=== PATIENT | male | born 1955 | race African-American/Black ===

== ENCOUNTER 2017-07-24 19:09 | Inpatient (IN) | payer OTHER ==
[~2017-07-24] VITALS: Ht 182.9 cm; Wt 101.6 kg
[2017-07-24 19:37] VITALS: BP 135/76
--- NOTE | 2017-07-24 19:41 | Emergency Room Report ---
History of Present Illness General Chief Complaint: Abnormal Labs Source: Medical Record Present Illness HPI Patient presents from nursing facility with reports of anemia Patient himself is nonverbal Patient does have eyes open however not able to communicate Patient has a tracheostomy vent dependent It was reported to have significantly low hemoglobin Nursing facility reports general malaise no obvious blood in the stool No reports of vomiting patient does have a feeding tube in place History of present illness is significantly limited Allergies: Coded Allergies: No Known Allergies (Unverified , 07/24/17) Patient History Limited by: medical condition Past Medical History: see triage record Pertinent Family History: none Reviewed Nursing Documentation: PMH: Agreed; PSxH: Agreed Nursing Documentation-PMH Past Medical History: No History, Except For Hx Hypertension: Yes Hx Gastrointestinal Problems: Yes - G-tube, Dysphagia, GERD Hx Dialysis: No - [facility] Hx Cerebrovascular Accident: Yes - Intracerebral Hemorrhage, Cerebral edema, Coma Hx Seizures: Yes Review of Systems All Other Systems: limited - Other than the ones mentioned in the history of present illness all others are reviewed however they do stay limited due to the patient's mental status Physical Exam Vital Signs Date Time Temp Pulse Resp B/P (MAP) Pulse Ox O2 Delivery O2 Flow Rate FiO2 07/24/17 19:05 98.5 135 24 173/109 95 Trach Collar 6.0 98.4 Sp02 EP Interpretation: reviewed, normal General Appearance: no apparent distress Head: normocephalic, atraumatic Eyes: bilateral eye PERRL ENT: normal pharynx Neck: other - Tracheostomy in place no obvious crepitus Respiratory: lungs clear, normal breath sounds Cardiovascular #1: regular rate, rhythm, edema - Dependent edema Gastrointestinal: other - Patient's abdomen palpated was somewhat distended, patient did not grimace however the feeding tube is open to gravity to decompress Genitourinary: no CVA tenderness Musculoskeletal: other - Patient does not follow commands contracted in both lower extremities Neurologic: responsive - Responsive has eyes open however nonverbal, does not follow commands Skin: normal color, no rash Lymphatic: no adenopathy Medical Decision Making Diagnostic Impression: Primary Impression: Elevated troponin Additional Impressions: Anemia Leukocytosis ER Course Patient is a fairly complex patient with multiple differential to consideration including but not limited to cardiac cardiopulmonary and vascular emergencies Patient's hemoglobin here is 8.6 Patient not requiring acute emergency transfusion hour troponin and BNP are elevated Patient's white blood cell count is also elevated Patient has concerning findings and requires further inpatient care Labs Test 07/24/17 19:23 07/24/17 21:16 07/24/17 22:12 07/25/17 08:45 Prothrombin Time 11.4 SEC (9.30-11.50) Prothromb Time International Ratio 1.1 (0.9-1.1) Activated Partial Thromboplast Time 21 SEC (23-33) Sodium Level 137 MMOL/L (136-145) 137 MMOL/L (136-145) Potassium Level 3.8 MMOL/L (3.5-5.1) 3.7 MMOL/L (3.5-5.1) Chloride Level 98 MMOL/L (98-107) 98 MMOL/L (98-107) Carbon Dioxide Level 36 MMOL/L (21-32) 32 MMOL/L (21-32) Anion Gap 3 mmol/L (5-15) 7 mmol/L (5-15) Blood Urea Nitrogen 16 mg/dL (7-18) 13 mg/dL (7-18) Creatinine 0.7 MG/DL (0.55-1.30) 0.6 MG/DL (0.55-1.30) Estimat Glomerular Filtration Rate > 60 mL/min (>60) > 60 mL/min (>60) Glucose Level 141 MG/DL (74-106) 101 MG/DL (74-106) Calcium Level 9.0 MG/DL (8.5-10.1) 8.7 MG/DL (8.5-10.1) Total Bilirubin 0.3 MG/DL (0.2-1.0) Aspartate Amino Transf (AST/SGOT) 48 U/L (15-37) Alanine Aminotransferase (ALT/SGPT) 80 U/L (12-78) Alkaline Phosphatase 249 U/L (46-116) Total Creatine Kinase 45 U/L (26-308) Creatine Kinase MB < 0.5 NG/ML (0.0-3.6) Creatine Kinase MB Relative Index 1.1 Troponin I 0.068 ng/mL (0.000-0.056) 0.078 ng/mL (0.000-0.056) Pro-B-Type Natriuretic Peptide 1348 pg/mL (0-125) Total Protein 8.1 G/DL (6.4-8.2) Albumin 2.2 G/DL (3.4-5.0) Globulin 5.9 g/dL Albumin/Globulin Ratio 0.4 (1.0-2.7) White Blood Count 15.2 K/UL (4.8-10.8) 14.0 K/UL (4.8-10.8) Red Blood Count 3.26 M/UL (4.70-6.10) 3.36 M/UL (4.70-6.10) Hemoglobin 8.6 G/DL (14.2-18.0) 9.0 G/DL (14.2-18.0) Hematocrit 25.8 % (42.0-52.0) 26.7 % (42.0-52.0) Mean Corpuscular Volume 79 FL (80-99) 79 FL (80-99) Mean Corpuscular Hemoglobin 26.3 PG (27.0-31.0) 26.7 PG (27.0-31.0) Mean Corpuscular Hemoglobin Concent 33.2 G/DL (32.0-36.0) 33.6 G/DL (32.0-36.0) Red Cell Distribution Width 15.3 % (11.6-14.8) 14.9 % (11.6-14.8) Platelet Count 513 K/UL (150-450) 606 K/UL (150-450) Mean Platelet Volume 7.5 FL (6.5-10.1) 7.7 FL (6.5-10.1) Neutrophils (%) (Auto) 81.8 % (45.0-75.0) 83.5 % (45.0-75.0) Lymphocytes (%) (Auto) 6.3 % (20.0-45.0) 6.7 % (20.0-45.0) Monocytes (%) (Auto) 5.3 % (1.0-10.0) 6.2 % (1.0-10.0) Eosinophils (%) (Auto) 4.4 % (0.0-3.0) 2.8 % (0.0-3.0) Basophils (%) (Auto) 2.2 % (0.0-2.0) 0.8 % (0.0-2.0) Urine Color Yellow Urine Appearance Slightly cloudy Urine pH 7 (4.5-8.0) Urine Specific [place] 1.005 (1.005-1.035) Urine Protein 2+ (NEGATIVE) Urine Glucose (UA) Negative (NEGATIVE) Urine Ketones Negative (NEGATIVE) Urine Occult Blood 1+ (NEGATIVE) Urine Nitrite Negative (NEGATIVE) Urine Bilirubin Negative (NEGATIVE) Urine Urobilinogen 4 MG/DL (0.0-1.0) Urine Leukocyte Esterase 1+ (NEGATIVE) Urine RBC 2-4 /HPF (0 - 0) Urine WBC 0-2 /HPF (0 - 0) Urine Squamous Epithelial Cells None /LPF (NONE/OCC) Urine Bacteria Few /HPF (NONE) EKG Diagnostic Results Rate: normal Rhythm: NSR ST Segments: other - Nonspecific ST and T-wave changes Rhythm Strip Diag. Results EP Interpretation: yes Rate: 88 Rhythm: NSR, no PVC's, no ectopy Chest X-Ray Diagnostic Results Chest X-Ray Diagnostic Results : Chest X-Ray Ordered: Yes # of Views/Limited/Complete: 1 View Indication: Chest Pain EP Interpretation: Yes Interpretation: no pneumothorax, other - Cardiomegaly pulmonary congestion bilateral flaring Impression: Other - CHF Last Vital Signs Date Time Temp Pulse Resp B/P (MAP) Pulse Ox O2 Delivery O2 Flow Rate FiO2 07/24/17 19:05 98.5 135 24 173/109 95 Trach Collar 6.0 98.4 Status: improved Disposition: ADMITTED INPATIENT Condition: Serious Jey Monroy DO Jul 24, 2017 19:41
[2017-07-24 20:20] LABS: ANION GAP 3 mmol/L (5-15); BLOOD UREA NITROGEN 16 mg/dL (7-18); CARBON DIOXIDE 36 MMOL/L (21-32); CHLORIDE 98 MMOL/L (98-107); CREATININE 0.7 MG/DL (0.55-1.30); POTASSIUM 3.8 MMOL/L (3.5-5.1); SODIUM 137 MMOL/L (136-145)
[2017-07-24 20:27] LABS: INR 1.1 (0.9-1.1)
[2017-07-24 20:39] LABS: ALANINE AMINOTRANSFERASE 80 U/L (12-78); ALBUMIN 2.2 G/DL (3.4-5.0); ALBUMIN/GLOBULIN RATIO 0.4 (1.0-2.7); ALKALINE PHOSPHATASE 249 U/L (46-116); ASPARTATE AMINO TRANSFERASE 48 U/L (15-37); BILIRUBIN,TOTAL 0.3 MG/DL (0.2-1.0); CKMB < 0.5 NG/ML (0.0-3.6); CREATINE KINASE 45 U/L (26-308)
[2017-07-24 21:27] VITALS: BP 136/74
[2017-07-24 21:41] LABS: BASOPHILS % (AUTO) 2.2 % (0.0-2.0); EOSINOPHILS % (AUTO) 4.4 % (0.0-3.0); HEMATOCRIT 25.8 % (42.0-52.0); HEMOGLOBIN 8.6 G/DL (14.2-18.0); LYMPHOCYTES % (AUTO) 6.3 % (20.0-45.0); MEAN CORPUSCULAR VOLUME 79 FL (80-99); MONOCYTES % (AUTO) 5.3 % (1.0-10.0); NEUTROPHILS % (AUTO) 81.8 % (45.0-75.0); PLATELET COUNT 513 K/UL (150-450); RED BLOOD COUNT 3.26 M/UL (4.70-6.10); RED CELL DISTRIBUTION WIDTH 15.3 % (11.6-14.8); WHITE BLOOD COUNT 15.2 K/UL (4.8-10.8)
[2017-07-24] MEDS ORDERED: cefTRIAXone 1 GM in NS 55 ML IVPB ONE (22:15)
[2017-07-24 22:42] LABS: APPEARANCE,URINE SLIGHTLY CLOUDY; BILIRUBIN, URINE NEGATIVE (NEGATIVE); GLUCOSE, URINE (UA) NEGATIVE (NEGATIVE); KETONES,URINE NEGATIVE (NEGATIVE); LEUKOCYTE ESTERASE ,URINE 1+ (NEGATIVE); NITRITE,URINE NEGATIVE (NEGATIVE); PH,URINE 7 (4.5-8.0); PROTEIN,URINE 2+ (NEGATIVE); UROBILINOGEN,URINE 4 MG/DL (0.0-1.0)
[2017-07-24 22:44] LABS: COLOR,URINE YELLOW
[2017-07-24 22:49] VITALS: BP 151/72
[2017-07-24] MEDS ORDERED: MINOXIDIL10 MG GT (23:03)
[2017-07-24] MEDS ORDERED: DULCOLAX10 MG RC (23:03)
[2017-07-24] MEDS ORDERED: ZOFRAN4 M3 GT (23:03)
[2017-07-24] MEDS ORDERED: BACLOFEN10 MG GT (23:03)
[2017-07-24] MEDS ORDERED: MULTI-DELYN237 ML GT (23:03)
[2017-07-24] MEDS ORDERED: DULCOLAX STOOL100 M1 PO (23:03)
[2017-07-24] MEDS ORDERED: LEVETIRACE100 MG/1 M GT (23:03)
[2017-07-24] MEDS ORDERED: ZINC SULFATE220 M1 GT (23:03)
[2017-07-24] MEDS ORDERED: AMANTADINE50 MG/5 ML GT (23:03)
[2017-07-24] MEDS ORDERED: COLACE100 MG GT (23:03)
[2017-07-24] MEDS ORDERED: FLEET ENEMA133 ML RECTAL (23:03)
[2017-07-24] MEDS ORDERED: MILK OF MA400 MG/51 GT (23:03)
[2017-07-24] MEDS ORDERED: UTI-STAT L3875 MG/31 GT (23:03)
[2017-07-24] MEDS ORDERED: LEVOTHYROXINE50 MCG GT (23:03)
[2017-07-24] MEDS ORDERED: LOVENOX10 M4 SUBQ (23:03)
[2017-07-24] MEDS ORDERED: VITAMIN C500 MG/11 GT (23:03)
[2017-07-24] MEDS ORDERED: PROPRANOLOL HCL40 MG GT (23:03)
[2017-07-24] MEDS ORDERED: CHLORHEXIDINE473 ML MM (23:03)
[2017-07-24] MEDS ORDERED: FERROUS SU325 MG/5 M GT (23:03)
[2017-07-24] MEDS ORDERED: PROTONIX40 M2 GT (23:03)
[2017-07-24] MEDS ORDERED: ACETAMINOP160 MG/5 M ORAL (23:03)
[2017-07-24] MEDS ORDERED: AMLODIPINE BESY10 MG GT (23:03)
[2017-07-24] MEDS ORDERED: UTI-STAT L3875 MG/31 PO (23:03)
[2017-07-24] MEDS ORDERED: FLUDROCORTISON0.1 MG GT (23:03)
[2017-07-24 23:55] VITALS: BP 146/87
[2017-07-25 04:00] VITALS: BP 135/55
[2017-07-25] MEDS ORDERED: Docusate 100mg cap ORAL PRN (07:00)
[2017-07-25] MEDS ORDERED: Acetaminophen Soln 160mg/5ml ORAL PRN (07:00)
[2017-07-25] MEDS ORDERED: Milk of Magnesia 30ml Ud GT PRN ×2 (07:00→21:00)
[2017-07-25] MEDS ORDERED: Fleet's Enema 133ml RECTAL PRN (07:00)
[2017-07-25 08:00] VITALS: BP 150/79
[2017-07-25] MEDS ORDERED: Vancomycin 1.5 GM/D5W 250ML IVPB ONE (08:00)
--- NOTE | 2017-07-25 08:04 | History & Physical ---
History and Physical History & Physicial Patient presents from nursing facility with significant anemia No reports of vomiting of blood or rectal bleeding; patient does have a feeding tube in place SNF notes reviewed Allergies: No Known Allergies (Unverified , 07/24/17) Past Medical History: GT trach dysphagia, CVA, renal insuff, ICH, coma, seizure , hypertension Pertinent Family History: none Reviewed of systems: unable Physical WDWN NAD clear breath sounds bilaterally without rhonchi or wheeze [id number] without MRG NABS nontender no HSM no CCE trach and gt nonverbal Laboratory Tests Test 07/24/17 19:23 07/24/17 21:16 07/24/17 22:12 Prothrombin Time 11.4 SEC (9.30-11.50) Prothromb Time International Ratio 1.1 (0.9-1.1) Activated Partial Thromboplast Time 21 SEC (23-33) L Sodium Level 137 MMOL/L (136-145) Potassium Level 3.8 MMOL/L (3.5-5.1) Chloride Level 98 MMOL/L (98-107) Carbon Dioxide Level 36 MMOL/L (21-32) H Anion Gap 3 mmol/L (5-15) L Blood Urea Nitrogen 16 mg/dL (7-18) Creatinine 0.7 MG/DL (0.55-1.30) Estimat Glomerular Filtration Rate > 60 mL/min (>60) Glucose Level 141 MG/DL (74-106) H Calcium Level 9.0 MG/DL (8.5-10.1) Total Bilirubin 0.3 MG/DL (0.2-1.0) Aspartate Amino Transf (AST/SGOT) 48 U/L (15-37) H Alanine Aminotransferase (ALT/SGPT) 80 U/L (12-78) H Alkaline Phosphatase 249 U/L (46-116) H Total Creatine Kinase 45 U/L (26-308) Creatine Kinase MB < 0.5 NG/ML (0.0-3.6) Creatine Kinase MB Relative Index 1.1 Troponin I 0.068 ng/mL (0.000-0.056) Pro-B-Type Natriuretic Peptide 1348 pg/mL (0-125) H Total Protein 8.1 G/DL (6.4-8.2) Albumin 2.2 G/DL (3.4-5.0) L Globulin 5.9 g/dL Albumin/Globulin Ratio 0.4 (1.0-2.7) L White Blood Count 15.2 K/UL (4.8-10.8) H Red Blood Count 3.26 M/UL (4.70-6.10) L Hemoglobin 8.6 G/DL (14.2-18.0) L Hematocrit 25.8 % (42.0-52.0) L Mean Corpuscular Volume 79 FL (80-99) L Mean Corpuscular Hemoglobin 26.3 PG (27.0-31.0) L Mean Corpuscular Hemoglobin Concent 33.2 G/DL (32.0-36.0) Red Cell Distribution Width 15.3 % (11.6-14.8) H Platelet Count 513 K/UL (150-450) H Mean Platelet Volume 7.5 FL (6.5-10.1) Neutrophils (%) (Auto) 81.8 % (45.0-75.0) H Lymphocytes (%) (Auto) 6.3 % (20.0-45.0) L Monocytes (%) (Auto) 5.3 % (1.0-10.0) Eosinophils (%) (Auto) 4.4 % (0.0-3.0) H Basophils (%) (Auto) 2.2 % (0.0-2.0) H Urine Color Yellow Urine Appearance Slightly cloudy Urine pH 7 (4.5-8.0) Urine Specific [place] 1.005 (1.005-1.035) Urine Protein 2+ (NEGATIVE) H Urine Glucose (UA) Negative (NEGATIVE) Urine Ketones Negative (NEGATIVE) Urine Occult Blood 1+ (NEGATIVE) H Urine Nitrite Negative (NEGATIVE) Urine Bilirubin Negative (NEGATIVE) Urine Urobilinogen 4 MG/DL (0.0-1.0) H Urine Leukocyte Esterase 1+ (NEGATIVE) H Urine RBC 2-4 /HPF (0 - 0) H Urine WBC 0-2 /HPF (0 - 0) Urine Squamous Epithelial Cells None /LPF (NONE/OCC) Urine Bacteria Few /HPF (NONE) IMPRESSION Leukocytosis anemia possible sepsis possible gib trach gt PLAN monitor HH IV antibiotics resume meds respiratory care feeds dc once stable impression, plan, and exam edited and reviewed in detail care discussed with MARY SCHAFFER Jul 25, 2017 08:04
--- NOTE | 2017-07-25 09:06 | Diagnostic Imaging Report ---
Indication: Chest pain Technique: One view of the chest Comparison: none Findings: The heart is enlarged. There is bilateral interstitial and airspace edema. There is a left-sided pleural effusion. There is a tracheostomy. There is left sided ventriculoperitoneal shunt tubing present Impression: Cardiomegaly. Bilateral interstitial and airspace disease, probably on the basis of pulmonary edema Left pleural effusion
[2017-07-25] MEDS: Docusate 100mg/10ml Liq GT SCH (09:22)
[2017-07-25] MEDS: Zinc Sulfate 220mg cap GT SCH (09:22)
[2017-07-25] MEDS: levETIRAcetam 500mg/5ml Liquid GT SCH ×2 (09:22→21:11)
[2017-07-25] MEDS: Ferrous Sulfate 300 MG/5 ML UDC GT SCH (09:22)
[2017-07-25 09:25] LABS: BASOPHILS % (AUTO) 0.8 % (0.0-2.0); EOSINOPHILS % (AUTO) 2.8 % (0.0-3.0); HEMATOCRIT 26.7 % (42.0-52.0); LYMPHOCYTES % (AUTO) 6.7 % (20.0-45.0); MEAN CORPUSCULAR VOLUME 79 FL (80-99); MONOCYTES % (AUTO) 6.2 % (1.0-10.0); NEUTROPHILS % (AUTO) 83.5 % (45.0-75.0); PLATELET COUNT 606 K/UL (150-450); RED BLOOD COUNT 3.36 M/UL (4.70-6.10); RED CELL DISTRIBUTION WIDTH 14.9 % (11.6-14.8)
[2017-07-25 09:41] LABS: ANION GAP 7 mmol/L (5-15); BLOOD UREA NITROGEN 13 mg/dL (7-18); CALCIUM 8.7 MG/DL (8.5-10.1); CARBON DIOXIDE 32 MMOL/L (21-32); CHLORIDE 98 MMOL/L (98-107); CREATININE 0.6 MG/DL (0.55-1.30); POTASSIUM 3.7 MMOL/L (3.5-5.1); SODIUM 137 MMOL/L (136-145)
[2017-07-25] MEDS: Propranolol 40mg tab GT SCH ×3 (10:21→21:12)
[2017-07-25] MEDS: Minoxidil 10mg tab GT SCH ×2 (10:21→18:47)
[2017-07-25] MEDS: Enoxaparin 40mg Inj SUBQ SCH (10:23)
--- NOTE | 2017-07-25 10:44 | Diagnostic Imaging Report ---
Indication: Dyspnea Technique: One view of the chest Comparison: 07/24/2017 Findings: Bilateral interstitial and airspace opacities appear definitely improved on the right, probably unchanged on the left. Left-sided pleural effusion persists. Tracheostomy, ventriculoperitoneal shunt tubing again demonstrated Impression: Bilateral interstitial and airspace opacities, likely pulmonary edema, improved on the right and stable on the left, over one day Stable left pleural effusion
[2017-07-25 12:00] VITALS: BP 135/82
[2017-07-25] MEDS: Piperacillin/Tazobactam 3.375 GM in D5W 110 ML IVPB SCH ×2 (12:24→21:11)
--- NOTE | 2017-07-25 13:42 | Cardiology Report ---
APPROVED REPORT EKG Measurement Heart [id number] Normal sinus rhythm Possible Left atrial enlargement Left ventricular hypertrophy Abnormal ECG
[2017-07-25 16:00] VITALS: BP 126/65
[2017-07-25] MEDS: Vancomycin 750mg/NS 250ml IVPB SCH (16:07)
[2017-07-25 20:00] VITALS: BP 161/85
[2017-07-25] MEDS ORDERED: Zolpidem 5mg tab GT PRN (21:00)
[2017-07-25] MEDS ORDERED: Tubing IV Secondary IV ONE (22:53)
[2017-07-26] VITALS: BP 150/84
[2017-07-26] MEDS: Vancomycin 750mg/NS 250ml IVPB SCH ×3 (00:52→17:18)
[2017-07-26 04:00] VITALS: BP 156/82
[2017-07-26] MEDS: Propranolol 40mg tab GT SCH ×3 (07:01→22:00)
[2017-07-26] MEDS: Piperacillin/Tazobactam 3.375 GM in D5W 110 ML IVPB SCH ×3 (07:02→22:01)
[2017-07-26 08:00] VITALS: BP 143/84
--- NOTE | 2017-07-26 08:06 | General Progress Note ---
Assessment/Plan Assessment/Plan IMPRESSION Leukocytosis anemia possible sepsis possible gib trach gt PLAN monitor HH IV antibiotics resume meds respiratory care feeds dc fluids conservative management impression, plan, and exam edited and reviewed in detail care discussed with RN Subjective Allergies: Coded Allergies: No Known Allergies (Unverified , 07/24/17) Subjective minimally elevated troponin stable no hemodynamic abnormalities Objective Last 24 Hour Vital Signs Date Time Temp Pulse Resp B/P (MAP) Pulse Ox O2 Delivery O2 Flow Rate FiO2 07/26/17 07:01 114 156/82 07/26/17 04:00 98.6 115 24 156/82 95 Trach Collar 5.0 35 98.6 115 115 07/26/17 04:00 114 07/26/17 04:00 5.0 35 07/26/17 01:17 T-piece 10.0 35 07/26/17 01:17 96 T-piece 10.0 35 07/26/17 00:00 111 07/26/17 00:00 100.4 110 22 150/84 94 Trach Collar 5.0 35 100.4 110 110 07/26/17 00:00 5.0 35 07/25/17 21:29 97 T-piece 10.0 35 07/25/17 21:12 121 161/85 07/25/17 20:00 113 07/25/17 20:00 99.9 121 23 161/85 94 Trach Collar 5.0 35 99.9 121 121 07/25/17 20:00 5.0 35 07/25/17 19:00 97 22 T-piece 10.0 35 07/25/17 19:00 T-piece 10.0 35 07/25/17 18:47 126/65 07/25/17 16:00 5.0 35 07/25/17 16:00 115 07/25/17 16:00 97.2 106 19 126/65 95 Trach Collar 5.0 35 97.2 93 104 07/25/17 14:43 113 135/82 07/25/17 13:10 T-piece 10.0 35 07/25/17 13:09 113 22 T-piece 10.0 35 07/25/17 12:00 5.0 35 07/25/17 12:00 110 07/25/17 12:00 98.4 106 20 135/82 96 Trach Collar 5.0 35 98.4 93 104 07/25/17 10:21 123 150/79 07/25/17 10:21 150/79 07/25/17 09:23 123 150/79 Intake and Output 07/25/17 07/26/17 19:00 07:00 Intake Total 1497.334 ml 909.96 ml Output Total 425 ml 450 ml Balance 1072.334 ml 459.96 ml Intake Free Water 100 ml IV Total 1297.334 ml 449.96 ml Tube Feeding 150 ml 360 ml Other 50 ml Output Urine Total 425 ml 450 ml Laboratory Tests 07/25/17 08:45: White Blood Count 14.0H, Red Blood Count 3.36L, Hemoglobin 9.0L, Hematocrit 26.7L, Mean Corpuscular Volume 79L, Mean Corpuscular Hemoglobin 26.7L, Mean Corpuscular Hemoglobin Concent 33.6, Red Cell Distribution Width 14.9H, Platelet Count 606H, Mean Platelet Volume 7.7, Neutrophils (%) (Auto) 83.5H, Lymphocytes (%) (Auto) 6.7L, Monocytes (%) (Auto) 6.2, Eosinophils (%) (Auto) 2.8, Basophils (%) (Auto) 0.8, Sodium Level 137, Potassium Level 3.7, Chloride Level 98, Carbon Dioxide Level 32, Anion Gap 7, Blood Urea Nitrogen 13, Creatinine 0.6, Estimat Glomerular Filtration Rate > 60, Glucose Level 101, Calcium Level 8.7, Troponin I 0.078H 07/26/17 07:25: Vancomycin Level Trough 14.5H Height (Feet): 5 Height (Inches): 10.00 Weight (Pounds): 193 Objective WDWN trach reduced breath sounds bilaterally without rhonchi or wheeze [id number] without MRG NABS nontender no HSM; GT no CC minimal edema weak MARY WILEY Jul 26, 2017 08:06
[2017-07-26 09:57] LABS: HEMATOCRIT 25.6 % (42.0-52.0); HEMOGLOBIN 8.4 G/DL (14.2-18.0); MEAN CORPUSCULAR VOLUME 79 FL (80-99); PLATELET COUNT 668 K/UL (150-450); RED BLOOD COUNT 3.23 M/UL (4.70-6.10); RED CELL DISTRIBUTION WIDTH 15.2 % (11.6-14.8); WHITE BLOOD COUNT 17.3 K/UL (4.8-10.8)
[2017-07-26] MEDS: Docusate 100mg/10ml Liq GT SCH (09:59)
[2017-07-26] MEDS: levETIRAcetam 500mg/5ml Liquid GT SCH ×2 (09:59→20:33)
[2017-07-26] MEDS: Ferrous Sulfate 300 MG/5 ML UDC GT SCH (09:59)
[2017-07-26] MEDS: Enoxaparin 40mg Inj SUBQ SCH (10:00)
[2017-07-26 10:02] LABS: ANION GAP 8 mmol/L (5-15); BLOOD UREA NITROGEN 14 mg/dL (7-18); CALCIUM 8.6 MG/DL (8.5-10.1); CARBON DIOXIDE 31 MMOL/L (21-32); CHLORIDE 100 MMOL/L (98-107); CREATININE 0.8 MG/DL (0.55-1.30); POTASSIUM 3.5 MMOL/L (3.5-5.1); SODIUM 139 MMOL/L (136-145)
[2017-07-26] MEDS: Zinc Sulfate 220mg cap GT SCH (10:02)
[2017-07-26] MEDS: Minoxidil 10mg tab GT SCH ×2 (10:02→17:20)
[2017-07-26 12:00] VITALS: BP 142/80
[2017-07-26 16:00] VITALS: BP 130/71
[2017-07-26] MEDS ORDERED: NS 275ml ONE (16:32)
[2017-07-26] MEDS: Acetaminophen 650mg/20.3ml GT PRN (17:17)
[2017-07-26 20:00] VITALS: BP 136/75
[2017-07-27] VITALS: BP 140/76
[2017-07-27] MEDS: Vancomycin 750mg/NS 250ml IVPB SCH ×4 (00:04→23:22)
[2017-07-27] MEDS: Albuterol/Ipratropium 3ml neb HHN SCH ×6 (03:19→23:17)
[2017-07-27 04:00] VITALS: BP 132/76
[2017-07-27 04:50] LABS: HEMATOCRIT 23.5 % (42.0-52.0); HEMOGLOBIN 7.8 G/DL (14.2-18.0); MEAN CORPUSCULAR VOLUME 78 FL (80-99); PLATELET COUNT 606 K/UL (150-450); RED BLOOD COUNT 3.01 M/UL (4.70-6.10); RED CELL DISTRIBUTION WIDTH 15.2 % (11.6-14.8); WHITE BLOOD COUNT 17.4 K/UL (4.8-10.8)
[2017-07-27 05:19] LABS: ANION GAP 10 mmol/L (5-15); BLOOD UREA NITROGEN 17 mg/dL (7-18); CALCIUM 8.8 MG/DL (8.5-10.1); CARBON DIOXIDE 28 MMOL/L (21-32); CHLORIDE 101 MMOL/L (98-107); CREATININE 0.9 MG/DL (0.55-1.30); POTASSIUM 3.4 MMOL/L (3.5-5.1); SODIUM 139 MMOL/L (136-145)
[2017-07-27] MEDS: Piperacillin/Tazobactam 3.375 GM in D5W 110 ML IVPB SCH ×4 (05:21→23:22)
[2017-07-27] MEDS: Propranolol 40mg tab GT SCH ×3 (05:22→21:11)
--- NOTE | 2017-07-27 07:11 | General Progress Note ---
Assessment/Plan Assessment/Plan IMPRESSION Leukocytosis anemia possible sepsis possible gib trach gt PLAN transfuse ID evaluation IV antibiotics resume meds respiratory care feeds replace K follow up labs conservative management impression, plan, and exam edited and reviewed in detail care discussed with RN Subjective Allergies: Coded Allergies: No Known Allergies (Unverified , 07/24/17) Subjective labs noted stable no hemodynamic abnormalities Objective Last 24 Hour Vital Signs Date Time Temp Pulse Resp B/P (MAP) Pulse Ox O2 Delivery O2 Flow Rate FiO2 07/27/17 06:49 T-piece 10.0 35 07/27/17 06:49 96 T-piece 10.0 35 07/27/17 06:46 62 24 96 T-piece 10.0 35 07/27/17 05:22 105 136/72 07/27/17 04:00 109 07/27/17 04:00 98.2 110 23 132/76 96 Trach Collar 5.0 35 98.2 07/27/17 04:00 5.0 35 07/27/17 03:30 109 22 97 T-piece 10.0 35 07/27/17 03:18 109 24 95 T-piece 10.0 35 07/27/17 00:01 97 T-piece 10.0 35 07/27/17 00:01 T-piece 10.0 35 07/27/17 00:00 95 07/27/17 00:00 5.0 35 07/27/17 00:00 98.4 98 23 140/76 97 Trach Collar 5.0 35 98.4 07/26/17 22:00 77 119/77 07/26/17 20:00 109 07/26/17 20:00 100.0 107 23 136/75 97 Trach Collar 5.0 35 100.0 07/26/17 20:00 5.0 35 07/26/17 19:06 T-piece 10.0 35 07/26/17 19:05 95 T-piece 10.0 35 07/26/17 17:47 98.2 07/26/17 17:20 130/71 07/26/17 17:17 99.2 07/26/17 16:00 98.7 109 20 130/71 95 Trach Collar 5.0 35 98.7 07/26/17 16:00 109 07/26/17 16:00 5.0 35 07/26/17 13:20 114 142/80 4/25/18 13:07 T-piece 10.0 35 07/26/17 13:06 96 T-piece 10.0 35 07/26/17 12:00 99.3 115 19 142/80 95 Trach Collar 5.0 35 99.3 07/26/17 12:00 5.0 35 07/26/17 12:00 114 07/26/17 10:02 143/84 07/26/17 10:01 107 143/84 07/26/17 09:28 T-piece 10.0 35 07/26/17 09:28 92 T-piece 10.0 35 07/26/17 08:00 98.7 107 19 143/84 99 Trach Collar 5.0 35 98.7 07/26/17 08:00 5.0 35 07/26/17 08:00 109 Intake and Output 07/26/17 07/27/17 19:00 07:00 Intake Total 1550.418 ml 1093.2 ml Output Total 525 ml Balance 1025.418 ml 1093.2 ml Intake Free Water 100 ml 50 ml IV Total 1000.418 ml 443.2 ml Tube Feeding 450 ml 600 ml Output Urine Total 525 ml Laboratory Tests 07/26/17 07:25: White Blood Count 17.3H, Red Blood Count 3.23L, Hemoglobin 8.4L, Hematocrit 25.6L, Mean Corpuscular Volume 79L, Mean Corpuscular Hemoglobin 26.0L, Mean Corpuscular Hemoglobin Concent 32.9, Red Cell Distribution Width 15.2H, Platelet Count 668H, Mean Platelet Volume 6.9, Neutrophils (%) (Auto) , Lymphocytes (%) (Auto) , Monocytes (%) (Auto) , Eosinophils (%) (Auto) , Basophils (%) (Auto) , Differential Total Cells Counted 100, Neutrophils % ( Manual) 84H, Lymphocytes % (Manual) 6L, Monocytes % (Manual) 8, Eosinophils % ( Manual) 2, Basophils % (Manual) 0, Band Neutrophils 0, Platelet Estimate IncreasedH, Platelet Morphology Normal, Hypochromasia 1+, Anisocytosis 1+, Microcytosis 1+, Stomatocytes Occasional, Sodium Level 139, Potassium Level 3.5 , Chloride Level 100, Carbon Dioxide Level 31, Anion Gap 8, Blood Urea Nitrogen 14, Creatinine 0.8, Estimat Glomerular Filtration Rate > 60, Glucose Level 145H , Calcium Level 8.6, Vancomycin Level Trough 14.5H 07/26/17 21:13: Arterial Blood pH 7.480H, Arterial Blood Partial Pressure CO2 43.4, Arterial Blood Partial Pressure O2 75.8, Arterial Blood HCO3 31.8H, Arterial Blood Oxygen Saturation 93.9, Arterial Blood Base Excess 7.6, Aleks Test Positive 07/27/17 04:05: White Blood Count 17.4H, Red Blood Count 3.01L, Hemoglobin 7.8L, Hematocrit 23.5L, Mean Corpuscular Volume 78L, Mean Corpuscular Hemoglobin 25.7L, Mean Corpuscular Hemoglobin Concent 33.0, Red Cell Distribution Width 15.2H, Platelet Count 606H, Mean Platelet Volume 7.1, Neutrophils (%) (Auto) , Lymphocytes (%) (Auto) , Monocytes (%) (Auto) , Eosinophils (%) (Auto) , Basophils (%) (Auto) , Neutrophils % (Manual) [Pending], Lymphocytes % (Manual) [Pending], Platelet Estimate [Pending], Platelet Morphology [Pending], Sodium Level 139, Potassium Level 3.4L, Chloride Level 101, Carbon Dioxide Level 28, Anion Gap 10, Blood Urea Nitrogen 17, Creatinine 0.9, Estimat Glomerular Filtration Rate > 60, Glucose Level 177H, Calcium Level 8.8, Troponin I 0.058H Height (Feet): 5 Height (Inches): 10.00 Weight (Pounds): 218 Objective WDWN trach reduced breath sounds bilaterally without rhonchi or wheeze [id number] without MRG NABS nontender no HSM; GT no CC minimal edema weak MARY WILEY Jul 27, 2017 07:11
[2017-07-27 08:00] VITALS: BP 140/99
[2017-07-27] MEDS: Docusate 100mg/10ml Liq GT SCH (09:20)
[2017-07-27] MEDS: Ferrous Sulfate 300 MG/5 ML UDC GT SCH (09:20)
[2017-07-27] MEDS: Minoxidil 10mg tab GT SCH ×2 (09:20→18:24)
[2017-07-27] MEDS: Enoxaparin 40mg Inj SUBQ SCH (09:21)
[2017-07-27] MEDS: Zinc Sulfate 220mg cap GT SCH (09:22)
[2017-07-27] MEDS: levETIRAcetam 500mg/5ml Liquid GT SCH ×2 (09:22→21:11)
[2017-07-27] MEDS: Acetaminophen 650mg/20.3ml GT PRN (11:41)
[2017-07-27 12:00] VITALS: BP 141/70
--- NOTE | 2017-07-27 14:46 | Diagnostic Imaging Report ---
Indication: Dyspnea Technique: One view of the chest Comparison: 07/25/2017 Findings: There is a tracheostomy. There is left-sided ventriculoperitoneal shunt tubing again demonstrated. Hazy left lung opacity persists, likely secondary to a left-sided pleural effusion, unchanged. Mild interstitial congestive changes persist, stable. The heart remains borderline enlarged. Impression: Unchanged, over one day, findings as above.
[2017-07-27 16:00] VITALS: BP 131/74
--- NOTE | 2017-07-27 17:45 | Consultation ---
DATE OF CONSULTATION: 07/27/2017 INFECTIOUS DISEASES CONSULTATION CONSULTING PHYSICIAN: Maikel Camargo M.D. REFERRING PHYSICIAN: Michael Vernon M.D. REASON FOR CONSULTATION: Leukocytosis. HISTORY OF PRESENTING ILLNESS: This is a 62-year-old gentleman with history of CVA, intracranial hypertension, seizures, and status post tracheostomy, who comes in with anemia. He was found to have a leukocytosis and an Infectious Diseases consultation has been obtained for antibiotics. PAST MEDICAL HISTORY: 1. History of CVA. 2. Intracranial hypertension. 3. Seizures. 4. Hypertension. 5. Renal failure. 6. Respiratory failure, status post tracheostomy, on a T-tube currently. 7. Dysphagia status post G-tube placement. MEDICATIONS: As an inpatient, the patient is on albuterol, Ambien, milk of magnesia, intravenous vancomycin, Zosyn, amlodipine, baclofen, docusate, enoxaparin, ferrous sulfate, fludrocortisone, Keppra, Synthroid, minoxidil, propranolol, zinc sulfate, Tylenol, Dulcolax, Colace, milk of magnesia, and Zofran. ALLERGIES: No known drug allergies. SOCIAL HISTORY: Unknown. FAMILY HISTORY: Unknown. REVIEW OF SYSTEMS: Unable to obtain currently. PHYSICAL EXAMINATION: VITAL SIGNS: Temperature of 99.3, T-max of 100.4, pulse of 103, respiratory rate of 22, blood pressure 140/99, and O2 saturation of 98%. HEENT: Pupils equally reactive to light and accommodation. Mouth appears clean with no thrush. NECK: Supple. No adenopathy. No JVD. Tracheostomy site appears clean. CARDIOVASCULAR: Regular rate and rhythm. No murmurs. LUNGS: Wheezing and crackles noted bilaterally. ABDOMEN: Soft and nontender. No organomegaly. G-tube site appears clean. EXTREMITIES: No cyanosis. No clubbing. Edema noted bilaterally. LABORATORY AND DIAGNOSTIC DATA: White count 17.4, hemoglobin 7.8, hematocrit 23.5, MCV 78, platelet count of 606,000, and neutrophils of 88%. Sodium 139, potassium 3.4, chloride 101, bicarb 28, BUN 17, creatinine 0.9, glucose 177, and calcium 8.8. Troponin 0.058. Total bilirubin 0.3. AST 48, ALT 80, and alkaline phosphatase 249. CK of 45 and CK-MB less than 0.5. Total protein 8.1. Albumin 2.2. UA is showing 0 to 2 white cells. Wound culture from the sacrum is growing gram-negative rods. Nasal swab was negative for MRSA. Chest x-ray is showing bilateral interstitial and airspace opacities, likely pulmonary edema, which is improved and stable left-sided pleural effusion noted. On 07/24/2017, chest x-ray is showing bilateral interstitial and airspace disease probably pulmonary edema and left-sided pleural effusion noted. ASSESSMENT: This is a 62-year-old gentleman with history of cerebrovascular accident and seizures, who comes in with leukocytosis and could possibly, 1. Have an aspiration pneumonia. 2. We would like to rule out gastrointestinal bleeding as a possibility. 3. Anemia. 4. Respiratory failure, status post tracheostomy. Currently, on gastrostomy tube. PLAN: 1. Continue vancomycin and Zosyn for now. 2. We will order urine cultures and sputum cultures. 3. We will follow up cultures and adjust antibiotics accordingly. 4. Continue vancomycin and Zosyn. I would like to thank, Dr. Vernon for this consultation. Maikel Camargo M.D. DR: VIDAL JOB#: [id number] CC: Michael Vernon M.D.; Fax#: [phone]
[2017-07-27 20:00] VITALS: BP 134/75
--- NOTE | 2017-07-27 23:47 | Wound Care Consultation ---
Wound Assessment Wound Assessment : Wound Present on Admission: Yes New Wound: No Status Change of Wound: No Wound Location Body Site Modif: left Wound Location Body Site: sacral Wound Type: pressure ulcer Mel Test: Does not Mel Pressure Ulcer Stage: III Wound Thickness: Full Thickness Wound Length: 2.5 Wound Width: 3.0 Wound Depth: utd Percent of Wound [place]/Red: 20 Percent of Wound Bed Yellow/Wh: 80 Wound Drainage Description: Serosanguineous Wound Drainage Amount: Scant Wound Drainage Odor: None/Absent Tissue Surrounding Wound: Indurated Wound General Appearance: Reddened, Draining Wound Comment #1 Left sacral area stage III pressure ulcer Recommendation -Keep clean and dry -Local wound care per protocol -Low air loss mattress -Optimize nutrition -Assess and f/u accordingly for any changes MARLINE MCINTOSH RN Jul 27, 2017 23:47
[2017-07-28] VITALS: BP 144/84
[2017-07-28 04:00] VITALS: BP 138/82
[2017-07-28] MEDS: Albuterol/Ipratropium 3ml neb HHN SCH ×5 (04:06→20:49)
[2017-07-28] MEDS: Piperacillin/Tazobactam 3.375 GM in D5W 110 ML IVPB SCH ×3 (05:25→22:57)
[2017-07-28] MEDS: Propranolol 40mg tab GT SCH ×3 (05:25→22:57)
[2017-07-28 05:58] LABS: ANION GAP 9 mmol/L (5-15); BLOOD UREA NITROGEN 21 mg/dL (7-18); CALCIUM 8.5 MG/DL (8.5-10.1); CARBON DIOXIDE 28 MMOL/L (21-32); CHLORIDE 102 MMOL/L (98-107); CREATININE 0.9 MG/DL (0.55-1.30); POTASSIUM 3.7 MMOL/L (3.5-5.1); SODIUM 139 MMOL/L (136-145)
[2017-07-28 06:20] LABS: HEMATOCRIT 28.6 % (42.0-52.0); HEMOGLOBIN 9.7 G/DL (14.2-18.0); MEAN CORPUSCULAR VOLUME 80 FL (80-99); PLATELET COUNT 621 K/UL (150-450); RED BLOOD COUNT 3.56 M/UL (4.70-6.10); RED CELL DISTRIBUTION WIDTH 14.7 % (11.6-14.8)
[2017-07-28 08:00] VITALS: BP 134/77
--- NOTE | 2017-07-28 08:04 | General Progress Note ---
Assessment/Plan Assessment/Plan IMPRESSION Leukocytosis anemia possible sepsis possible gib trach gt PLAN transfused ID evaluation noted IV antibiotics resume meds respiratory care feeds dc once wbc trending downward conservative management impression, plan, and exam edited and reviewed in detail care discussed with RN Subjective ROS Limited/Unobtainable: Yes Allergies: Coded Allergies: No Known Allergies (Unverified , 07/24/17) Subjective labs noted still with leukocytosis no hemodynamic abnormalities Objective Last 24 Hour Vital Signs Date Time Temp Pulse Resp B/P (MAP) Pulse Ox O2 Delivery O2 Flow Rate FiO2 07/28/17 07:35 102 22 96 T-piece 10.0 35 07/28/17 07:32 96 T-piece 10.0 35 07/28/17 07:32 T-piece 10.0 35 07/28/17 05:25 108 138/82 07/28/17 04:00 98.8 108 24 138/82 98 Trach Collar 5.0 40 98.8 07/28/17 04:00 112 20 98 T-piece 10.0 35 07/28/17 04:00 5.0 35 07/28/17 04:00 110 20 97 T-piece 10.0 35 07/28/17 03:37 109 07/28/17 01:53 T-piece 10.0 35 07/28/17 01:53 98 T-piece 10.0 35 07/28/17 00:00 98.1 105 24 144/84 93 Trach Collar 5.0 40 98.1 07/27/17 23:36 106 07/27/17 23:18 90 20 96 T-piece 10.0 35 07/27/17 23:18 94 20 98 T-piece 10.0 35 07/27/17 21:11 104 134/75 07/27/17 20:00 5.0 35 07/27/17 20:00 98.4 104 23 134/75 92 Trach Collar 5.0 40 98.4 07/27/17 19:48 T-piece 10.0 35 07/27/17 19:48 99 T-piece 10.0 35 07/27/17 19:47 99 20 99 T-piece 10.0 35 07/27/17 19:46 96 20 98 T-piece 10.0 35 07/27/17 19:15 101 07/27/17 18:24 126/73 07/27/17 16:00 98.4 94 24 131/74 94 Trach Collar 5.0 40 98.4 07/27/17 16:00 5.0 35 07/27/17 16:00 92 07/27/17 15:20 95 28 97 T-piece 10.0 35 07/27/17 15:10 95 28 96 T-piece 10.0 35 07/27/17 13:44 108 141/70 07/27/17 13:29 T-piece 10.0 35 07/27/17 13:29 98 T-piece 10.0 35 07/27/17 12:11 99.6 07/27/17 12:00 99.5 109 24 141/70 96 Trach Collar 5.0 40 99.5 07/27/17 12:00 108 07/27/17 12:00 5.0 35 07/27/17 11:41 100.5 07/27/17 10:46 107 28 98 T-piece 10.0 35 07/27/17 10:35 108 28 94 T-piece 10.0 35 07/27/17 09:22 103 140/99 07/27/17 09:20 140/99 Intake and Output 07/27/17 07/28/17 19:00 07:00 Intake Total 730 ml 1199.900 ml Output Total 400 ml 350 ml Balance 330 ml 849.900 ml Intake Free Water 20 ml 30 ml IV Total 404.900 ml Tube Feeding 660 ml 715 ml Other 50 ml 50 ml Output Urine Total 400 ml 350 ml # Voids 1 Laboratory Tests 07/28/17 04:15: White Blood Count 18.0H, Red Blood Count 3.56L, Hemoglobin 9.7L, Hematocrit 28.6L, Mean Corpuscular Volume 80, Mean Corpuscular Hemoglobin 27.1, Mean Corpuscular Hemoglobin Concent 33.7, Red Cell Distribution Width 14.7, Platelet Count 621H, Mean Platelet Volume 7.1, Neutrophils (%) (Auto) , Lymphocytes (%) ( Auto) , Monocytes (%) (Auto) , Eosinophils (%) (Auto) , Basophils (%) (Auto) , Neutrophils % (Manual) [Pending], Lymphocytes % (Manual) [Pending], Platelet Estimate [Pending], Platelet Morphology [Pending], Sodium Level 139, Potassium Level 3.7, Chloride Level 102, Carbon Dioxide Level 28, Anion Gap 9, Blood Urea Nitrogen 21H, Creatinine 0.9, Estimat Glomerular Filtration Rate > 60, Glucose Level 163H, Calcium Level 8.5 Height (Feet): 5 Height (Inches): 10.00 Weight (Pounds): 219 Objective WDWN trach reduced breath sounds bilaterally without rhonchi or wheeze [id number] without MRG NABS nontender no HSM; GT no CC minimal edema weak MARY WILEY Jul 28, 2017 08:04
[2017-07-28] MEDS: Vancomycin 750mg/NS 250ml IVPB SCH ×2 (08:44→18:20)
[2017-07-28] MEDS: Docusate 100mg/10ml Liq GT SCH (08:49)
[2017-07-28] MEDS: Ferrous Sulfate 300 MG/5 ML UDC GT SCH (08:49)
[2017-07-28] MEDS: Minoxidil 10mg tab GT SCH ×2 (08:50→18:21)
[2017-07-28] MEDS: levETIRAcetam 500mg/5ml Liquid GT SCH ×2 (08:51→20:43)
[2017-07-28] MEDS: Enoxaparin 40mg Inj SUBQ SCH (08:55)
[2017-07-28] MEDS: Zinc Sulfate 220mg cap GT SCH (08:55)
[2017-07-28] MEDS ORDERED: NS 275ml ONE (10:54)
[2017-07-28] MEDS ORDERED: Tubing Blood Filter IV ONE (10:54)
--- NOTE | 2017-07-28 11:56 | Infectious Diseases Prog Note ---
Assessment/Plan Assessment/Plan antibiotics : vancomycin iv, zosyn A 1. pneumonia 2. leucocytosis 3. respiratory failure 4. anemia 5. hypertension 6. seizures P 1. continue vancomycin iv, zosyn 2. sputum culture 3. will follow up cultures Subjective ROS Limited/Unobtainable: Yes Allergies: Coded Allergies: No Known Allergies (Unverified , 07/24/17) Objective Vital Signs Last 24 Hour Vital Signs Date Time Temp Pulse Resp B/P (MAP) Pulse Ox O2 Delivery O2 Flow Rate FiO2 07/28/17 08:50 134/77 07/28/17 08:50 103 134/77 07/28/17 08:00 102 07/28/17 08:00 5.0 35 07/28/17 08:00 97.5 103 16 134/77 100 Trach Collar 5.0 40 97.5 07/28/17 07:45 106 22 98 T-piece 10.0 35 07/28/17 07:35 102 22 96 T-piece 10.0 35 07/28/17 07:32 96 T-piece 10.0 35 07/28/17 07:32 T-piece 10.0 35 07/28/17 05:25 108 138/82 07/28/17 04:00 98.8 108 24 138/82 98 Trach Collar 5.0 40 98.8 07/28/17 04:00 112 20 98 T-piece 10.0 35 07/28/17 04:00 5.0 35 07/28/17 04:00 110 20 97 T-piece 10.0 35 07/28/17 03:37 109 07/28/17 01:53 T-piece 10.0 35 07/28/17 01:53 98 T-piece 10.0 35 07/28/17 00:00 98.1 105 24 144/84 93 Trach Collar 5.0 40 98.1 07/27/17 23:36 106 07/27/17 23:18 90 20 96 T-piece 10.0 35 07/27/17 23:18 94 20 98 T-piece 10.0 35 07/27/17 21:11 104 134/75 07/27/17 20:00 5.0 35 07/27/17 20:00 98.4 104 23 134/75 92 Trach Collar 5.0 40 98.4 07/27/17 19:48 T-piece 10.0 35 07/27/17 19:48 99 T-piece 10.0 35 07/27/17 19:47 99 20 99 T-piece 10.0 35 07/27/17 19:46 96 20 98 T-piece 10.0 35 07/27/17 19:15 101 07/27/17 18:24 126/73 07/27/17 16:00 98.4 94 24 131/74 94 Trach Collar 5.0 40 98.4 07/27/17 16:00 5.0 35 07/27/17 16:00 92 07/27/17 15:20 95 28 97 T-piece 10.0 35 07/27/17 15:10 95 28 96 T-piece 10.0 35 07/27/17 13:44 108 141/70 07/27/17 13:29 T-piece 10.0 35 07/27/17 13:29 98 T-piece 10.0 35 07/27/17 12:11 99.6 07/27/17 12:00 99.5 109 24 141/70 96 Trach Collar 5.0 40 99.5 07/27/17 12:00 108 07/27/17 12:00 5.0 35 Height (Feet): 5 Height (Inches): 10.00 Weight (Pounds): 219 HEENT: status post trach Respiratory/Chest: lungs clear Cardiovascular: normal rate, regular rhythm, no gallop/murmur Abdomen: soft, non tender, other - GT Extremities: other - + edema Microbiology Date/Time Source Procedure Growth Status 07/27/17 17:00 Urine,Clean Catch Urine Culture - Preliminary NO GROWTH Resulted Laboratory Tests Test 07/28/17 04:15 07/28/17 11:20 White Blood Count 18.0 K/UL (4.8-10.8) H Red Blood Count 3.56 M/UL (4.70-6.10) L Hemoglobin 9.7 G/DL (14.2-18.0) L Hematocrit 28.6 % (42.0-52.0) L Mean Corpuscular Volume 80 FL (80-99) Mean Corpuscular Hemoglobin 27.1 PG (27.0-31.0) Mean Corpuscular Hemoglobin Concent 33.7 G/DL (32.0-36.0) Red Cell Distribution Width 14.7 % (11.6-14.8) Platelet Count 621 K/UL (150-450) H Mean Platelet Volume 7.1 FL (6.5-10.1) Neutrophils (%) (Auto) % (45.0-75.0) Lymphocytes (%) (Auto) % (20.0-45.0) Monocytes (%) (Auto) % (1.0-10.0) Eosinophils (%) (Auto) % (0.0-3.0) Basophils (%) (Auto) % (0.0-2.0) Differential Total Cells Counted 100 Neutrophils % (Manual) 83 % (45-75) H Lymphocytes % (Manual) 6 % (20-45) L Monocytes % (Manual) 9 % (1-10) Eosinophils % (Manual) 2 % (0-3) Basophils % (Manual) 0 % (0-2) Band Neutrophils 0 % (0-8) Platelet Estimate Increased H Platelet Morphology Normal Hypochromasia 1+ Anisocytosis 1+ Sodium Level 139 MMOL/L (136-145) Potassium Level 3.7 MMOL/L (3.5-5.1) Chloride Level 102 MMOL/L (98-107) Carbon Dioxide Level 28 MMOL/L (21-32) Anion Gap 9 mmol/L (5-15) Blood Urea Nitrogen 21 mg/dL (7-18) H Creatinine 0.9 MG/DL (0.55-1.30) Estimat Glomerular Filtration Rate > 60 mL/min (>60) Glucose Level 163 MG/DL (74-106) H Calcium Level 8.5 MG/DL (8.5-10.1) Arterial Blood pH 7.510 (7.350-7.450) Arterial Blood Partial Pressure CO2 38.1 mmHg (35.0-45.0) Arterial Blood Partial Pressure O2 68.4 mmHg (75.0-100.0) L Arterial Blood HCO3 29.9 mmol/L (22.0-26.0) H Arterial Blood Oxygen Saturation 93.4 % (92.0-98.0) Arterial Blood Base Excess 6.4 Aleks Test Positive Current Medications Medications (Trade) Dose Ordered Sig/Trina Route PRN Reason Start Time Stop Time Status Last Admin Dose Admin Acetaminophen (Tylenol) 650 mg Q4H PRN GT Mild pain / T > 100.5F 07/25/17 07:00 08/24/17 06:59 07/27/17 11:41 Albuterol/ Ipratropium (Albuterol/ Ipratropium) 3 ml Q4HRT HHN 07/27/17 03:00 08/01/17 02:59 07/28/17 07:35 Amlodipine Besylate (Norvasc) 10 mg DAILY GT 07/25/17 09:00 08/24/17 08:59 07/28/17 08:50 Baclofen (Lioresal) 10 mg THREE TIMES A DAY GT 07/25/17 09:00 08/24/17 08:59 07/28/17 08:51 Bisacodyl (Dulcolax) 10 mg DAILYPRN PRN RECTAL CONSTIPATION 07/25/17 07:00 08/24/17 06:59 Docusate Sodium (Colace) 100 mg DAILY GT 07/25/17 09:00 08/24/17 08:59 07/28/17 08:49 Docusate Sodium (Colace) 100 mg DAILYPRN PRN ORAL Constipation 07/25/17 07:00 08/24/17 06:59 Enoxaparin Sodium (Lovenox) 40 mg DAILY SUBQ 07/25/17 09:00 08/24/17 08:59 07/28/17 08:55 Ferrous Sulfate (Feosol) 300 mg DAILY GT 07/25/17 09:00 08/24/17 08:59 07/28/17 08:49 Fludrocortisone Acetate (Florinef) 0.1 mg Q12HR GT 07/25/17 09:00 08/24/17 08:59 07/28/17 08:50 Levetiracetam (Keppra) 1,000 mg Q12HR GT 07/25/17 09:00 08/24/17 08:59 07/28/17 08:51 Levothyroxine Sodium (Synthroid) 50 mcg DAILY GT 07/25/17 09:00 08/24/17 08:59 07/28/17 08:50 Magnesium Hydroxide (Mom) 30 ml HSPRN PRN GT Constipation 07/25/17 21:00 08/24/17 20:59 Magnesium Hydroxide (Mom) 30 ml QHS PRN GT Constipation 07/25/17 07:00 08/24/17 06:59 Minoxidil (Loniten) 10 mg BID GT 07/25/17 09:00 08/24/17 08:59 07/28/17 08:50 Ondansetron HCl (Zofran) 4 mg Q8H PRN GT Nausea & Vomiting 07/25/17 07:00 08/24/17 06:59 Piperacillin Sod/ Tazobactam Sod 3.375 gm/Dextrose 110 ml @ 27.5 mls/hr Q8HR IVPB 07/25/17 10:00 08/01/17 09:59 07/28/17 05:25 Propranolol HCl (Inderal) 40 mg Q8HR GT 07/25/17 09:00 08/24/17 08:59 07/28/17 05:25 Sodium Phosphate (Fleet's Sodium Phosl Enema) 133 ml Q72H PRN RECTAL Constipation 07/25/17 07:00 08/24/17 06:59 Vancomycin HCl (Vanco rx to dose) 1 ea DAILY PRN MISC RX TO DOSE 07/25/17 08:00 08/24/17 07:59 Vancomycin/Sodium Chloride 250 ml @ 166.667 mls/hr Q8H IVPB 07/25/17 16:00 07/30/17 15:59 07/28/17 08:44 Zinc Sulfate (Zinc Sulfate) 220 mg DAILY GT 07/25/17 09:00 08/24/17 08:59 07/28/17 08:55 Zolpidem Tartrate (Ambien) 5 mg HSPRN PRN GT Insomnia 07/25/17 21:00 08/01/17 20:59 MOISÉS VILLARREAL Jul 28, 2017 11:56
[2017-07-28 12:00] VITALS: BP 125/73
[2017-07-28 16:00] VITALS: BP 140/76
[2017-07-28 20:00] VITALS: BP 140/94
[2017-07-29] VITALS: BP 152/95
[2017-07-29] MEDS: Albuterol/Ipratropium 3ml neb HHN SCH ×7 (01:13→23:02)
[2017-07-29] MEDS: Vancomycin 750mg/NS 250ml IVPB SCH ×2 (02:48→08:12)
[2017-07-29 04:00] VITALS: BP 112/68
[2017-07-29] MEDS: Piperacillin/Tazobactam 3.375 GM in D5W 110 ML IVPB SCH ×3 (06:07→22:59)
[2017-07-29] MEDS: Propranolol 40mg tab GT SCH ×3 (06:17→22:58)
[2017-07-29 08:00] VITALS: BP 112/67
[2017-07-29] MEDS: Minoxidil 10mg tab GT SCH ×2 (09:00→18:00)
[2017-07-29] MEDS: Ferrous Sulfate 300 MG/5 ML UDC GT SCH (09:03)
[2017-07-29] MEDS: levETIRAcetam 500mg/5ml Liquid GT SCH ×2 (09:04→22:58)
[2017-07-29] MEDS: Docusate 100mg/10ml Liq GT SCH (09:04)
[2017-07-29] MEDS: Zinc Sulfate 220mg cap GT SCH (09:04)
[2017-07-29] MEDS: Enoxaparin 40mg Inj SUBQ SCH (09:06)
--- NOTE | 2017-07-29 10:12 | General Progress Note ---
Assessment/Plan Assessment/Plan IMPRESSION Leukocytosis anemia possible sepsis possible gib trach gt PLAN vent support IV antibiotics ID clearance resume meds respiratory care feeds dc once wbc trending downward and more stable conservative management impression, plan, and exam edited and reviewed in detail care discussed with RN Subjective ROS Limited/Unobtainable: Yes Allergies: Coded Allergies: No Known Allergies (Unverified , 07/24/17) Subjective labs noted still with leukocytosis no hemodynamic abnormalities noted to be with sob and placed on vent low oxygen Objective Last 24 Hour Vital Signs Date Time Temp Pulse Resp B/P (MAP) Pulse Ox O2 Delivery O2 Flow Rate FiO2 07/29/17 09:18 101 22 60 07/29/17 09:00 112/67 07/29/17 09:00 101 112/67 07/29/17 08:00 99 07/29/17 08:00 98.3 101 22 112/67 100 Mechanical Ventilator 80 98.3 07/29/17 08:00 80 07/29/17 07:05 99 14 100 Mechanical Ventilator 07/29/17 07:03 99 14 Mechanical Ventilator 07/29/17 07:03 100 Mechanical Ventilator 07/29/17 07:03 Mechanical Ventilator 07/29/17 06:55 100 14 100 Mechanical Ventilator 07/29/17 06:54 102 22 80 07/29/17 06:17 101 112/68 07/29/17 04:52 80 07/29/17 04:49 101 19 80 07/29/17 04:00 98 07/29/17 04:00 98.2 101 18 112/68 100 Mechanical Ventilator 100 98.2 07/29/17 03:30 101 14 100 Mechanical Ventilator 07/29/17 03:18 102 15 100 Mechanical Ventilator 07/29/17 03:16 102 15 100 07/29/17 01:45 115 20 100 07/29/17 01:40 100 07/29/17 01:19 116 22 96 T-piece 12.0 100 07/29/17 01:14 96 T-piece 10.0 50 07/29/17 01:14 T-piece 10.0 50 07/29/17 01:13 114 22 96 T-piece 12.0 100 07/29/17 00:00 98.6 111 24 152/95 95 Mechanical Ventilator 100 98.6 07/29/17 00:00 10.0 50 07/29/17 00:00 112 4/27/18 22:57 115 140/94 07/28/17 20:57 115 22 98 T-piece 10.0 50 07/28/17 20:52 T-piece 10.0 50 07/28/17 20:52 96 T-piece 10.0 50 07/28/17 20:49 116 22 96 T-piece 12.0 50 07/28/17 20:00 10.0 50 07/28/17 20:00 98.2 110 24 140/94 98 Trach Collar 50 98.2 07/28/17 20:00 112 07/28/17 18:21 140/76 07/28/17 16:00 98.0 90 24 140/76 98 Trach Collar 50 98.0 07/28/17 16:00 10.0 50 07/28/17 16:00 101 07/28/17 14:57 102 22 97 T-piece 10.0 50 07/28/17 14:47 109 20 96 T-piece 12.0 50 07/28/17 13:41 109 125/73 07/28/17 12:17 109 22 98 T-piece 10.0 50 07/28/17 12:07 109 20 96 T-piece 10.0 35 07/28/17 12:01 T-piece 10.0 50 07/28/17 12:00 98.1 109 30 125/73 97 Trach Collar 50 98.1 07/28/17 12:00 109 07/28/17 12:00 96 T-piece 10.0 50 07/28/17 12:00 10.0 50 Intake and Output 07/28/17 07/29/17 19:00 07:00 Intake Total 1025 ml 762.500 ml Output Total 600 ml 350 ml Balance 425 ml 412.500 ml Intake Free Water 50 ml IV Total 387.500 ml Tube Feeding 585 ml 325 ml Blood Product 200 ml Other 240 ml Output Urine Total 600 ml 350 ml # Bowel Movements 2 Laboratory Tests 07/28/17 11:20: Arterial Blood pH 7.510H, Arterial Blood Partial Pressure CO2 38.1, Arterial Blood Partial Pressure O2 68.4L, Arterial Blood HCO3 29.9H, Arterial Blood Oxygen Saturation 93.4, Arterial Blood Base Excess 6.4, Aleks Test Positive 07/29/17 01:05: Arterial Blood pH 7.480H, Arterial Blood Partial Pressure CO2 41.8, Arterial Blood Partial Pressure O2 70.7L, Arterial Blood HCO3 30.4H, Arterial Blood Oxygen Saturation 93.3, Arterial Blood Base Excess 6.4, Aleks Test Positive Height (Feet): 5 Height (Inches): 10.00 Weight (Pounds): 220 Objective WDWN trach reduced breath sounds bilaterally without rhonchi or wheeze [id number] without MRG NABS nontender no HSM; GT no CC minimal edema weak MARY WILEY Jul 29, 2017 10:12
--- NOTE | 2017-07-29 10:53 | Infectious Diseases Prog Note ---
Assessment/Plan Assessment/Plan antibiotics : vancomycin iv, zosyn A 1. gram negative pneumonia 2. leucocytosis 3. respiratory failure 4. anemia 5. hypertension 6. seizures P 1. continue zosyn 2. d/c iv vancomycin 3. will follow up cultures Subjective ROS Limited/Unobtainable: Yes Allergies: Coded Allergies: No Known Allergies (Unverified , 07/24/17) Objective Vital Signs Last 24 Hour Vital Signs Date Time Temp Pulse Resp B/P (MAP) Pulse Ox O2 Delivery O2 Flow Rate FiO2 07/29/17 09:18 101 22 60 07/29/17 09:00 112/67 07/29/17 09:00 101 112/67 07/29/17 08:00 99 07/29/17 08:00 98.3 101 22 112/67 100 Mechanical Ventilator 80 98.3 07/29/17 08:00 80 07/29/17 07:05 99 14 100 Mechanical Ventilator 07/29/17 07:03 99 14 Mechanical Ventilator 07/29/17 07:03 100 Mechanical Ventilator 07/29/17 07:03 Mechanical Ventilator 07/29/17 06:55 100 14 100 Mechanical Ventilator 07/29/17 06:54 102 22 80 07/29/17 06:17 101 112/68 07/29/17 04:52 80 07/29/17 04:49 101 19 80 07/29/17 04:00 98 07/29/17 04:00 98.2 101 18 112/68 100 Mechanical Ventilator 100 98.2 07/29/17 03:30 101 14 100 Mechanical Ventilator 07/29/17 03:18 102 15 100 Mechanical Ventilator 07/29/17 03:16 102 15 100 07/29/17 01:45 115 20 100 07/29/17 01:40 100 07/29/17 01:19 116 22 96 T-piece 12.0 100 07/29/17 01:14 96 T-piece 10.0 50 07/29/17 01:14 T-piece 10.0 50 07/29/17 01:13 114 22 96 T-piece 12.0 100 07/29/17 00:00 98.6 111 24 152/95 95 Mechanical Ventilator 100 98.6 07/29/17 00:00 10.0 50 07/29/17 00:00 112 07/28/17 22:57 115 140/94 07/28/17 20:57 115 22 98 T-piece 10.0 50 07/28/17 20:52 T-piece 10.0 50 07/28/17 20:52 96 T-piece 10.0 50 07/28/17 20:49 116 22 96 T-piece 12.0 50 07/28/17 20:00 10.0 50 07/28/17 20:00 98.2 110 24 140/94 98 Trach Collar 50 98.2 07/28/17 20:00 112 07/28/17 18:21 140/76 07/28/17 16:00 98.0 90 24 140/76 98 Trach Collar 50 98.0 07/28/17 16:00 10.0 50 07/28/17 16:00 101 07/28/17 14:57 102 22 97 T-piece 10.0 50 07/28/17 14:47 109 20 96 T-piece 12.0 50 07/28/17 13:41 109 125/73 07/28/17 12:17 109 22 98 T-piece 10.0 50 07/28/17 12:07 109 20 96 T-piece 10.0 35 07/28/17 12:01 T-piece 10.0 50 07/28/17 12:00 98.1 109 30 125/73 97 Trach Collar 50 98.1 07/28/17 12:00 109 07/28/17 12:00 96 T-piece 10.0 50 07/28/17 12:00 10.0 50 Height (Feet): 5 Height (Inches): 10.00 Weight (Pounds): 220 HEENT: status post trach Respiratory/Chest: lungs clear Cardiovascular: normal rate, regular rhythm, no gallop/murmur Abdomen: soft, non tender, other - GT Extremities: other - + edema bilaterally Microbiology Date/Time Source Procedure Growth Status 07/27/17 10:20 Sputum Gram Stain - Final Resulted 07/27/17 10:20 Sputum Culture - Preliminary Gram Negative Maulik Resulted 07/27/17 17:00 Urine,Clean Catch Urine Culture - Final NO GROWTH AFTER 48 HOURS Complete Laboratory Tests Test 07/28/17 11:20 07/29/17 01:05 Arterial Blood pH 7.510 (7.350-7.450) 7.480 (7.350-7.450) Arterial Blood Partial Pressure CO2 38.1 mmHg (35.0-45.0) 41.8 mmHg (35.0-45.0) Arterial Blood Partial Pressure O2 68.4 mmHg (75.0-100.0) L 70.7 mmHg (75.0-100.0) L Arterial Blood HCO3 29.9 mmol/L (22.0-26.0) H 30.4 mmol/L (22.0-26.0) H Arterial Blood Oxygen Saturation 93.4 % (92.0-98.0) 93.3 % (92.0-98.0) Arterial Blood Base Excess 6.4 6.4 Aleks Test Positive Positive Current Medications Medications (Trade) Dose Ordered Sig/Trina Route PRN Reason Start Time Stop Time Status Last Admin Dose Admin Acetaminophen (Tylenol) 650 mg Q4H PRN GT Mild pain / T > 100.5F 07/25/17 07:00 08/24/17 06:59 07/27/17 11:41 Albuterol/ Ipratropium (Albuterol/ Ipratropium) 3 ml Q4HRT HHN 07/27/17 03:00 08/01/17 02:59 07/29/17 06:54 Amlodipine Besylate (Norvasc) 10 mg DAILY GT 07/25/17 09:00 08/24/17 08:59 07/28/17 08:50 Baclofen (Lioresal) 10 mg THREE TIMES A DAY GT 07/25/17 09:00 08/24/17 08:59 07/29/17 09:04 Bisacodyl (Dulcolax) 10 mg DAILYPRN PRN RECTAL CONSTIPATION 07/25/17 07:00 08/24/17 06:59 Docusate Sodium (Colace) 100 mg DAILY GT 07/25/17 09:00 08/24/17 08:59 07/29/17 09:04 Docusate Sodium (Colace) 100 mg DAILYPRN PRN ORAL Constipation 07/25/17 07:00 08/24/17 06:59 Enoxaparin Sodium (Lovenox) 40 mg DAILY SUBQ 07/25/17 09:00 08/24/17 08:59 07/29/17 09:06 Ferrous Sulfate (Feosol) 300 mg DAILY GT 07/25/17 09:00 08/24/17 08:59 07/29/17 09:03 Fludrocortisone Acetate (Florinef) 0.1 mg Q12HR GT 07/25/17 09:00 08/24/17 08:59 07/29/17 09:05 Levetiracetam (Keppra) 1,000 mg Q12HR GT 07/25/17 09:00 08/24/17 08:59 07/29/17 09:04 Levothyroxine Sodium (Synthroid) 50 mcg DAILY GT 07/25/17 09:00 08/24/17 08:59 07/29/17 09:05 Magnesium Hydroxide (Mom) 30 ml HSPRN PRN GT Constipation 07/25/17 21:00 08/24/17 20:59 07/28/17 20:43 Magnesium Hydroxide (Mom) 30 ml QHS PRN GT Constipation 07/25/17 07:00 08/24/17 06:59 Minoxidil (Loniten) 10 mg BID GT 07/25/17 09:00 08/24/17 08:59 07/28/17 18:21 Ondansetron HCl (Zofran) 4 mg Q8H PRN GT Nausea & Vomiting 07/25/17 07:00 08/24/17 06:59 Piperacillin Sod/ Tazobactam Sod 3.375 gm/Dextrose 110 ml @ 27.5 mls/hr Q8HR IVPB 07/25/17 10:00 08/01/17 09:59 07/29/17 06:07 Propranolol HCl (Inderal) 40 mg Q8HR GT 07/25/17 09:00 08/24/17 08:59 07/29/17 06:17 Sodium Phosphate (Fleet's Sodium Phosl Enema) 133 ml Q72H PRN RECTAL Constipation 07/25/17 07:00 08/24/17 06:59 Vancomycin HCl (Vanco rx to dose) 1 ea DAILY PRN MISC RX TO DOSE 07/25/17 08:00 08/24/17 07:59 Vancomycin/Sodium Chloride 250 ml @ 166.667 mls/hr Q8H IVPB 07/25/17 16:00 07/30/17 15:59 07/29/17 08:12 Zinc Sulfate (Zinc Sulfate) 220 mg DAILY GT 4/24/18 09:00 08/24/17 08:59 07/29/17 09:04 Zolpidem Tartrate (Ambien) 5 mg HSPRN PRN GT Insomnia 07/25/17 21:00 08/01/17 20:59 MOISÉS VILLARREAL Jul 29, 2017 10:53
--- NOTE | 2017-07-29 11:08 | Diagnostic Imaging Report ---
Indication: Tachypnea Comparison: 07/27/2017 A single view chest radiograph was obtained. Findings: Pulmonary edema demonstrated with cardiomegaly. There are likely a left pleural effusion present possibly a right. There is a [employer] shunt noted as well as tracheostomy. IMPRESSION: Pulmonary edema.
[2017-07-29 12:00] VITALS: BP 117/66
[2017-07-29 16:00] VITALS: BP 109/66
[2017-07-29] MEDS ORDERED: Tubing IV Secondary IV ONE ×2 (19:50→21:55)
[2017-07-29] MEDS ORDERED: NS 275ml ONE ×2 (19:50→21:55)
[2017-07-29] MEDS ORDERED: NS 500ML ONE (19:50)
[2017-07-29 20:00] VITALS: BP 114/64
[2017-07-30] VITALS: BP 114/67
[2017-07-30] MEDS: Acetaminophen 650mg/20.3ml GT PRN (00:43)
[2017-07-30 04:00] VITALS: BP 132/75
[2017-07-30] MEDS: Albuterol/Ipratropium 3ml neb HHN SCH ×6 (04:39→23:31)
[2017-07-30] MEDS: Propranolol 40mg tab GT SCH ×3 (06:22→21:18)
[2017-07-30] MEDS: Piperacillin/Tazobactam 3.375 GM in D5W 110 ML IVPB SCH (06:22)
[2017-07-30 07:02] LABS: BASOPHILS % (AUTO) 0.9 % (0.0-2.0); EOSINOPHILS % (AUTO) 1.3 % (0.0-3.0); HEMATOCRIT 24.7 % (42.0-52.0); HEMOGLOBIN 8.5 G/DL (14.2-18.0); LYMPHOCYTES % (AUTO) 5.8 % (20.0-45.0); MEAN CORPUSCULAR VOLUME 79 FL (80-99); MONOCYTES % (AUTO) 7.4 % (1.0-10.0); NEUTROPHILS % (AUTO) 84.7 % (45.0-75.0); PLATELET COUNT 578 K/UL (150-450); RED BLOOD COUNT 3.11 M/UL (4.70-6.10); RED CELL DISTRIBUTION WIDTH 15.6 % (11.6-14.8); WHITE BLOOD COUNT 16.4 K/UL (4.8-10.8)
--- NOTE | 2017-07-30 07:23 | General Progress Note ---
Assessment/Plan Assessment/Plan IMPRESSION Leukocytosis anemia possible sepsis possible gib trach gt oliguria pulmonary edema by cxr PLAN vent support for now IV antibiotics per ID ID clearance maintain meds renal evaluation respiratory care feeds dc once wbc trending downward and urine output adequate conservative management impression, plan, and exam edited and reviewed in detail care discussed with RN Subjective ROS Limited/Unobtainable: Yes Allergies: Coded Allergies: No Known Allergies (Unverified , 07/24/17) Subjective labs noted still with leukocytosis now with poor UO Objective Last 24 Hour Vital Signs Date Time Temp Pulse Resp B/P (MAP) Pulse Ox O2 Delivery O2 Flow Rate FiO2 07/30/17 06:22 78 132/75 07/30/17 04:40 78 23 45 07/30/17 04:00 45 07/30/17 04:00 98.3 101 25 132/75 98 Mechanical Ventilator 45 98.3 07/30/17 03:34 101 07/30/17 03:24 101 14 99 Mechanical Ventilator 45 07/30/17 03:21 101 26 45 07/30/17 03:08 45 07/30/17 03:08 101 18 98 Mechanical Ventilator 45 07/30/17 01:23 100 20 45 07/30/17 01:13 98.3 07/30/17 00:43 100.0 07/30/17 00:00 45 07/30/17 00:00 105 07/30/17 00:00 100.0 103 25 114/67 100 Mechanical Ventilator 45 100.0 07/29/17 23:11 105 21 100 Mechanical Ventilator 45 07/29/17 23:01 45 07/29/17 23:01 105 21 100 Mechanical Ventilator 45 07/29/17 23:00 101 20 45 07/29/17 22:58 101 114/64 07/29/17 21:18 101 20 45 07/29/17 20:32 103 20 100 Mechanical Ventilator 45 07/29/17 20:00 45 07/29/17 20:00 103 07/29/17 20:00 98.2 102 21 114/64 100 Mechanical Ventilator 45 98.2 07/29/17 19:57 45 07/29/17 19:57 103 20 45 07/29/17 19:57 103 20 100 Mechanical Ventilator 45 07/29/17 19:56 103 20 Mechanical Ventilator 45 07/29/17 18:00 105/61 07/29/17 16:49 103 20 45 07/29/17 16:00 98.6 100 20 109/66 100 Mechanical Ventilator 50 98.6 07/29/17 16:00 101 07/29/17 16:00 50 07/29/17 14:56 109 20 100 Mechanical Ventilator 07/29/17 14:47 106 14 99 Mechanical Ventilator 07/29/17 14:41 108 24 50 07/29/17 14:21 108 122/65 07/29/17 13:42 100 18 60 07/29/17 12:00 98.5 106 21 117/66 100 Mechanical Ventilator 60 98.5 07/29/17 12:00 60 07/29/17 12:00 105 07/29/17 11:08 103 14 100 Mechanical Ventilator 07/29/17 11:00 102 14 100 Mechanical Ventilator 07/29/17 10:55 102 18 60 07/29/17 09:18 101 22 60 07/29/17 09:00 112/67 07/29/17 09:00 101 112/67 07/29/17 08:00 99 07/29/17 08:00 98.3 101 22 112/67 100 Mechanical Ventilator 80 98.3 07/29/17 08:00 80 Intake and Output 07/29/17 07/30/17 19:00 07:00 Intake Total 1242.5000 ml 630.0 ml Output Total 200 ml Balance 1042.5000 ml 630.0 ml Intake Free Water 65 ml IV Total 442.5000 ml 110.0 ml Tube Feeding 650 ml 455 ml Other 150 ml Output Urine Total 200 ml Laboratory Tests 07/30/17 06:40: White Blood Count 16.4H, Red Blood Count 3.11L, Hemoglobin 8.5L, Hematocrit 24.7L, Mean Corpuscular Volume 79L, Mean Corpuscular Hemoglobin 27.4, Mean Corpuscular Hemoglobin Concent 34.5, Red Cell Distribution Width 15.6H, Platelet Count 578H, Mean Platelet Volume 6.6, Neutrophils (%) (Auto) 84.7H, Lymphocytes (%) (Auto) 5.8L, Monocytes (%) (Auto) 7.4, Eosinophils (%) (Auto) 1.3, Basophils (%) (Auto) 0.9 Height (Feet): 6 Height (Inches): 10.00 Weight (Pounds): 226 Objective WDWN trach reduced breath sounds bilaterally without rhonchi or wheeze [id number] without MRG NABS nontender no HSM; GT no CC minimal edema weak MARY WILEY Jul 30, 2017 07:23
[2017-07-30 08:00] VITALS: BP 120/81
[2017-07-30] MEDS: Ferrous Sulfate 300 MG/5 ML UDC GT SCH (08:54)
[2017-07-30] MEDS: levETIRAcetam 500mg/5ml Liquid GT SCH ×2 (08:54→21:18)
[2017-07-30] MEDS: Docusate 100mg/10ml Liq GT SCH (08:54)
[2017-07-30] MEDS: Enoxaparin 40mg Inj SUBQ SCH (08:55)
[2017-07-30] MEDS: Zinc Sulfate 220mg cap GT SCH (08:56)
[2017-07-30] MEDS: Minoxidil 10mg tab GT SCH ×2 (08:56→18:02)
[2017-07-30 09:05] LABS: ANION GAP 11 mmol/L (5-15); BLOOD UREA NITROGEN 47 mg/dL (7-18); CALCIUM 8.7 MG/DL (8.5-10.1); CARBON DIOXIDE 28 MMOL/L (21-32); CHLORIDE 99 MMOL/L (98-107); CREATININE 2.2 MG/DL (0.55-1.30); POTASSIUM 4.3 MMOL/L (3.5-5.1); SODIUM 138 MMOL/L (136-145)
[2017-07-30] MEDS ORDERED: NS 275ml ONE (09:48)
--- NOTE | 2017-07-30 11:22 | Infectious Diseases Prog Note ---
Assessment/Plan Assessment/Plan A: 1. MDR Acinetobacter & Serratia pneumonia 2. leucocytosis 3. respiratory failure 4. anemia 5. hypertension 6. seizures 7, Acute renal failure 8. VRE colonization P 1. discontinue Zosyn 2. Start on Tygacil & Colistin inhaler Subjective ROS Limited/Unobtainable: Yes Constitutional: Reports: fever, other - Eiss=109 Allergies: Coded Allergies: No Known Allergies (Unverified , 07/24/17) Objective Vital Signs Last 24 Hour Vital Signs Date Time Temp Pulse Resp B/P (MAP) Pulse Ox O2 Delivery O2 Flow Rate FiO2 07/30/17 11:05 102 22 45 07/30/17 11:04 102 22 Mechanical Ventilator 45 07/30/17 11:02 102 22 100 Mechanical Ventilator 07/30/17 08:56 120/81 07/30/17 08:56 101 120/81 07/30/17 08:26 100 27 45 07/30/17 08:25 100 24 98 Mechanical Ventilator 45 07/30/17 08:09 95 21 45 07/30/17 08:09 99 21 95 Mechanical Ventilator 07/30/17 08:00 45 07/30/17 08:00 98.8 101 20 120/81 98 Mechanical Ventilator 45 98.8 07/30/17 08:00 100 07/30/17 06:22 78 132/75 07/30/17 04:40 78 23 45 07/30/17 04:00 45 07/30/17 04:00 98.3 101 25 132/75 98 Mechanical Ventilator 45 98.3 07/30/17 03:34 101 07/30/17 03:24 101 14 99 Mechanical Ventilator 45 07/30/17 03:21 101 26 45 07/30/17 03:08 45 07/30/17 03:08 101 18 98 Mechanical Ventilator 45 07/30/17 01:23 100 20 45 07/30/17 01:13 98.3 07/30/17 00:43 100.0 07/30/17 00:00 45 07/30/17 00:00 105 07/30/17 00:00 100.0 103 25 114/67 100 Mechanical Ventilator 45 100.0 07/29/17 23:11 105 21 100 Mechanical Ventilator 45 07/29/17 23:01 45 07/29/17 23:01 105 21 100 Mechanical Ventilator 45 07/29/17 23:00 101 20 45 07/29/17 22:58 101 114/64 07/29/17 21:18 101 20 45 07/29/17 20:32 103 20 100 Mechanical Ventilator 45 07/29/17 20:00 45 07/29/17 20:00 103 07/29/17 20:00 98.2 102 21 114/64 100 Mechanical Ventilator 45 98.2 07/29/17 19:57 45 07/29/17 19:57 103 20 45 07/29/17 19:57 103 20 100 Mechanical Ventilator 45 07/29/17 19:56 103 20 Mechanical Ventilator 45 07/29/17 18:00 105/61 07/29/17 16:49 103 20 45 07/29/17 16:00 98.6 100 20 109/66 100 Mechanical Ventilator 50 98.6 07/29/17 16:00 101 07/29/17 16:00 50 07/29/17 14:56 109 20 100 Mechanical Ventilator 07/29/17 14:47 106 14 99 Mechanical Ventilator 07/29/17 14:41 108 24 50 07/29/17 14:21 108 122/65 07/29/17 13:42 100 18 60 07/29/17 12:00 98.5 106 21 117/66 100 Mechanical Ventilator 60 98.5 07/29/17 12:00 60 07/29/17 12:00 105 Height (Feet): 6 Height (Inches): 10.00 Weight (Pounds): 226 HEENT: status post trach Respiratory/Chest: lungs clear, other - on ventilator Cardiovascular: tachycardia Abdomen: soft, non tender, other - GT feeding Extremities: other - generalized edema Neurologic/Psychiatric: unresponsiveness, aphasia Microbiology Date/Time Source Procedure Growth Status 07/27/17 17:00 Urine,Clean Catch Urine Culture - Final NO GROWTH AFTER 48 HOURS Complete Laboratory Tests Test 07/30/17 06:40 White Blood Count 16.4 K/UL (4.8-10.8) H Red Blood Count 3.11 M/UL (4.70-6.10) L Hemoglobin 8.5 G/DL (14.2-18.0) L Hematocrit 24.7 % (42.0-52.0) L Mean Corpuscular Volume 79 FL (80-99) L Mean Corpuscular Hemoglobin 27.4 PG (27.0-31.0) Mean Corpuscular Hemoglobin Concent 34.5 G/DL (32.0-36.0) Red Cell Distribution Width 15.6 % (11.6-14.8) H Platelet Count 578 K/UL (150-450) H Mean Platelet Volume 6.6 FL (6.5-10.1) Neutrophils (%) (Auto) 84.7 % (45.0-75.0) H Lymphocytes (%) (Auto) 5.8 % (20.0-45.0) L Monocytes (%) (Auto) 7.4 % (1.0-10.0) Eosinophils (%) (Auto) 1.3 % (0.0-3.0) Basophils (%) (Auto) 0.9 % (0.0-2.0) Sodium Level 138 MMOL/L (136-145) Potassium Level 4.3 MMOL/L (3.5-5.1) Chloride Level 99 MMOL/L (98-107) Carbon Dioxide Level 28 MMOL/L (21-32) Anion Gap 11 mmol/L (5-15) Blood Urea Nitrogen 47 mg/dL (7-18) H Creatinine 2.2 MG/DL (0.55-1.30) H Estimat Glomerular Filtration Rate 36.8 mL/min (>60) Glucose Level 187 MG/DL (74-106) H Calcium Level 8.7 MG/DL (8.5-10.1) Pro-B-Type Natriuretic Peptide 2543 pg/mL (0-125) H Current Medications Medications (Trade) Dose Ordered Sig/Trina Route PRN Reason Start Time Stop Time Status Last Admin Dose Admin Acetaminophen (Tylenol) 650 mg Q4H PRN GT Mild pain / T > 100.5F 07/25/17 07:00 08/24/17 06:59 07/30/17 00:43 Albuterol/ Ipratropium (Albuterol/ Ipratropium) 3 ml Q4HRT HHN 07/27/17 03:00 08/01/17 02:59 07/30/17 11:01 Amlodipine Besylate (Norvasc) 10 mg DAILY GT 07/25/17 09:00 08/24/17 08:59 07/30/17 08:56 Bisacodyl (Dulcolax) 10 mg DAILYPRN PRN RECTAL CONSTIPATION 07/25/17 07:00 08/24/17 06:59 Docusate Sodium (Colace) 100 mg DAILY GT 07/25/17 09:00 08/24/17 08:59 07/30/17 08:54 Docusate Sodium (Colace) 100 mg DAILYPRN PRN ORAL Constipation 07/25/17 07:00 08/24/17 06:59 Enoxaparin Sodium (Lovenox) 40 mg DAILY SUBQ 07/25/17 09:00 08/24/17 08:59 07/30/17 08:55 Ferrous Sulfate (Feosol) 300 mg DAILY GT 07/25/17 09:00 08/24/17 08:59 07/30/17 08:54 Fludrocortisone Acetate (Florinef) 0.1 mg Q12HR GT 07/25/17 09:00 08/24/17 08:59 07/30/17 08:56 Levetiracetam (Keppra) 1,000 mg Q12HR GT 07/25/17 09:00 08/24/17 08:59 07/30/17 08:54 Levothyroxine Sodium (Synthroid) 50 mcg DAILY GT 07/25/17 09:00 08/24/17 08:59 07/30/17 08:56 Magnesium Hydroxide (Mom) 30 ml HSPRN PRN GT Constipation 07/25/17 21:00 08/24/17 20:59 07/28/17 20:43 Magnesium Hydroxide (Mom) 30 ml QHS PRN GT Constipation 07/25/17 07:00 08/24/17 06:59 Minoxidil (Loniten) 10 mg BID GT 07/25/17 09:00 08/24/17 08:59 07/28/17 18:21 Ondansetron HCl (Zofran) 4 mg Q8H PRN GT Nausea & Vomiting 07/25/17 07:00 08/24/17 06:59 Piperacillin Sod/ Tazobactam Sod 3.375 gm/Dextrose 110 ml @ 27.5 mls/hr Q8HR IVPB 07/25/17 10:00 08/01/17 09:59 07/30/17 06:22 Propranolol HCl (Inderal) 40 mg Q8HR GT 07/25/17 09:00 08/24/17 08:59 07/30/17 06:22 Sodium Phosphate (Fleet's Sodium Phosl Enema) 133 ml Q72H PRN RECTAL Constipation 07/25/17 07:00 08/24/17 06:59 Zinc Sulfate (Zinc Sulfate) 220 mg DAILY GT 07/25/17 09:00 08/24/17 08:59 07/30/17 08:56 Zolpidem Tartrate (Ambien) 5 mg HSPRN PRN GT Insomnia 07/25/17 21:00 08/01/17 20:59 RACHEL HENDERSON Jul 30, 2017 11:22
--- NOTE | 2017-07-30 11:30 | Consultation ---
DATE OF CONSULTATION: 07/30/2017 NEPHROLOGY CONSULTATION CONSULTING PHYSICIAN: Sebastián Veliz M.D. ATTENDING PHYSICIAN: Michael Vernon M.D. REASON FOR CONSULTATION: Elevated BUN and creatinine. HISTORY OF PRESENT ILLNESS: This is a 62-year-old ventilator-dependent male from [facility]. The patient was admitted by the attending physician due to abnormal laboratory results, leukocytosis, anemia, and elevated troponin. The patient is nonverbal and unable to give any further information. PAST MEDICAL HISTORY: 1. Ventilator-dependent respiratory failure. 2. Status post intracerebral bleeding. 3. Chronic kidney disease and unclear what stage. 4. Seizure disorder. 5. Hypothyroidism. MEDICATIONS: long term medications, Tylenol p.r.n., amantadine, amlodipine, baclofen, bisacodyl, Colace, Dulcolax, Lovenox subcutaneous, iron via G-tube, fludrocortisone b.i.d. via G-tube, Keppra, Synthroid, Minoxidil, Fleet Enema p.r.n., Zofran, Protonix, multivitamins, and zinc sulfate. ALLERGIES: No known drug allergies. FAMILY HISTORY: Unable to obtain. SOCIAL HISTORY: Unable to obtain. REVIEW OF SYSTEMS: Unable to obtain. PHYSICAL EXAMINATION: GENERAL: This is an elderly male, who is on the ventilator. VITAL SIGNS: Blood pressure 132/75, pulse 99, respirations 21, and temperature 98.3 axillary. HEENT: Head is normocephalic and atraumatic. Pupils equal, round, and reactive to light and accommodation consensually. NECK: He has a midline tracheostomy. LUNGS: Bilateral rhonchi. HEART: Regular rate and rhythm without rubs, murmurs, or gallops. ABDOMEN: He has G-tube. Soft and nontender. Bowel sounds were active. EXTREMITIES: Notable for 3+ bilateral ankle edema. NEUROLOGICAL: He is obtunded. There were no gross focal findings. LABORATORY AND ANCILLARY DATA: CBC shows white count of 16,400, hematocrit 24.7, and platelets today 578,000. Serum chemistry, electrolytes within normal limits. BUN 21 and creatinine 0.9. ASSESSMENT: 1. Ventilator-dependent respiratory failure. 2. Status post intracerebral bleeding. 3. Chronic kidney disease and unclear what stage. 4. Seizure disorder. 5. Hypothyroidism. 6. Superimposed Acute Renal Failure, unclear etiology. PLAN: 1. Continue current therapy. 2. Avoid nephrotoxic medications. 3. Screen Med List. Sebastián Veliz M.D. DR: DWAYNE JOB#: [id number] CC: ALVINO
[2017-07-30 12:00] VITALS: BP 109/70
[2017-07-30] MEDS ORDERED: Tigecycline 100 MG in D5W 110 ML IVPB ONE (13:00)
[2017-07-30 16:00] VITALS: BP 120/69
[2017-07-30 20:00] VITALS: BP 131/80
[2017-07-30] MEDS: Tigecycline 50 MG in D5W 110 ML IVPB SCH (21:24)
[2017-07-30] MEDS: Colistin for inhalation INH SCH (23:06)
[2017-07-31] VITALS: BP 112/78
[2017-07-31] MEDS: Albuterol/Ipratropium 3ml neb HHN SCH ×6 (03:34→23:01)
[2017-07-31 04:00] VITALS: BP 131/81
[2017-07-31] MEDS: Propranolol 40mg tab GT SCH ×3 (05:15→21:53)
--- NOTE | 2017-07-31 07:48 | Nephrology Progress Note ---
Assessment/Plan Plan CONSUELO - check Labs Check Renal US. Subjective Subjective Confused Objective Objective Last 24 Hour Vital Signs Date Time Temp Pulse Resp B/P (MAP) Pulse Ox O2 Delivery O2 Flow Rate FiO2 07/31/17 07:17 105 26 100 Mechanical Ventilator 45 07/31/17 07:07 17 25 98 Mechanical Ventilator 07/31/17 07:05 107 25 45 07/31/17 05:15 114 131/81 07/31/17 04:59 114 21 45 07/31/17 04:00 45 07/31/17 04:00 96.8 115 22 131/81 100 Mechanical Ventilator 45 96.8 07/31/17 03:49 112 24 100 Mechanical Ventilator 45 07/31/17 03:44 116 07/31/17 03:34 111 21 45 07/31/17 03:34 111 14 99 Mechanical Ventilator 07/31/17 01:07 113 21 45 07/31/17 00:00 99.5 112 19 112/78 100 Mechanical Ventilator 45 99.5 07/30/17 23:50 112 07/30/17 23:41 108 24 100 Mechanical Ventilator 45 07/30/17 23:31 106 14 99 Mechanical Ventilator 07/30/17 23:11 115 19 45 07/30/17 23:08 111 22 98 Mechanical Ventilator 45 07/30/17 21:18 119 131/80 07/30/17 21:11 119 19 45 07/30/17 20:00 45 07/30/17 20:00 99.3 118 19 131/80 97 Mechanical Ventilator 45 99.3 07/30/17 19:32 117 07/30/17 19:17 108 24 99 Mechanical Ventilator 45 07/30/17 18:49 107 25 100 Mechanical Ventilator 07/30/17 18:46 115 22 45 07/30/17 18:02 126/80 07/30/17 17:03 111 24 45 07/30/17 16:00 98.3 106 18 120/69 100 Mechanical Ventilator 45 98.3 07/30/17 16:00 105 07/30/17 16:00 45 07/30/17 15:15 106 22 100 Mechanical Ventilator 45 07/30/17 15:13 106 19 45 07/30/17 15:11 106 19 99 Mechanical Ventilator 07/30/17 13:48 102 102/69 07/30/17 13:10 103 23 45 07/30/17 12:00 45 07/30/17 12:00 98.6 101 18 109/70 98 Mechanical Ventilator 45 98.6 07/30/17 12:00 103 07/30/17 11:25 102 15 100 Mechanical Ventilator 45 07/30/17 11:05 102 22 45 07/30/17 11:04 102 22 Mechanical Ventilator 45 07/30/17 11:02 102 22 100 Mechanical Ventilator 07/30/17 08:56 120/81 07/30/17 08:56 101 120/81 07/30/17 08:26 100 27 45 07/30/17 08:25 100 24 98 Mechanical Ventilator 45 07/30/17 08:09 95 21 45 07/30/17 08:09 99 21 95 Mechanical Ventilator 07/30/17 08:00 45 07/30/17 08:00 98.8 101 20 120/81 98 Mechanical Ventilator 45 98.8 07/30/17 08:00 100 Intake and Output 07/30/17 07/31/17 19:00 07:00 Intake Total 722.52 ml 1010 ml Output Total 175 ml 300 ml Balance 547.52 ml 710 ml Intake Free Water 30 ml IV Total 202.52 ml 110 ml Tube Feeding 390 ml 780 ml Other 100 ml 120 ml Output Urine Total 175 ml 300 ml Height (Feet): 6 Height (Inches): 10.00 Weight (Pounds): 228 Objective CV RR Lungs CTA Abd SNT. BS + E +3 B ankle Sebastián Ramirez MD Jul 31, 2017 07:48
[2017-07-31 08:00] VITALS: BP 138/74
--- NOTE | 2017-07-31 08:34 | General Progress Note ---
Assessment/Plan Assessment/Plan IMPRESSION Leukocytosis anemia possible sepsis possible gib trach gt oliguria ARF pulmonary edema by cxr PLAN vent support for now IV antibiotics per ID avoid nephrotoxic meds maintain meds renal evaluation noted respiratory care feeds not stable for dc presently conservative management impression, plan, and exam edited and reviewed in detail care discussed with RN Subjective ROS Limited/Unobtainable: Yes Allergies: Coded Allergies: No Known Allergies (Unverified , 07/24/17) Subjective labs noted still with leukocytosis renal function worse Objective Last 24 Hour Vital Signs Date Time Temp Pulse Resp B/P (MAP) Pulse Ox O2 Delivery O2 Flow Rate FiO2 07/31/17 08:00 98.8 110 18 138/74 100 Mechanical Ventilator 45 98.8 07/31/17 07:17 105 26 100 Mechanical Ventilator 45 07/31/17 07:07 17 25 98 Mechanical Ventilator 07/31/17 07:05 107 25 45 07/31/17 05:15 114 131/81 07/31/17 04:59 114 21 45 07/31/17 04:00 45 07/31/17 04:00 96.8 115 22 131/81 100 Mechanical Ventilator 45 96.8 07/31/17 03:49 112 24 100 Mechanical Ventilator 45 07/31/17 03:44 116 07/31/17 03:34 111 21 45 07/31/17 03:34 111 14 99 Mechanical Ventilator 07/31/17 01:07 113 21 45 07/31/17 00:00 99.5 112 19 112/78 100 Mechanical Ventilator 45 99.5 07/30/17 23:50 112 07/30/17 23:41 108 24 100 Mechanical Ventilator 45 07/30/17 23:31 106 14 99 Mechanical Ventilator 07/30/17 23:11 115 19 45 07/30/17 23:08 111 22 98 Mechanical Ventilator 45 07/30/17 21:18 119 131/80 07/30/17 21:11 119 19 45 07/30/17 20:00 45 07/30/17 20:00 99.3 118 19 131/80 97 Mechanical Ventilator 45 99.3 07/30/17 19:32 117 07/30/17 19:17 108 24 99 Mechanical Ventilator 45 07/30/17 18:49 107 25 100 Mechanical Ventilator 07/30/17 18:46 115 22 45 07/30/17 18:02 126/80 07/30/17 17:03 111 24 45 07/30/17 16:00 98.3 106 18 120/69 100 Mechanical Ventilator 45 98.3 07/30/17 16:00 105 07/30/17 16:00 45 07/30/17 15:15 106 22 100 Mechanical Ventilator 45 07/30/17 15:13 106 19 45 07/30/17 15:11 106 19 99 Mechanical Ventilator 07/30/17 13:48 102 102/69 07/30/17 13:10 103 23 45 07/30/17 12:00 45 07/30/17 12:00 98.6 101 18 109/70 98 Mechanical Ventilator 45 98.6 07/30/17 12:00 103 07/30/17 11:25 102 15 100 Mechanical Ventilator 45 07/30/17 11:05 102 22 45 07/30/17 11:04 102 22 Mechanical Ventilator 45 07/30/17 11:02 102 22 100 Mechanical Ventilator 07/30/17 08:56 120/81 07/30/17 08:56 101 120/81 Intake and Output 07/30/17 07/31/17 19:00 07:00 Intake Total 722.52 ml 1010 ml Output Total 175 ml 300 ml Balance 547.52 ml 710 ml Intake Free Water 30 ml IV Total 202.52 ml 110 ml Tube Feeding 390 ml 780 ml Other 100 ml 120 ml Output Urine Total 175 ml 300 ml Labs Test 07/28/17 11:20 07/29/17 01:05 07/30/17 06:40 Arterial Blood pH 7.510 (7.350-7.450) 7.480 (7.350-7.450) Arterial Blood Partial Pressure CO2 38.1 mmHg (35.0-45.0) 41.8 mmHg (35.0-45.0) Arterial Blood Partial Pressure O2 68.4 mmHg (75.0-100.0) 70.7 mmHg (75.0-100.0) Arterial Blood HCO3 29.9 mmol/L (22.0-26.0) 30.4 mmol/L (22.0-26.0) Arterial Blood Oxygen Saturation 93.4 % (92.0-98.0) 93.3 % (92.0-98.0) Arterial Blood Base Excess 6.4 6.4 Aleks Test Positive Positive White Blood Count 16.4 K/UL (4.8-10.8) Red Blood Count 3.11 M/UL (4.70-6.10) Hemoglobin 8.5 G/DL (14.2-18.0) Hematocrit 24.7 % (42.0-52.0) Mean Corpuscular Volume 79 FL (80-99) Mean Corpuscular Hemoglobin 27.4 PG (27.0-31.0) Mean Corpuscular Hemoglobin Concent 34.5 G/DL (32.0-36.0) Red Cell Distribution Width 15.6 % (11.6-14.8) Platelet Count 578 K/UL (150-450) Mean Platelet Volume 6.6 FL (6.5-10.1) Neutrophils (%) (Auto) 84.7 % (45.0-75.0) Lymphocytes (%) (Auto) 5.8 % (20.0-45.0) Monocytes (%) (Auto) 7.4 % (1.0-10.0) Eosinophils (%) (Auto) 1.3 % (0.0-3.0) Basophils (%) (Auto) 0.9 % (0.0-2.0) Sodium Level 138 MMOL/L (136-145) Potassium Level 4.3 MMOL/L (3.5-5.1) Chloride Level 99 MMOL/L (98-107) Carbon Dioxide Level 28 MMOL/L (21-32) Anion Gap 11 mmol/L (5-15) Blood Urea Nitrogen 47 mg/dL (7-18) Creatinine 2.2 MG/DL (0.55-1.30) Estimat Glomerular Filtration Rate 36.8 mL/min (>60) Glucose Level 187 MG/DL (74-106) Calcium Level 8.7 MG/DL (8.5-10.1) Pro-B-Type Natriuretic Peptide 2543 pg/mL (0-125) Height (Feet): 6 Height (Inches): 10.00 Weight (Pounds): 228 Objective WDWN trach reduced breath sounds bilaterally without rhonchi or wheeze [id number] without MRG NABS nontender no HSM; GT no CC minimal edema weak MARY WILEY Jul 31, 2017 08:34
[2017-07-31] MEDS: Colistin for inhalation INH SCH (09:51)
[2017-07-31] MEDS: Zinc Sulfate 220mg cap GT SCH (10:05)
[2017-07-31] MEDS: levETIRAcetam 500mg/5ml Liquid GT SCH ×2 (10:05→21:51)
[2017-07-31] MEDS: Ferrous Sulfate 300 MG/5 ML UDC GT SCH (10:07)
[2017-07-31] MEDS: Enoxaparin 40mg Inj SUBQ SCH (10:07)
[2017-07-31] MEDS: Minoxidil 10mg tab GT SCH ×2 (10:07→17:00)
[2017-07-31] MEDS: Docusate 100mg/10ml Liq GT SCH ×2 (10:07→21:50)
[2017-07-31] MEDS: Tigecycline 50 MG in D5W 110 ML IVPB SCH (10:14)
[2017-07-31 10:26] LABS: EOSINOPHILS % (AUTO) 0.5 % (0.0-3.0); HEMATOCRIT 26.9 % (42.0-52.0); LYMPHOCYTES % (AUTO) 4.8 % (20.0-45.0); MEAN CORPUSCULAR VOLUME 80 FL (80-99); MONOCYTES % (AUTO) 9.4 % (1.0-10.0); NEUTROPHILS % (AUTO) 84.2 % (45.0-75.0); PLATELET COUNT 669 K/UL (150-450); RED BLOOD COUNT 3.36 M/UL (4.70-6.10); RED CELL DISTRIBUTION WIDTH 15.8 % (11.6-14.8)
[2017-07-31 11:18] VITALS: BP 139/70
[2017-07-31] MEDS: Acetaminophen 650mg/20.3ml GT PRN (11:22)
--- NOTE | 2017-07-31 11:30 | Infectious Diseases Prog Note ---
"Assessment/Plan Assessment/Plan antibiotics : tygacil, inhaled colistin A 1. acenitobacter | serratia pneumonia 2. leucocytosis 3. respiratory failure 4. anemia 5. hypertension 6. seizures 7. renal failure P 1. d/c tygacil, inhaled colistin 2. start meropenem, minocycline 3. will follow up cultures Subjective ROS Limited/Unobtainable: Yes Allergies: Coded Allergies: No Known Allergies (Unverified , 07/24/17) Objective Vital Signs Last 24 Hour Vital Signs Date Time Temp Pulse Resp B/P (MAP) Pulse Ox O2 Delivery O2 Flow Rate FiO2 07/31/17 11:22 100.8 07/31/17 11:18 100.8 110 20 139/70 99 Mechanical Ventilator 45 100.8 07/31/17 10:07 138/74 07/31/17 10:07 109 138/74 07/31/17 09:51 109 25 98 Mechanical Ventilator 45 07/31/17 09:15 109 25 45 07/31/17 08:00 45 07/31/17 08:00 98.8 110 18 138/74 100 Mechanical Ventilator 45 98.8 07/31/17 07:49 112 07/31/17 07:17 105 26 100 Mechanical Ventilator 45 07/31/17 07:07 17 25 98 Mechanical Ventilator 07/31/17 07:05 107 25 45 07/31/17 05:15 114 131/81 07/31/17 04:59 114 21 45 07/31/17 04:00 45 07/31/17 04:00 96.8 115 22 131/81 100 Mechanical Ventilator 45 96.8 07/31/17 03:49 112 24 100 Mechanical Ventilator 45 07/31/17 03:44 116 07/31/17 03:34 111 21 45 07/31/17 03:34 111 14 99 Mechanical Ventilator 07/31/17 01:07 113 21 45 07/31/17 00:00 99.5 112 19 112/78 100 Mechanical Ventilator 45 99.5 07/30/17 23:50 112 07/30/17 23:41 108 24 100 Mechanical Ventilator 45 07/30/17 23:31 106 14 99 Mechanical Ventilator 07/30/17 23:11 115 19 45 07/30/17 23:08 111 22 98 Mechanical Ventilator 45 07/30/17 21:18 119 131/80 07/30/17 21:11 119 19 45 07/30/17 20:00 45 07/30/17 20:00 99.3 118 19 131/80 97 Mechanical Ventilator 45 99.3 07/30/17 19:32 117 07/30/17 19:17 108 24 99 Mechanical Ventilator 45 07/30/17 18:49 107 25 100 Mechanical Ventilator 07/30/17 18:46 115 22 45 07/30/17 18:02 126/80 07/30/17 17:03 111 24 45 07/30/17 16:00 98.3 106 18 120/69 100 Mechanical Ventilator 45 98.3 07/30/17 16:00 105 07/30/17 16:00 45 07/30/17 15:15 106 22 100 Mechanical Ventilator 45 07/30/17 15:13 106 19 45 07/30/17 15:11 106 19 99 Mechanical Ventilator 07/30/17 13:48 102 102/69 07/30/17 13:10 103 23 45 07/30/17 12:00 45 07/30/17 12:00 98.6 101 18 109/70 98 Mechanical Ventilator 45 98.6 07/30/17 12:00 103 Height (Feet): 6 Height (Inches): 10.00 Weight (Pounds): 228 HEENT: status post trach Respiratory/Chest: lungs clear Cardiovascular: normal rate, regular rhythm, no gallop/murmur Abdomen: soft, non tender, other - GT Extremities: other - + edema Laboratory Tests Test 07/31/17 09:40 White Blood Count 17.0 K/UL (4.8-10.8) H Red Blood Count 3.36 M/UL (4.70-6.10) L Hemoglobin 9.0 G/DL (14.2-18.0) L Hematocrit 26.9 % (42.0-52.0) L Mean Corpuscular Volume 80 FL (80-99) Mean Corpuscular Hemoglobin 26.7 PG (27.0-31.0) L Mean Corpuscular Hemoglobin Concent 33.2 G/DL (32.0-36.0) Red Cell Distribution Width 15.8 % (11.6-14.8) H Platelet Count 669 K/UL (150-450) H Mean Platelet Volume 7.0 FL (6.5-10.1) Neutrophils (%) (Auto) 84.2 % (45.0-75.0) H Lymphocytes (%) (Auto) 4.8 % (20.0-45.0) L Monocytes (%) (Auto) 9.4 % (1.0-10.0) Eosinophils (%) (Auto) 0.5 % (0.0-3.0) Basophils (%) (Auto) 1.0 % (0.0-2.0) Current Medications Medications (Trade) Dose Ordered Sig/Trina Route PRN Reason Start Time Stop Time Status Last Admin Dose Admin Acetaminophen (Tylenol) 650 mg Q4H PRN GT Mild pain / T > 100.5F 07/25/17 07:00 08/24/17 06:59 07/31/17 11:22 Albuterol/ Ipratropium (Albuterol/ Ipratropium) 3 ml Q4HRT HHN 07/27/17 03:00 08/01/17 02:59 07/31/17 07:07 Amlodipine Besylate (Norvasc) 10 mg DAILY GT 07/25/17 09:00 08/24/17 08:59 07/31/17 10:07 Bisacodyl (Dulcolax) 10 mg DAILYPRN PRN RECTAL CONSTIPATION 07/25/17 07:00 08/24/17 06:59 Colistimethate Sodium (Colistin *inhalation use only*) 75 mg Q12HRT@1000,2200 INH 07/30/17 22:00 08/06/17 21:59 07/31/17 09:51 Docusate Sodium (Colace) 100 mg DAILY GT 07/25/17 09:00 08/24/17 08:59 07/31/17 10:07 Docusate Sodium (Colace) 100 mg DAILYPRN PRN ORAL Constipation 07/25/17 07:00 08/24/17 06:59 Enoxaparin Sodium (Lovenox) 40 mg DAILY SUBQ 07/25/17 09:00 08/24/17 08:59 07/31/17 10:07 Ferrous Sulfate (Feosol) 300 mg DAILY GT 07/25/17 09:00 08/24/17 08:59 07/31/17 10:07 Fludrocortisone Acetate (Florinef) 0.1 mg Q12HR GT 07/25/17 09:00 08/24/17 08:59 07/31/17 10:06 Levetiracetam (Keppra) 1,000 mg Q12HR GT 07/25/17 09:00 08/24/17 08:59 07/31/17 10:05 Levothyroxine Sodium (Synthroid) 50 mcg DAILY GT 07/25/17 09:00 08/24/17 08:59 07/31/17 10:06 Magnesium Hydroxide (Mom) 30 ml HSPRN PRN GT Constipation 07/25/17 21:00 08/24/17 20:59 07/28/17 20:43 Magnesium Hydroxide (Mom) 30 ml QHS PRN GT Constipation 07/25/17 07:00 08/24/17 06:59 Minoxidil (Loniten) 10 mg BID GT 07/25/17 09:00 08/24/17 08:59 07/31/17 10:07 Ondansetron HCl (Zofran) 4 mg Q8H PRN GT Nausea & Vomiting 07/25/17 07:00 08/24/17 06:59 Propranolol HCl (Inderal) 40 mg Q8HR GT 07/25/17 09:00 08/24/17 08:59 07/31/17 05:15 Sodium Phosphate (Fleet's Sodium Phosl Enema) 133 ml Q72H PRN RECTAL Constipation 07/25/17 07:00 08/24/17 06:59 Tigecycline 50 mg/ Dextrose 110 ml @ 220 mls/hr EVERY 12 HOURS IVPB 07/30/17 21:00 08/06/17 20:59 07/31/17 10:14 Zinc Sulfate (Zinc Sulfate) 220 mg DAILY GT 07/25/17 09:00 08/24/17 08:59 07/31/17 10:05 Zolpidem Tartrate (Ambien) 5 mg HSPRN PRN GT Insomnia 07/25/17 21:00 08/01/17 20:59 MOISÉS VILLARREAL Jul 31, 2017 11:30"
[2017-07-31] MEDS: Meropenem 1 GM in NS 110 ML IVPB SCH ×2 (13:09→21:51)
[2017-07-31] MEDS: Minocycline HCl 50mg cap ORAL SCH ×2 (13:09→21:52)
--- NOTE | 2017-07-31 13:42 | Diagnostic Imaging Report ---
. Indication: Abdominal distention Technique: XRAY Abdomen 1v Comparison: None Findings: Overall nonspecific bowel gas pattern. Copious stool noted within the visualized portions of the colon. No definite evidence to suggest free intraperitoneal air however exam is limited with lack of erect view. Gastrostomy tube and ventricular peritoneal shunt tubing noted. There are degenerative changes in the spine. No acute osseous abnormality seen. There is dense consolidation in the left lower lobe. IMPRESSION: Nonspecific bowel gas pattern. Copious stool in colon suggesting constipation. More sensitive evaluation can be obtained with CT of the abdomen and pelvis with IV and oral contrast as clinically indicated. Gastrostomy tube and portions of likely ventricular peritoneal shunt tubing visualized.
--- NOTE | 2017-07-31 15:16 | Diagnostic Imaging Report ---
Indication: Dyspnea Comparison: 07/29/2017 Technique: Portable AP view of the chest Findings: Tracheostomy tube and portions of ventriculoperitoneal shunt again noted. Heart size and mediastinal contours are stable. There is persistent interstitial opacification/edema are there is improved aeration of the right base compared to the prior exam with decreased hazy opacities likely related to decreased layering pleural fluid. Dense retrocardiac opacification and likely left-sided pleural effusion persists. No appreciable pneumothorax. Osseous structures are stable. IMPRESSION: Slight improved aeration of the right base compared to one day prior with likely decreased right-sided pleural fluid. Persistent interstitial edema and dense retrocardiac atelectasis/consolidation.
[2017-07-31 16:00] VITALS: BP 130/66
[2017-07-31 20:00] VITALS: BP 131/74
[2017-08-01] VITALS: BP 133/73
[2017-08-01 04:00] VITALS: BP 139/71
[2017-08-01 05:28] LABS: ANION GAP 12 mmol/L (5-15); BLOOD UREA NITROGEN 92 mg/dL (7-18); CALCIUM 8.7 MG/DL (8.5-10.1); CARBON DIOXIDE 25 MMOL/L (21-32); CHLORIDE 100 MMOL/L (98-107); CREATININE 3.8 MG/DL (0.55-1.30); PHOSPHORUS 6.3 MG/DL (2.5-4.9); POTASSIUM 5.5 MMOL/L (3.5-5.1); SODIUM 137 MMOL/L (136-145)
[2017-08-01] MEDS: Propranolol 40mg tab GT SCH ×3 (06:20→21:09)
[2017-08-01 08:00] VITALS: BP 125/69
[2017-08-01] MEDS ORDERED: Sodium Polystyrene Sulfonate 15gm Powder GT SCH (08:00)
[2017-08-01] MEDS: Docusate 100mg/10ml Liq GT SCH ×2 (08:45→21:07)
[2017-08-01] MEDS: Zinc Sulfate 220mg cap GT SCH (08:46)
[2017-08-01] MEDS: Minocycline HCl 50mg cap ORAL SCH ×2 (08:46→21:07)
[2017-08-01] MEDS: Ferrous Sulfate 300 MG/5 ML UDC GT SCH (08:46)
[2017-08-01] MEDS: levETIRAcetam 500mg/5ml Liquid GT SCH ×2 (08:47→21:07)
[2017-08-01] MEDS: Minoxidil 10mg tab GT SCH ×2 (08:48→18:28)
[2017-08-01] MEDS: Enoxaparin 40mg Inj SUBQ SCH (08:50)
[2017-08-01] MEDS: Meropenem 1 GM in NS 110 ML IVPB SCH ×2 (08:55→21:08)
[2017-08-01] MEDS ORDERED: NS 275ml ONE (09:22)
[2017-08-01] MEDS ORDERED: NS 500ML ONE (09:22)
[2017-08-01] MEDS ORDERED: Tubing IV Secondary IV ONE (09:22)
--- NOTE | 2017-08-01 10:37 | Infectious Diseases Prog Note ---
"Assessment/Plan Assessment/Plan antibiotics : meropenem, minocycline A 1. acenitobacter | serratia pneumonia 2. leucocytosis 3. respiratory failure 4. anemia 5. hypertension 6. seizures 7. renal failure 8. rectal VRE colonization P 1. continue meropenem, minocycline 2. will follow up cultures Subjective ROS Limited/Unobtainable: Yes Allergies: Coded Allergies: No Known Allergies (Unverified , 07/24/17) Objective Vital Signs Last 24 Hour Vital Signs Date Time Temp Pulse Resp B/P (MAP) Pulse Ox O2 Delivery O2 Flow Rate FiO2 08/01/17 09:08 87 19 45 08/01/17 08:49 111 142/69 08/01/17 08:48 142/69 08/01/17 07:16 90 20 45 08/01/17 06:20 91 146/71 08/01/17 05:12 95 23 45 08/01/17 04:00 45 08/01/17 04:00 93 08/01/17 04:00 98.8 91 25 139/71 100 Mechanical Ventilator 45 98.8 08/01/17 03:28 Mechanical Ventilator 45 08/01/17 03:28 104 22 45 08/01/17 03:28 Mechanical Ventilator 45 08/01/17 01:28 97 23 45 08/01/17 00:00 92 08/01/17 00:00 99.2 92 25 133/73 99 Mechanical Ventilator 45 99.2 08/01/17 00:00 45 07/31/17 23:04 99 23 100 Mechanical Ventilator 45 07/31/17 23:02 95 22 45 07/31/17 23:00 98 23 100 Mechanical Ventilator 45 07/31/17 21:53 106 131/74 07/31/17 21:19 103 22 45 07/31/17 20:00 99.3 104 24 131/74 100 Mechanical Ventilator 45 99.3 07/31/17 19:34 106 07/31/17 19:25 107 14 100 Mechanical Ventilator 45 07/31/17 19:21 111 23 45 07/31/17 19:19 111 22 99 Mechanical Ventilator 45 07/31/17 17:00 130/66 07/31/17 16:49 104 25 100 Mechanical Ventilator 45 07/31/17 16:47 102 23 45 07/31/17 16:39 102 23 100 Mechanical Ventilator 45 07/31/17 16:00 45 07/31/17 16:00 100.0 107 19 130/66 97 Mechanical Ventilator 45 100.0 07/31/17 15:26 107 07/31/17 15:17 107 25 45 07/31/17 13:12 107 19 45 07/31/17 13:09 108 139/70 07/31/17 13:01 106 15 100 Mechanical Ventilator 45 07/31/17 12:51 108 14 98 Mechanical Ventilator 45 07/31/17 12:38 107 23 45 07/31/17 12:00 45 07/31/17 11:52 99.1 07/31/17 11:34 111 07/31/17 11:22 100.8 07/31/17 11:18 100.8 110 20 139/70 99 Mechanical Ventilator 45 100.8 Height (Feet): 6 Height (Inches): 10.00 Weight (Pounds): 227 HEENT: status post trach Respiratory/Chest: lungs clear Cardiovascular: normal rate, regular rhythm, no gallop/murmur Abdomen: soft, non tender, other - GT Extremities: other - + edema Laboratory Tests Test 08/01/17 03:50 Sodium Level 137 MMOL/L (136-145) Potassium Level 5.5 MMOL/L (3.5-5.1) H Chloride Level 100 MMOL/L (98-107) Carbon Dioxide Level 25 MMOL/L (21-32) Anion Gap 12 mmol/L (5-15) Blood Urea Nitrogen 92 mg/dL (7-18) H Creatinine 3.8 MG/DL (0.55-1.30) H Estimat Glomerular Filtration Rate 19.6 mL/min (>60) Glucose Level 135 MG/DL (74-106) H Calcium Level 8.7 MG/DL (8.5-10.1) Phosphorus Level 6.3 MG/DL (2.5-4.9) H Current Medications Medications (Trade) Dose Ordered Sig/Trina Route PRN Reason Start Time Stop Time Status Last Admin Dose Admin Acetaminophen (Tylenol) 650 mg Q4H PRN GT Mild pain / T > 100.5F 07/25/17 07:00 08/24/17 06:59 07/31/17 11:22 Amlodipine Besylate (Norvasc) 10 mg DAILY GT 07/25/17 09:00 08/24/17 08:59 5/1/18 08:49 Bisacodyl (Dulcolax) 10 mg DAILYPRN PRN RECTAL CONSTIPATION 07/25/17 07:00 08/24/17 06:59 Docusate Sodium (Colace) 100 mg DAILYPRN PRN ORAL Constipation 07/25/17 07:00 08/24/17 06:59 Docusate Sodium (Colace) 100 mg EVERY 12 HOURS GT 07/31/17 21:00 08/24/17 08:59 08/01/17 08:45 Enoxaparin Sodium (Lovenox) 40 mg DAILY SUBQ 07/25/17 09:00 08/24/17 08:59 08/01/17 08:50 Ferrous Sulfate (Feosol) 300 mg DAILY GT 07/25/17 09:00 08/24/17 08:59 08/01/17 08:46 Fludrocortisone Acetate (Florinef) 0.1 mg Q12HR GT 07/25/17 09:00 08/24/17 08:59 08/01/17 08:46 Levetiracetam (Keppra) 1,000 mg Q12HR GT 07/25/17 09:00 08/24/17 08:59 08/01/17 08:47 Levothyroxine Sodium (Synthroid) 50 mcg DAILY GT 07/25/17 09:00 08/24/17 08:59 08/01/17 08:46 Magnesium Hydroxide (Mom) 30 ml HSPRN PRN GT Constipation 07/25/17 21:00 08/24/17 20:59 07/28/17 20:43 Magnesium Hydroxide (Mom) 30 ml QHS PRN GT Constipation 07/25/17 07:00 08/24/17 06:59 Meropenem 1 gm/ Sodium Chloride 110 ml @ 220 mls/hr Q12HR IVPB 07/31/17 13:00 08/05/17 12:59 08/01/17 08:55 Minocycline HCl (Minocin) 100 mg Q12HR ORAL 07/31/17 12:00 08/07/17 11:59 08/01/17 08:46 Minoxidil (Loniten) 10 mg BID GT 07/25/17 09:00 08/24/17 08:59 08/01/17 08:48 Ondansetron HCl (Zofran) 4 mg Q8H PRN GT Nausea & Vomiting 07/25/17 07:00 08/24/17 06:59 Propranolol HCl (Inderal) 40 mg Q8HR GT 07/25/17 09:00 08/24/17 08:59 08/01/17 06:20 Sodium Polystyrene Sulfonate (Kayexalate) 30 gm ONCE@0800 GT 08/01/17 08:00 08/01/17 12:00 08/01/17 08:45 Sodium Phosphate (Fleet's Sodium Phosl Enema) 133 ml Q72H PRN RECTAL Constipation 07/25/17 07:00 08/24/17 06:59 Zinc Sulfate (Zinc Sulfate) 220 mg DAILY GT 07/25/17 09:00 08/24/17 08:59 08/01/17 08:46 Zolpidem Tartrate (Ambien) 5 mg HSPRN PRN GT Insomnia 07/25/17 21:00 08/01/17 20:59 MOISÉS VILLARREAL August 01, 2017 10:37"
[2017-08-01 12:00] VITALS: BP 136/75
[2017-08-01 12:06] LABS: HEMATOCRIT 24.2 % (42.0-52.0); HEMOGLOBIN 7.9 G/DL (14.2-18.0); MEAN CORPUSCULAR VOLUME 80 FL (80-99); PLATELET COUNT 594 K/UL (150-450); RED BLOOD COUNT 3.01 M/UL (4.70-6.10); RED CELL DISTRIBUTION WIDTH 15.5 % (11.6-14.8); WHITE BLOOD COUNT 19.3 K/UL (4.8-10.8)
--- NOTE | 2017-08-01 13:40 | Diagnostic Imaging Report ---
Indication:Elevated Bun and Creatinine. Technique: Grayscale and duplex Doppler imaging of the kidneys performed. Comparison: None Findings: The size, contour, and echogenicity of both kidneys are within normal limits. There is no hydronephrosis. On 0.5 cm left renal cyst. Right kidney is 11.8 cm. Left kidney is 12.7 cm in length. The IVC and urinary bladder are unremarkable. IMPRESSION: Right renal cyst. Negative exam otherwise
[2017-08-01 16:00] VITALS: BP 133/73
--- NOTE | 2017-08-01 16:29 | Nephrology Progress Note ---
Assessment/Plan Plan CONSUELO - check Labs - m/p 2nd to Minocycline. To DW ID! Check Renal US. Subjective Subjective Confused Objective Objective Last 24 Hour Vital Signs Date Time Temp Pulse Resp B/P (MAP) Pulse Ox O2 Delivery O2 Flow Rate FiO2 08/01/17 15:28 84 08/01/17 14:52 86 19 45 08/01/17 14:24 87 136/75 08/01/17 12:53 87 17 45 08/01/17 12:02 45 08/01/17 12:00 97.9 99 18 136/75 99 Mechanical Ventilator 45 97.9 08/01/17 12:00 89 08/01/17 11:01 89 21 45 08/01/17 09:08 87 19 45 08/01/17 08:49 111 142/69 08/01/17 08:48 142/69 08/01/17 08:00 98.1 91 20 125/69 99 Mechanical Ventilator 45 98.1 08/01/17 08:00 45 08/01/17 08:00 88 08/01/17 07:16 90 20 45 08/01/17 06:20 91 146/71 08/01/17 05:12 95 23 45 08/01/17 04:00 45 08/01/17 04:00 93 08/01/17 04:00 98.8 91 25 139/71 100 Mechanical Ventilator 45 98.8 08/01/17 03:28 Mechanical Ventilator 45 08/01/17 03:28 104 22 45 08/01/17 03:28 Mechanical Ventilator 45 08/01/17 01:28 97 23 45 08/01/17 00:00 92 08/01/17 00:00 99.2 92 25 133/73 99 Mechanical Ventilator 45 99.2 08/01/17 00:00 45 07/31/17 23:04 99 23 100 Mechanical Ventilator 45 07/31/17 23:02 95 22 45 07/31/17 23:00 98 23 100 Mechanical Ventilator 45 07/31/17 21:53 106 131/74 07/31/17 21:19 103 22 45 07/31/17 20:00 99.3 104 24 131/74 100 Mechanical Ventilator 45 99.3 07/31/17 19:34 106 07/31/17 19:25 107 14 100 Mechanical Ventilator 45 07/31/17 19:21 111 23 45 07/31/17 19:19 111 22 99 Mechanical Ventilator 45 07/31/17 17:00 130/66 07/31/17 16:49 104 25 100 Mechanical Ventilator 45 07/31/17 16:47 102 23 45 07/31/17 16:39 102 23 100 Mechanical Ventilator 45 Intake and Output 07/31/17 08/01/17 19:00 07:00 Intake Total 350 ml 885 ml Output Total 200 ml 500 ml Balance 150 ml 385 ml IV Total 220 ml 110 ml Tube Feeding 130 ml 715 ml Other 60 ml Output Urine Total 200 ml 500 ml Laboratory Tests 08/01/17 03:50: Sodium Level 137, Potassium Level 5.5H, Chloride Level 100, Carbon Dioxide Level 25, Anion Gap 12, Blood Urea Nitrogen 92H, Creatinine 3.8H, Estimat Glomerular Filtration Rate 19.6, Glucose Level 135H, Calcium Level 8.7, Phosphorus Level 6.3H 08/01/17 11:25: White Blood Count 19.3H, Red Blood Count 3.01L, Hemoglobin 7.9L, Hematocrit 24.2L, Mean Corpuscular Volume 80, Mean Corpuscular Hemoglobin 26.2L, Mean Corpuscular Hemoglobin Concent 32.7, Red Cell Distribution Width 15.5H, Platelet Count 594H, Mean Platelet Volume 7.6, Neutrophils (%) (Auto) , Lymphocytes (%) (Auto) , Monocytes (%) (Auto) , Eosinophils (%) (Auto) , Basophils (%) (Auto) , Differential Total Cells Counted 100, Neutrophils % ( Manual) 78H, Lymphocytes % (Manual) 8L, Monocytes % (Manual) 13H, Eosinophils % (Manual) 1, Basophils % (Manual) 0, Band Neutrophils 0, Platelet Estimate IncreasedH, Platelet Morphology Normal, Hypochromasia 1+, Anisocytosis 1+ Height (Feet): 6 Height (Inches): 10.00 Weight (Pounds): 227 Objective CV RR Lungs CTA Abd SNT. BS + E +3 B ankle Sebastián Ramirez MD August 01, 2017 16:29
--- NOTE | 2017-08-01 18:40 | General Progress Note ---
Assessment/Plan Assessment/Plan IMPRESSION Leukocytosis anemia possible sepsis possible gib trach gt oliguria ARF- worse pulmonary edema PLAN vent support for now IV antibiotics per ID avoid nephrotoxic meds maintain meds renal evaluation to follow not able to dc at present respiratory care feeds impression, plan, and exam edited and reviewed in detail care discussed with RN Subjective ROS Limited/Unobtainable: Yes Allergies: Coded Allergies: No Known Allergies (Unverified , 07/24/17) Subjective labs noted still with leukocytosis and worsening renal function noted k elevated Objective Last 24 Hour Vital Signs Date Time Temp Pulse Resp B/P (MAP) Pulse Ox O2 Delivery O2 Flow Rate FiO2 08/01/17 18:28 133/79 08/01/17 17:01 89 25 45 08/01/17 16:00 97.5 83 20 133/73 99 Mechanical Ventilator 45 97.5 08/01/17 16:00 45 08/01/17 15:28 84 08/01/17 14:52 86 19 45 08/01/17 14:24 87 136/75 08/01/17 12:53 87 17 45 08/01/17 12:02 45 08/01/17 12:00 97.9 99 18 136/75 99 Mechanical Ventilator 45 97.9 08/01/17 12:00 89 08/01/17 11:01 89 21 45 08/01/17 09:08 87 19 45 08/01/17 08:49 111 142/69 08/01/17 08:48 142/69 08/01/17 08:00 98.1 91 20 125/69 99 Mechanical Ventilator 45 98.1 08/01/17 08:00 45 08/01/17 08:00 88 08/01/17 07:16 90 20 45 08/01/17 06:20 91 146/71 08/01/17 05:12 95 23 45 08/01/17 04:00 45 08/01/17 04:00 93 08/01/17 04:00 98.8 91 25 139/71 100 Mechanical Ventilator 45 98.8 08/01/17 03:28 Mechanical Ventilator 45 08/01/17 03:28 104 22 45 08/01/17 03:28 Mechanical Ventilator 45 08/01/17 01:28 97 23 45 08/01/17 00:00 92 08/01/17 00:00 99.2 92 25 133/73 99 Mechanical Ventilator 45 99.2 08/01/17 00:00 45 07/31/17 23:04 99 23 100 Mechanical Ventilator 45 07/31/17 23:02 95 22 45 07/31/17 23:00 98 23 100 Mechanical Ventilator 45 07/31/17 21:53 106 131/74 07/31/17 21:19 103 22 45 07/31/17 20:00 99.3 104 24 131/74 100 Mechanical Ventilator 45 99.3 07/31/17 19:34 106 07/31/17 19:25 107 14 100 Mechanical Ventilator 45 07/31/17 19:21 111 23 45 07/31/17 19:19 111 22 99 Mechanical Ventilator 45 Intake and Output 07/31/17 08/01/17 19:00 07:00 Intake Total 1120 ml 885 ml Output Total 200 ml 500 ml Balance 920 ml 385 ml IV Total 220 ml 110 ml Tube Feeding 780 ml 715 ml Other 120 ml 60 ml Output Urine Total 200 ml 500 ml Laboratory Tests 08/01/17 03:50: Sodium Level 137, Potassium Level 5.5H, Chloride Level 100, Carbon Dioxide Level 25, Anion Gap 12, Blood Urea Nitrogen 92H, Creatinine 3.8H, Estimat Glomerular Filtration Rate 19.6, Glucose Level 135H, Calcium Level 8.7, Phosphorus Level 6.3H 08/01/17 11:25: White Blood Count 19.3H, Red Blood Count 3.01L, Hemoglobin 7.9L, Hematocrit 24.2L, Mean Corpuscular Volume 80, Mean Corpuscular Hemoglobin 26.2L, Mean Corpuscular Hemoglobin Concent 32.7, Red Cell Distribution Width 15.5H, Platelet Count 594H, Mean Platelet Volume 7.6, Neutrophils (%) (Auto) , Lymphocytes (%) (Auto) , Monocytes (%) (Auto) , Eosinophils (%) (Auto) , Basophils (%) (Auto) , Differential Total Cells Counted 100, Neutrophils % ( Manual) 78H, Lymphocytes % (Manual) 8L, Monocytes % (Manual) 13H, Eosinophils % (Manual) 1, Basophils % (Manual) 0, Band Neutrophils 0, Platelet Estimate IncreasedH, Platelet Morphology Normal, Hypochromasia 1+, Anisocytosis 1+ Height (Feet): 6 Height (Inches): 10.00 Weight (Pounds): 227 Objective WDWN trach reduced breath sounds bilaterally without rhonchi or wheeze [id number] without MRG NABS nontender no HSM; GT no CC minimal edema weak MARY WILEY August 01, 2017 18:40
[2017-08-01 20:00] VITALS: BP 124/74
[2017-08-02 00:10] VITALS: BP 122/68
[2017-08-02 04:00] VITALS: BP 128/78
[2017-08-02 05:34] LABS: ANION GAP 12 mmol/L (5-15); BLOOD UREA NITROGEN 98 mg/dL (7-18); CALCIUM 8.6 MG/DL (8.5-10.1); CARBON DIOXIDE 27 MMOL/L (21-32); CHLORIDE 98 MMOL/L (98-107); CREATININE 3.9 MG/DL (0.55-1.30); POTASSIUM 3.8 MMOL/L (3.5-5.1); SODIUM 137 MMOL/L (136-145)
[2017-08-02] MEDS: Propranolol 40mg tab GT SCH ×3 (05:48→20:47)
--- NOTE | 2017-08-02 07:30 | Nephrology Progress Note ---
Assessment/Plan Plan CONSUELO - check Labs - due to unknown agent. DW ID. Monitor closely.. Subjective Subjective Confused Objective Objective Last 24 Hour Vital Signs Date Time Temp Pulse Resp B/P (MAP) Pulse Ox O2 Delivery O2 Flow Rate FiO2 08/02/17 06:55 77 16 45 08/02/17 05:48 81 128/78 08/02/17 05:00 81 15 45 08/02/17 04:00 97.6 81 17 128/78 99 Mechanical Ventilator 45 97.6 08/02/17 04:00 80 08/02/17 04:00 45 08/02/17 03:01 80 15 45 08/02/17 01:15 79 15 45 08/02/17 00:10 97.6 75 15 122/68 100 Mechanical Ventilator 45 97.6 08/02/17 00:00 76 08/02/17 00:00 45 08/01/17 23:36 76 17 45 08/01/17 21:09 80 124/74 08/01/17 21:00 80 19 45 08/01/17 20:00 45 08/01/17 20:00 97.7 80 17 124/74 100 Mechanical Ventilator 45 97.7 08/01/17 20:00 80 08/01/17 19:18 79 18 45 08/01/17 18:28 133/79 08/01/17 17:01 89 25 45 08/01/17 16:00 97.5 83 20 133/73 99 Mechanical Ventilator 45 97.5 08/01/17 16:00 45 08/01/17 15:28 84 08/01/17 14:52 86 19 45 08/01/17 14:24 87 136/75 08/01/17 12:53 87 17 45 08/01/17 12:02 45 08/01/17 12:00 97.9 99 18 136/75 99 Mechanical Ventilator 45 97.9 08/01/17 12:00 89 08/01/17 11:01 89 21 45 08/01/17 09:08 87 19 45 08/01/17 08:49 111 142/69 08/01/17 08:48 142/69 08/01/17 08:00 98.1 91 20 125/69 99 Mechanical Ventilator 45 98.1 08/01/17 08:00 45 08/01/17 08:00 88 Intake and Output 08/01/17 08/02/17 19:00 07:00 Intake Total 515 ml 600 ml Output Total 430 ml Balance 85 ml 600 ml IV Total 220 ml Tube Feeding 245 ml 330 ml Other 270 ml 50 ml Output Urine Total 400 ml Drainage Total 30 ml # Bowel Movements 1 Laboratory Tests 08/01/17 11:25: White Blood Count 19.3H, Red Blood Count 3.01L, Hemoglobin 7.9L, Hematocrit 24.2L, Mean Corpuscular Volume 80, Mean Corpuscular Hemoglobin 26.2L, Mean Corpuscular Hemoglobin Concent 32.7, Red Cell Distribution Width 15.5H, Platelet Count 594H, Mean Platelet Volume 7.6, Neutrophils (%) (Auto) , Lymphocytes (%) (Auto) , Monocytes (%) (Auto) , Eosinophils (%) (Auto) , Basophils (%) (Auto) , Differential Total Cells Counted 100, Neutrophils % ( Manual) 78H, Lymphocytes % (Manual) 8L, Monocytes % (Manual) 13H, Eosinophils % (Manual) 1, Basophils % (Manual) 0, Band Neutrophils 0, Platelet Estimate IncreasedH, Platelet Morphology Normal, Hypochromasia 1+, Anisocytosis 1+ 08/02/17 04:00: Sodium Level 137, Potassium Level 3.8, Chloride Level 98, Carbon Dioxide Level 27, Anion Gap 12, Blood Urea Nitrogen 98H, Creatinine 3.9H, Estimat Glomerular Filtration Rate 19.0, Glucose Level 138H, Calcium Level 8.6 Height (Feet): 6 Height (Inches): 10.00 Weight (Pounds): 226 Objective CV RR Lungs CTA Abd SNT. BS + E +3 B ankle Sebastián Ramirez MD August 02, 2017 07:30
[2017-08-02 08:00] VITALS: BP 137/74
[2017-08-02 08:12] LABS: BASOPHILS % (AUTO) 0.9 % (0.0-2.0); EOSINOPHILS % (AUTO) 2.6 % (0.0-3.0); HEMATOCRIT 25.1 % (42.0-52.0); HEMOGLOBIN 8.5 G/DL (14.2-18.0); LYMPHOCYTES % (AUTO) 3.4 % (20.0-45.0); MEAN CORPUSCULAR VOLUME 80 FL (80-99); MONOCYTES % (AUTO) 10.6 % (1.0-10.0); NEUTROPHILS % (AUTO) 82.6 % (45.0-75.0); PLATELET COUNT 616 K/UL (150-450); RED BLOOD COUNT 3.13 M/UL (4.70-6.10); RED CELL DISTRIBUTION WIDTH 15.8 % (11.6-14.8); WHITE BLOOD COUNT 15.2 K/UL (4.8-10.8)
[2017-08-02] MEDS: Ferrous Sulfate 300 MG/5 ML UDC GT SCH (09:24)
[2017-08-02] MEDS: Zinc Sulfate 220mg cap GT SCH (09:24)
[2017-08-02] MEDS: Minoxidil 10mg tab GT SCH ×2 (09:24→17:32)
[2017-08-02] MEDS: Docusate 100mg/10ml Liq GT SCH ×2 (09:24→20:43)
[2017-08-02] MEDS: Minocycline HCl 50mg cap ORAL SCH ×2 (09:25→20:45)
[2017-08-02] MEDS: levETIRAcetam 500mg/5ml Liquid GT SCH ×2 (09:25→20:44)
[2017-08-02] MEDS: Meropenem 1 GM in NS 110 ML IVPB SCH ×2 (09:25→20:44)
[2017-08-02] MEDS: Enoxaparin 40mg Inj SUBQ SCH (09:26)
--- NOTE | 2017-08-02 10:41 | General Progress Note ---
Assessment/Plan Assessment/Plan IMPRESSION Leukocytosis anemia possible sepsis possible gib trach gt oliguria ARF- worse pulmonary edema PLAN vent support for now IV antibiotics per ID avoid nephrotoxic meds maintain meds renal evaluation noted not able to dc at present with worsening renal function respiratory care feeds impression, plan, and exam edited and reviewed in detail care discussed with RN Subjective ROS Limited/Unobtainable: Yes Allergies: Coded Allergies: No Known Allergies (Unverified , 07/24/17) Subjective labs noted still with leukocytosis and worsening renal function noted and d/w renal k elevated Objective Last 24 Hour Vital Signs Date Time Temp Pulse Resp B/P (MAP) Pulse Ox O2 Delivery O2 Flow Rate FiO2 08/02/17 09:24 137/74 08/02/17 09:24 81 137/74 08/02/17 08:57 81 16 45 08/02/17 08:00 97.5 79 18 137/74 100 Mechanical Ventilator 45 97.5 08/02/17 08:00 45 08/02/17 06:55 77 16 45 08/02/17 05:48 81 128/78 08/02/17 05:00 81 15 45 08/02/17 04:00 97.6 81 17 128/78 99 Mechanical Ventilator 45 97.6 08/02/17 04:00 80 08/02/17 04:00 45 08/02/17 03:01 80 15 45 08/02/17 01:15 79 15 45 08/02/17 00:10 97.6 75 15 122/68 100 Mechanical Ventilator 45 97.6 08/02/17 00:00 76 08/02/17 00:00 45 08/01/17 23:36 76 17 45 08/01/17 21:09 80 124/74 08/01/17 21:00 80 19 45 08/01/17 20:00 45 08/01/17 20:00 97.7 80 17 124/74 100 Mechanical Ventilator 45 97.7 08/01/17 20:00 80 08/01/17 19:18 79 18 45 08/01/17 18:28 133/79 08/01/17 17:01 89 25 45 08/01/17 16:00 97.5 83 20 133/73 99 Mechanical Ventilator 45 97.5 08/01/17 16:00 45 08/01/17 15:28 84 08/01/17 14:52 86 19 45 5/1/18 14:24 87 136/75 08/01/17 12:53 87 17 45 08/01/17 12:02 45 08/01/17 12:00 97.9 99 18 136/75 99 Mechanical Ventilator 45 97.9 08/01/17 12:00 89 08/01/17 11:01 89 21 45 Intake and Output 08/01/17 08/02/17 19:00 07:00 Intake Total 515 ml 640 ml Output Total 430 ml 300 ml Balance 85 ml 340 ml IV Total 220 ml Tube Feeding 245 ml 370 ml Other 270 ml 50 ml Output Urine Total 400 ml 300 ml Drainage Total 30 ml # Bowel Movements 1 Laboratory Tests 08/01/17 11:25: White Blood Count 19.3H, Red Blood Count 3.01L, Hemoglobin 7.9L, Hematocrit 24.2L, Mean Corpuscular Volume 80, Mean Corpuscular Hemoglobin 26.2L, Mean Corpuscular Hemoglobin Concent 32.7, Red Cell Distribution Width 15.5H, Platelet Count 594H, Mean Platelet Volume 7.6, Neutrophils (%) (Auto) , Lymphocytes (%) (Auto) , Monocytes (%) (Auto) , Eosinophils (%) (Auto) , Basophils (%) (Auto) , Differential Total Cells Counted 100, Neutrophils % ( Manual) 78H, Lymphocytes % (Manual) 8L, Monocytes % (Manual) 13H, Eosinophils % (Manual) 1, Basophils % (Manual) 0, Band Neutrophils 0, Platelet Estimate IncreasedH, Platelet Morphology Normal, Hypochromasia 1+, Anisocytosis 1+ 08/02/17 04:00: White Blood Count 15.2H, Red Blood Count 3.13L, Hemoglobin 8.5L, Hematocrit 25.1L, Mean Corpuscular Volume 80, Mean Corpuscular Hemoglobin 27.0, Mean Corpuscular Hemoglobin Concent 33.7, Red Cell Distribution Width 15.8H, Platelet Count 616H, Mean Platelet Volume 7.7, Neutrophils (%) (Auto) 82.6H, Lymphocytes (%) (Auto) 3.4L, Monocytes (%) (Auto) 10.6H, Eosinophils (%) (Auto) 2.6, Basophils (%) (Auto) 0.9, Sodium Level 137, Potassium Level 3.8, Chloride Level 98, Carbon Dioxide Level 27, Anion Gap 12, Blood Urea Nitrogen 98H, Creatinine 3.9H, Estimat Glomerular Filtration Rate 19.0, Glucose Level 138H, Calcium Level 8.6 Height (Feet): 6 Height (Inches): 10.00 Weight (Pounds): 226 Objective WDWN trach reduced breath sounds bilaterally without rhonchi or wheeze [id number] without MRG NABS nontender no HSM; GT no CC minimal edema weak MARY WILEY August 02, 2017 10:41
[2017-08-02 12:00] VITALS: BP 127/78
--- NOTE | 2017-08-02 12:11 | Infectious Diseases Prog Note ---
Assessment/Plan Assessment/Plan A: 1. MDR Acinetobacter & Serratia pneumonia 2. leucocytosis 3. respiratory failure 4. anemia 5. hypertension 6. seizures 7, Acute renal failure 8. VRE colonization P 1. continue Minocycline & Meropenem Subjective ROS Limited/Unobtainable: Yes Allergies: Coded Allergies: No Known Allergies (Unverified , 07/24/17) Objective Vital Signs Last 24 Hour Vital Signs Date Time Temp Pulse Resp B/P (MAP) Pulse Ox O2 Delivery O2 Flow Rate FiO2 08/02/17 10:51 82 20 45 08/02/17 09:24 137/74 08/02/17 09:24 81 137/74 08/02/17 08:57 81 16 45 08/02/17 08:00 97.5 79 18 137/74 100 Mechanical Ventilator 45 97.5 08/02/17 08:00 45 08/02/17 08:00 79 08/02/17 06:55 77 16 45 08/02/17 05:48 81 128/78 08/02/17 05:00 81 15 45 08/02/17 04:00 97.6 81 17 128/78 99 Mechanical Ventilator 45 97.6 08/02/17 04:00 80 08/02/17 04:00 45 08/02/17 03:01 80 15 45 08/02/17 01:15 79 15 45 08/02/17 00:10 97.6 75 15 122/68 100 Mechanical Ventilator 45 97.6 08/02/17 00:00 76 08/02/17 00:00 45 08/01/17 23:36 76 17 45 08/01/17 21:09 80 124/74 08/01/17 21:00 80 19 45 08/01/17 20:00 45 08/01/17 20:00 97.7 80 17 124/74 100 Mechanical Ventilator 45 97.7 08/01/17 20:00 80 08/01/17 19:18 79 18 45 08/01/17 18:28 133/79 08/01/17 17:01 89 25 45 08/01/17 16:00 97.5 83 20 133/73 99 Mechanical Ventilator 45 97.5 08/01/17 16:00 45 08/01/17 15:28 84 08/01/17 14:52 86 19 45 08/01/17 14:24 87 136/75 08/01/17 12:53 87 17 45 Height (Feet): 6 Height (Inches): 10.00 Weight (Pounds): 226 HEENT: status post trach Respiratory/Chest: rhonchi - bilaterally Cardiovascular: normal rate Abdomen: soft, non tender, other - GTfeeding Extremities: other - generalized edema Neurologic/Psychiatric: aphasia Laboratory Tests Test 08/02/17 04:00 White Blood Count 15.2 K/UL (4.8-10.8) H Red Blood Count 3.13 M/UL (4.70-6.10) L Hemoglobin 8.5 G/DL (14.2-18.0) L Hematocrit 25.1 % (42.0-52.0) L Mean Corpuscular Volume 80 FL (80-99) Mean Corpuscular Hemoglobin 27.0 PG (27.0-31.0) Mean Corpuscular Hemoglobin Concent 33.7 G/DL (32.0-36.0) Red Cell Distribution Width 15.8 % (11.6-14.8) H Platelet Count 616 K/UL (150-450) H Mean Platelet Volume 7.7 FL (6.5-10.1) Neutrophils (%) (Auto) 82.6 % (45.0-75.0) H Lymphocytes (%) (Auto) 3.4 % (20.0-45.0) L Monocytes (%) (Auto) 10.6 % (1.0-10.0) H Eosinophils (%) (Auto) 2.6 % (0.0-3.0) Basophils (%) (Auto) 0.9 % (0.0-2.0) Sodium Level 137 MMOL/L (136-145) Potassium Level 3.8 MMOL/L (3.5-5.1) Chloride Level 98 MMOL/L (98-107) Carbon Dioxide Level 27 MMOL/L (21-32) Anion Gap 12 mmol/L (5-15) Blood Urea Nitrogen 98 mg/dL (7-18) H Creatinine 3.9 MG/DL (0.55-1.30) H Estimat Glomerular Filtration Rate 19.0 mL/min (>60) Glucose Level 138 MG/DL (74-106) H Calcium Level 8.6 MG/DL (8.5-10.1) Current Medications Medications (Trade) Dose Ordered Sig/Trina Route PRN Reason Start Time Stop Time Status Last Admin Dose Admin Acetaminophen (Tylenol) 650 mg Q4H PRN GT Mild pain / T > 100.5F 07/25/17 07:00 08/24/17 06:59 07/31/17 11:22 Amlodipine Besylate (Norvasc) 10 mg DAILY GT 07/25/17 09:00 08/24/17 08:59 08/02/17 09:24 Bisacodyl (Dulcolax) 10 mg DAILYPRN PRN RECTAL CONSTIPATION 07/25/17 07:00 08/24/17 06:59 Docusate Sodium (Colace) 100 mg DAILYPRN PRN ORAL Constipation 07/25/17 07:00 08/24/17 06:59 Docusate Sodium (Colace) 100 mg EVERY 12 HOURS GT 07/31/17 21:00 08/24/17 08:59 08/02/17 09:24 Enoxaparin Sodium (Lovenox) 40 mg DAILY SUBQ 07/25/17 09:00 08/24/17 08:59 08/02/17 09:26 Ferrous Sulfate (Feosol) 300 mg DAILY GT 07/25/17 09:00 08/24/17 08:59 08/02/17 09:24 Fludrocortisone Acetate (Florinef) 0.1 mg Q12HR GT 07/25/17 09:00 08/24/17 08:59 08/02/17 09:24 Levetiracetam (Keppra) 1,000 mg Q12HR GT 07/25/17 09:00 08/24/17 08:59 08/02/17 09:25 Levothyroxine Sodium (Synthroid) 50 mcg DAILY GT 07/25/17 09:00 08/24/17 08:59 08/02/17 09:24 Magnesium Hydroxide (Mom) 30 ml HSPRN PRN GT Constipation 07/25/17 21:00 08/24/17 20:59 07/28/17 20:43 Magnesium Hydroxide (Mom) 30 ml QHS PRN GT Constipation 07/25/17 07:00 08/24/17 06:59 Meropenem 1 gm/ Sodium Chloride 110 ml @ 220 mls/hr Q12HR IVPB 07/31/17 13:00 5/18 12:59 08/02/17 09:25 Minocycline HCl (Minocin) 100 mg Q12HR ORAL 07/31/17 12:00 08/07/17 11:59 08/02/17 09:25 Minoxidil (Loniten) 10 mg BID GT 07/25/17 09:00 08/24/17 08:59 08/02/17 09:24 Ondansetron HCl (Zofran) 4 mg Q8H PRN GT Nausea & Vomiting 07/25/17 07:00 08/24/17 06:59 Propranolol HCl (Inderal) 40 mg Q8HR GT 07/25/17 09:00 08/24/17 08:59 08/02/17 05:48 Sodium Phosphate (Fleet's Sodium Phosl Enema) 133 ml Q72H PRN RECTAL Constipation 07/25/17 07:00 08/24/17 06:59 Zinc Sulfate (Zinc Sulfate) 220 mg DAILY GT 07/25/17 09:00 08/24/17 08:59 08/02/17 09:24 RACHEL HENDERSON August 02, 2017 12:10
[2017-08-02 16:00] VITALS: BP 128/77
[2017-08-02 20:00] VITALS: BP 137/74
[2017-08-03] VITALS: BP 109/68
[2017-08-03 04:00] VITALS: BP 130/64
[2017-08-03 05:01] LABS: BASOPHILS % (AUTO) 0.9 % (0.0-2.0); EOSINOPHILS % (AUTO) 6.7 % (0.0-3.0); HEMATOCRIT 23.8 % (42.0-52.0); HEMOGLOBIN 8.1 G/DL (14.2-18.0); LYMPHOCYTES % (AUTO) 4.8 % (20.0-45.0); MEAN CORPUSCULAR VOLUME 79 FL (80-99); MONOCYTES % (AUTO) 7.3 % (1.0-10.0); NEUTROPHILS % (AUTO) 80.3 % (45.0-75.0); PLATELET COUNT 632 K/UL (150-450); RED BLOOD COUNT 3.03 M/UL (4.70-6.10); RED CELL DISTRIBUTION WIDTH 15.2 % (11.6-14.8); WHITE BLOOD COUNT 13.9 K/UL (4.8-10.8)
[2017-08-03 05:05] LABS: ANION GAP 11 mmol/L (5-15); BLOOD UREA NITROGEN 106 mg/dL (7-18); CALCIUM 8.7 MG/DL (8.5-10.1); CARBON DIOXIDE 29 MMOL/L (21-32); CHLORIDE 99 MMOL/L (98-107); POTASSIUM 3.3 MMOL/L (3.5-5.1); SODIUM 139 MMOL/L (136-145)
[2017-08-03] MEDS: Propranolol 40mg tab GT SCH ×3 (05:57→20:52)
[2017-08-03 08:00] VITALS: BP 141/71
--- NOTE | 2017-08-03 08:43 | General Progress Note ---
Assessment/Plan Assessment/Plan IMPRESSION Leukocytosis anemia possible sepsis possible gib trach gt oliguria ARF- worse pulmonary edema PLAN vent support for now IV antibiotics per ID avoid nephrotoxic meds maintain meds renal evaluation noted- may need dialysis not able to dc at present with worsening renal function respiratory care feeds impression, plan, and exam edited and reviewed in detail care discussed with RN Subjective ROS Limited/Unobtainable: Yes Allergies: Coded Allergies: No Known Allergies (Unverified , 07/24/17) Subjective labs noted still with leukocytosis and worsening renal function worsening k replaced Objective Last 24 Hour Vital Signs Date Time Temp Pulse Resp B/P (MAP) Pulse Ox O2 Delivery O2 Flow Rate FiO2 08/03/17 08:00 98.4 96 22 141/71 100 Mechanical Ventilator 45 98.4 08/03/17 08:00 45 08/03/17 07:21 90 14 45 08/03/17 05:57 94 130/64 08/03/17 05:05 93 16 45 08/03/17 04:08 92 08/03/17 04:00 45 08/03/17 04:00 97.9 94 22 130/64 100 Mechanical Ventilator 45 97.9 08/03/17 03:53 94 17 45 08/03/17 01:32 94 22 45 08/03/17 00:00 97.9 91 18 109/68 100 Mechanical Ventilator 45 97.9 08/03/17 00:00 45 08/02/17 23:58 91 08/02/17 23:42 87 19 45 08/02/17 21:55 76 18 45 08/02/17 20:47 91 137/74 08/02/17 20:00 45 08/02/17 20:00 97.8 91 23 137/74 98 Mechanical Ventilator 45 97.8 08/02/17 19:20 89 08/02/17 19:13 74 19 45 08/02/17 17:32 128/77 08/02/17 16:57 73 19 45 08/02/17 16:00 45 08/02/17 16:00 97.3 81 16 128/77 100 Mechanical Ventilator 45 97.3 08/02/17 15:38 82 08/02/17 14:55 81 16 45 08/02/17 13:57 82 127/78 08/02/17 13:24 82 23 45 08/02/17 12:00 83 08/02/17 12:00 45 08/02/17 12:00 97.3 83 16 127/78 99 Mechanical Ventilator 45 97.3 08/02/17 10:51 82 20 45 08/02/17 09:24 137/74 08/02/17 09:24 81 137/74 08/02/17 08:57 81 16 45 Intake and Output 08/02/17 08/03/17 19:00 07:00 Intake Total 710 ml 810 ml Output Total 250 ml 650 ml Balance 460 ml 160 ml Intake Free Water 100 ml 100 ml IV Total 110 ml 110 ml Tube Feeding 500 ml 600 ml Output Urine Total 250 ml 650 ml # Bowel Movements 2 2 Laboratory Tests 08/03/17 03:40: White Blood Count 13.9H, Red Blood Count 3.03L, Hemoglobin 8.1L, Hematocrit 23.8L, Mean Corpuscular Volume 79L, Mean Corpuscular Hemoglobin 26.8L, Mean Corpuscular Hemoglobin Concent 34.1, Red Cell Distribution Width 15.2H, Platelet Count 632H, Mean Platelet Volume 7.4, Neutrophils (%) (Auto) 80.3H, Lymphocytes (%) (Auto) 4.8L, Monocytes (%) (Auto) 7.3, Eosinophils (%) (Auto) 6.7H, Basophils (%) (Auto) 0.9, Sodium Level 139, Potassium Level 3.3L, Chloride Level 99, Carbon Dioxide Level 29, Anion Gap 11, Blood Urea Nitrogen 106H, Creatinine 4.0H, Estimat Glomerular Filtration Rate 18.4, Glucose Level 142H, Calcium Level 8.7 Height (Feet): 6 Height (Inches): 10.00 Weight (Pounds): 233 Objective WDWN trach reduced breath sounds bilaterally without rhonchi or wheeze [id number] without MRG NABS nontender no HSM; GT no CC minimal edema weak MARY WILEY August 03, 2017 08:43
[2017-08-03] MEDS: Minocycline HCl 50mg cap ORAL SCH ×2 (09:28→20:50)
[2017-08-03] MEDS: Zinc Sulfate 220mg cap GT SCH (09:28)
[2017-08-03] MEDS: Docusate 100mg/10ml Liq GT SCH ×2 (09:28→20:50)
[2017-08-03] MEDS: Minoxidil 10mg tab GT SCH ×2 (09:28→17:28)
[2017-08-03] MEDS: Ferrous Sulfate 300 MG/5 ML UDC GT SCH (09:28)
[2017-08-03] MEDS: levETIRAcetam 500mg/5ml Liquid GT SCH ×2 (09:29→20:51)
[2017-08-03] MEDS: Enoxaparin 40mg Inj SUBQ SCH (09:31)
[2017-08-03] MEDS: Meropenem 1 GM in NS 110 ML IVPB SCH (09:33)
--- NOTE | 2017-08-03 10:23 | Nephrology Progress Note ---
Assessment/Plan Plan CONSUELO - check Labs - due to unknown agent. DW ID. Monitor closely..Phos 6.1 =======> GFR less than 15!!! Subjective Subjective Confused Objective Objective Last 24 Hour Vital Signs Date Time Temp Pulse Resp B/P (MAP) Pulse Ox O2 Delivery O2 Flow Rate FiO2 08/03/17 09:29 95 141/71 08/03/17 09:28 141/71 08/03/17 08:44 95 18 45 08/03/17 08:00 98.4 96 22 141/71 100 Mechanical Ventilator 45 98.4 08/03/17 08:00 91 08/03/17 08:00 45 08/03/17 07:21 90 14 45 08/03/17 05:57 94 130/64 08/03/17 05:05 93 16 45 08/03/17 04:08 92 08/03/17 04:00 45 08/03/17 04:00 97.9 94 22 130/64 100 Mechanical Ventilator 45 97.9 08/03/17 03:53 94 17 45 08/03/17 01:32 94 22 45 08/03/17 00:00 97.9 91 18 109/68 100 Mechanical Ventilator 45 97.9 08/03/17 00:00 45 08/02/17 23:58 91 08/02/17 23:42 87 19 45 08/02/17 21:55 76 18 45 08/02/17 20:47 91 137/74 08/02/17 20:00 45 08/02/17 20:00 97.8 91 23 137/74 98 Mechanical Ventilator 45 97.8 08/02/17 19:20 89 08/02/17 19:13 74 19 45 08/02/17 17:32 128/77 08/02/17 16:57 73 19 45 08/02/17 16:00 45 08/02/17 16:00 97.3 81 16 128/77 100 Mechanical Ventilator 45 97.3 08/02/17 15:38 82 08/02/17 14:55 81 16 45 08/02/17 13:57 82 127/78 08/02/17 13:24 82 23 45 08/02/17 12:00 83 08/02/17 12:00 45 08/02/17 12:00 97.3 83 16 127/78 99 Mechanical Ventilator 45 97.3 08/02/17 10:51 82 20 45 Intake and Output 08/02/17 08/03/17 19:00 07:00 Intake Total 710 ml 810 ml Output Total 250 ml 650 ml Balance 460 ml 160 ml Intake Free Water 100 ml 100 ml IV Total 110 ml 110 ml Tube Feeding 500 ml 600 ml Output Urine Total 250 ml 650 ml # Bowel Movements 2 2 Laboratory Tests 08/03/17 03:40: White Blood Count 13.9H, Red Blood Count 3.03L, Hemoglobin 8.1L, Hematocrit 23.8L, Mean Corpuscular Volume 79L, Mean Corpuscular Hemoglobin 26.8L, Mean Corpuscular Hemoglobin Concent 34.1, Red Cell Distribution Width 15.2H, Platelet Count 632H, Mean Platelet Volume 7.4, Neutrophils (%) (Auto) 80.3H, Lymphocytes (%) (Auto) 4.8L, Monocytes (%) (Auto) 7.3, Eosinophils (%) (Auto) 6.7H, Basophils (%) (Auto) 0.9, Sodium Level 139, Potassium Level 3.3L, Chloride Level 99, Carbon Dioxide Level 29, Anion Gap 11, Blood Urea Nitrogen 106H, Creatinine 4.0H, Estimat Glomerular Filtration Rate 18.4, Glucose Level 142H, Calcium Level 8.7 Height (Feet): 6 Height (Inches): 10.00 Weight (Pounds): 233 Objective CV RR Lungs CTA Abd SNT. BS + E +3 B ankle Sebastián Ramirez MD August 03, 2017 10:23
--- NOTE | 2017-08-03 10:28 | Infectious Diseases Prog Note ---
"Assessment/Plan Assessment/Plan antibiotics : meropenem, minocycline A 1. acenitobacter | serratia pneumonia 2. leucocytosis improving 3. respiratory failure 4. anemia 5. hypertension 6. seizures 7. renal failure 8. rectal VRE colonization P 1. continue meropenem, minocycline 3 more days 2. will follow up cultures 3. d/w Dr Veliz Subjective ROS Limited/Unobtainable: Yes Allergies: Coded Allergies: No Known Allergies (Unverified , 07/24/17) Objective Vital Signs Last 24 Hour Vital Signs Date Time Temp Pulse Resp B/P (MAP) Pulse Ox O2 Delivery O2 Flow Rate FiO2 08/03/17 09:29 95 141/71 08/03/17 09:28 141/71 08/03/17 08:44 95 18 45 08/03/17 08:00 98.4 96 22 141/71 100 Mechanical Ventilator 45 98.4 08/03/17 08:00 91 08/03/17 08:00 45 08/03/17 07:21 90 14 45 08/03/17 05:57 94 130/64 08/03/17 05:05 93 16 45 08/03/17 04:08 92 08/03/17 04:00 45 08/03/17 04:00 97.9 94 22 130/64 100 Mechanical Ventilator 45 97.9 08/03/17 03:53 94 17 45 08/03/17 01:32 94 22 45 08/03/17 00:00 97.9 91 18 109/68 100 Mechanical Ventilator 45 97.9 08/03/17 00:00 45 08/02/17 23:58 91 08/02/17 23:42 87 19 45 08/02/17 21:55 76 18 45 08/02/17 20:47 91 137/74 08/02/17 20:00 45 08/02/17 20:00 97.8 91 23 137/74 98 Mechanical Ventilator 45 97.8 08/02/17 19:20 89 08/02/17 19:13 74 19 45 08/02/17 17:32 128/77 08/02/17 16:57 73 19 45 08/02/17 16:00 45 08/02/17 16:00 97.3 81 16 128/77 100 Mechanical Ventilator 45 97.3 08/02/17 15:38 82 08/02/17 14:55 81 16 45 08/02/17 13:57 82 127/78 08/02/17 13:24 82 23 45 08/02/17 12:00 83 08/02/17 12:00 45 08/02/17 12:00 97.3 83 16 127/78 99 Mechanical Ventilator 45 97.3 08/02/17 10:51 82 20 45 Height (Feet): 6 Height (Inches): 10.00 Weight (Pounds): 233 HEENT: status post trach Respiratory/Chest: lungs clear Cardiovascular: normal rate, regular rhythm, no gallop/murmur Abdomen: soft, non tender, other - GT Extremities: other - + edema Laboratory Tests Test 08/03/17 03:40 White Blood Count 13.9 K/UL (4.8-10.8) H Red Blood Count 3.03 M/UL (4.70-6.10) L Hemoglobin 8.1 G/DL (14.2-18.0) L Hematocrit 23.8 % (42.0-52.0) L Mean Corpuscular Volume 79 FL (80-99) L Mean Corpuscular Hemoglobin 26.8 PG (27.0-31.0) L Mean Corpuscular Hemoglobin Concent 34.1 G/DL (32.0-36.0) Red Cell Distribution Width 15.2 % (11.6-14.8) H Platelet Count 632 K/UL (150-450) H Mean Platelet Volume 7.4 FL (6.5-10.1) Neutrophils (%) (Auto) 80.3 % (45.0-75.0) H Lymphocytes (%) (Auto) 4.8 % (20.0-45.0) L Monocytes (%) (Auto) 7.3 % (1.0-10.0) Eosinophils (%) (Auto) 6.7 % (0.0-3.0) H Basophils (%) (Auto) 0.9 % (0.0-2.0) Sodium Level 139 MMOL/L (136-145) Potassium Level 3.3 MMOL/L (3.5-5.1) L Chloride Level 99 MMOL/L (98-107) Carbon Dioxide Level 29 MMOL/L (21-32) Anion Gap 11 mmol/L (5-15) Blood Urea Nitrogen 106 mg/dL (7-18) H Creatinine 4.0 MG/DL (0.55-1.30) H Estimat Glomerular Filtration Rate 18.4 mL/min (>60) Glucose Level 142 MG/DL (74-106) H Calcium Level 8.7 MG/DL (8.5-10.1) Current Medications Medications (Trade) Dose Ordered Sig/Trina Route PRN Reason Start Time Stop Time Status Last Admin Dose Admin Acetaminophen (Tylenol) 650 mg Q4H PRN GT Mild pain / T > 100.5F 07/25/17 07:00 08/24/17 06:59 07/31/17 11:22 Amlodipine Besylate (Norvasc) 10 mg DAILY GT 07/25/17 09:00 08/24/17 08:59 08/03/17 09:29 Bisacodyl (Dulcolax) 10 mg DAILYPRN PRN RECTAL CONSTIPATION 07/25/17 07:00 08/24/17 06:59 Docusate Sodium (Colace) 100 mg DAILYPRN PRN ORAL Constipation 07/25/17 07:00 08/24/17 06:59 Docusate Sodium (Colace) 100 mg EVERY 12 HOURS GT 07/31/17 21:00 08/24/17 08:59 08/03/17 09:28 Enoxaparin Sodium (Lovenox) 40 mg DAILY SUBQ 07/25/17 09:00 08/24/17 08:59 08/03/17 09:31 Levetiracetam (Keppra) 1,000 mg Q12HR GT 07/25/17 09:00 08/24/17 08:59 08/03/17 09:29 Levothyroxine Sodium (Synthroid) 50 mcg DAILY GT 07/25/17 09:00 08/24/17 08:59 08/03/17 09:28 Magnesium Hydroxide (Mom) 30 ml HSPRN PRN GT Constipation 07/25/17 21:00 08/24/17 20:59 07/28/17 20:43 Magnesium Hydroxide (Mom) 30 ml QHS PRN GT Constipation 07/25/17 07:00 08/24/17 06:59 Meropenem 1 gm/ Sodium Chloride 110 ml @ 220 mls/hr Q12HR IVPB 07/31/17 13:00 08/05/17 12:59 08/03/17 09:33 Minocycline HCl (Minocin) 100 mg Q12HR ORAL 07/31/17 12:00 08/07/17 11:59 08/03/17 09:28 Minoxidil (Loniten) 10 mg BID GT 07/25/17 09:00 08/24/17 08:59 08/03/17 09:28 Ondansetron HCl (Zofran) 4 mg Q8H PRN GT Nausea & Vomiting 07/25/17 07:00 08/24/17 06:59 Propranolol HCl (Inderal) 40 mg Q8HR GT 07/25/17 09:00 08/24/17 08:59 08/03/17 05:57 Sodium Phosphate (Fleet's Sodium Phosl Enema) 133 ml Q72H PRN RECTAL Constipation 07/25/17 07:00 08/24/17 06:59 Zinc Sulfate (Zinc Sulfate) 220 mg DAILY GT 07/25/17 09:00 08/24/17 08:59 08/03/17 09:28 MOISÉS VILLARREAL August 03, 2017 10:28"
[2017-08-03 12:00] VITALS: BP 131/67
[2017-08-03 15:59] VITALS: BP 137/75
[2017-08-03 20:00] VITALS: BP 135/66
[2017-08-03] MEDS ORDERED: Meropenem 1 GM in NS 110 ML IVPB SCH (21:00)
[2017-08-03] MEDS: Meropenem 500 MG in NS 110 ML IVPB SCH (21:00)
[2017-08-04] VITALS: BP 131/74
[2017-08-04 04:00] VITALS: BP 123/77
[2017-08-04 04:47] LABS: BASOPHILS % (AUTO) 0.5 % (0.0-2.0); EOSINOPHILS % (AUTO) 5.2 % (0.0-3.0); HEMATOCRIT 24.7 % (42.0-52.0); HEMOGLOBIN 8.2 G/DL (14.2-18.0); MEAN CORPUSCULAR VOLUME 80 FL (80-99); MONOCYTES % (AUTO) 8.7 % (1.0-10.0); NEUTROPHILS % (AUTO) 80.6 % (45.0-75.0); PLATELET COUNT 652 K/UL (150-450); RED BLOOD COUNT 3.08 M/UL (4.70-6.10); RED CELL DISTRIBUTION WIDTH 15.7 % (11.6-14.8); WHITE BLOOD COUNT 16.2 K/UL (4.8-10.8)
[2017-08-04 05:13] LABS: ALANINE AMINOTRANSFERASE 63 U/L (12-78); ALBUMIN 1.8 G/DL (3.4-5.0); ALBUMIN/GLOBULIN RATIO 0.3 (1.0-2.7); ALKALINE PHOSPHATASE 272 U/L (46-116); ANION GAP 12 mmol/L (5-15); ASPARTATE AMINO TRANSFERASE 20 U/L (15-37); BILIRUBIN,TOTAL 0.4 MG/DL (0.2-1.0); BLOOD UREA NITROGEN 105 mg/dL (7-18); CALCIUM 8.7 MG/DL (8.5-10.1); CARBON DIOXIDE 30 MMOL/L (21-32); CHLORIDE 99 MMOL/L (98-107); CREATININE 3.8 MG/DL (0.55-1.30); POTASSIUM 3.4 MMOL/L (3.5-5.1); SODIUM 140 MMOL/L (136-145)
[2017-08-04] MEDS: Propranolol 40mg tab GT SCH ×3 (06:04→21:30)
[2017-08-04 08:00] VITALS: BP 129/74
[2017-08-04] MEDS: Docusate 100mg/10ml Liq GT SCH ×2 (09:12→21:29)
[2017-08-04] MEDS: levETIRAcetam 500mg/5ml Liquid GT SCH ×2 (09:12→21:29)
[2017-08-04] MEDS: Minoxidil 10mg tab GT SCH ×2 (09:12→18:13)
[2017-08-04] MEDS: Minocycline HCl 50mg cap ORAL SCH ×2 (09:12→21:30)
[2017-08-04] MEDS: Zinc Sulfate 220mg cap GT SCH (09:13)
[2017-08-04] MEDS: Enoxaparin 40mg Inj SUBQ SCH (09:18)
[2017-08-04] MEDS: Meropenem 500 MG in NS 110 ML IVPB SCH (09:20)
--- NOTE | 2017-08-04 10:13 | General Progress Note ---
Assessment/Plan Problem List: (1) Abnormal laboratory test result ICD Codes: R89.9 - Unspecified abnormal finding in specimens from other organs , systems and tissues SNOMED: 417116865 (2) Leukocytosis ICD Codes: D72.829 - Elevated white blood cell count, unspecified SNOMED: 183105671, 443117901 (3) Elevated troponin ICD Codes: R74.8 - Abnormal levels of other serum enzymes SNOMED: 007298867, 671594533, 714179688 (4) Anemia ICD Codes: D64.9 - Anemia, unspecified SNOMED: 411552103 Status: stable Assessment/Plan vent resp care gt feeds abx per id monitor renal fxn Subjective ROS Limited/Unobtainable: Yes Constitutional: Reports: malaise, weakness HEENT: Reports: no symptoms Cardiovascular: Reports: no symptoms Respiratory: Reports: cough, shortness of breath, sputum Gastrointestinal/Abdominal: Reports: difficulty swallowing Genitourinary: Reports: no symptoms Neurologic/Psychiatric: Reports: pre-existing deficit Endocrine: Reports: no symptoms Hematologic/Lymphatic: Reports: no symptoms Allergies: Coded Allergies: No Known Allergies (Unverified , 07/24/17) All Systems: reviewed and negative except above Subjective no events. on the vent. poorly responsive. no fevers Objective Last 24 Hour Vital Signs Date Time Temp Pulse Resp B/P (MAP) Pulse Ox O2 Delivery O2 Flow Rate FiO2 08/04/17 09:12 129/74 08/04/17 09:11 85 129/74 08/04/17 09:00 85 20 45 08/04/17 08:00 45 08/04/17 08:00 98.4 85 17 129/74 100 Mechanical Ventilator 45 98.4 08/04/17 06:49 90 20 45 08/04/17 06:04 92 131/74 08/04/17 05:11 92 20 45 08/04/17 04:00 98.9 90 20 123/77 96 Mechanical Ventilator 45 98.9 08/04/17 04:00 90 08/04/17 04:00 45 08/04/17 03:03 89 25 45 08/04/17 01:03 87 20 45 08/04/17 00:00 98.1 87 18 131/74 96 Mechanical Ventilator 45 98.1 08/03/17 23:20 97 23 45 08/03/17 21:03 93 12 45 08/03/17 20:52 92 135/66 08/03/17 20:00 92 08/03/17 20:00 45 08/03/17 20:00 98.6 92 16 135/66 100 Mechanical Ventilator 45 98.6 08/03/17 19:02 93 18 45 08/03/17 17:28 137/75 08/03/17 17:17 88 30 45 08/03/17 16:00 45 08/03/17 15:59 98.8 91 15 137/75 100 Mechanical Ventilator 45 98.8 08/03/17 15:36 90 15 45 08/03/17 15:26 90 08/03/17 14:00 94 131/67 08/03/17 12:40 94 15 45 08/03/17 12:00 98.8 93 17 131/67 100 Mechanical Ventilator 45 98.8 08/03/17 12:00 45 08/03/17 11:49 94 08/03/17 10:42 95 18 45 Intake and Output 08/03/17 08/04/17 19:00 07:00 Intake Total 710 ml 500 ml Output Total 300 ml 500 ml Balance 410 ml 0 ml Intake Free Water 100 ml 100 ml IV Total 110 ml Tube Feeding 500 ml 400 ml Output Urine Total 300 ml 500 ml # Bowel Movements 2 2 Laboratory Tests 08/04/17 03:50: White Blood Count 16.2H, Red Blood Count 3.08L, Hemoglobin 8.2L, Hematocrit 24.7L, Mean Corpuscular Volume 80, Mean Corpuscular Hemoglobin 26.7L, Mean Corpuscular Hemoglobin Concent 33.3, Red Cell Distribution Width 15.7H, Platelet Count 652H, Mean Platelet Volume 7.2, Neutrophils (%) (Auto) 80.6H, Lymphocytes (%) (Auto) 5.0L, Monocytes (%) (Auto) 8.7, Eosinophils (%) (Auto) 5.2H, Basophils (%) (Auto) 0.5, Sodium Level 140, Potassium Level 3.4L, Chloride Level 99, Carbon Dioxide Level 30, Anion Gap 12, Blood Urea Nitrogen 105H, Creatinine 3.8H, Estimat Glomerular Filtration Rate 19.6, Glucose Level 130H, Calcium Level 8.7, Phosphorus Level 6.1H, Total Bilirubin 0.4, Aspartate Amino Transf (AST/SGOT) 20, Alanine Aminotransferase (ALT/SGPT) 63, Alkaline Phosphatase 272H, Total Protein 8.0, Albumin 1.8L, Globulin 6.2, Albumin/ Globulin Ratio 0.3L Height (Feet): 6 Height (Inches): 10.00 Weight (Pounds): 233 General Appearance: WD/WN, lethargic Neck: supple Cardiovascular: normal rate, regular rhythm Respiratory/Chest: chest wall non-tender, lungs clear, normal breath sounds Abdomen: normal bowel sounds, non tender, soft, no organomegaly Edema: no edema noted Arm (L), no edema noted Arm (R), no edema noted Leg (L), no edema noted Leg (R), no edema noted Pedal (L), no edema noted Pedal (R), no edema noted Generalized PEG ONEILL August 04, 2017 10:13
--- NOTE | 2017-08-04 11:54 | Infectious Diseases Prog Note ---
"Assessment/Plan Assessment/Plan antibiotics : meropenem, minocycline A 1. acenitobacter | serratia pneumonia 2. leucocytosis improving 3. respiratory failure 4. anemia 5. hypertension 6. seizures 7. renal failure improving 8. rectal VRE colonization P 1. continue meropenem, minocycline 2 more days 2. will follow up cultures Subjective ROS Limited/Unobtainable: Yes Allergies: Coded Allergies: No Known Allergies (Unverified , 07/24/17) Objective Vital Signs Last 24 Hour Vital Signs Date Time Temp Pulse Resp B/P (MAP) Pulse Ox O2 Delivery O2 Flow Rate FiO2 08/04/17 11:05 80 18 45 08/04/17 09:12 129/74 08/04/17 09:11 85 129/74 08/04/17 09:00 85 20 45 08/04/17 08:00 45 08/04/17 08:00 98.4 85 17 129/74 100 Mechanical Ventilator 45 98.4 08/04/17 08:00 84 08/04/17 06:49 90 20 45 08/04/17 06:04 92 131/74 08/04/17 05:11 92 20 45 08/04/17 04:00 98.9 90 20 123/77 96 Mechanical Ventilator 45 98.9 08/04/17 04:00 90 08/04/17 04:00 45 08/04/17 03:03 89 25 45 08/04/17 01:03 87 20 45 08/04/17 00:00 98.1 87 18 131/74 96 Mechanical Ventilator 45 98.1 08/03/17 23:20 97 23 45 08/03/17 21:03 93 12 45 08/03/17 20:52 92 135/66 08/03/17 20:00 92 08/03/17 20:00 45 08/03/17 20:00 98.6 92 16 135/66 100 Mechanical Ventilator 45 98.6 08/03/17 19:02 93 18 45 08/03/17 17:28 137/75 08/03/17 17:17 88 30 45 08/03/17 16:00 45 08/03/17 15:59 98.8 91 15 137/75 100 Mechanical Ventilator 45 98.8 08/03/17 15:36 90 15 45 08/03/17 15:26 90 5/3/18 14:00 94 131/67 08/03/17 12:40 94 15 45 08/03/17 12:00 98.8 93 17 131/67 100 Mechanical Ventilator 45 98.8 08/03/17 12:00 45 Height (Feet): 6 Height (Inches): 10.00 Weight (Pounds): 233 HEENT: status post trach Respiratory/Chest: lungs clear Cardiovascular: normal rate, regular rhythm, no gallop/murmur Abdomen: soft, non tender, other - GT Extremities: other - + edema Laboratory Tests Test 08/04/17 03:50 White Blood Count 16.2 K/UL (4.8-10.8) H Red Blood Count 3.08 M/UL (4.70-6.10) L Hemoglobin 8.2 G/DL (14.2-18.0) L Hematocrit 24.7 % (42.0-52.0) L Mean Corpuscular Volume 80 FL (80-99) Mean Corpuscular Hemoglobin 26.7 PG (27.0-31.0) L Mean Corpuscular Hemoglobin Concent 33.3 G/DL (32.0-36.0) Red Cell Distribution Width 15.7 % (11.6-14.8) H Platelet Count 652 K/UL (150-450) H Mean Platelet Volume 7.2 FL (6.5-10.1) Neutrophils (%) (Auto) 80.6 % (45.0-75.0) H Lymphocytes (%) (Auto) 5.0 % (20.0-45.0) L Monocytes (%) (Auto) 8.7 % (1.0-10.0) Eosinophils (%) (Auto) 5.2 % (0.0-3.0) H Basophils (%) (Auto) 0.5 % (0.0-2.0) Sodium Level 140 MMOL/L (136-145) Potassium Level 3.4 MMOL/L (3.5-5.1) L Chloride Level 99 MMOL/L (98-107) Carbon Dioxide Level 30 MMOL/L (21-32) Anion Gap 12 mmol/L (5-15) Blood Urea Nitrogen 105 mg/dL (7-18) H Creatinine 3.8 MG/DL (0.55-1.30) H Estimat Glomerular Filtration Rate 19.6 mL/min (>60) Glucose Level 130 MG/DL (74-106) H Calcium Level 8.7 MG/DL (8.5-10.1) Phosphorus Level 6.1 MG/DL (2.5-4.9) H Total Bilirubin 0.4 MG/DL (0.2-1.0) Aspartate Amino Transf (AST/SGOT) 20 U/L (15-37) Alanine Aminotransferase (ALT/SGPT) 63 U/L (12-78) Alkaline Phosphatase 272 U/L (46-116) H Total Protein 8.0 G/DL (6.4-8.2) Albumin 1.8 G/DL (3.4-5.0) L Globulin 6.2 g/dL Albumin/Globulin Ratio 0.3 (1.0-2.7) L Current Medications Medications (Trade) Dose Ordered Sig/Trina Route PRN Reason Start Time Stop Time Status Last Admin Dose Admin Acetaminophen (Tylenol) 650 mg Q4H PRN GT Mild pain / T > 100.5F 07/25/17 07:00 08/24/17 06:59 07/31/17 11:22 Amlodipine Besylate (Norvasc) 10 mg DAILY GT 07/25/17 09:00 08/24/17 08:59 08/04/17 09:11 Bisacodyl (Dulcolax) 10 mg DAILYPRN PRN RECTAL CONSTIPATION 07/25/17 07:00 08/24/17 06:59 Docusate Sodium (Colace) 100 mg DAILYPRN PRN ORAL Constipation 07/25/17 07:00 08/24/17 06:59 Docusate Sodium (Colace) 100 mg EVERY 12 HOURS GT 07/31/17 21:00 08/24/17 08:59 08/04/17 09:12 Enoxaparin Sodium (Lovenox) 40 mg DAILY SUBQ 07/25/17 09:00 08/24/17 08:59 08/04/17 09:18 Levetiracetam (Keppra) 1,000 mg Q12HR GT 07/25/17 09:00 08/24/17 08:59 08/04/17 09:12 Levothyroxine Sodium (Synthroid) 50 mcg DAILY GT 07/25/17 09:00 5/24/18 08:59 08/04/17 09:12 Magnesium Hydroxide (Mom) 30 ml HSPRN PRN GT Constipation 07/25/17 21:00 08/24/17 20:59 07/28/17 20:43 Magnesium Hydroxide (Mom) 30 ml QHS PRN GT Constipation 07/25/17 07:00 08/24/17 06:59 Meropenem 500 mg/ Sodium Chloride 110 ml @ 220 mls/hr EVERY 12 HOURS IVPB 08/03/17 21:00 08/08/17 20:59 08/04/17 09:20 Minocycline HCl (Minocin) 100 mg Q12HR ORAL 07/31/17 12:00 08/07/17 11:59 08/04/17 09:12 Minoxidil (Loniten) 10 mg BID GT 07/25/17 09:00 08/24/17 08:59 08/04/17 09:12 Ondansetron HCl (Zofran) 4 mg Q8H PRN GT Nausea & Vomiting 07/25/17 07:00 08/24/17 06:59 Propranolol HCl (Inderal) 40 mg Q8HR GT 07/25/17 09:00 08/24/17 08:59 08/04/17 06:04 Sodium Phosphate (Fleet's Sodium Phosl Enema) 133 ml Q72H PRN RECTAL Constipation 07/25/17 07:00 08/24/17 06:59 Zinc Sulfate (Zinc Sulfate) 220 mg DAILY GT 07/25/17 09:00 08/24/17 08:59 08/04/17 09:13 MOISÉS VILLARREAL August 04, 2017 11:54"
[2017-08-04 12:00] VITALS: BP 116/64
--- NOTE | 2017-08-04 12:40 | Nephrology Progress Note ---
Assessment/Plan Plan CONSUELO - check Labs - due to unknown agent. DW ID. Monitor closely..Phos 6.1 =======> GFR less than 15!!! Resolving? Subjective Subjective Confused Objective Objective Last 24 Hour Vital Signs Date Time Temp Pulse Resp B/P (MAP) Pulse Ox O2 Delivery O2 Flow Rate FiO2 08/04/17 12:00 97.9 91 19 116/64 98 Mechanical Ventilator 45 97.9 08/04/17 12:00 45 08/04/17 11:56 93 22 Mechanical Ventilator 45 08/04/17 11:05 80 18 45 08/04/17 09:12 129/74 08/04/17 09:11 85 129/74 08/04/17 09:00 85 20 45 08/04/17 08:00 45 08/04/17 08:00 98.4 85 17 129/74 100 Mechanical Ventilator 45 98.4 08/04/17 08:00 84 08/04/17 06:49 90 20 45 08/04/17 06:04 92 131/74 08/04/17 05:11 92 20 45 08/04/17 04:00 98.9 90 20 123/77 96 Mechanical Ventilator 45 98.9 08/04/17 04:00 90 08/04/17 04:00 45 08/04/17 03:03 89 25 45 08/04/17 01:03 87 20 45 08/04/17 00:00 98.1 87 18 131/74 96 Mechanical Ventilator 45 98.1 08/03/17 23:20 97 23 45 08/03/17 21:03 93 12 45 08/03/17 20:52 92 135/66 08/03/17 20:00 92 08/03/17 20:00 45 08/03/17 20:00 98.6 92 16 135/66 100 Mechanical Ventilator 45 98.6 08/03/17 19:02 93 18 45 08/03/17 17:28 137/75 08/03/17 17:17 88 30 45 08/03/17 16:00 45 08/03/17 15:59 98.8 91 15 137/75 100 Mechanical Ventilator 45 98.8 08/03/17 15:36 90 15 45 08/03/17 15:26 90 08/03/17 14:00 94 131/67 Intake and Output 08/03/17 08/04/17 19:00 07:00 Intake Total 710 ml 500 ml Output Total 300 ml 500 ml Balance 410 ml 0 ml Intake Free Water 100 ml 100 ml IV Total 110 ml Tube Feeding 500 ml 400 ml Output Urine Total 300 ml 500 ml # Bowel Movements 2 2 Laboratory Tests 08/04/17 03:50: White Blood Count 16.2H, Red Blood Count 3.08L, Hemoglobin 8.2L, Hematocrit 24.7L, Mean Corpuscular Volume 80, Mean Corpuscular Hemoglobin 26.7L, Mean Corpuscular Hemoglobin Concent 33.3, Red Cell Distribution Width 15.7H, Platelet Count 652H, Mean Platelet Volume 7.2, Neutrophils (%) (Auto) 80.6H, Lymphocytes (%) (Auto) 5.0L, Monocytes (%) (Auto) 8.7, Eosinophils (%) (Auto) 5.2H, Basophils (%) (Auto) 0.5, Sodium Level 140, Potassium Level 3.4L, Chloride Level 99, Carbon Dioxide Level 30, Anion Gap 12, Blood Urea Nitrogen 105H, Creatinine 3.8H, Estimat Glomerular Filtration Rate 19.6, Glucose Level 130H, Calcium Level 8.7, Phosphorus Level 6.1H, Total Bilirubin 0.4, Aspartate Amino Transf (AST/SGOT) 20, Alanine Aminotransferase (ALT/SGPT) 63, Alkaline Phosphatase 272H, Total Protein 8.0, Albumin 1.8L, Globulin 6.2, Albumin/ Globulin Ratio 0.3L Height (Feet): 6 Height (Inches): 10.00 Weight (Pounds): 233 Objective CV RR Lungs CTA Abd SNT. BS + E +3 B ankle Sebastián Ramirez MD August 04, 2017 12:40
[2017-08-04 16:00] VITALS: BP 132/88
[2017-08-04] MEDS ORDERED: Sterile Water Irrig 1000ml IRRIG ONE (16:34)
[2017-08-04] MEDS ORDERED: NS 500ML ONE (16:34)
--- NOTE | 2017-08-04 17:48 | Pulmonolgy Critical Care Note ---
Critical Care - Asmt/Plan Assessment/Plan: Assessment/Plan IMPRESSION Leukocytosis anemia possible sepsis possible gib trach gt oliguria ARF- worse pulmonary edema PLAN vent support for now IV antibiotics per ID avoid nephrotoxic meds maintain meds renal evaluation noted- may need dialysis not able to dc at present with worsening renal function respiratory care feeds impression, plan, and exam edited and reviewed in detail care discussed with RN Subjective ROS Limited/Unobtainable: Yes Allergies: Coded Allergies: No Known Allergies (Unverified , 07/24/17) Subjective labs noted still with leukocytosis and worsening renal function worsening k replaced Objective Last 24 Hour Vital Signs Date Time Temp Pulse Resp B/P (MAP) Pulse Ox O2 Delivery O2 Flow Rate FiO2 08/03/17 08:00 98.4 96 22 141/71 100 Mechanical Ventilator 45 98.4 08/03/17 08:00 45 08/03/17 07:21 90 14 45 08/03/17 05:57 94 130/64 08/03/17 05:05 93 16 45 08/03/17 04:08 92 08/03/17 04:00 45 08/03/17 04:00 97.9 94 22 130/64 100 Mechanical Ventilator 45 97.9 08/03/17 03:53 94 17 45 08/03/17 01:32 94 22 45 08/03/17 00:00 97.9 91 18 109/68 100 Mechanical Ventilator 45 97.9 08/03/17 00:00 45 08/02/17 23:58 91 08/02/17 23:42 87 19 45 08/02/17 21:55 76 18 45 08/02/17 20:47 91 137/74 08/02/17 20:00 45 08/02/17 20:00 97.8 91 23 137/74 98 Mechanical Ventilator 45 97.8 08/02/17 19:20 89 08/02/17 19:13 74 19 45 08/02/17 17:32 128/77 08/02/17 16:57 73 19 45 08/02/17 16:00 45 08/02/17 16:00 97.3 81 16 128/77 100 Mechanical Ventilator 45 97.3 08/02/17 15:38 82 08/02/17 14:55 81 16 45 08/02/17 13:57 82 127/78 08/02/17 13:24 82 23 45 08/02/17 12:00 83 08/02/17 12:00 45 08/02/17 12:00 97.3 83 16 127/78 99 Mechanical Ventilator 45 97.3 08/02/17 10:51 82 20 45 08/02/17 09:24 137/74 08/02/17 09:24 81 137/74 08/02/17 08:57 81 16 45 Intake and Output 08/02/17 08/03/17 19:00 07:00 Intake Total 710 ml 810 ml Output Total 250 ml 650 ml Balance 460 ml 160 ml Intake Free Water 100 ml 100 ml IV Total 110 ml 110 ml Tube Feeding 500 ml 600 ml Output Urine Total 250 ml 650 ml # Bowel Movements 2 2 Laboratory Tests 08/03/17 03:40: White Blood Count 13.9H, Red Blood Count 3.03L, Hemoglobin 8.1L, Hematocrit 23.8L, Mean Corpuscular Volume 79L, Mean Corpuscular Hemoglobin 26.8L, Mean Corpuscular Hemoglobin Concent 34.1, Red Cell Distribution Width 15.2H, Platelet Count 632H, Mean Platelet Volume 7.4, Neutrophils (%) (Auto) 80.3H, Lymphocytes (%) (Auto) 4.8L, Monocytes (%) (Auto) 7.3, Eosinophils (%) (Auto) 6.7H, Basophils (%) (Auto) 0.9, Sodium Level 139, Potassium Level 3.3L, Chloride Level 99, Carbon Dioxide Level 29, Anion Gap 11, Blood Urea Nitrogen 106H, Creatinine 4.0H, Estimat Glomerular Filtration Rate 18.4, Glucose Level 142H, Calcium Level 8.7 Height (Feet): 6 Height (Inches): 10.00 Weight (Pounds): 233 Objective WDWN trach reduced breath sounds bilaterally without rhonchi or wheeze [id number] without MRG NABS nontender no HSM; GT no CC minimal edema weak Critical Care - Objective Last 24 Hour Vital Signs Date Time Temp Pulse Resp B/P (MAP) Pulse Ox O2 Delivery O2 Flow Rate FiO2 08/04/17 17:06 93 16 45 08/04/17 16:00 96 08/04/17 16:00 98.5 92 16 132/88 98 Mechanical Ventilator 45 98.5 08/04/17 16:00 45 08/04/17 14:30 80 18 45 08/04/17 14:18 85 116/64 08/04/17 12:42 85 18 45 08/04/17 12:00 90 08/04/17 12:00 97.9 91 19 116/64 98 Mechanical Ventilator 45 97.9 08/04/17 12:00 45 08/04/17 11:56 93 22 Mechanical Ventilator 45 08/04/17 11:05 80 18 45 08/04/17 09:12 129/74 08/04/17 09:11 85 129/74 08/04/17 09:00 85 20 45 08/04/17 08:00 45 08/04/17 08:00 98.4 85 17 129/74 100 Mechanical Ventilator 45 98.4 08/04/17 08:00 84 08/04/17 06:49 90 20 45 08/04/17 06:04 92 131/74 08/04/17 05:11 92 20 45 08/04/17 04:00 98.9 90 20 123/77 96 Mechanical Ventilator 45 98.9 08/04/17 04:00 90 08/04/17 04:00 45 08/04/17 03:03 89 25 45 08/04/17 01:03 87 20 45 08/04/17 00:00 98.1 87 18 131/74 96 Mechanical Ventilator 45 98.1 08/03/17 23:20 97 23 45 08/03/17 21:03 93 12 45 08/03/17 20:52 92 135/66 08/03/17 20:00 92 08/03/17 20:00 45 08/03/17 20:00 98.6 92 16 135/66 100 Mechanical Ventilator 45 98.6 08/03/17 19:02 93 18 45 Critical Care - Subjective Condition: stable EKG Rhythm: Sinus Rhythm FI02: 45 Vent Support Breath Rate: 14 Vent Support Mode: AC Vent Tidal Volume: 550 Sputum Amount: Small PEEP: 5.0 PIP: 31 Tube Feeding Amount: 50 I&O: Intake and Output 08/03/17 08/04/17 19:00 07:00 Intake Total 710 ml 500 ml Output Total 300 ml 500 ml Balance 410 ml 0 ml Intake Free Water 100 ml 100 ml IV Total 110 ml Tube Feeding 500 ml 400 ml Output Urine Total 300 ml 500 ml # Bowel Movements 2 2 ET-Tube: 8.0 Balfe,Russell M.D. August 04, 2017 17:47
[2017-08-04 20:00] VITALS: BP 147/80
[2017-08-04] MEDS: Meropenem 1 GM in NS 110 ML IVPB SCH (21:30)
[2017-08-05] VITALS: BP 138/82
[2017-08-05 04:00] VITALS: BP 127/76
[2017-08-05] MEDS: Propranolol 40mg tab GT SCH ×3 (06:03→22:17)
[2017-08-05 08:00] VITALS: BP 128/75
--- NOTE | 2017-08-05 08:41 | General Progress Note ---
Assessment/Plan Problem List: (1) Abnormal laboratory test result ICD Codes: R89.9 - Unspecified abnormal finding in specimens from other organs , systems and tissues SNOMED: 820565636 (2) Leukocytosis ICD Codes: D72.829 - Elevated white blood cell count, unspecified SNOMED: 766391961, 824060606 (3) Elevated troponin ICD Codes: R74.8 - Abnormal levels of other serum enzymes SNOMED: 893099124, 831611519, 542660698 (4) Anemia ICD Codes: D64.9 - Anemia, unspecified SNOMED: 573118385 Status: stable Assessment/Plan vent resp care gt feeds abx per id monitor renal fxn/follow up labs Subjective ROS Limited/Unobtainable: Yes Constitutional: Reports: fever, malaise HEENT: Reports: no symptoms Cardiovascular: Reports: no symptoms Respiratory: Reports: SOB at rest Gastrointestinal/Abdominal: Reports: no symptoms Genitourinary: Reports: no symptoms Neurologic/Psychiatric: Reports: pre-existing deficit Endocrine: Reports: no symptoms Hematologic/Lymphatic: Reports: no symptoms Allergies: Coded Allergies: No Known Allergies (Unverified , 07/24/17) All Systems: reviewed and negative except above Subjective no events. on the vent. poorly responsive. no fevers. no labs yet Objective Last 24 Hour Vital Signs Date Time Temp Pulse Resp B/P (MAP) Pulse Ox O2 Delivery O2 Flow Rate FiO2 08/05/17 07:15 89 15 45 08/05/17 06:03 93 127/76 08/05/17 04:35 93 17 45 08/05/17 04:00 98.2 95 15 127/76 100 Mechanical Ventilator 45 98.2 08/05/17 04:00 45 08/05/17 03:40 95 17 45 08/05/17 03:35 97 08/05/17 01:45 94 17 45 08/05/17 00:00 98.4 96 17 138/82 100 Mechanical Ventilator 45 98.4 08/04/17 23:38 93 08/04/17 23:11 99 17 45 08/04/17 21:30 99 147/80 08/04/17 20:00 45 08/04/17 20:00 98.5 99 17 147/80 100 Mechanical Ventilator 45 98.5 08/04/17 19:51 98 08/04/17 19:45 99 18 45 08/04/17 18:13 132/88 08/04/17 17:06 93 16 45 08/04/17 16:00 96 08/04/17 16:00 98.5 92 16 132/88 98 Mechanical Ventilator 45 98.5 08/04/17 16:00 45 08/04/17 14:30 80 18 45 08/04/17 14:18 85 116/64 08/04/17 12:42 85 18 45 08/04/17 12:00 90 08/04/17 12:00 97.9 91 19 116/64 98 Mechanical Ventilator 45 97.9 08/04/17 12:00 45 08/04/17 11:56 93 22 Mechanical Ventilator 45 08/04/17 11:05 80 18 45 08/04/17 09:12 129/74 08/04/17 09:11 85 129/74 08/04/17 09:00 85 20 45 Intake and Output 08/04/17 08/05/17 19:00 07:00 Intake Total 910 ml 1010 ml Output Total 500 ml 300 ml Balance 410 ml 710 ml Intake Free Water 250 ml 300 ml IV Total 110 ml 110 ml Tube Feeding 550 ml 600 ml Output Urine Total 500 ml 300 ml # Bowel Movements 3 2 Height (Feet): 6 Height (Inches): 10.00 Weight (Pounds): 234 PEG ONEILL August 05, 2017 08:41
[2017-08-05] MEDS: Docusate 100mg/10ml Liq GT SCH ×2 (08:55→21:06)
[2017-08-05] MEDS: levETIRAcetam 500mg/5ml Liquid GT SCH ×2 (08:56→21:07)
[2017-08-05] MEDS: Minocycline HCl 50mg cap ORAL SCH ×2 (08:56→21:06)
[2017-08-05] MEDS: Zinc Sulfate 220mg cap GT SCH (08:56)
[2017-08-05] MEDS: Minoxidil 10mg tab GT SCH ×2 (08:56→17:34)
[2017-08-05] MEDS: Heparin 5000 units/ml inj SUBQ SCH ×2 (08:58→21:11)
[2017-08-05] MEDS: Meropenem 1 GM in NS 110 ML IVPB SCH ×2 (09:05→21:07)
[2017-08-05] MEDS ORDERED: NS 500ML ONE (10:39)
--- NOTE | 2017-08-05 11:20 | Nephrology Progress Note ---
Assessment/Plan Plan CONSUELO - check Labs - due to unknown agent. Monitor closely..Phos 6.1 =======> GFR less than 15!!! Resolving? Subjective Subjective Confused Objective Objective Last 24 Hour Vital Signs Date Time Temp Pulse Resp B/P (MAP) Pulse Ox O2 Delivery O2 Flow Rate FiO2 08/05/17 09:11 95 16 45 08/05/17 08:56 127/76 08/05/17 08:56 93 128/75 08/05/17 08:00 98.2 99 18 128/75 100 Mechanical Ventilator 45 98.2 08/05/17 08:00 89 08/05/17 08:00 45 08/05/17 07:15 89 15 45 08/05/17 06:03 93 127/76 08/05/17 04:35 93 17 45 08/05/17 04:00 98.2 95 15 127/76 100 Mechanical Ventilator 45 98.2 08/05/17 04:00 45 08/05/17 03:40 95 17 45 08/05/17 03:35 97 08/05/17 01:45 94 17 45 08/05/17 00:00 98.4 96 17 138/82 100 Mechanical Ventilator 45 98.4 08/04/17 23:38 93 08/04/17 23:11 99 17 45 08/04/17 21:30 99 147/80 08/04/17 20:00 45 08/04/17 20:00 98.5 99 17 147/80 100 Mechanical Ventilator 45 98.5 08/04/17 19:51 98 08/04/17 19:45 99 18 45 08/04/17 18:13 132/88 08/04/17 17:06 93 16 45 08/04/17 16:00 96 08/04/17 16:00 98.5 92 16 132/88 98 Mechanical Ventilator 45 98.5 08/04/17 16:00 45 08/04/17 14:30 80 18 45 08/04/17 14:18 85 116/64 08/04/17 12:42 85 18 45 08/04/17 12:00 90 08/04/17 12:00 97.9 91 19 116/64 98 Mechanical Ventilator 45 97.9 08/04/17 12:00 45 08/04/17 11:56 93 22 Mechanical Ventilator 45 Intake and Output 08/04/17 08/05/17 19:00 07:00 Intake Total 910 ml 1010 ml Output Total 500 ml 300 ml Balance 410 ml 710 ml Intake Free Water 250 ml 300 ml IV Total 110 ml 110 ml Tube Feeding 550 ml 600 ml Output Urine Total 500 ml 300 ml # Bowel Movements 3 2 Laboratory Tests 08/05/17 10:20: Sodium Level [Pending], Potassium Level [Pending], Chloride Level [Pending], Carbon Dioxide Level [Pending], Blood Urea Nitrogen [Pending], Creatinine [ Pending], Estimat Glomerular Filtration Rate [Pending], Glucose Level [Pending] , Calcium Level [Pending], Total Bilirubin [Pending], Aspartate Amino Transf ( AST/SGOT) [Pending], Alanine Aminotransferase (ALT/SGPT) [Pending], Alkaline Phosphatase [Pending], Total Protein [Pending], Albumin [Pending], Globulin [ Pending] Height (Feet): 6 Height (Inches): 10.00 Weight (Pounds): 234 Objective CV RR Lungs CTA Abd SNT. BS + E +3 B ankle Sebastián Ramirez MD August 05, 2017 11:20
[2017-08-05 11:33] LABS: ALANINE AMINOTRANSFERASE 43 U/L (12-78); ALBUMIN 1.7 G/DL (3.4-5.0); ALBUMIN/GLOBULIN RATIO 0.3 (1.0-2.7); ALKALINE PHOSPHATASE 249 U/L (46-116); ANION GAP 14 mmol/L (5-15); ASPARTATE AMINO TRANSFERASE 20 U/L (15-37); BILIRUBIN,TOTAL 0.4 MG/DL (0.2-1.0); BLOOD UREA NITROGEN 109 mg/dL (7-18); CALCIUM 8.9 MG/DL (8.5-10.1); CARBON DIOXIDE 26 MMOL/L (21-32); CHLORIDE 100 MMOL/L (98-107); CREATININE 3.6 MG/DL (0.55-1.30); POTASSIUM 3.7 MMOL/L (3.5-5.1); SODIUM 140 MMOL/L (136-145)
[2017-08-05 12:00] VITALS: BP 131/77
[2017-08-05 16:00] VITALS: BP 118/72
--- NOTE | 2017-08-05 17:04 | Pulmonolgy Critical Care Note ---
Critical Care - Asmt/Plan Assessment/Plan: Assessment/Plan IMPRESSION Leukocytosis anemia possible sepsis possible gib trach gt oliguria ARF- worse pulmonary edema PLAN vent support for now IV antibiotics per ID avoid nephrotoxic meds maintain meds renal evaluation noted- may need dialysis not able to dc at present with worsening renal function respiratory care feeds impression, plan, and exam edited and reviewed in detail care discussed with RN Subjective ROS Limited/Unobtainable: Yes Allergies: Coded Allergies: No Known Allergies (Unverified , 07/24/17) Subjective labs noted still with leukocytosis and worsening renal function worsening k replaced Objective Last 24 Hour Vital Signs Date Time Temp Pulse Resp B/P (MAP) Pulse Ox O2 Delivery O2 Flow Rate FiO2 08/03/17 08:00 98.4 96 22 141/71 100 Mechanical Ventilator 45 98.4 08/03/17 08:00 45 08/03/17 07:21 90 14 45 08/03/17 05:57 94 130/64 08/03/17 05:05 93 16 45 08/03/17 04:08 92 08/03/17 04:00 45 08/03/17 04:00 97.9 94 22 130/64 100 Mechanical Ventilator 45 97.9 08/03/17 03:53 94 17 45 08/03/17 01:32 94 22 45 08/03/17 00:00 97.9 91 18 109/68 100 Mechanical Ventilator 45 97.9 08/03/17 00:00 45 08/02/17 23:58 91 08/02/17 23:42 87 19 45 08/02/17 21:55 76 18 45 08/02/17 20:47 91 137/74 08/02/17 20:00 45 08/02/17 20:00 97.8 91 23 137/74 98 Mechanical Ventilator 45 97.8 08/02/17 19:20 89 08/02/17 19:13 74 19 45 08/02/17 17:32 128/77 08/02/17 16:57 73 19 45 08/02/17 16:00 45 08/02/17 16:00 97.3 81 16 128/77 100 Mechanical Ventilator 45 97.3 08/02/17 15:38 82 08/02/17 14:55 81 16 45 08/02/17 13:57 82 127/78 08/02/17 13:24 82 23 45 08/02/17 12:00 83 08/02/17 12:00 45 08/02/17 12:00 97.3 83 16 127/78 99 Mechanical Ventilator 45 97.3 08/02/17 10:51 82 20 45 08/02/17 09:24 137/74 08/02/17 09:24 81 137/74 08/02/17 08:57 81 16 45 Intake and Output 08/02/17 08/03/17 19:00 07:00 Intake Total 710 ml 810 ml Output Total 250 ml 650 ml Balance 460 ml 160 ml Intake Free Water 100 ml 100 ml IV Total 110 ml 110 ml Tube Feeding 500 ml 600 ml Output Urine Total 250 ml 650 ml # Bowel Movements 2 2 Laboratory Tests 08/03/17 03:40: White Blood Count 13.9H, Red Blood Count 3.03L, Hemoglobin 8.1L, Hematocrit 23.8L, Mean Corpuscular Volume 79L, Mean Corpuscular Hemoglobin 26.8L, Mean Corpuscular Hemoglobin Concent 34.1, Red Cell Distribution Width 15.2H, Platelet Count 632H, Mean Platelet Volume 7.4, Neutrophils (%) (Auto) 80.3H, Lymphocytes (%) (Auto) 4.8L, Monocytes (%) (Auto) 7.3, Eosinophils (%) (Auto) 6.7H, Basophils (%) (Auto) 0.9, Sodium Level 139, Potassium Level 3.3L, Chloride Level 99, Carbon Dioxide Level 29, Anion Gap 11, Blood Urea Nitrogen 106H, Creatinine 4.0H, Estimat Glomerular Filtration Rate 18.4, Glucose Level 142H, Calcium Level 8.7 Height (Feet): 6 Height (Inches): 10.00 Weight (Pounds): 233 Objective WDWN trach reduced breath sounds bilaterally without rhonchi or wheeze [id number] without MRG NABS nontender no HSM; GT no CC minimal edema weak Critical Care - Objective Last 24 Hour Vital Signs Date Time Temp Pulse Resp B/P (MAP) Pulse Ox O2 Delivery O2 Flow Rate FiO2 08/05/17 16:00 98.4 94 16 118/72 100 Mechanical Ventilator 45 98.4 08/05/17 16:00 45 08/05/17 16:00 76 08/05/17 15:02 94 19 30 08/05/17 14:12 100 131/77 08/05/17 13:29 12 20 30 08/05/17 12:00 98.4 97 16 131/77 100 Mechanical Ventilator 45 98.4 08/05/17 12:00 45 08/05/17 12:00 96 08/05/17 11:28 97 17 45 08/05/17 09:11 95 16 45 08/05/17 08:56 127/76 08/05/17 08:56 93 128/75 08/05/17 08:00 98.2 99 18 128/75 100 Mechanical Ventilator 45 98.2 08/05/17 08:00 89 08/05/17 08:00 45 08/05/17 07:15 89 15 45 08/05/17 06:03 93 127/76 08/05/17 04:35 93 17 45 08/05/17 04:00 98.2 95 15 127/76 100 Mechanical Ventilator 45 98.2 08/05/17 04:00 45 08/05/17 03:40 95 17 45 08/05/17 03:35 97 08/05/17 01:45 94 17 45 08/05/17 00:00 98.4 96 17 138/82 100 Mechanical Ventilator 45 98.4 08/04/17 23:38 93 08/04/17 23:11 99 17 45 08/04/17 21:30 99 147/80 08/04/17 20:00 45 08/04/17 20:00 98.5 99 17 147/80 100 Mechanical Ventilator 45 98.5 08/04/17 19:51 98 08/04/17 19:45 99 18 45 08/04/17 18:13 132/88 08/04/17 17:06 93 16 45 Critical Care - Subjective ROS Limited/Unobtainable: No Condition: improving, stable EKG Rhythm: Sinus Rhythm FI02: 45 Vent Support Breath Rate: 14 Vent Support Mode: AC Vent Tidal Volume: 550 Sputum Amount: Moderate PEEP: 5.0 PIP: 27 Tube Feeding Amount: 50 I&O: Intake and Output 08/04/17 08/05/17 19:00 07:00 Intake Total 910 ml 1010 ml Output Total 500 ml 300 ml Balance 410 ml 710 ml Intake Free Water 250 ml 300 ml IV Total 110 ml 110 ml Tube Feeding 550 ml 600 ml Output Urine Total 500 ml 300 ml # Bowel Movements 3 2 ET-Tube: 8.0 Russell Howard M.D. August 05, 2017 17:04
--- NOTE | 2017-08-05 17:13 | Infectious Diseases Prog Note ---
Assessment/Plan Assessment/Plan A: 1. MDR Acinetobacter & Serratia pneumonia 2. leucocytosis 3. respiratory failure 4. anemia 5. hypertension 6. seizures 7, Acute renal failure 8. VRE colonization P 1. continue Minocycline & Meropenem X 1day Subjective ROS Limited/Unobtainable: Yes Allergies: Coded Allergies: No Known Allergies (Unverified , 07/24/17) Objective Vital Signs Last 24 Hour Vital Signs Date Time Temp Pulse Resp B/P (MAP) Pulse Ox O2 Delivery O2 Flow Rate FiO2 08/05/17 17:08 71 21 30 08/05/17 16:00 98.4 94 16 118/72 100 Mechanical Ventilator 45 98.4 08/05/17 16:00 45 08/05/17 16:00 76 08/05/17 15:02 94 19 30 08/05/17 14:12 100 131/77 08/05/17 13:29 12 20 30 08/05/17 12:00 98.4 97 16 131/77 100 Mechanical Ventilator 45 98.4 08/05/17 12:00 45 08/05/17 12:00 96 08/05/17 11:28 97 17 45 08/05/17 09:11 95 16 45 08/05/17 08:56 127/76 08/05/17 08:56 93 128/75 08/05/17 08:00 98.2 99 18 128/75 100 Mechanical Ventilator 45 98.2 08/05/17 08:00 89 08/05/17 08:00 45 08/05/17 07:15 89 15 45 08/05/17 06:03 93 127/76 08/05/17 04:35 93 17 45 08/05/17 04:00 98.2 95 15 127/76 100 Mechanical Ventilator 45 98.2 08/05/17 04:00 45 08/05/17 03:40 95 17 45 08/05/17 03:35 97 08/05/17 01:45 94 17 45 08/05/17 00:00 98.4 96 17 138/82 100 Mechanical Ventilator 45 98.4 08/04/17 23:38 93 08/04/17 23:11 99 17 45 08/04/17 21:30 99 147/80 08/04/17 20:00 45 08/04/17 20:00 98.5 99 17 147/80 100 Mechanical Ventilator 45 98.5 5/4/18 19:51 98 08/04/17 19:45 99 18 45 08/04/17 18:13 132/88 Height (Feet): 6 Height (Inches): 10.00 Weight (Pounds): 234 General Appearance: no acute distress HEENT: status post trach Respiratory/Chest: lungs clear, other - on ventilator Cardiovascular: normal rate Abdomen: distended, other - GT feeding Extremities: other Neurologic/Psychiatric: unresponsiveness Laboratory Tests Test 08/05/17 10:20 Sodium Level 140 MMOL/L (136-145) Potassium Level 3.7 MMOL/L (3.5-5.1) Chloride Level 100 MMOL/L (98-107) Carbon Dioxide Level 26 MMOL/L (21-32) Anion Gap 14 mmol/L (5-15) Blood Urea Nitrogen 109 mg/dL (7-18) H Creatinine 3.6 MG/DL (0.55-1.30) H Estimat Glomerular Filtration Rate 20.8 mL/min (>60) Glucose Level 153 MG/DL (74-106) H Calcium Level 8.9 MG/DL (8.5-10.1) Total Bilirubin 0.4 MG/DL (0.2-1.0) Aspartate Amino Transf (AST/SGOT) 20 U/L (15-37) Alanine Aminotransferase (ALT/SGPT) 43 U/L (12-78) Alkaline Phosphatase 249 U/L (46-116) H Total Protein 7.9 G/DL (6.4-8.2) Albumin 1.7 G/DL (3.4-5.0) L Globulin 6.2 g/dL Albumin/Globulin Ratio 0.3 (1.0-2.7) L Current Medications Medications (Trade) Dose Ordered Sig/Trina Route PRN Reason Start Time Stop Time Status Last Admin Dose Admin Acetaminophen (Tylenol) 650 mg Q4H PRN GT Mild pain / T > 100.5F 07/25/17 07:00 08/24/17 06:59 07/31/17 11:22 Amlodipine Besylate (Norvasc) 10 mg DAILY GT 07/25/17 09:00 08/24/17 08:59 08/05/17 08:56 Bisacodyl (Dulcolax) 10 mg DAILYPRN PRN RECTAL CONSTIPATION 07/25/17 07:00 08/24/17 06:59 Docusate Sodium (Colace) 100 mg DAILYPRN PRN ORAL Constipation 07/25/17 07:00 08/24/17 06:59 Docusate Sodium (Colace) 100 mg EVERY 12 HOURS GT 07/31/17 21:00 08/24/17 08:59 08/05/17 08:55 Heparin Sodium (Porcine) (Heparin 5000 units/ml) 5,000 units EVERY 12 HOURS SUBQ 08/05/17 09:00 09/04/17 08:59 08/05/17 08:58 Levetiracetam (Keppra) 1,000 mg Q12HR GT 07/25/17 09:00 08/24/17 08:59 08/05/17 08:56 Levothyroxine Sodium (Synthroid) 50 mcg DAILY@0600 GT 08/06/17 06:00 09/05/17 05:59 Magnesium Hydroxide (Mom) 30 ml HSPRN PRN GT Constipation 07/25/17 21:00 08/24/17 20:59 07/28/17 20:43 Magnesium Hydroxide (Mom) 30 ml QHS PRN GT Constipation 07/25/17 07:00 08/24/17 06:59 Meropenem 1 gm/ Sodium Chloride 110 ml @ 220 mls/hr Q12HR IVPB 08/04/17 21:00 08/09/17 20:59 08/05/17 09:05 Minocycline HCl (Minocin) 100 mg Q12HR ORAL 07/31/17 12:00 08/07/17 11:59 08/05/17 08:56 Minoxidil (Loniten) 10 mg BID GT 07/25/17 09:00 08/24/17 08:59 08/05/17 08:56 Ondansetron HCl (Zofran) 4 mg Q8H PRN GT Nausea & Vomiting 07/25/17 07:00 08/24/17 06:59 Propranolol HCl (Inderal) 40 mg Q8HR GT 07/25/17 09:00 08/24/17 08:59 08/05/17 14:12 Sodium Phosphate (Fleet's Sodium Phosl Enema) 133 ml Q72H PRN RECTAL Constipation 07/25/17 07:00 08/24/17 06:59 Zinc Sulfate (Zinc Sulfate) 220 mg DAILY GT 07/25/17 09:00 08/24/17 08:59 08/05/17 08:56 RACHEL HENDERSON August 05, 2017 17:13
[2017-08-05 20:00] VITALS: BP 112/70
[2017-08-06] VITALS: BP 130/82
[2017-08-06 04:00] VITALS: BP 116/72
[2017-08-06 05:52] LABS: ALANINE AMINOTRANSFERASE 41 U/L (12-78); ALBUMIN 1.7 G/DL (3.4-5.0); ALBUMIN/GLOBULIN RATIO 0.3 (1.0-2.7); ALKALINE PHOSPHATASE 259 U/L (46-116); ANION GAP 12 mmol/L (5-15); ASPARTATE AMINO TRANSFERASE 27 U/L (15-37); BILIRUBIN,TOTAL 0.4 MG/DL (0.2-1.0); BLOOD UREA NITROGEN 115 mg/dL (7-18); CALCIUM 9.1 MG/DL (8.5-10.1); CARBON DIOXIDE 28 MMOL/L (21-32); CHLORIDE 100 MMOL/L (98-107); CREATININE 3.8 MG/DL (0.55-1.30); POTASSIUM 3.6 MMOL/L (3.5-5.1); SODIUM 140 MMOL/L (136-145)
[2017-08-06] MEDS: Propranolol 40mg tab GT SCH ×3 (06:06→21:45)
[2017-08-06 08:00] VITALS: BP 135/77
--- NOTE | 2017-08-06 08:00 | Infectious Diseases Prog Note ---
Assessment/Plan Assessment/Plan A: 1. MDR Acinetobacter & Serratia pneumonia treated 2. leucocytosis 3. respiratory failure 4. anemia 5. hypertension 6. seizures 7, Acute renal failure 8. VRE colonization P 1. discontinue Minocycline & Meropenem X 1day 2. F/U CBC Subjective ROS Limited/Unobtainable: Yes Gastrointestinal/Abdominal: Reports: other - soft stool Allergies: Coded Allergies: No Known Allergies (Unverified , 07/24/17) Objective Vital Signs Last 24 Hour Vital Signs Date Time Temp Pulse Resp B/P (MAP) Pulse Ox O2 Delivery O2 Flow Rate FiO2 08/06/17 06:55 99 18 30 08/06/17 06:06 101 116/72 08/06/17 04:59 101 22 30 08/06/17 04:00 98.7 105 20 116/72 97 Mechanical Ventilator 30 98.7 08/06/17 04:00 30 08/06/17 04:00 103 08/06/17 03:05 103 19 30 08/06/17 01:02 99 20 30 08/06/17 00:05 99.4 99.4 08/06/17 00:00 99.6 99 20 130/82 100 Mechanical Ventilator 30 99.6 08/06/17 00:00 96 08/05/17 23:15 97 18 30 08/05/17 22:17 105 112/70 08/05/17 20:50 106 18 30 08/05/17 20:00 99.1 106 17 112/70 100 Mechanical Ventilator 30 99.1 08/05/17 20:00 30 08/05/17 19:36 103 08/05/17 19:03 98 22 30 08/05/17 17:34 118/72 08/05/17 17:08 71 21 30 08/05/17 16:00 98.4 94 16 118/72 100 Mechanical Ventilator 45 98.4 08/05/17 16:00 30 08/05/17 16:00 76 08/05/17 15:02 94 19 30 08/05/17 14:12 100 131/77 08/05/17 13:29 12 20 30 08/05/17 12:00 98.4 97 16 131/77 100 Mechanical Ventilator 45 98.4 08/05/17 12:00 45 08/05/17 12:00 96 08/05/17 11:28 97 17 45 08/05/17 09:11 95 16 45 08/05/17 08:56 127/76 08/05/17 08:56 93 128/75 08/05/17 08:00 98.2 99 18 128/75 100 Mechanical Ventilator 45 98.2 08/05/17 08:00 89 08/05/17 08:00 45 Height (Feet): 6 Height (Inches): 10.00 Weight (Pounds): 201 General Appearance: no acute distress HEENT: status post trach Respiratory/Chest: lungs clear, other - on ventilator Cardiovascular: normal rate Abdomen: soft, non tender, other - GT feeding Extremities: other - generalized edema Neurologic/Psychiatric: unresponsiveness Laboratory Tests Test 08/05/17 10:20 08/06/17 03:25 Sodium Level 140 MMOL/L (136-145) 140 MMOL/L (136-145) Potassium Level 3.7 MMOL/L (3.5-5.1) 3.6 MMOL/L (3.5-5.1) Chloride Level 100 MMOL/L (98-107) 100 MMOL/L (98-107) Carbon Dioxide Level 26 MMOL/L (21-32) 28 MMOL/L (21-32) Anion Gap 14 mmol/L (5-15) 12 mmol/L (5-15) Blood Urea Nitrogen 109 mg/dL (7-18) H 115 mg/dL (7-18) H Creatinine 3.6 MG/DL (0.55-1.30) H 3.8 MG/DL (0.55-1.30) H Estimat Glomerular Filtration Rate 20.8 mL/min (>60) 19.6 mL/min (>60) Glucose Level 153 MG/DL (74-106) H 172 MG/DL (74-106) H Calcium Level 8.9 MG/DL (8.5-10.1) 9.1 MG/DL (8.5-10.1) Total Bilirubin 0.4 MG/DL (0.2-1.0) 0.4 MG/DL (0.2-1.0) Aspartate Amino Transf (AST/SGOT) 20 U/L (15-37) 27 U/L (15-37) Alanine Aminotransferase (ALT/SGPT) 43 U/L (12-78) 41 U/L (12-78) Alkaline Phosphatase 249 U/L (46-116) H 259 U/L (46-116) H Total Protein 7.9 G/DL (6.4-8.2) 8.1 G/DL (6.4-8.2) Albumin 1.7 G/DL (3.4-5.0) L 1.7 G/DL (3.4-5.0) L Globulin 6.2 g/dL 6.4 g/dL Albumin/Globulin Ratio 0.3 (1.0-2.7) L 0.3 (1.0-2.7) L Current Medications Medications (Trade) Dose Ordered Sig/Trina Route PRN Reason Start Time Stop Time Status Last Admin Dose Admin Acetaminophen (Tylenol) 650 mg Q4H PRN GT Mild pain / T > 100.5F 07/25/17 07:00 08/24/17 06:59 07/31/17 11:22 Amlodipine Besylate (Norvasc) 10 mg DAILY GT 07/25/17 09:00 08/24/17 08:59 08/05/17 08:56 Bisacodyl (Dulcolax) 10 mg DAILYPRN PRN RECTAL CONSTIPATION 07/25/17 07:00 08/24/17 06:59 Docusate Sodium (Colace) 100 mg DAILYPRN PRN ORAL Constipation 07/25/17 07:00 08/24/17 06:59 Docusate Sodium (Colace) 100 mg EVERY 12 HOURS GT 07/31/17 21:00 08/24/17 08:59 08/05/17 21:06 Heparin Sodium (Porcine) (Heparin 5000 units/ml) 5,000 units EVERY 12 HOURS SUBQ 08/05/17 09:00 09/04/17 08:59 08/05/17 21:11 Levetiracetam (Keppra) 1,000 mg Q12HR GT 07/25/17 09:00 08/24/17 08:59 08/05/17 21:07 Levothyroxine Sodium (Synthroid) 50 mcg DAILY@0600 GT 08/06/17 06:00 09/05/17 05:59 08/06/17 06:06 Magnesium Hydroxide (Mom) 30 ml HSPRN PRN GT Constipation 07/25/17 21:00 08/24/17 20:59 07/28/17 20:43 Magnesium Hydroxide (Mom) 30 ml QHS PRN GT Constipation 07/25/17 07:00 08/24/17 06:59 Meropenem 1 gm/ Sodium Chloride 110 ml @ 220 mls/hr Q12HR IVPB 08/04/17 21:00 08/09/17 20:59 08/05/17 21:07 Minocycline HCl (Minocin) 100 mg Q12HR ORAL 07/31/17 12:00 08/07/17 11:59 08/05/17 21:06 Minoxidil (Loniten) 10 mg BID GT 07/25/17 09:00 08/24/17 08:59 08/05/17 17:34 Ondansetron HCl (Zofran) 4 mg Q8H PRN GT Nausea & Vomiting 07/25/17 07:00 08/24/17 06:59 Propranolol HCl (Inderal) 40 mg Q8HR GT 07/25/17 09:00 08/24/17 08:59 08/06/17 06:06 Sodium Phosphate (Fleet's Sodium Phosl Enema) 133 ml Q72H PRN RECTAL Constipation 07/25/17 07:00 08/24/17 06:59 Zinc Sulfate (Zinc Sulfate) 220 mg DAILY GT 07/25/17 09:00 08/24/17 08:59 08/05/17 08:56 RACHEL HENDERSON August 06, 2017 08:00
--- NOTE | 2017-08-06 08:11 | General Progress Note ---
Assessment/Plan Problem List: (1) Abnormal laboratory test result ICD Codes: R89.9 - Unspecified abnormal finding in specimens from other organs , systems and tissues SNOMED: 635849879 (2) Leukocytosis ICD Codes: D72.829 - Elevated white blood cell count, unspecified SNOMED: 594270374, 173958862 (3) Elevated troponin ICD Codes: R74.8 - Abnormal levels of other serum enzymes SNOMED: 399641440, 708276704, 545964219 (4) Anemia ICD Codes: D64.9 - Anemia, unspecified SNOMED: 973894613 Status: stable, not improved Assessment/Plan vent resp care gt feeds abx per id monitor renal fxn/follow up labs dc planning Subjective ROS Limited/Unobtainable: Yes Constitutional: Reports: malaise, weakness HEENT: Reports: no symptoms Cardiovascular: Reports: no symptoms Respiratory: Reports: cough, sputum Gastrointestinal/Abdominal: Reports: difficulty swallowing Genitourinary: Reports: no symptoms Neurologic/Psychiatric: Reports: pre-existing deficit Endocrine: Reports: no symptoms Hematologic/Lymphatic: Reports: anemia Allergies: Coded Allergies: No Known Allergies (Unverified , 07/24/17) All Systems: reviewed and negative except above Subjective no events. on the vent. poorly responsive. no fevers. no improvement in renal fxn Objective Last 24 Hour Vital Signs Date Time Temp Pulse Resp B/P (MAP) Pulse Ox O2 Delivery O2 Flow Rate FiO2 08/06/17 06:55 99 18 30 08/06/17 06:06 101 116/72 08/06/17 04:59 101 22 30 08/06/17 04:00 98.7 105 20 116/72 97 Mechanical Ventilator 30 98.7 08/06/17 04:00 30 08/06/17 04:00 103 08/06/17 03:05 103 19 30 08/06/17 01:02 99 20 30 08/06/17 00:05 99.4 99.4 08/06/17 00:00 99.6 99 20 130/82 100 Mechanical Ventilator 30 99.6 08/06/17 00:00 96 08/05/17 23:15 97 18 30 08/05/17 22:17 105 112/70 08/05/17 20:50 106 18 30 08/05/17 20:00 99.1 106 17 112/70 100 Mechanical Ventilator 30 99.1 08/05/17 20:00 30 08/05/17 19:36 103 08/05/17 19:03 98 22 30 08/05/17 17:34 118/72 08/05/17 17:08 71 21 30 08/05/17 16:00 98.4 94 16 118/72 100 Mechanical Ventilator 45 98.4 08/05/17 16:00 30 08/05/17 16:00 76 08/05/17 15:02 94 19 30 08/05/17 14:12 100 131/77 08/05/17 13:29 12 20 30 08/05/17 12:00 98.4 97 16 131/77 100 Mechanical Ventilator 45 98.4 08/05/17 12:00 45 08/05/17 12:00 96 08/05/17 11:28 97 17 45 08/05/17 09:11 95 16 45 08/05/17 08:56 127/76 08/05/17 08:56 93 128/75 Intake and Output 08/05/17 08/06/17 19:00 07:00 Intake Total 590 ml 830 ml Output Total 300 ml Balance 290 ml 830 ml Intake Free Water 30 ml 100 ml IV Total 110 ml 110 ml Tube Feeding 450 ml 500 ml Other 120 ml Output Urine Total 300 ml # Voids 2 # Bowel Movements 4 Laboratory Tests 08/05/17 10:20: Sodium Level 140, Potassium Level 3.7, Chloride Level 100, Carbon Dioxide Level 26, Anion Gap 14, Blood Urea Nitrogen 109H, Creatinine 3.6H, Estimat Glomerular Filtration Rate 20.8, Glucose Level 153H, Calcium Level 8.9, Total Bilirubin 0.4 , Aspartate Amino Transf (AST/SGOT) 20, Alanine Aminotransferase (ALT/SGPT) 43, Alkaline Phosphatase 249H, Total Protein 7.9, Albumin 1.7L, Globulin 6.2, Albumin/Globulin Ratio 0.3L 08/06/17 03:25: Sodium Level 140, Potassium Level 3.6, Chloride Level 100, Carbon Dioxide Level 28, Anion Gap 12, Blood Urea Nitrogen 115H, Creatinine 3.8H, Estimat Glomerular Filtration Rate 19.6, Glucose Level 172H, Calcium Level 9.1, Total Bilirubin 0.4 , Aspartate Amino Transf (AST/SGOT) 27, Alanine Aminotransferase (ALT/SGPT) 41, Alkaline Phosphatase 259H, Total Protein 8.1, Albumin 1.7L, Globulin 6.4, Albumin/Globulin Ratio 0.3L Height (Feet): 6 Height (Inches): 10.00 Weight (Pounds): 201 PEG ONEILL August 06, 2017 08:11
[2017-08-06] MEDS: levETIRAcetam 500mg/5ml Liquid GT SCH ×2 (09:09→20:37)
[2017-08-06] MEDS: Docusate 100mg/10ml Liq GT SCH ×2 (09:09→20:36)
[2017-08-06] MEDS: Minoxidil 10mg tab GT SCH ×2 (09:10→17:22)
[2017-08-06] MEDS: Zinc Sulfate 220mg cap GT SCH (09:10)
[2017-08-06] MEDS: Heparin 5000 units/ml inj SUBQ SCH ×2 (09:13→20:46)
--- NOTE | 2017-08-06 11:38 | Nephrology Progress Note ---
Assessment/Plan Plan CONSUELO - check Labs - due to unknown agent. Monitor closely..Phos 6.1 =======> GFR less than 15!!! Non -Resolving? Subjective Subjective Confused Objective Objective Last 24 Hour Vital Signs Date Time Temp Pulse Resp B/P (MAP) Pulse Ox O2 Delivery O2 Flow Rate FiO2 08/06/17 10:43 100 21 30 08/06/17 09:11 97 135/77 08/06/17 09:10 135/77 08/06/17 08:34 97 16 30 08/06/17 08:00 98.8 97 18 135/77 98 Mechanical Ventilator 30 98.8 08/06/17 08:00 96 08/06/17 08:00 30 08/06/17 06:55 99 18 30 08/06/17 06:06 101 116/72 08/06/17 04:59 101 22 30 08/06/17 04:00 98.7 105 20 116/72 97 Mechanical Ventilator 30 98.7 08/06/17 04:00 30 08/06/17 04:00 103 08/06/17 03:05 103 19 30 08/06/17 01:02 99 20 30 08/06/17 00:05 99.4 99.4 08/06/17 00:00 99.6 99 20 130/82 100 Mechanical Ventilator 30 99.6 08/06/17 00:00 96 08/05/17 23:15 97 18 30 08/05/17 22:17 105 112/70 08/05/17 20:50 106 18 30 08/05/17 20:00 99.1 106 17 112/70 100 Mechanical Ventilator 30 99.1 08/05/17 20:00 30 08/05/17 19:36 103 08/05/17 19:03 98 22 30 08/05/17 17:34 118/72 08/05/17 17:08 71 21 30 08/05/17 16:00 98.4 94 16 118/72 100 Mechanical Ventilator 45 98.4 08/05/17 16:00 30 08/05/17 16:00 76 08/05/17 15:02 94 19 30 08/05/17 14:12 100 131/77 08/05/17 13:29 12 20 30 08/05/17 12:00 98.4 97 16 131/77 100 Mechanical Ventilator 45 98.4 08/05/17 12:00 45 08/05/17 12:00 96 Intake and Output 08/05/17 08/06/17 19:00 07:00 Intake Total 590 ml 830 ml Output Total 300 ml Balance 290 ml 830 ml Intake Free Water 30 ml 100 ml IV Total 110 ml 110 ml Tube Feeding 450 ml 500 ml Other 120 ml Output Urine Total 300 ml # Voids 2 # Bowel Movements 4 Laboratory Tests 08/06/17 03:25: Sodium Level 140, Potassium Level 3.6, Chloride Level 100, Carbon Dioxide Level 28, Anion Gap 12, Blood Urea Nitrogen 115H, Creatinine 3.8H, Estimat Glomerular Filtration Rate 19.6, Glucose Level 172H, Calcium Level 9.1, Total Bilirubin 0.4 , Aspartate Amino Transf (AST/SGOT) 27, Alanine Aminotransferase (ALT/SGPT) 41, Alkaline Phosphatase 259H, Total Protein 8.1, Albumin 1.7L, Globulin 6.4, Albumin/Globulin Ratio 0.3L Height (Feet): 6 Height (Inches): 10.00 Weight (Pounds): 201 Objective CV RR Lungs CTA Abd SNT. BS + E +3 B ankle Sebastián Ramirez MD August 06, 2017 11:38
[2017-08-06 12:00] VITALS: BP 148/76
[2017-08-06 16:00] VITALS: BP 119/77
--- NOTE | 2017-08-06 17:18 | Pulmonolgy Critical Care Note ---
Critical Care - Asmt/Plan Assessment/Plan: Assessment/Plan IMPRESSION Leukocytosis anemia possible sepsis possible gib trach gt oliguria ARF- worse pulmonary edema PLAN vent support for now IV antibiotics per ID avoid nephrotoxic meds maintain meds renal evaluation noted- may need dialysis not able to dc at present with worsening renal function respiratory care feeds impression, plan, and exam edited and reviewed in detail care discussed with RN Subjective ROS Limited/Unobtainable: Yes Allergies: Coded Allergies: No Known Allergies (Unverified , 07/24/17) Subjective labs noted still with leukocytosis and worsening renal function worsening k replaced Objective Last 24 Hour Vital Signs Date Time Temp Pulse Resp B/P (MAP) Pulse Ox O2 Delivery O2 Flow Rate FiO2 08/03/17 08:00 98.4 96 22 141/71 100 Mechanical Ventilator 45 98.4 08/03/17 08:00 45 08/03/17 07:21 90 14 45 08/03/17 05:57 94 130/64 08/03/17 05:05 93 16 45 08/03/17 04:08 92 08/03/17 04:00 45 08/03/17 04:00 97.9 94 22 130/64 100 Mechanical Ventilator 45 97.9 08/03/17 03:53 94 17 45 08/03/17 01:32 94 22 45 08/03/17 00:00 97.9 91 18 109/68 100 Mechanical Ventilator 45 97.9 08/03/17 00:00 45 08/02/17 23:58 91 08/02/17 23:42 87 19 45 08/02/17 21:55 76 18 45 08/02/17 20:47 91 137/74 08/02/17 20:00 45 08/02/17 20:00 97.8 91 23 137/74 98 Mechanical Ventilator 45 97.8 08/02/17 19:20 89 08/02/17 19:13 74 19 45 08/02/17 17:32 128/77 08/02/17 16:57 73 19 45 08/02/17 16:00 45 08/02/17 16:00 97.3 81 16 128/77 100 Mechanical Ventilator 45 97.3 08/02/17 15:38 82 08/02/17 14:55 81 16 45 08/02/17 13:57 82 127/78 08/02/17 13:24 82 23 45 08/02/17 12:00 83 08/02/17 12:00 45 08/02/17 12:00 97.3 83 16 127/78 99 Mechanical Ventilator 45 97.3 08/02/17 10:51 82 20 45 08/02/17 09:24 137/74 08/02/17 09:24 81 137/74 08/02/17 08:57 81 16 45 Intake and Output 08/02/17 08/03/17 19:00 07:00 Intake Total 710 ml 810 ml Output Total 250 ml 650 ml Balance 460 ml 160 ml Intake Free Water 100 ml 100 ml IV Total 110 ml 110 ml Tube Feeding 500 ml 600 ml Output Urine Total 250 ml 650 ml # Bowel Movements 2 2 Laboratory Tests 08/03/17 03:40: White Blood Count 13.9H, Red Blood Count 3.03L, Hemoglobin 8.1L, Hematocrit 23.8L, Mean Corpuscular Volume 79L, Mean Corpuscular Hemoglobin 26.8L, Mean Corpuscular Hemoglobin Concent 34.1, Red Cell Distribution Width 15.2H, Platelet Count 632H, Mean Platelet Volume 7.4, Neutrophils (%) (Auto) 80.3H, Lymphocytes (%) (Auto) 4.8L, Monocytes (%) (Auto) 7.3, Eosinophils (%) (Auto) 6.7H, Basophils (%) (Auto) 0.9, Sodium Level 139, Potassium Level 3.3L, Chloride Level 99, Carbon Dioxide Level 29, Anion Gap 11, Blood Urea Nitrogen 106H, Creatinine 4.0H, Estimat Glomerular Filtration Rate 18.4, Glucose Level 142H, Calcium Level 8.7 Height (Feet): 6 Height (Inches): 10.00 Weight (Pounds): 233 Objective WDWN trach reduced breath sounds bilaterally without rhonchi or wheeze [id number] without MRG NABS nontender no HSM; GT no CC minimal edema weak Critical Care - Objective Last 24 Hour Vital Signs Date Time Temp Pulse Resp B/P (MAP) Pulse Ox O2 Delivery O2 Flow Rate FiO2 08/06/17 16:34 97 19 30 08/06/17 16:00 97 08/06/17 16:00 30 08/06/17 16:00 98.1 96 20 119/77 98 Mechanical Ventilator 30 98.1 08/06/17 15:29 96 18 30 08/06/17 14:07 101 148/76 08/06/17 12:50 101 19 30 08/06/17 12:00 97.9 97 22 148/76 99 Mechanical Ventilator 30 97.9 08/06/17 12:00 100 08/06/17 12:00 30 08/06/17 10:43 100 21 30 08/06/17 09:11 97 135/77 08/06/17 09:10 135/77 08/06/17 08:34 97 16 30 08/06/17 08:00 98.8 97 18 135/77 98 Mechanical Ventilator 30 98.8 08/06/17 08:00 96 08/06/17 08:00 30 08/06/17 06:55 99 18 30 08/06/17 06:06 101 116/72 08/06/17 04:59 101 22 30 08/06/17 04:00 98.7 105 20 116/72 97 Mechanical Ventilator 30 98.7 08/06/17 04:00 30 08/06/17 04:00 103 08/06/17 03:05 103 19 30 08/06/17 01:02 99 20 30 08/06/17 00:05 99.4 99.4 08/06/17 00:00 99.6 99 20 130/82 100 Mechanical Ventilator 30 99.6 08/06/17 00:00 96 08/05/17 23:15 97 18 30 08/05/17 22:17 105 112/70 08/05/17 20:50 106 18 30 08/05/17 20:00 99.1 106 17 112/70 100 Mechanical Ventilator 30 99.1 08/05/17 20:00 30 08/05/17 19:36 103 08/05/17 19:03 98 22 30 08/05/17 17:34 118/72 Critical Care - Subjective ROS Limited/Unobtainable: Yes Condition: stable IV Access: peripheral EKG Rhythm: Sinus Rhythm FI02: 30 Vent Support Breath Rate: 14 Vent Support Mode: AC Vent Tidal Volume: 550 Sputum Amount: Moderate PEEP: 5.0 PIP: 35 Tube Feeding Amount: 50 I&O: Intake and Output 08/05/17 08/06/17 19:00 07:00 Intake Total 590 ml 830 ml Output Total 300 ml Balance 290 ml 830 ml Intake Free Water 30 ml 100 ml IV Total 110 ml 110 ml Tube Feeding 450 ml 500 ml Other 120 ml Output Urine Total 300 ml # Voids 2 # Bowel Movements 4 ET-Tube: 8.0 Russell Howard M.D. August 06, 2017 17:18
[2017-08-06 19:58] VITALS: BP 125/76
[2017-08-07] VITALS: BP 141/71
[2017-08-07 04:00] VITALS: BP 135/83
[2017-08-07] MEDS: Propranolol 40mg tab GT SCH ×3 (06:14→22:35)
--- NOTE | 2017-08-07 07:39 | General Progress Note ---
Assessment/Plan Problem List: (1) Abnormal laboratory test result ICD Codes: R89.9 - Unspecified abnormal finding in specimens from other organs , systems and tissues SNOMED: 786190057 (2) Leukocytosis ICD Codes: D72.829 - Elevated white blood cell count, unspecified SNOMED: 457018654, 026915447 (3) Elevated troponin ICD Codes: R74.8 - Abnormal levels of other serum enzymes SNOMED: 740357060, 619822371, 000936937 (4) Anemia ICD Codes: D64.9 - Anemia, unspecified SNOMED: 755675185 Status: stable, not improved Assessment/Plan vent resp care gt feeds monitor off abx monitor renal fxn/follow up labs dc planning if cleared by renal Subjective ROS Limited/Unobtainable: Yes Constitutional: Reports: no symptoms HEENT: Reports: no symptoms Cardiovascular: Reports: no symptoms Respiratory: Reports: no symptoms Gastrointestinal/Abdominal: Reports: difficulty swallowing Genitourinary: Reports: no symptoms Neurologic/Psychiatric: Reports: pre-existing deficit Endocrine: Reports: no symptoms Hematologic/Lymphatic: Reports: anemia Allergies: Coded Allergies: No Known Allergies (Unverified , 07/24/17) All Systems: reviewed and negative except above Subjective no events. on the vent. poorly responsive. no fevers. no improvement in renal fxn. off abx Objective Last 24 Hour Vital Signs Date Time Temp Pulse Resp B/P (MAP) Pulse Ox O2 Delivery O2 Flow Rate FiO2 08/07/17 07:04 95 15 30 08/07/17 06:14 103 135/83 08/07/17 06:04 100 08/07/17 05:28 100 20 30 08/07/17 04:00 30 08/07/17 04:00 98.2 100 18 135/83 98 Mechanical Ventilator 30 98.2 08/07/17 02:39 77 17 30 08/07/17 00:52 97 16 30 08/07/17 00:00 98.2 97 17 141/71 98 Mechanical Ventilator 30 98.2 08/06/17 22:56 95 16 30 08/06/17 21:45 101 125/76 08/06/17 21:19 101 16 30 08/06/17 20:00 30 08/06/17 20:00 102 08/06/17 19:58 98.2 102 19 125/76 97 Mechanical Ventilator 30 98.2 08/06/17 19:09 101 19 30 08/06/17 17:22 121/77 08/06/17 16:34 97 19 30 08/06/17 16:00 97 08/06/17 16:00 30 08/06/17 16:00 98.1 96 20 119/77 98 Mechanical Ventilator 30 98.1 08/06/17 15:29 96 18 30 08/06/17 14:07 101 148/76 08/06/17 12:50 101 19 30 08/06/17 12:00 97.9 97 22 148/76 99 Mechanical Ventilator 30 97.9 08/06/17 12:00 100 08/06/17 12:00 30 08/06/17 10:43 100 21 30 08/06/17 09:11 97 135/77 08/06/17 09:10 135/77 08/06/17 08:34 97 16 30 08/06/17 08:00 98.8 97 18 135/77 98 Mechanical Ventilator 30 98.8 08/06/17 08:00 96 08/06/17 08:00 30 Intake and Output 08/06/17 08/07/17 19:00 07:00 Intake Total 600 ml 780 ml Output Total 250 ml 700 ml Balance 350 ml 80 ml Intake Free Water 50 ml 100 ml Tube Feeding 550 ml 550 ml Other 130 ml Output Urine Total 250 ml 700 ml Height (Feet): 6 Height (Inches): 10.00 Weight (Pounds): 200 General Appearance: WD/WN, lethargic Neck: supple Cardiovascular: normal rate, regular rhythm Respiratory/Chest: chest wall non-tender, lungs clear, normal breath sounds, no respiratory distress Abdomen: normal bowel sounds, non tender, soft, no organomegaly Edema: trace edema Neurologic: unresponsive, aphasia PEG ONEILL August 07, 2017 07:39
[2017-08-07 08:00] VITALS: BP 139/82
--- NOTE | 2017-08-07 08:48 | Nephrology Progress Note ---
Assessment/Plan Plan CONSUELO - check Labs - due to unknown agent. Monitor closely..Phos 6.1 =======> GFR less than 15!!! Non -Resolving? Needs HD Subjective Subjective Confused Objective Objective Last 24 Hour Vital Signs Date Time Temp Pulse Resp B/P (MAP) Pulse Ox O2 Delivery O2 Flow Rate FiO2 08/07/17 07:04 95 15 30 08/07/17 06:14 103 135/83 08/07/17 06:04 100 08/07/17 05:28 100 20 30 08/07/17 04:00 30 08/07/17 04:00 98.2 100 18 135/83 98 Mechanical Ventilator 30 98.2 08/07/17 02:39 77 17 30 08/07/17 00:52 97 16 30 08/07/17 00:00 98.2 97 17 141/71 98 Mechanical Ventilator 30 98.2 08/06/17 22:56 95 16 30 08/06/17 21:45 101 125/76 08/06/17 21:19 101 16 30 08/06/17 20:00 30 08/06/17 20:00 102 08/06/17 19:58 98.2 102 19 125/76 97 Mechanical Ventilator 30 98.2 08/06/17 19:09 101 19 30 08/06/17 17:22 121/77 08/06/17 16:34 97 19 30 08/06/17 16:00 97 08/06/17 16:00 30 08/06/17 16:00 98.1 96 20 119/77 98 Mechanical Ventilator 30 98.1 08/06/17 15:29 96 18 30 08/06/17 14:07 101 148/76 08/06/17 12:50 101 19 30 08/06/17 12:00 97.9 97 22 148/76 99 Mechanical Ventilator 30 97.9 08/06/17 12:00 100 08/06/17 12:00 30 08/06/17 10:43 100 21 30 08/06/17 09:11 97 135/77 08/06/17 09:10 135/77 Intake and Output 08/06/17 08/07/17 19:00 07:00 Intake Total 600 ml 780 ml Output Total 250 ml 700 ml Balance 350 ml 80 ml Intake Free Water 50 ml 100 ml Tube Feeding 550 ml 550 ml Other 130 ml Output Urine Total 250 ml 700 ml Height (Feet): 6 Height (Inches): 10.00 Weight (Pounds): 200 Objective CV RR Lungs CTA Abd SNT. BS + E +3 B ankle Sebastián Ramirez MD August 07, 2017 08:48
--- NOTE | 2017-08-07 08:48 | Infectious Diseases Prog Note ---
Assessment/Plan Assessment/Plan A: 1. MDR Acinetobacter & Serratia pneumonia treated 2. leucocytosis 3. respiratory failure 4. anemia 5. hypertension 6. seizures 7, Acute renal failure, CKD 8. VRE colonization P 1. observe off antibiotic 2. F/U CBC Subjective ROS Limited/Unobtainable: Yes Allergies: Coded Allergies: No Known Allergies (Unverified , 07/24/17) Objective Vital Signs Last 24 Hour Vital Signs Date Time Temp Pulse Resp B/P (MAP) Pulse Ox O2 Delivery O2 Flow Rate FiO2 08/07/17 07:04 95 15 30 08/07/17 06:14 103 135/83 08/07/17 06:04 100 08/07/17 05:28 100 20 30 08/07/17 04:00 30 08/07/17 04:00 98.2 100 18 135/83 98 Mechanical Ventilator 30 98.2 08/07/17 02:39 77 17 30 08/07/17 00:52 97 16 30 08/07/17 00:00 98.2 97 17 141/71 98 Mechanical Ventilator 30 98.2 08/06/17 22:56 95 16 30 08/06/17 21:45 101 125/76 08/06/17 21:19 101 16 30 08/06/17 20:00 30 08/06/17 20:00 102 08/06/17 19:58 98.2 102 19 125/76 97 Mechanical Ventilator 30 98.2 08/06/17 19:09 101 19 30 08/06/17 17:22 121/77 08/06/17 16:34 97 19 30 08/06/17 16:00 97 08/06/17 16:00 30 08/06/17 16:00 98.1 96 20 119/77 98 Mechanical Ventilator 30 98.1 08/06/17 15:29 96 18 30 08/06/17 14:07 101 148/76 08/06/17 12:50 101 19 30 08/06/17 12:00 97.9 97 22 148/76 99 Mechanical Ventilator 30 97.9 08/06/17 12:00 100 08/06/17 12:00 30 08/06/17 10:43 100 21 30 08/06/17 09:11 97 135/77 08/06/17 09:10 135/77 Height (Feet): 6 Height (Inches): 10.00 Weight (Pounds): 200 HEENT: status post trach Respiratory/Chest: decreased breath sounds, other - on ventilator Cardiovascular: tachycardia, other - R arm PICC line Abdomen: distended, other - GT feeding Extremities: other - generalized edema Neurologic/Psychiatric: unresponsiveness Current Medications Medications (Trade) Dose Ordered Sig/Trina Route PRN Reason Start Time Stop Time Status Last Admin Dose Admin Acetaminophen (Tylenol) 650 mg Q4H PRN GT Mild pain / T > 100.5F 07/25/17 07:00 08/24/17 06:59 07/31/17 11:22 Amlodipine Besylate (Norvasc) 10 mg DAILY GT 07/25/17 09:00 08/24/17 08:59 08/06/17 09:11 Bisacodyl (Dulcolax) 10 mg DAILYPRN PRN RECTAL CONSTIPATION 07/25/17 07:00 08/24/17 06:59 Docusate Sodium (Colace) 100 mg DAILYPRN PRN ORAL Constipation 07/25/17 07:00 08/24/17 06:59 Docusate Sodium (Colace) 100 mg EVERY 12 HOURS GT 07/31/17 21:00 08/24/17 08:59 08/06/17 20:36 Heparin Sodium (Porcine) (Heparin 5000 units/ml) 5,000 units EVERY 12 HOURS SUBQ 08/05/17 09:00 09/04/17 08:59 08/06/17 20:46 Levetiracetam (Keppra) 1,000 mg Q12HR GT 07/25/17 09:00 08/24/17 08:59 08/06/17 20:37 Levothyroxine Sodium (Synthroid) 50 mcg DAILY@0600 GT 08/06/17 06:00 09/05/17 05:59 08/07/17 06:14 Magnesium Hydroxide (Mom) 30 ml HSPRN PRN GT Constipation 07/25/17 21:00 08/24/17 20:59 07/28/17 20:43 Magnesium Hydroxide (Mom) 30 ml QHS PRN GT Constipation 07/25/17 07:00 08/24/17 06:59 Minoxidil (Loniten) 10 mg BID GT 07/25/17 09:00 08/24/17 08:59 08/06/17 17:22 Ondansetron HCl (Zofran) 4 mg Q8H PRN GT Nausea & Vomiting 07/25/17 07:00 08/24/17 06:59 Propranolol HCl (Inderal) 40 mg Q8HR GT 07/25/17 09:00 08/24/17 08:59 08/07/17 06:14 Sodium Phosphate (Fleet's Sodium Phosl Enema) 133 ml Q72H PRN RECTAL Constipation 07/25/17 07:00 08/24/17 06:59 Zinc Sulfate (Zinc Sulfate) 220 mg DAILY GT 07/25/17 09:00 08/24/17 08:59 08/06/17 09:10 RACHEL HENDERSON August 07, 2017 08:48
[2017-08-07] MEDS: levETIRAcetam 500mg/5ml Liquid GT SCH ×2 (08:50→20:28)
[2017-08-07] MEDS: Docusate 100mg/10ml Liq GT SCH ×2 (08:50→20:22)
[2017-08-07] MEDS: Minoxidil 10mg tab GT SCH ×2 (08:54→18:11)
[2017-08-07] MEDS: Zinc Sulfate 220mg cap GT SCH (08:55)
[2017-08-07] MEDS: Heparin 5000 units/ml inj SUBQ SCH ×2 (08:57→20:43)
[2017-08-07] MEDS ORDERED: Lidocaine 1% Plain 30 ml INJ ONE (09:32)
[2017-08-07] MEDS ORDERED: Heparin 2000 units/Ns 1000ml INJ ONE (09:33)
[2017-08-07 12:00] VITALS: BP 136/77
[2017-08-07 13:01] LABS: ANION GAP 13 mmol/L (5-15); BLOOD UREA NITROGEN 124 mg/dL (7-18); CALCIUM 9.4 MG/DL (8.5-10.1); CARBON DIOXIDE 27 MMOL/L (21-32); CHLORIDE 98 MMOL/L (98-107); CREATININE 3.9 MG/DL (0.55-1.30); HEMATOCRIT 26.4 % (42.0-52.0); HEMOGLOBIN 8.6 G/DL (14.2-18.0); MEAN CORPUSCULAR VOLUME 79 FL (80-99); PLATELET COUNT 724 K/UL (150-450); RED BLOOD COUNT 3.32 M/UL (4.70-6.10); RED CELL DISTRIBUTION WIDTH 15.6 % (11.6-14.8); SODIUM 138 MMOL/L (136-145); WHITE BLOOD COUNT 20.3 K/UL (4.8-10.8)
[2017-08-07] MEDS ORDERED: Heparin 2000 units/Ns 1000ml INJ SCH (13:45)
[2017-08-07] MEDS ORDERED: Lidocaine 1% Plain 30 ml INJ SCH (13:45)
--- NOTE | 2017-08-07 15:46 | Diagnostic Imaging Report ---
Indication: Patient requires hemodialysis. Findings: After the indications, procedure, risks, complications, and alternatives of the procedure were explained, written informed consent was obtained. The neck was prepped with alcohol. All elements of maximal sterile barrier technique were followed including usage of a cap, mask, sterile gown, sterile gloves, hand hygiene and a large sterile sheet. 1% lidocaine was used to anesthetize the skin. Sonographic evaluation was performed demonstrating a patent and compressible right jugular vein. Access was obtained under real-time ultrasound guidance using an 18 gauge needle and a digital image was saved in archive. An 0.035 wire was then advanced into the vein. Needle exchanged for a dilator. A temporary hemodialysis catheter was then advanced over the wire. Wire was removed. Catheter was secured to the skin using 2-0 Prolene suture. Both ports aspirate and flush easily. The procedure was performed at the bedside. Catheter appears in good position with the tip in the SVC. Cardiomegaly is present. Pulmonary edema noted. Impression: Successful placement of right jugular hemodialysis catheter.
[2017-08-07 16:00] VITALS: BP 130/72
[2017-08-07 18:37] LABS: CREATININE 3.9 MG/DL (0.55-1.30)
[2017-08-07 20:00] VITALS: BP 139/82
[2017-08-07] MEDS: Dyna-Hex 2% Top Sol 2oz TOPIC SCH (20:21)
--- NOTE | 2017-08-07 21:54 | Pulmonolgy Critical Care Note ---
Critical Care - Asmt/Plan Assessment/Plan: Assessment/Plan IMPRESSION Leukocytosis anemia possible sepsis possible gib trach gt oliguria ARF- worse pulmonary edema PLAN vent support for now IV antibiotics per ID avoid nephrotoxic meds maintain meds renal evaluation noted- may need dialysis not able to dc at present with worsening renal function respiratory care feeds impression, plan, and exam edited and reviewed in detail care discussed with RN Subjective ROS Limited/Unobtainable: Yes Allergies: Coded Allergies: No Known Allergies (Unverified , 07/24/17) Subjective labs noted still with leukocytosis and worsening renal function worsening s/p HD catheter insertion k replaced Objective Last 24 Hour Vital Signs Date Time Temp Pulse Resp B/P (MAP) Pulse Ox O2 Delivery O2 Flow Rate FiO2 08/03/17 08:00 98.4 96 22 141/71 100 Mechanical Ventilator 45 98.4 08/03/17 08:00 45 08/03/17 07:21 90 14 45 08/03/17 05:57 94 130/64 08/03/17 05:05 93 16 45 08/03/17 04:08 92 08/03/17 04:00 45 08/03/17 04:00 97.9 94 22 130/64 100 Mechanical Ventilator 45 97.9 08/03/17 03:53 94 17 45 08/03/17 01:32 94 22 45 08/03/17 00:00 97.9 91 18 109/68 100 Mechanical Ventilator 45 97.9 08/03/17 00:00 45 08/02/17 23:58 91 08/02/17 23:42 87 19 45 08/02/17 21:55 76 18 45 08/02/17 20:47 91 137/74 08/02/17 20:00 45 08/02/17 20:00 97.8 91 23 137/74 98 Mechanical Ventilator 45 97.8 08/02/17 19:20 89 08/02/17 19:13 74 19 45 08/02/17 17:32 128/77 08/02/17 16:57 73 19 45 08/02/17 16:00 45 08/02/17 16:00 97.3 81 16 128/77 100 Mechanical Ventilator 45 97.3 08/02/17 15:38 82 08/02/17 14:55 81 16 45 08/02/17 13:57 82 127/78 08/02/17 13:24 82 23 45 08/02/17 12:00 83 08/02/17 12:00 45 08/02/17 12:00 97.3 83 16 127/78 99 Mechanical Ventilator 45 97.3 08/02/17 10:51 82 20 45 08/02/17 09:24 137/74 08/02/17 09:24 81 137/74 08/02/17 08:57 81 16 45 Intake and Output 08/02/17 08/03/17 19:00 07:00 Intake Total 710 ml 810 ml Output Total 250 ml 650 ml Balance 460 ml 160 ml Intake Free Water 100 ml 100 ml IV Total 110 ml 110 ml Tube Feeding 500 ml 600 ml Output Urine Total 250 ml 650 ml # Bowel Movements 2 2 Laboratory Tests 08/03/17 03:40: White Blood Count 13.9H, Red Blood Count 3.03L, Hemoglobin 8.1L, Hematocrit 23.8L, Mean Corpuscular Volume 79L, Mean Corpuscular Hemoglobin 26.8L, Mean Corpuscular Hemoglobin Concent 34.1, Red Cell Distribution Width 15.2H, Platelet Count 632H, Mean Platelet Volume 7.4, Neutrophils (%) (Auto) 80.3H, Lymphocytes (%) (Auto) 4.8L, Monocytes (%) (Auto) 7.3, Eosinophils (%) (Auto) 6.7H, Basophils (%) (Auto) 0.9, Sodium Level 139, Potassium Level 3.3L, Chloride Level 99, Carbon Dioxide Level 29, Anion Gap 11, Blood Urea Nitrogen 106H, Creatinine 4.0H, Estimat Glomerular Filtration Rate 18.4, Glucose Level 142H, Calcium Level 8.7 Height (Feet): 6 Height (Inches): 10.00 Weight (Pounds): 233 Objective WDWN trach reduced breath sounds bilaterally without rhonchi or wheeze [id number] without MRG NABS nontender no HSM; GT no CC minimal edema weak Critical Care - Objective Last 24 Hour Vital Signs Date Time Temp Pulse Resp B/P (MAP) Pulse Ox O2 Delivery O2 Flow Rate FiO2 08/07/17 21:20 111 20 30 08/07/17 20:00 99.1 109 22 139/82 98 Mechanical Ventilator 30 99.1 08/07/17 20:00 106 08/07/17 20:00 30 08/07/17 18:59 108 20 30 08/07/17 18:11 154/83 08/07/17 17:15 108 20 30 08/07/17 16:19 109 130/72 08/07/17 16:00 110 08/07/17 16:00 30 08/07/17 16:00 99.3 109 22 130/72 99 Mechanical Ventilator 30 99.3 08/07/17 15:29 108 20 30 08/07/17 13:19 14 19 30 08/07/17 12:00 100 08/07/17 12:00 99.4 101 22 136/77 98 Mechanical Ventilator 30 99.4 08/07/17 12:00 30 08/07/17 10:52 99 24 30 08/07/17 09:28 97 18 30 08/07/17 08:55 94 139/82 08/07/17 08:54 139/82 08/07/17 08:00 93 08/07/17 08:00 99.1 94 20 139/82 98 Mechanical Ventilator 30 99.1 08/07/17 08:00 30 08/07/17 07:04 95 15 30 08/07/17 06:14 103 135/83 08/07/17 06:04 100 08/07/17 05:28 100 20 30 08/07/17 04:00 30 08/07/17 04:00 98.2 100 18 135/83 98 Mechanical Ventilator 30 98.2 08/07/17 02:39 77 17 30 08/07/17 00:52 97 16 30 08/07/17 00:00 98.2 97 17 141/71 98 Mechanical Ventilator 30 98.2 08/06/17 22:56 95 16 30 Critical Care - Subjective ROS Limited/Unobtainable: No Condition: stable IV Access: PICC FI02: 30 Vent Support Breath Rate: 14 Vent Support Mode: AC Vent Tidal Volume: 550 Sputum Amount: Moderate PEEP: 5.0 PIP: 40 Tube Feeding Amount: 50 I&O: Intake and Output 08/06/17 08/07/17 19:00 07:00 Intake Total 600 ml 780 ml Output Total 250 ml 700 ml Balance 350 ml 80 ml Intake Free Water 50 ml 100 ml Tube Feeding 550 ml 550 ml Other 130 ml Output Urine Total 250 ml 700 ml ET-Tube: 8.0 Russell Howard M.D. 7, 2018 21:54
[2017-08-07] MEDS: Acetaminophen 650mg/20.3ml GT PRN (23:48)
[2017-08-08] VITALS: BP 150/77
[2017-08-08 04:00] VITALS: BP 112/73
[2017-08-08] MEDS: Propranolol 40mg tab GT SCH ×3 (06:02→21:27)
[2017-08-08 08:00] VITALS: BP 145/82
--- NOTE | 2017-08-08 08:11 | General Progress Note ---
Assessment/Plan Problem List: (1) Abnormal laboratory test result ICD Codes: R89.9 - Unspecified abnormal finding in specimens from other organs , systems and tissues SNOMED: 772006004 (2) Leukocytosis ICD Codes: D72.829 - Elevated white blood cell count, unspecified SNOMED: 760506362, 476383916 (3) Elevated troponin ICD Codes: R74.8 - Abnormal levels of other serum enzymes SNOMED: 574709373, 830379814, 961143749 (4) Anemia ICD Codes: D64.9 - Anemia, unspecified SNOMED: 292684139 Status: stable, not improved Assessment/Plan vent resp care gt feeds monitor off abx monitor renal fxn/follow up labs HD per renal Subjective ROS Limited/Unobtainable: Yes Constitutional: Reports: malaise, weakness HEENT: Reports: no symptoms Cardiovascular: Reports: no symptoms Respiratory: Reports: shortness of breath Gastrointestinal/Abdominal: Reports: difficulty swallowing Genitourinary: Reports: no symptoms Neurologic/Psychiatric: Reports: pre-existing deficit Endocrine: Reports: no symptoms Hematologic/Lymphatic: Reports: anemia Allergies: Coded Allergies: No Known Allergies (Unverified , 07/24/17) All Systems: reviewed and negative except above Subjective no events. on the vent. poorly responsive. no fevers. no improvement in renal fxn. HD catheter placed. HD needed per renal human performance consultant. Objective Last 24 Hour Vital Signs Date Time Temp Pulse Resp B/P (MAP) Pulse Ox O2 Delivery O2 Flow Rate FiO2 08/08/17 07:27 92 16 30 08/08/17 06:02 81 112/73 08/08/17 05:15 107 20 30 08/08/17 04:00 101 08/08/17 04:00 98.5 81 15 112/73 100 Mechanical Ventilator 30 98.5 08/08/17 04:00 30 08/08/17 03:05 111 20 30 08/08/17 00:51 109 20 30 08/08/17 00:18 100.0 08/08/17 00:00 109 08/08/17 00:00 101.7 113 21 150/77 91 Mechanical Ventilator 30 101.7 08/07/17 23:48 101.7 08/07/17 23:48 110 20 30 08/07/17 22:35 109 139/82 08/07/17 21:20 111 20 30 08/07/17 20:00 99.1 109 22 139/82 98 Mechanical Ventilator 30 99.1 08/07/17 20:00 106 08/07/17 20:00 30 08/07/17 18:59 108 20 30 08/07/17 18:11 154/83 08/07/17 17:15 108 20 30 08/07/17 16:19 109 130/72 08/07/17 16:00 110 08/07/17 16:00 30 08/07/17 16:00 99.3 109 22 130/72 99 Mechanical Ventilator 30 99.3 08/07/17 15:29 108 20 30 08/07/17 13:19 14 19 30 08/07/17 12:00 100 08/07/17 12:00 99.4 101 22 136/77 98 Mechanical Ventilator 30 99.4 08/07/17 12:00 30 08/07/17 10:52 99 24 30 08/07/17 09:28 97 18 30 08/07/17 08:55 94 139/82 08/07/17 08:54 139/82 Intake and Output 08/07/17 08/08/17 19:00 07:00 Intake Total 710 ml 250 ml Output Total 300 ml 200 ml Balance 410 ml 50 ml Intake Free Water 50 ml Tube Feeding 600 ml 250 ml Other 60 ml Output Urine Total 300 ml 200 ml # Bowel Movements 1 1 Laboratory Tests 08/07/17 12:00: White Blood Count 20.3H, Red Blood Count 3.32L, Hemoglobin 8.6L, Hematocrit 26.4L, Mean Corpuscular Volume 79L, Mean Corpuscular Hemoglobin 26.0L, Mean Corpuscular Hemoglobin Concent 32.7, Red Cell Distribution Width 15.6H, Platelet Count 724H, Mean Platelet Volume 7.3, Neutrophils (%) (Auto) , Lymphocytes (%) (Auto) , Monocytes (%) (Auto) , Eosinophils (%) (Auto) , Basophils (%) (Auto) , Differential Total Cells Counted 100, Neutrophils % ( Manual) 86H, Lymphocytes % (Manual) 7L, Monocytes % (Manual) 6, Eosinophils % ( Manual) 1, Basophils % (Manual) 0, Band Neutrophils 0, Platelet Estimate IncreasedH, Platelet Morphology Normal, Hypochromasia 1+, Anisocytosis 1+, Sodium Level 138, Potassium Level 4.0, Chloride Level 98, Carbon Dioxide Level 27, Anion Gap 13, Blood Urea Nitrogen 124H, Creatinine 3.9H, Estimat Glomerular Filtration Rate 19.0, Glucose Level 162H, Calcium Level 9.4 08/07/17 15:25: Creatinine 3.9H, Estimat Glomerular Filtration Rate 19.0, Urine Collection Time 24, Urine Total Volume 500, Urine Creatinine 134, Urine Creatinine 24 Hour 670L , Patient Height Inches (Creat Clear) 72.6, Patient Weight Pounds (Creat Clear) 199.99, Creatinine Clearance 10L 08/07/17 23:37: Arterial Blood pH 7.469H, Arterial Blood Partial Pressure CO2 39.7, Arterial Blood Partial Pressure O2 433.2H, Arterial Blood HCO3 28.2H, Arterial Blood Oxygen Saturation 99.4H, Arterial Blood Base Excess 4.2, Aleks Test Positive Height (Feet): 6 Height (Inches): 10.00 Weight (Pounds): 223 Objective General Appearance: WD/WN, lethargic Neck: supple Cardiovascular: normal rate, regular rhythm Respiratory/Chest: chest wall non-tender, lungs clear, normal breath sounds, no respiratory distress Abdomen: normal bowel sounds, non tender, soft, no organomegaly Edema: generalized edema Neurologic: unresponsive, aphasia PEG ONEILL August 08, 2017 08:11
--- NOTE | 2017-08-08 08:47 | Nephrology Progress Note ---
Assessment/Plan Plan CONSUELO - check Labs - due to unknown agent. Monitor closely..Phos 6.1 =======> GFR less than 15!!! Non -Resolving? Needs HD Creatinine clearance (measured) = 10!!! Starting HD today. Subjective Subjective Confused Objective Objective Last 24 Hour Vital Signs Date Time Temp Pulse Resp B/P (MAP) Pulse Ox O2 Delivery O2 Flow Rate FiO2 08/08/17 07:27 92 16 30 08/08/17 06:02 81 112/73 08/08/17 05:15 107 20 30 08/08/17 04:00 101 08/08/17 04:00 98.5 81 15 112/73 100 Mechanical Ventilator 30 98.5 08/08/17 04:00 30 08/08/17 03:05 111 20 30 08/08/17 00:51 109 20 30 08/08/17 00:18 100.0 08/08/17 00:00 109 08/08/17 00:00 101.7 113 21 150/77 91 Mechanical Ventilator 30 101.7 08/07/17 23:48 101.7 08/07/17 23:48 110 20 30 08/07/17 22:35 109 139/82 08/07/17 21:20 111 20 30 08/07/17 20:00 99.1 109 22 139/82 98 Mechanical Ventilator 30 99.1 08/07/17 20:00 106 08/07/17 20:00 30 08/07/17 18:59 108 20 30 08/07/17 18:11 154/83 08/07/17 17:15 108 20 30 08/07/17 16:19 109 130/72 08/07/17 16:00 110 08/07/17 16:00 30 08/07/17 16:00 99.3 109 22 130/72 99 Mechanical Ventilator 30 99.3 08/07/17 15:29 108 20 30 08/07/17 13:19 14 19 30 08/07/17 12:00 100 08/07/17 12:00 99.4 101 22 136/77 98 Mechanical Ventilator 30 99.4 08/07/17 12:00 30 08/07/17 10:52 99 24 30 08/07/17 09:28 97 18 30 08/07/17 08:55 94 139/82 08/07/17 08:54 139/82 Intake and Output 08/07/17 08/08/17 19:00 07:00 Intake Total 710 ml 250 ml Output Total 300 ml 200 ml Balance 410 ml 50 ml Intake Free Water 50 ml Tube Feeding 600 ml 250 ml Other 60 ml Output Urine Total 300 ml 200 ml # Bowel Movements 1 1 Laboratory Tests 08/07/17 12:00: White Blood Count 20.3H, Red Blood Count 3.32L, Hemoglobin 8.6L, Hematocrit 26.4L, Mean Corpuscular Volume 79L, Mean Corpuscular Hemoglobin 26.0L, Mean Corpuscular Hemoglobin Concent 32.7, Red Cell Distribution Width 15.6H, Platelet Count 724H, Mean Platelet Volume 7.3, Neutrophils (%) (Auto) , Lymphocytes (%) (Auto) , Monocytes (%) (Auto) , Eosinophils (%) (Auto) , Basophils (%) (Auto) , Differential Total Cells Counted 100, Neutrophils % ( Manual) 86H, Lymphocytes % (Manual) 7L, Monocytes % (Manual) 6, Eosinophils % ( Manual) 1, Basophils % (Manual) 0, Band Neutrophils 0, Platelet Estimate IncreasedH, Platelet Morphology Normal, Hypochromasia 1+, Anisocytosis 1+, Sodium Level 138, Potassium Level 4.0, Chloride Level 98, Carbon Dioxide Level 27, Anion Gap 13, Blood Urea Nitrogen 124H, Creatinine 3.9H, Estimat Glomerular Filtration Rate 19.0, Glucose Level 162H, Calcium Level 9.4 08/07/17 15:25: Creatinine 3.9H, Estimat Glomerular Filtration Rate 19.0, Urine Collection Time 24, Urine Total Volume 500, Urine Creatinine 134, Urine Creatinine 24 Hour 670L , Patient Height Inches (Creat Clear) 72.6, Patient Weight Pounds (Creat Clear) 199.99, Creatinine Clearance 10L 08/07/17 23:37: Arterial Blood pH 7.469H, Arterial Blood Partial Pressure CO2 39.7, Arterial Blood Partial Pressure O2 433.2H, Arterial Blood HCO3 28.2H, Arterial Blood Oxygen Saturation 99.4H, Arterial Blood Base Excess 4.2, Aleks Test Positive Height (Feet): 6 Height (Inches): 10.00 Weight (Pounds): 223 Objective CV RR Lungs CTA Abd SNT. BS + E +3 B ankle Sebastián Ramirez MD August 08, 2017 08:47
[2017-08-08] MEDS: Docusate 100mg/10ml Liq GT SCH ×2 (09:46→20:28)
[2017-08-08] MEDS: Minoxidil 10mg tab GT SCH ×2 (09:47→19:11)
[2017-08-08] MEDS: Zinc Sulfate 220mg cap GT SCH (09:47)
[2017-08-08] MEDS: levETIRAcetam 500mg/5ml Liquid GT SCH ×2 (09:48→20:26)
[2017-08-08] MEDS: Heparin 5000 units/ml inj SUBQ SCH ×2 (09:50→20:28)
--- NOTE | 2017-08-08 11:27 | Infectious Diseases Prog Note ---
"Assessment/Plan Assessment/Plan antibiotics : none A 1. acenitobacter | serratia pneumonia s/p rx 2. leucocytosis improving 3. respiratory failure 4. anemia 5. hypertension 6. seizures 7. renal failure improving 8. rectal VRE colonization P 1. continue off antibiotics 2. stool for c.diff 3. sputum culture 4. cxr 5. will follow up cultures Subjective ROS Limited/Unobtainable: Yes Allergies: Coded Allergies: No Known Allergies (Unverified , 07/24/17) Objective Vital Signs Last 24 Hour Vital Signs Date Time Temp Pulse Resp B/P (MAP) Pulse Ox O2 Delivery O2 Flow Rate FiO2 08/08/17 10:53 94 21 30 08/08/17 09:47 145/82 08/08/17 09:46 92 145/82 08/08/17 09:15 Mechanical Ventilator 30 08/08/17 08:50 92 19 30 08/08/17 08:00 30 08/08/17 08:00 99.8 90 21 145/82 99 Mechanical Ventilator 30 99.8 08/08/17 07:42 94 08/08/17 07:27 92 16 30 08/08/17 06:02 81 112/73 08/08/17 05:15 107 20 30 08/08/17 04:00 101 08/08/17 04:00 98.5 81 15 112/73 100 Mechanical Ventilator 30 98.5 08/08/17 04:00 30 08/08/17 03:05 111 20 30 08/08/17 00:51 109 20 30 08/08/17 00:18 100.0 08/08/17 00:00 109 08/08/17 00:00 101.7 113 21 150/77 91 Mechanical Ventilator 30 101.7 08/07/17 23:48 101.7 08/07/17 23:48 110 20 30 08/07/17 22:35 109 139/82 08/07/17 21:20 111 20 30 08/07/17 20:00 99.1 109 22 139/82 98 Mechanical Ventilator 30 99.1 08/07/17 20:00 106 08/07/17 20:00 30 08/07/17 18:59 108 20 30 08/07/17 18:11 154/83 08/07/17 17:15 108 20 30 08/07/17 16:19 109 130/72 08/07/17 16:00 110 08/07/17 16:00 30 08/07/17 16:00 99.3 109 22 130/72 99 Mechanical Ventilator 30 99.3 08/07/17 15:29 108 20 30 08/07/17 13:19 14 19 30 08/07/17 12:00 100 08/07/17 12:00 99.4 101 22 136/77 98 Mechanical Ventilator 30 99.4 08/07/17 12:00 30 Height (Feet): 6 Height (Inches): 10.00 Weight (Pounds): 223 HEENT: status post trach Respiratory/Chest: lungs clear Cardiovascular: normal rate, regular rhythm, no gallop/murmur Abdomen: soft, non tender, other - GT Extremities: other - + edema Laboratory Tests Test 08/07/17 12:00 08/07/17 15:25 08/07/17 23:37 White Blood Count 20.3 K/UL (4.8-10.8) H Red Blood Count 3.32 M/UL (4.70-6.10) L Hemoglobin 8.6 G/DL (14.2-18.0) L Hematocrit 26.4 % (42.0-52.0) L Mean Corpuscular Volume 79 FL (80-99) L Mean Corpuscular Hemoglobin 26.0 PG (27.0-31.0) L Mean Corpuscular Hemoglobin Concent 32.7 G/DL (32.0-36.0) Red Cell Distribution Width 15.6 % (11.6-14.8) H Platelet Count 724 K/UL (150-450) H Mean Platelet Volume 7.3 FL (6.5-10.1) Neutrophils (%) (Auto) % (45.0-75.0) Lymphocytes (%) (Auto) % (20.0-45.0) Monocytes (%) (Auto) % (1.0-10.0) Eosinophils (%) (Auto) % (0.0-3.0) Basophils (%) (Auto) % (0.0-2.0) Differential Total Cells Counted 100 Neutrophils % (Manual) 86 % (45-75) H Lymphocytes % (Manual) 7 % (20-45) L Monocytes % (Manual) 6 % (1-10) Eosinophils % (Manual) 1 % (0-3) Basophils % (Manual) 0 % (0-2) Band Neutrophils 0 % (0-8) Platelet Estimate Increased H Platelet Morphology Normal Hypochromasia 1+ Anisocytosis 1+ Sodium Level 138 MMOL/L (136-145) Potassium Level 4.0 MMOL/L (3.5-5.1) Chloride Level 98 MMOL/L (98-107) Carbon Dioxide Level 27 MMOL/L (21-32) Anion Gap 13 mmol/L (5-15) Blood Urea Nitrogen 124 mg/dL (7-18) H Creatinine 3.9 MG/DL (0.55-1.30) H 3.9 MG/DL (0.55-1.30) H Estimat Glomerular Filtration Rate 19.0 mL/min (>60) 19.0 mL/min (>60) Glucose Level 162 MG/DL (74-106) H Calcium Level 9.4 MG/DL (8.5-10.1) Urine Collection Time 24 HRS Urine Total Volume 500 ML Urine Creatinine 134 MG/DL Urine Creatinine 24 Hour 670 mg/24hr (6528-2497) L Patient Height Inches (Creat Clear) 72.6 INCHES Patient Weight Pounds (Creat Clear) 199.99 LBS Creatinine Clearance 10 mL/min (71-151) L Arterial Blood pH 7.469 (7.350-7.450) Arterial Blood Partial Pressure CO2 39.7 mmHg (35.0-45.0) Arterial Blood Partial Pressure O2 433.2 mmHg (75.0-100.0) H Arterial Blood HCO3 28.2 mmol/L (22.0-26.0) H Arterial Blood Oxygen Saturation 99.4 % (92.0-98.0) H Arterial Blood Base Excess 4.2 Aleks Test Positive Current Medications Medications (Trade) Dose Ordered Sig/Trina Route PRN Reason Start Time Stop Time Status Last Admin Dose Admin Acetaminophen (Tylenol) 650 mg Q4H PRN GT Mild pain / T > 100.5F 07/25/17 07:00 08/24/17 06:59 08/07/17 23:48 Amlodipine Besylate (Norvasc) 10 mg DAILY GT 07/25/17 09:00 08/24/17 08:59 08/08/17 09:46 Bisacodyl (Dulcolax) 10 mg DAILYPRN PRN RECTAL CONSTIPATION 07/25/17 07:00 08/24/17 06:59 Chlorhexidine Gluconate (Joya-Hex 2%) 1 applic DAILY@2000 TOPIC 08/07/17 20:00 09/06/17 19:59 08/07/17 20:21 Docusate Sodium (Colace) 100 mg DAILYPRN PRN ORAL Constipation 07/25/17 07:00 08/24/17 06:59 Docusate Sodium (Colace) 100 mg EVERY 12 HOURS GT 07/31/17 21:00 08/24/17 08:59 08/08/17 09:46 Heparin Sodium (Porcine) (Heparin 5000 units/ml) 5,000 units EVERY 12 HOURS SUBQ 08/05/17 09:00 09/04/17 08:59 08/08/17 09:50 Heparin Sodium (Porcine) (Heparin Sod 1000 units/ml 10ml) 2,000 unit ONCE ONCE IV 08/09/17 06:30 08/09/17 06:31 Levetiracetam (Keppra) 1,000 mg Q12HR GT 07/25/17 09:00 08/24/17 08:59 08/08/17 09:48 Levothyroxine Sodium (Synthroid) 50 mcg DAILY@0600 GT 08/06/17 06:00 09/05/17 05:59 08/08/17 06:02 Magnesium Hydroxide (Mom) 30 ml HSPRN PRN GT Constipation 07/25/17 21:00 08/24/17 20:59 07/28/17 20:43 Magnesium Hydroxide (Mom) 30 ml QHS PRN GT Constipation 07/25/17 07:00 08/24/17 06:59 Minoxidil (Loniten) 10 mg BID GT 07/25/17 09:00 08/24/17 08:59 08/08/17 09:47 Ondansetron HCl (Zofran) 4 mg Q8H PRN GT Nausea & Vomiting 07/25/17 07:00 08/24/17 06:59 Propranolol HCl (Inderal) 40 mg Q8HR GT 07/25/17 09:00 08/24/17 08:59 08/08/17 06:02 Sodium Chloride 1,000 ml @ 500 mls/hr Q2H PRN IVLG sbp<90 during hd 08/09/17 06:22 09/08/17 06:21 Sodium Phosphate (Fleet's Sodium Phosl Enema) 133 ml Q72H PRN RECTAL Constipation 07/25/17 07:00 08/24/17 06:59 Zinc Sulfate (Zinc Sulfate) 220 mg DAILY GT 07/25/17 09:00 08/24/17 08:59 08/08/17 09:47 MOISÉS VILLARREAL August 08, 2017 11:27"
[2017-08-08 12:00] VITALS: BP 124/69
--- NOTE | 2017-08-08 14:30 | Diagnostic Imaging Report ---
Indication: Dyspnea Comparison: 07/31/2017 A single view chest radiograph was obtained. Findings: Hazy bilateral opacities are demonstrated at the lung bases. Bilateral pleural effusions are suspected probably larger on the left. The heart is enlarged. Mild vascular congestion again noted. Tracheostomy and right jugular Gilbert catheter is in good position. LAY OUT DRAFTER shunt again noted. IMPRESSION: Shifting versus increasing bilateral pleural effusions. CHF relatively stable
[2017-08-08 16:00] VITALS: BP 108/59
[2017-08-08 20:00] VITALS: BP 127/71
[2017-08-08] MEDS: Dyna-Hex 2% Top Sol 2oz TOPIC SCH (20:26)
--- NOTE | 2017-08-08 22:16 | Pulmonolgy Critical Care Note ---
Critical Care - Asmt/Plan Assessment/Plan: Assessment/Plan IMPRESSION Leukocytosis anemia possible sepsis possible gib trach gt oliguria ARF- worse pulmonary edema S/P HD catheter PLAN vent support for now IV antibiotics per ID avoid nephrotoxic meds Dialysis per renal maintain meds renal evaluation noted- may need dialysis not able to dc at present with worsening renal function respiratory care feeds impression, plan, and exam edited and reviewed in detail care discussed with RN Subjective ROS Limited/Unobtainable: Yes Allergies: Coded Allergies: No Known Allergies (Unverified , 07/24/17) Subjective labs noted still with leukocytosis and worsening renal function worsening s/p HD catheter insertion k replaced Objective Last 24 Hour Vital Signs Date Time Temp Pulse Resp B/P (MAP) Pulse Ox O2 Delivery O2 Flow Rate FiO2 08/03/17 08:00 98.4 96 22 141/71 100 Mechanical Ventilator 45 98.4 08/03/17 08:00 45 08/03/17 07:21 90 14 45 08/03/17 05:57 94 130/64 08/03/17 05:05 93 16 45 08/03/17 04:08 92 08/03/17 04:00 45 08/03/17 04:00 97.9 94 22 130/64 100 Mechanical Ventilator 45 97.9 08/03/17 03:53 94 17 45 08/03/17 01:32 94 22 45 08/03/17 00:00 97.9 91 18 109/68 100 Mechanical Ventilator 45 97.9 08/03/17 00:00 45 08/02/17 23:58 91 08/02/17 23:42 87 19 45 08/02/17 21:55 76 18 45 08/02/17 20:47 91 137/74 08/02/17 20:00 45 08/02/17 20:00 97.8 91 23 137/74 98 Mechanical Ventilator 45 97.8 08/02/17 19:20 89 08/02/17 19:13 74 19 45 08/02/17 17:32 128/77 08/02/17 16:57 73 19 45 08/02/17 16:00 45 08/02/17 16:00 97.3 81 16 128/77 100 Mechanical Ventilator 45 97.3 08/02/17 15:38 82 08/02/17 14:55 81 16 45 5/2/18 13:57 82 127/78 08/02/17 13:24 82 23 45 08/02/17 12:00 83 08/02/17 12:00 45 08/02/17 12:00 97.3 83 16 127/78 99 Mechanical Ventilator 45 97.3 08/02/17 10:51 82 20 45 08/02/17 09:24 137/74 08/02/17 09:24 81 137/74 08/02/17 08:57 81 16 45 Intake and Output 08/02/17 08/03/17 19:00 07:00 Intake Total 710 ml 810 ml Output Total 250 ml 650 ml Balance 460 ml 160 ml Intake Free Water 100 ml 100 ml IV Total 110 ml 110 ml Tube Feeding 500 ml 600 ml Output Urine Total 250 ml 650 ml # Bowel Movements 2 2 Laboratory Tests 08/03/17 03:40: White Blood Count 13.9H, Red Blood Count 3.03L, Hemoglobin 8.1L, Hematocrit 23.8L, Mean Corpuscular Volume 79L, Mean Corpuscular Hemoglobin 26.8L, Mean Corpuscular Hemoglobin Concent 34.1, Red Cell Distribution Width 15.2H, Platelet Count 632H, Mean Platelet Volume 7.4, Neutrophils (%) (Auto) 80.3H, Lymphocytes (%) (Auto) 4.8L, Monocytes (%) (Auto) 7.3, Eosinophils (%) (Auto) 6.7H, Basophils (%) (Auto) 0.9, Sodium Level 139, Potassium Level 3.3L, Chloride Level 99, Carbon Dioxide Level 29, Anion Gap 11, Blood Urea Nitrogen 106H, Creatinine 4.0H, Estimat Glomerular Filtration Rate 18.4, Glucose Level 142H, Calcium Level 8.7 Height (Feet): 6 Height (Inches): 10.00 Weight (Pounds): 233 Objective WDWN trach reduced breath sounds bilaterally without rhonchi or wheeze [id number] without MRG NABS nontender no HSM; GT no CC minimal edema weak Critical Care - Objective Last 24 Hour Vital Signs Date Time Temp Pulse Resp B/P (MAP) Pulse Ox O2 Delivery O2 Flow Rate FiO2 08/08/17 21:27 90 127/71 08/08/17 20:35 90 19 30 08/08/17 20:00 97.7 88 18 127/71 99 Mechanical Ventilator 30 97.7 5/8/18 20:00 30 08/08/17 19:36 91 18 30 08/08/17 19:25 91 08/08/17 19:11 127/63 08/08/17 17:12 90 16 30 08/08/17 16:00 30 08/08/17 16:00 91 08/08/17 16:00 98.3 90 15 108/59 97 Mechanical Ventilator 30 98.3 08/08/17 14:52 95 19 30 08/08/17 14:00 95 124/69 08/08/17 13:21 94 17 30 08/08/17 12:15 Mechanical Ventilator 30 08/08/17 12:00 30 08/08/17 12:00 94 08/08/17 12:00 98.2 93 21 124/69 99 Mechanical Ventilator 30 98.2 08/08/17 10:53 94 21 30 08/08/17 09:47 145/82 08/08/17 09:46 92 145/82 08/08/17 09:15 Mechanical Ventilator 30 08/08/17 08:50 92 19 30 08/08/17 08:00 30 08/08/17 08:00 99.8 90 21 145/82 99 Mechanical Ventilator 30 99.8 08/08/17 07:42 94 08/08/17 07:27 92 16 30 08/08/17 06:02 81 112/73 08/08/17 05:15 107 20 30 08/08/17 04:00 101 08/08/17 04:00 98.5 81 15 112/73 100 Mechanical Ventilator 30 98.5 08/08/17 04:00 30 08/08/17 03:05 111 20 30 08/08/17 00:51 109 20 30 08/08/17 00:18 100.0 08/08/17 00:00 109 08/08/17 00:00 101.7 113 21 150/77 91 Mechanical Ventilator 30 101.7 08/07/17 23:48 101.7 08/07/17 23:48 110 20 30 08/07/17 22:35 109 139/82 Critical Care - Subjective ROS Limited/Unobtainable: Yes Condition: stable IV Access: central, peripheral EKG Rhythm: Sinus Rhythm FI02: 30 Vent Support Breath Rate: 14 Vent Support Mode: AC Vent Tidal Volume: 550 Sputum Amount: Small PEEP: 5.0 PIP: 27 Tube Feeding Amount: 50 I&O: Intake and Output 08/07/17 08/08/17 19:00 07:00 Intake Total 710 ml 300 ml Output Total 300 ml 200 ml Balance 410 ml 100 ml Intake Free Water 50 ml Tube Feeding 600 ml 300 ml Other 60 ml Output Urine Total 300 ml 200 ml # Bowel Movements 1 1 ET-Tube: 8.0 Russell Howard M.D. August 08, 2017 22:16
[2017-08-09] VITALS: BP 136/67
[2017-08-09 04:00] VITALS: BP 137/69
[2017-08-09] MEDS: Propranolol 40mg tab GT SCH ×3 (05:09→21:15)
[2017-08-09] MEDS ORDERED: Heparin Sod 1000 units/ml 10ml IV ONE (06:30)
[2017-08-09 08:00] VITALS: BP 140/81
--- NOTE | 2017-08-09 08:15 | General Progress Note ---
Assessment/Plan Problem List: (1) Abnormal laboratory test result ICD Codes: R89.9 - Unspecified abnormal finding in specimens from other organs , systems and tissues SNOMED: 911934051 (2) Leukocytosis ICD Codes: D72.829 - Elevated white blood cell count, unspecified SNOMED: 512931171, 741825648 (3) Elevated troponin ICD Codes: R74.8 - Abnormal levels of other serum enzymes SNOMED: 466646528, 064970208, 871384543 (4) Anemia ICD Codes: D64.9 - Anemia, unspecified SNOMED: 302006511 Status: stable Assessment/Plan vent resp care gt feeds monitor off abx monitor renal fxn/follow up labs HD per renal poor prognosis Subjective ROS Limited/Unobtainable: No Constitutional: Reports: malaise, weakness HEENT: Reports: no symptoms Cardiovascular: Reports: edema Respiratory: Reports: no symptoms Gastrointestinal/Abdominal: Reports: no symptoms Genitourinary: Reports: no symptoms Neurologic/Psychiatric: Reports: pre-existing deficit Endocrine: Reports: no symptoms Hematologic/Lymphatic: Reports: anemia Allergies: Coded Allergies: No Known Allergies (Unverified , 07/24/17) All Systems: reviewed and negative except above Subjective no events. on the vent. poorly responsive. no fevers. no improvement in renal fxn. HD catheter placed. HD needed per renal product development consultant. s/p HD yesterday. tolerated well. Objective Last 24 Hour Vital Signs Date Time Temp Pulse Resp B/P (MAP) Pulse Ox O2 Delivery O2 Flow Rate FiO2 08/09/17 07:28 88 17 30 08/09/17 05:19 90 16 30 08/09/17 05:09 95 137/69 08/09/17 04:21 92 08/09/17 04:00 97.8 95 16 137/69 99 Mechanical Ventilator 30 97.8 08/09/17 04:00 30 08/09/17 02:57 91 18 30 08/09/17 01:14 88 17 30 08/09/17 00:00 30 08/09/17 00:00 97.7 88 16 136/67 100 Mechanical Ventilator 30 97.7 08/09/17 00:00 86 08/08/17 23:22 88 16 30 08/08/17 21:27 90 127/71 08/08/17 20:35 90 19 30 08/08/17 20:00 97.7 88 18 127/71 99 Mechanical Ventilator 30 97.7 08/08/17 20:00 30 08/08/17 19:36 91 18 30 08/08/17 19:25 91 08/08/17 19:11 127/63 08/08/17 17:12 90 16 30 08/08/17 16:00 30 08/08/17 16:00 91 08/08/17 16:00 98.3 90 15 108/59 97 Mechanical Ventilator 30 98.3 08/08/17 14:52 95 19 30 08/08/17 14:00 95 124/69 08/08/17 13:21 94 17 30 08/08/17 12:15 Mechanical Ventilator 30 08/08/17 12:00 30 08/08/17 12:00 94 08/08/17 12:00 98.2 93 21 124/69 99 Mechanical Ventilator 30 98.2 08/08/17 10:53 94 21 30 08/08/17 09:47 145/82 08/08/17 09:46 92 145/82 08/08/17 09:15 Mechanical Ventilator 30 08/08/17 08:50 92 19 30 Intake and Output 08/08/17 08/09/17 19:00 07:00 Intake Total 900 ml 550 ml Output Total 250 ml 250 ml Balance 650 ml 300 ml Intake Free Water 300 ml 100 ml Tube Feeding 600 ml 450 ml Output Urine Total 250 ml 250 ml # Bowel Movements 1 4 Laboratory Tests 08/08/17 17:00: Hepatitis B Surface Antigen [Pending], Hepatitis B Surface Antibody, Quant [ Pending], Hepatitis C Antibody [Pending] Height (Feet): 6 Height (Inches): 10.00 Weight (Pounds): 222 Objective General Appearance: WD/WN, lethargic Neck: supple Cardiovascular: normal rate, regular rhythm Respiratory/Chest: chest wall non-tender, lungs clear, normal breath sounds, no respiratory distress Abdomen: normal bowel sounds, non tender, soft, no organomegaly Edema: generalized edema Neurologic: unresponsive, aphasia PEG ONEILL August 09, 2017 08:15
[2017-08-09] MEDS: Zinc Sulfate 220mg cap GT SCH (09:07)
[2017-08-09] MEDS: Docusate 100mg/10ml Liq GT SCH ×2 (09:07→21:15)
[2017-08-09] MEDS: levETIRAcetam 500mg/5ml Liquid GT SCH ×2 (09:07→21:15)
[2017-08-09] MEDS: Minoxidil 10mg tab GT SCH ×2 (09:07→17:51)
[2017-08-09] MEDS: Heparin 5000 units/ml inj SUBQ SCH ×2 (09:08→21:17)
[2017-08-09 09:38] LABS: HEMATOCRIT 22.5 % (42.0-52.0); HEMOGLOBIN 7.4 G/DL (14.2-18.0); MEAN CORPUSCULAR VOLUME 80 FL (80-99); PLATELET COUNT 592 K/UL (150-450); RED BLOOD COUNT 2.81 M/UL (4.70-6.10); RED CELL DISTRIBUTION WIDTH 15.2 % (11.6-14.8); WHITE BLOOD COUNT 13.5 K/UL (4.8-10.8)
[2017-08-09 09:56] LABS: ALANINE AMINOTRANSFERASE 23 U/L (12-78); ALBUMIN 1.5 G/DL (3.4-5.0); ALBUMIN/GLOBULIN RATIO 0.2 (1.0-2.7); ALKALINE PHOSPHATASE 223 U/L (46-116); ANION GAP 10 mmol/L (5-15); ASPARTATE AMINO TRANSFERASE 27 U/L (15-37); BILIRUBIN,TOTAL 0.4 MG/DL (0.2-1.0); BLOOD UREA NITROGEN 100 mg/dL (7-18); CALCIUM 9.1 MG/DL (8.5-10.1); CARBON DIOXIDE 28 MMOL/L (21-32); CHLORIDE 100 MMOL/L (98-107); CREATININE 3.3 MG/DL (0.55-1.30); POTASSIUM 3.8 MMOL/L (3.5-5.1); SODIUM 138 MMOL/L (136-145)
--- NOTE | 2017-08-09 10:41 | Infectious Diseases Prog Note ---
Assessment/Plan Assessment/Plan A: 1. MDR Acinetobacter & Serratia pneumonia treated 2. leucocytosis improving 3. respiratory failure 4. anemia 5. hypertension 6. seizures 7, ESRD started on HD 8. VRE colonization P 1. observe off antibiotic 2. F/U CBC Subjective ROS Limited/Unobtainable: Yes Cardiovascular: Reports: other - HD line placed Allergies: Coded Allergies: No Known Allergies (Unverified , 07/24/17) Objective Vital Signs Last 24 Hour Vital Signs Date Time Temp Pulse Resp B/P (MAP) Pulse Ox O2 Delivery O2 Flow Rate FiO2 08/09/17 09:07 140/81 08/09/17 09:07 92 140/81 08/09/17 08:00 89 08/09/17 08:00 97.9 99 18 140/81 95 Mechanical Ventilator 30 97.9 08/09/17 07:28 88 17 30 08/09/17 05:19 90 16 30 08/09/17 05:09 95 137/69 08/09/17 04:21 92 08/09/17 04:00 97.8 95 16 137/69 99 Mechanical Ventilator 30 97.8 08/09/17 04:00 30 08/09/17 02:57 91 18 30 08/09/17 01:14 88 17 30 08/09/17 00:00 30 08/09/17 00:00 97.7 88 16 136/67 100 Mechanical Ventilator 30 97.7 08/09/17 00:00 86 08/08/17 23:22 88 16 30 08/08/17 21:27 90 127/71 08/08/17 20:35 90 19 30 08/08/17 20:00 97.7 88 18 127/71 99 Mechanical Ventilator 30 97.7 08/08/17 20:00 30 08/08/17 19:36 91 18 30 08/08/17 19:25 91 08/08/17 19:11 127/63 08/08/17 17:12 90 16 30 08/08/17 16:00 30 08/08/17 16:00 91 08/08/17 16:00 98.3 90 15 108/59 97 Mechanical Ventilator 30 98.3 08/08/17 14:52 95 19 30 08/08/17 14:00 95 124/69 08/08/17 13:21 94 17 30 08/08/17 12:15 Mechanical Ventilator 30 08/08/17 12:00 30 08/08/17 12:00 94 08/08/17 12:00 98.2 93 21 124/69 99 Mechanical Ventilator 30 98.2 08/08/17 10:53 94 21 30 Height (Feet): 6 Height (Inches): 10.00 Weight (Pounds): 222 General Appearance: no acute distress HEENT: mucous membranes moist, status post trach Respiratory/Chest: decreased breath sounds, other - on ventilator Cardiovascular: normal rate, other - RIJ Gilbert's catheter Abdomen: distended, other - GT feeding Genitourinary: other - scrotal edema Extremities: other - generalized edema Neurologic/Psychiatric: unresponsiveness Microbiology Date/Time Source Procedure Growth Status 08/09/17 04:00 Stool Clostridium difficile Toxin Assay - Final Complete Laboratory Tests Test 08/08/17 17:00 08/09/17 09:20 Hepatitis B Surface Antigen Neg (NEGATIVE) Hepatitis B Surface Antibody, Quant <8 mIU/mL Hepatitis C Antibody 0.16 S/CO (<0.80) White Blood Count 13.5 K/UL (4.8-10.8) H Red Blood Count 2.81 M/UL (4.70-6.10) L Hemoglobin 7.4 G/DL (14.2-18.0) L Hematocrit 22.5 % (42.0-52.0) L Mean Corpuscular Volume 80 FL (80-99) Mean Corpuscular Hemoglobin 26.3 PG (27.0-31.0) L Mean Corpuscular Hemoglobin Concent 32.9 G/DL (32.0-36.0) Red Cell Distribution Width 15.2 % (11.6-14.8) H Platelet Count 592 K/UL (150-450) H Mean Platelet Volume 6.3 FL (6.5-10.1) L Neutrophils (%) (Auto) % (45.0-75.0) Lymphocytes (%) (Auto) % (20.0-45.0) Monocytes (%) (Auto) % (1.0-10.0) Eosinophils (%) (Auto) % (0.0-3.0) Basophils (%) (Auto) % (0.0-2.0) Differential Total Cells Counted 100 Neutrophils % (Manual) 78 % (45-75) H Lymphocytes % (Manual) 7 % (20-45) L Monocytes % (Manual) 9 % (1-10) Eosinophils % (Manual) 4 % (0-3) H Basophils % (Manual) 0 % (0-2) Band Neutrophils 2 % (0-8) Platelet Estimate Increased H Platelet Morphology Normal Hypochromasia 2+ Anisocytosis 1+ Sodium Level 138 MMOL/L (136-145) Potassium Level 3.8 MMOL/L (3.5-5.1) Chloride Level 100 MMOL/L (98-107) Carbon Dioxide Level 28 MMOL/L (21-32) Anion Gap 10 mmol/L (5-15) Blood Urea Nitrogen 100 mg/dL (7-18) H Creatinine 3.3 MG/DL (0.55-1.30) H Estimat Glomerular Filtration Rate 23.0 mL/min (>60) Glucose Level 156 MG/DL (74-106) H Calcium Level 9.1 MG/DL (8.5-10.1) Total Bilirubin 0.4 MG/DL (0.2-1.0) Aspartate Amino Transf (AST/SGOT) 27 U/L (15-37) Alanine Aminotransferase (ALT/SGPT) 23 U/L (12-78) Alkaline Phosphatase 223 U/L (46-116) H Total Protein 7.6 G/DL (6.4-8.2) Albumin 1.5 G/DL (3.4-5.0) L Globulin 6.1 g/dL Albumin/Globulin Ratio 0.2 (1.0-2.7) L Current Medications Medications (Trade) Dose Ordered Sig/Trina Route PRN Reason Start Time Stop Time Status Last Admin Dose Admin Acetaminophen (Tylenol) 650 mg Q4H PRN GT Mild pain / T > 100.5F 07/25/17 07:00 08/24/17 06:59 08/07/17 23:48 Amlodipine Besylate (Norvasc) 10 mg DAILY GT 07/25/17 09:00 08/24/17 08:59 08/09/17 09:07 Bisacodyl (Dulcolax) 10 mg DAILYPRN PRN RECTAL CONSTIPATION 07/25/17 07:00 08/24/17 06:59 Chlorhexidine Gluconate (Joya-Hex 2%) 1 applic DAILY@1999 TOPIC 08/07/17 20:00 09/06/17 19:59 08/08/17 20:26 Docusate Sodium (Colace) 100 mg DAILYPRN PRN ORAL Constipation 07/25/17 07:00 08/24/17 06:59 Docusate Sodium (Colace) 100 mg EVERY 12 HOURS GT 07/31/17 21:00 08/24/17 08:59 08/09/17 09:07 Heparin Sodium (Porcine) (Heparin 5000 units/ml) 5,000 units EVERY 12 HOURS SUBQ 08/05/17 09:00 09/04/17 08:59 08/09/17 09:08 Levetiracetam (Keppra) 1,000 mg Q12HR GT 07/25/17 09:00 08/24/17 08:59 08/09/17 09:07 Levothyroxine Sodium (Synthroid) 50 mcg DAILY@0600 GT 08/06/17 06:00 09/05/17 05:59 08/09/17 05:09 Magnesium Hydroxide (Mom) 30 ml HSPRN PRN GT Constipation 07/25/17 21:00 08/24/17 20:59 07/28/17 20:43 Minoxidil (Loniten) 10 mg BID GT 07/25/17 09:00 08/24/17 08:59 08/09/17 09:07 Ondansetron HCl (Zofran) 4 mg Q8H PRN GT Nausea & Vomiting 07/25/17 07:00 08/24/17 06:59 Propranolol HCl (Inderal) 40 mg Q8HR GT 07/25/17 09:00 08/24/17 08:59 08/09/17 05:09 Sodium Chloride 1,000 ml @ 500 mls/hr Q2H PRN IVLG sbp<90 during hd 08/09/17 06:22 09/08/17 06:21 Sodium Phosphate (Fleet's Sodium Phosl Enema) 133 ml Q72H PRN RECTAL Constipation 07/25/17 07:00 08/24/17 06:59 Zinc Sulfate (Zinc Sulfate) 220 mg DAILY GT 07/25/17 09:00 08/24/17 08:59 08/09/17 09:07 RACHEL HENDERSON August 09, 2017 10:41
[2017-08-09 12:00] VITALS: BP 140/79
[2017-08-09 16:00] VITALS: BP 135/80
--- NOTE | 2017-08-09 17:17 | Nephrology Progress Note ---
Assessment/Plan Plan CONSUELO. HD dependent. Next HD tomorrow. Subjective Subjective Confused Objective Objective Last 24 Hour Vital Signs Date Time Temp Pulse Resp B/P (MAP) Pulse Ox O2 Delivery O2 Flow Rate FiO2 08/09/17 16:00 98.5 101 25 135/80 100 Mechanical Ventilator 30 98.5 08/09/17 16:00 99 08/09/17 15:09 101 22 30 08/09/17 12:37 97 20 30 08/09/17 12:00 30 08/09/17 12:00 92 08/09/17 12:00 97.9 93 19 140/79 100 Mechanical Ventilator 30 97.9 08/09/17 11:46 92 17 Mechanical Ventilator 45 08/09/17 11:21 92 17 30 08/09/17 09:18 91 20 30 08/09/17 09:07 140/81 08/09/17 09:07 92 140/81 08/09/17 08:00 89 08/09/17 08:00 97.9 99 18 140/81 95 Mechanical Ventilator 30 97.9 08/09/17 08:00 30 08/09/17 07:28 88 17 30 08/09/17 05:19 90 16 30 08/09/17 05:09 95 137/69 08/09/17 04:21 92 08/09/17 04:00 97.8 95 16 137/69 99 Mechanical Ventilator 30 97.8 08/09/17 04:00 30 08/09/17 02:57 91 18 30 08/09/17 01:14 88 17 30 08/09/17 00:00 30 08/09/17 00:00 97.7 88 16 136/67 100 Mechanical Ventilator 30 97.7 08/09/17 00:00 86 08/08/17 23:22 88 16 30 08/08/17 21:27 90 127/71 08/08/17 20:35 90 19 30 08/08/17 20:00 97.7 88 18 127/71 99 Mechanical Ventilator 30 97.7 08/08/17 20:00 30 08/08/17 19:36 91 18 30 08/08/17 19:25 91 08/08/17 19:11 127/63 Intake and Output 08/08/17 08/09/17 19:00 07:00 Intake Total 900 ml 550 ml Output Total 250 ml 250 ml Balance 650 ml 300 ml Intake Free Water 300 ml 100 ml Tube Feeding 600 ml 450 ml Output Urine Total 250 ml 250 ml # Bowel Movements 1 4 Laboratory Tests 08/09/17 09:20: White Blood Count 13.5H, Red Blood Count 2.81L, Hemoglobin 7.4L, Hematocrit 22.5L, Mean Corpuscular Volume 80, Mean Corpuscular Hemoglobin 26.3L, Mean Corpuscular Hemoglobin Concent 32.9, Red Cell Distribution Width 15.2H, Platelet Count 592H, Mean Platelet Volume 6.3L, Neutrophils (%) (Auto) , Lymphocytes (%) (Auto) , Monocytes (%) (Auto) , Eosinophils (%) (Auto) , Basophils (%) (Auto) , Differential Total Cells Counted 100, Neutrophils % ( Manual) 78H, Lymphocytes % (Manual) 7L, Monocytes % (Manual) 9, Eosinophils % ( Manual) 4H, Basophils % (Manual) 0, Band Neutrophils 2, Platelet Estimate IncreasedH, Platelet Morphology Normal, Hypochromasia 2+, Anisocytosis 1+, Sodium Level 138, Potassium Level 3.8, Chloride Level 100, Carbon Dioxide Level 28, Anion Gap 10, Blood Urea Nitrogen 100H, Creatinine 3.3H, Estimat Glomerular Filtration Rate 23.0, Glucose Level 156H, Calcium Level 9.1, Total Bilirubin 0.4 , Aspartate Amino Transf (AST/SGOT) 27, Alanine Aminotransferase (ALT/SGPT) 23, Alkaline Phosphatase 223H, Total Protein 7.6, Albumin 1.5L, Globulin 6.1, Albumin/Globulin Ratio 0.2L Height (Feet): 6 Height (Inches): 10.00 Weight (Pounds): 222 Objective CV RR Lungs CTA Abd SNT. BS + E +3 B ankle Sebastián Ramirez MD August 09, 2017 17:17
[2017-08-09 20:00] VITALS: BP 141/78
[2017-08-09] MEDS: Dyna-Hex 2% Top Sol 2oz TOPIC SCH (21:13)
--- NOTE | 2017-08-09 22:34 | Pulmonolgy Critical Care Note ---
Critical Care - Asmt/Plan Assessment/Plan: Assessment/Plan IMPRESSION Leukocytosis anemia Serratia PNA - s/p treatment, being observed off antibiotics possible gib trach gt oliguria ARF- worse pulmonary edema S/P HD catheter, aria HD PLAN vent support for now Off antibiotics per ID Dialysis per renal maintain meds renal evaluation noted- may need dialysis respiratory care feeds impression, plan, and exam edited and reviewed in detail care discussed with RN Subjective ROS Limited/Unobtainable: Yes Allergies: Coded Allergies: No Known Allergies (Unverified , 07/24/17) Subjective labs noted still with leukocytosis and worsening renal function worsening s/p HD catheter insertion k replaced Objective Last 24 Hour Vital Signs Date Time Temp Pulse Resp B/P (MAP) Pulse Ox O2 Delivery O2 Flow Rate FiO2 08/03/17 08:00 98.4 96 22 141/71 100 Mechanical Ventilator 45 98.4 08/03/17 08:00 45 08/03/17 07:21 90 14 45 08/03/17 05:57 94 130/64 08/03/17 05:05 93 16 45 08/03/17 04:08 92 08/03/17 04:00 45 08/03/17 04:00 97.9 94 22 130/64 100 Mechanical Ventilator 45 97.9 08/03/17 03:53 94 17 45 08/03/17 01:32 94 22 45 08/03/17 00:00 97.9 91 18 109/68 100 Mechanical Ventilator 45 97.9 08/03/17 00:00 45 08/02/17 23:58 91 08/02/17 23:42 87 19 45 08/02/17 21:55 76 18 45 08/02/17 20:47 91 137/74 08/02/17 20:00 45 08/02/17 20:00 97.8 91 23 137/74 98 Mechanical Ventilator 45 97.8 08/02/17 19:20 89 08/02/17 19:13 74 19 45 08/02/17 17:32 128/77 08/02/17 16:57 73 19 45 08/02/17 16:00 45 08/02/17 16:00 97.3 81 16 128/77 100 Mechanical Ventilator 45 97.3 08/02/17 15:38 82 08/02/17 14:55 81 16 45 08/02/17 13:57 82 127/78 08/02/17 13:24 82 23 45 08/02/17 12:00 83 08/02/17 12:00 45 08/02/17 12:00 97.3 83 16 127/78 99 Mechanical Ventilator 45 97.3 08/02/17 10:51 82 20 45 08/02/17 09:24 137/74 08/02/17 09:24 81 137/74 08/02/17 08:57 81 16 45 Intake and Output 08/02/17 08/03/17 19:00 07:00 Intake Total 710 ml 810 ml Output Total 250 ml 650 ml Balance 460 ml 160 ml Intake Free Water 100 ml 100 ml IV Total 110 ml 110 ml Tube Feeding 500 ml 600 ml Output Urine Total 250 ml 650 ml # Bowel Movements 2 2 Laboratory Tests 08/03/17 03:40: White Blood Count 13.9H, Red Blood Count 3.03L, Hemoglobin 8.1L, Hematocrit 23.8L, Mean Corpuscular Volume 79L, Mean Corpuscular Hemoglobin 26.8L, Mean Corpuscular Hemoglobin Concent 34.1, Red Cell Distribution Width 15.2H, Platelet Count 632H, Mean Platelet Volume 7.4, Neutrophils (%) (Auto) 80.3H, Lymphocytes (%) (Auto) 4.8L, Monocytes (%) (Auto) 7.3, Eosinophils (%) (Auto) 6.7H, Basophils (%) (Auto) 0.9, Sodium Level 139, Potassium Level 3.3L, Chloride Level 99, Carbon Dioxide Level 29, Anion Gap 11, Blood Urea Nitrogen 106H, Creatinine 4.0H, Estimat Glomerular Filtration Rate 18.4, Glucose Level 142H, Calcium Level 8.7 Height (Feet): 6 Height (Inches): 10.00 Weight (Pounds): 233 Objective WDWN trach reduced breath sounds bilaterally without rhonchi or wheeze [id number] without MRG NABS nontender no HSM; GT no CC minimal edema weak Critical Care - Objective Last 24 Hour Vital Signs Date Time Temp Pulse Resp B/P (MAP) Pulse Ox O2 Delivery O2 Flow Rate FiO2 08/09/17 21:15 102 141/78 08/09/17 21:05 81 16 30 08/09/17 19:25 83 08/09/17 18:49 104 17 30 08/09/17 17:51 141/81 08/09/17 17:20 99 25 30 08/09/17 16:00 98.5 101 25 135/80 100 Mechanical Ventilator 30 98.5 08/09/17 16:00 30 08/09/17 16:00 99 08/09/17 15:09 101 22 30 08/09/17 12:37 97 20 30 08/09/17 12:00 30 08/09/17 12:00 92 08/09/17 12:00 97.9 93 19 140/79 100 Mechanical Ventilator 30 97.9 08/09/17 11:46 92 17 Mechanical Ventilator 45 08/09/17 11:21 92 17 30 08/09/17 09:18 91 20 30 08/09/17 09:07 140/81 08/09/17 09:07 92 140/81 08/09/17 08:00 89 08/09/17 08:00 97.9 99 18 140/81 95 Mechanical Ventilator 30 97.9 08/09/17 08:00 30 08/09/17 07:28 88 17 30 08/09/17 05:19 90 16 30 08/09/17 05:09 95 137/69 08/09/17 04:21 92 08/09/17 04:00 97.8 95 16 137/69 99 Mechanical Ventilator 30 97.8 08/09/17 04:00 30 08/09/17 02:57 91 18 30 08/09/17 01:14 88 17 30 08/09/17 00:00 30 08/09/17 00:00 97.7 88 16 136/67 100 Mechanical Ventilator 30 97.7 08/09/17 00:00 86 08/08/17 23:22 88 16 30 Micro: Microbiology Date/Time Source Procedure Growth Status 08/09/17 04:00 Stool Clostridium difficile Toxin Assay - Final Complete Critical Care - Subjective ROS Limited/Unobtainable: Yes Condition: improving IV Access: central EKG Rhythm: Sinus Rhythm FI02: 30 Vent Support Breath Rate: 14 Vent Support Mode: AC Vent Tidal Volume: 550 Sputum Amount: Small PEEP: 5.0 PIP: 41 Tube Feeding Amount: 50 I&O: Intake and Output 08/08/17 08/09/17 19:00 07:00 Intake Total 900 ml 550 ml Output Total 250 ml 250 ml Balance 650 ml 300 ml Intake Free Water 300 ml 100 ml Tube Feeding 600 ml 450 ml Output Urine Total 250 ml 250 ml # Bowel Movements 1 4 ET-Tube: 8.0 Russell Howard M.D. August 09, 2017 22:34
[2017-08-10] VITALS: BP 153/91
[2017-08-10 04:00] VITALS: BP 125/77
[2017-08-10] MEDS: Propranolol 40mg tab GT SCH ×3 (05:47→21:23)
[2017-08-10 08:00] VITALS: BP 137/76
[2017-08-10] MEDS: Zinc Sulfate 220mg cap GT SCH (08:35)
[2017-08-10] MEDS: Docusate 100mg/10ml Liq GT SCH ×2 (08:35→21:24)
[2017-08-10] MEDS: Minoxidil 10mg tab GT SCH ×3 (08:35→21:24)
[2017-08-10] MEDS: levETIRAcetam 500mg/5ml Liquid GT SCH ×2 (08:35→21:24)
[2017-08-10] MEDS: Heparin 5000 units/ml inj SUBQ SCH ×2 (08:37→21:27)
--- NOTE | 2017-08-10 08:46 | General Progress Note ---
Assessment/Plan Problem List: (1) Abnormal laboratory test result ICD Codes: R89.9 - Unspecified abnormal finding in specimens from other organs , systems and tissues SNOMED: 985785013 (2) Leukocytosis ICD Codes: D72.829 - Elevated white blood cell count, unspecified SNOMED: 708962018, 656379065 (3) Elevated troponin ICD Codes: R74.8 - Abnormal levels of other serum enzymes SNOMED: 586494762, 629749361, 671720221 (4) Anemia ICD Codes: D64.9 - Anemia, unspecified SNOMED: 744672015 Status: stable, progressing Assessment/Plan vent resp care gt feeds monitor off abx monitor renal fxn/follow up labs transfuse as needed epo/iron HD per renal poor prognosis Subjective ROS Limited/Unobtainable: Yes Constitutional: Reports: malaise, weakness HEENT: Reports: no symptoms Cardiovascular: Reports: edema Respiratory: Reports: shortness of breath, sputum Gastrointestinal/Abdominal: Reports: difficulty swallowing Genitourinary: Reports: no symptoms Allergies: Coded Allergies: No Known Allergies (Unverified , 07/24/17) Subjective no events. on the vent. poorly responsive. no fevers. no improvement in renal fxn. HD catheter placed. HD needed per renal science consultant. s/p HD yesterday. given 1 unit prbc. tolerated well. no bleeding noted. Objective Last 24 Hour Vital Signs Date Time Temp Pulse Resp B/P (MAP) Pulse Ox O2 Delivery O2 Flow Rate FiO2 08/10/17 08:35 137/76 08/10/17 08:35 92 137/76 08/10/17 08:00 97.9 92 17 137/76 98 Mechanical Ventilator 30 97.9 08/10/17 08:00 30 08/10/17 06:35 91 15 30 08/10/17 05:47 103 125/77 08/10/17 05:09 104 16 30 08/10/17 04:00 98.1 103 26 125/77 98 Mechanical Ventilator 30 98.1 08/10/17 04:00 30 08/10/17 03:35 102 08/10/17 03:30 103 18 30 08/10/17 00:38 100 16 30 08/10/17 00:00 30 08/10/17 00:00 98.1 96 24 153/91 98 Mechanical Ventilator 30 98.1 08/09/17 23:30 84 18 30 08/09/17 23:25 94 08/09/17 21:15 102 141/78 08/09/17 21:05 81 16 30 08/09/17 20:00 97.9 102 28 141/78 98 Mechanical Ventilator 30 97.9 08/09/17 19:25 83 08/09/17 18:49 104 17 30 08/09/17 17:51 141/81 08/09/17 17:20 99 25 30 08/09/17 16:00 98.5 101 25 135/80 100 Mechanical Ventilator 30 98.5 08/09/17 16:00 30 08/09/17 16:00 99 08/09/17 15:09 101 22 30 08/09/17 12:37 97 20 30 08/09/17 12:00 30 08/09/17 12:00 92 08/09/17 12:00 97.9 93 19 140/79 100 Mechanical Ventilator 30 97.9 08/09/17 11:46 92 17 Mechanical Ventilator 45 08/09/17 11:21 92 17 30 08/09/17 09:18 91 20 30 08/09/17 09:07 140/81 08/09/17 09:07 92 140/81 Intake and Output 08/09/17 08/10/17 19:00 07:00 Intake Total 910 ml 580 ml Output Total 350 ml 350 ml Balance 560 ml 230 ml Intake Free Water 160 ml 80 ml Tube Feeding 500 ml 500 ml Blood Product 250 ml Output Urine Total 350 ml 350 ml # Bowel Movements 2 Laboratory Tests 08/09/17 09:20: White Blood Count 13.5H, Red Blood Count 2.81L, Hemoglobin 7.4L, Hematocrit 22.5L, Mean Corpuscular Volume 80, Mean Corpuscular Hemoglobin 26.3L, Mean Corpuscular Hemoglobin Concent 32.9, Red Cell Distribution Width 15.2H, Platelet Count 592H, Mean Platelet Volume 6.3L, Neutrophils (%) (Auto) , Lymphocytes (%) (Auto) , Monocytes (%) (Auto) , Eosinophils (%) (Auto) , Basophils (%) (Auto) , Differential Total Cells Counted 100, Neutrophils % ( Manual) 78H, Lymphocytes % (Manual) 7L, Monocytes % (Manual) 9, Eosinophils % ( Manual) 4H, Basophils % (Manual) 0, Band Neutrophils 2, Platelet Estimate IncreasedH, Platelet Morphology Normal, Hypochromasia 2+, Anisocytosis 1+, Sodium Level 138, Potassium Level 3.8, Chloride Level 100, Carbon Dioxide Level 28, Anion Gap 10, Blood Urea Nitrogen 100H, Creatinine 3.3H, Estimat Glomerular Filtration Rate 23.0, Glucose Level 156H, Calcium Level 9.1, Total Bilirubin 0.4 , Aspartate Amino Transf (AST/SGOT) 27, Alanine Aminotransferase (ALT/SGPT) 23, Alkaline Phosphatase 223H, Total Protein 7.6, Albumin 1.5L, Globulin 6.1, Albumin/Globulin Ratio 0.2L Height (Feet): 6 Height (Inches): 10.00 Weight (Pounds): 233 Objective General Appearance: WD/WN, lethargic Neck: supple Cardiovascular: normal rate, regular rhythm Respiratory/Chest: chest wall non-tender, lungs clear, normal breath sounds, no respiratory distress Abdomen: normal bowel sounds, non tender, soft, no organomegaly Edema: generalized edema Neurologic: unresponsive, aphasia PEG ONEILL August 10, 2017 08:46
[2017-08-10 09:50] LABS: HEMATOCRIT 25.7 % (42.0-52.0); HEMOGLOBIN 8.3 G/DL (14.2-18.0); MEAN CORPUSCULAR VOLUME 80 FL (80-99); PLATELET COUNT 580 K/UL (150-450); RED CELL DISTRIBUTION WIDTH 15.2 % (11.6-14.8); WHITE BLOOD COUNT 13.7 K/UL (4.8-10.8)
[2017-08-10 10:04] LABS: ANION GAP 11 mmol/L (5-15); BLOOD UREA NITROGEN 107 mg/dL (7-18); CALCIUM 8.9 MG/DL (8.5-10.1); CARBON DIOXIDE 28 MMOL/L (21-32); CHLORIDE 100 MMOL/L (98-107); CREATININE 3.4 MG/DL (0.55-1.30); POTASSIUM 3.7 MMOL/L (3.5-5.1); SODIUM 139 MMOL/L (136-145)
[2017-08-10 11:43] VITALS: BP 117/77
--- NOTE | 2017-08-10 12:45 | Infectious Diseases Prog Note ---
Assessment/Plan Assessment/Plan A: 1. MDR Acinetobacter & Serratia pneumonia treated 2. leucocytosis improving 3. respiratory failure 4. anemia 5. hypertension 6. seizures 7, ESRD started on HD 8. VRE colonization P 1. observe off antibiotic 2. F/U CBC Subjective ROS Limited/Unobtainable: Yes Allergies: Coded Allergies: No Known Allergies (Unverified , 07/24/17) Objective Vital Signs Last 24 Hour Vital Signs Date Time Temp Pulse Resp B/P (MAP) Pulse Ox O2 Delivery O2 Flow Rate FiO2 08/10/17 12:00 30 08/10/17 11:52 96 08/10/17 11:43 98.2 87 16 117/77 98 Mechanical Ventilator 30 98.2 08/10/17 11:30 Mechanical Ventilator 50 08/10/17 10:44 95 17 30 08/10/17 09:02 94 17 30 08/10/17 09:00 137/76 08/10/17 09:00 94 137/76 08/10/17 08:30 Mechanical Ventilator 50 08/10/17 08:00 97.9 92 17 137/76 98 Mechanical Ventilator 30 97.9 08/10/17 08:00 30 08/10/17 07:46 91 08/10/17 06:35 91 15 30 08/10/17 05:47 103 125/77 08/10/17 05:09 104 16 30 08/10/17 04:00 98.1 103 26 125/77 98 Mechanical Ventilator 30 98.1 08/10/17 04:00 30 08/10/17 03:35 102 08/10/17 03:30 103 18 30 08/10/17 00:38 100 16 30 08/10/17 00:00 30 08/10/17 00:00 98.1 96 24 153/91 98 Mechanical Ventilator 30 98.1 08/09/17 23:30 84 18 30 08/09/17 23:25 94 08/09/17 21:15 102 141/78 08/09/17 21:05 81 16 30 08/09/17 20:00 97.9 102 28 141/78 98 Mechanical Ventilator 30 97.9 08/09/17 19:25 83 08/09/17 18:49 104 17 30 08/09/17 17:51 141/81 08/09/17 17:20 99 25 30 08/09/17 16:00 98.5 101 25 135/80 100 Mechanical Ventilator 30 98.5 08/09/17 16:00 30 08/09/17 16:00 99 08/09/17 15:09 101 22 30 Height (Feet): 6 Height (Inches): 10.00 Weight (Pounds): 233 General Appearance: no acute distress HEENT: status post trach Respiratory/Chest: other - on ventilator Cardiovascular: normal rate, other - RIJ HD line Abdomen: distended, other - GT feeding Extremities: other - generalized edema Neurologic/Psychiatric: unresponsiveness Microbiology Date/Time Source Procedure Growth Status 08/08/17 11:45 Blood Blood Culture - Preliminary NO GROWTH AFTER 24 HOURS Resulted 08/08/17 11:30 Blood Blood Culture - Preliminary NO GROWTH AFTER 24 HOURS Resulted 08/09/17 04:00 Stool Clostridium difficile Toxin Assay - Final Complete Laboratory Tests Test 08/10/17 09:00 White Blood Count 13.7 K/UL (4.8-10.8) H Red Blood Count 3.20 M/UL (4.70-6.10) L Hemoglobin 8.3 G/DL (14.2-18.0) L Hematocrit 25.7 % (42.0-52.0) L Mean Corpuscular Volume 80 FL (80-99) Mean Corpuscular Hemoglobin 25.9 PG (27.0-31.0) L Mean Corpuscular Hemoglobin Concent 32.3 G/DL (32.0-36.0) Red Cell Distribution Width 15.2 % (11.6-14.8) H Platelet Count 580 K/UL (150-450) H Mean Platelet Volume 6.5 FL (6.5-10.1) Neutrophils (%) (Auto) % (45.0-75.0) Lymphocytes (%) (Auto) % (20.0-45.0) Monocytes (%) (Auto) % (1.0-10.0) Eosinophils (%) (Auto) % (0.0-3.0) Basophils (%) (Auto) % (0.0-2.0) Differential Total Cells Counted 100 Neutrophils % (Manual) 85 % (45-75) H Lymphocytes % (Manual) 4 % (20-45) L Monocytes % (Manual) 9 % (1-10) Eosinophils % (Manual) 2 % (0-3) Basophils % (Manual) 0 % (0-2) Band Neutrophils 0 % (0-8) Platelet Estimate Increased H Platelet Morphology Normal Hypochromasia 1+ Anisocytosis 1+ Sodium Level 139 MMOL/L (136-145) Potassium Level 3.7 MMOL/L (3.5-5.1) Chloride Level 100 MMOL/L (98-107) Carbon Dioxide Level 28 MMOL/L (21-32) Anion Gap 11 mmol/L (5-15) Blood Urea Nitrogen 107 mg/dL (7-18) H Creatinine 3.4 MG/DL (0.55-1.30) H Estimat Glomerular Filtration Rate 22.3 mL/min (>60) Glucose Level 141 MG/DL (74-106) H Calcium Level 8.9 MG/DL (8.5-10.1) Current Medications Medications (Trade) Dose Ordered Sig/Trina Route PRN Reason Start Time Stop Time Status Last Admin Dose Admin Acetaminophen (Tylenol) 650 mg Q4H PRN GT Mild pain / T > 100.5F 07/25/17 07:00 08/24/17 06:59 08/07/17 23:48 Amlodipine Besylate (Norvasc) 10 mg DAILY GT 07/25/17 09:00 08/24/17 08:59 08/09/17 09:07 Bisacodyl (Dulcolax) 10 mg DAILYPRN PRN RECTAL CONSTIPATION 07/25/17 07:00 08/24/17 06:59 Chlorhexidine Gluconate (Joya-Hex 2%) 1 applic DAILY@2000 TOPIC 08/07/17 20:00 09/06/17 19:59 08/09/17 21:13 Docusate Sodium (Colace) 100 mg DAILYPRN PRN ORAL Constipation 07/25/17 07:00 08/24/17 06:59 Docusate Sodium (Colace) 100 mg EVERY 12 HOURS GT 07/31/17 21:00 08/24/17 08:59 08/10/17 08:35 Heparin Sodium (Porcine) (Heparin 5000 units/ml) 5,000 units EVERY 12 HOURS SUBQ 08/05/17 09:00 09/04/17 08:59 08/10/17 08:37 Heparin Sodium (Porcine) (Heparin Sod 1000 units/ml 10ml) 2,000 unit ONCE IV 08/10/17 17:30 08/15/17 17:29 Heparin Sodium (Porcine) (Heparin) 1,000 unit POSTHD INJ 08/10/17 17:30 09/09/17 17:29 Levetiracetam (Keppra) 1,000 mg Q12HR GT 07/25/17 09:00 08/24/17 08:59 08/10/17 08:35 Levothyroxine Sodium (Synthroid) 50 mcg DAILY@0600 GT 08/06/17 06:00 09/05/17 05:59 08/10/17 05:47 Magnesium Hydroxide (Mom) 30 ml HSPRN PRN GT Constipation 07/25/17 21:00 08/24/17 20:59 07/28/17 20:43 Minoxidil (Loniten) 10 mg BID GT 07/25/17 09:00 08/24/17 08:59 08/09/17 17:51 Ondansetron HCl (Zofran) 4 mg Q8H PRN GT Nausea & Vomiting 07/25/17 07:00 08/24/17 06:59 Propranolol HCl (Inderal) 40 mg Q8HR GT 07/25/17 09:00 08/24/17 08:59 08/10/17 05:47 Sodium Chloride 1,000 ml @ 500 mls/hr Q2H PRN IVLG sbp<90 during hd 08/10/17 17:17 09/09/17 17:16 Sodium Chloride 1,000 ml @ 500 mls/hr Q2H PRN IVLG sbp<90 during hd 08/09/17 06:22 09/08/17 06:21 Sodium Phosphate (Fleet's Sodium Phosl Enema) 133 ml Q72H PRN RECTAL Constipation 07/25/17 07:00 08/24/17 06:59 Zinc Sulfate (Zinc Sulfate) 220 mg DAILY GT 07/25/17 09:00 08/24/17 08:59 08/10/17 08:35 RACHEL HENDERSON August 10, 2017 12:45
[2017-08-10] MEDS: Heparin Sod 1000 units/ml 10ml IV SCH (13:01)
[2017-08-10 16:30] VITALS: BP 133/71
--- NOTE | 2017-08-10 16:36 | Nephrology Progress Note ---
Assessment/Plan Plan CONSUELO. HD dependent. HD today. Subjective Subjective Confused Objective Objective Last 24 Hour Vital Signs Date Time Temp Pulse Resp B/P (MAP) Pulse Ox O2 Delivery O2 Flow Rate FiO2 08/10/17 14:40 97 14 30 08/10/17 13:16 97 117/77 08/10/17 12:35 97 15 30 08/10/17 12:00 30 08/10/17 11:52 96 08/10/17 11:43 98.2 87 16 117/77 98 Mechanical Ventilator 30 98.2 08/10/17 11:30 Mechanical Ventilator 50 08/10/17 10:44 95 17 30 08/10/17 09:02 94 17 30 08/10/17 09:00 137/76 08/10/17 09:00 94 137/76 08/10/17 08:30 Mechanical Ventilator 50 08/10/17 08:00 97.9 92 17 137/76 98 Mechanical Ventilator 30 97.9 08/10/17 08:00 30 08/10/17 07:46 91 08/10/17 06:35 91 15 30 08/10/17 05:47 103 125/77 08/10/17 05:09 104 16 30 08/10/17 04:00 98.1 103 26 125/77 98 Mechanical Ventilator 30 98.1 08/10/17 04:00 30 08/10/17 03:35 102 08/10/17 03:30 103 18 30 08/10/17 00:38 100 16 30 08/10/17 00:00 30 08/10/17 00:00 98.1 96 24 153/91 98 Mechanical Ventilator 30 98.1 08/09/17 23:30 84 18 30 08/09/17 23:25 94 08/09/17 21:15 102 141/78 08/09/17 21:05 81 16 30 08/09/17 20:00 97.9 102 28 141/78 98 Mechanical Ventilator 30 97.9 08/09/17 19:25 83 08/09/17 18:49 104 17 30 08/09/17 17:51 141/81 08/09/17 17:20 99 25 30 Intake and Output 08/09/17 08/10/17 19:00 07:00 Intake Total 910 ml 580 ml Output Total 350 ml 350 ml Balance 560 ml 230 ml Intake Free Water 160 ml 80 ml Tube Feeding 500 ml 500 ml Blood Product 250 ml Output Urine Total 350 ml 350 ml # Bowel Movements 2 Laboratory Tests 08/10/17 09:00: White Blood Count 13.7H, Red Blood Count 3.20L, Hemoglobin 8.3L, Hematocrit 25.7L, Mean Corpuscular Volume 80, Mean Corpuscular Hemoglobin 25.9L, Mean Corpuscular Hemoglobin Concent 32.3, Red Cell Distribution Width 15.2H, Platelet Count 580H, Mean Platelet Volume 6.5, Neutrophils (%) (Auto) , Lymphocytes (%) (Auto) , Monocytes (%) (Auto) , Eosinophils (%) (Auto) , Basophils (%) (Auto) , Differential Total Cells Counted 100, Neutrophils % ( Manual) 85H, Lymphocytes % (Manual) 4L, Monocytes % (Manual) 9, Eosinophils % ( Manual) 2, Basophils % (Manual) 0, Band Neutrophils 0, Platelet Estimate IncreasedH, Platelet Morphology Normal, Hypochromasia 1+, Anisocytosis 1+, Sodium Level 139, Potassium Level 3.7, Chloride Level 100, Carbon Dioxide Level 28, Anion Gap 11, Blood Urea Nitrogen 107H, Creatinine 3.4H, Estimat Glomerular Filtration Rate 22.3, Glucose Level 141H, Calcium Level 8.9 Height (Feet): 6 Height (Inches): 10.00 Weight (Pounds): 233 Objective CV RR Lungs CTA Abd SNT. BS + E +3 B ankle Sebastián Ramirez MD August 10, 2017 16:36
[2017-08-10] MEDS ORDERED: Heparin 1000 units/ml 1ml Vial INJ SCH (17:30)
[2017-08-10 20:00] VITALS: BP 131/69
[2017-08-10] MEDS: Dyna-Hex 2% Top Sol 2oz TOPIC SCH (21:23)
--- NOTE | 2017-08-10 23:27 | Pulmonolgy Critical Care Note ---
Critical Care - Asmt/Plan Assessment/Plan: Assessment/Plan IMPRESSION Leukocytosis anemia Serratia PNA - s/p treatment, being observed off antibiotics possible gib trach gt oliguria ARF- worse pulmonary edema S/P HD catheter, aria HD PLAN vent support for now Off antibiotics per ID Dialysis per renal maintain meds renal evaluation noted- may need dialysis respiratory care feeds impression, plan, and exam edited and reviewed in detail care discussed with RN Subjective ROS Limited/Unobtainable: Yes Allergies: Coded Allergies: No Known Allergies (Unverified , 07/24/17) Subjective labs noted still with leukocytosis and worsening renal function worsening s/p HD catheter insertion k replaced Objective Last 24 Hour Vital Signs Date Time Temp Pulse Resp B/P (MAP) Pulse Ox O2 Delivery O2 Flow Rate FiO2 08/03/17 08:00 98.4 96 22 141/71 100 Mechanical Ventilator 45 98.4 08/03/17 08:00 45 08/03/17 07:21 90 14 45 08/03/17 05:57 94 130/64 08/03/17 05:05 93 16 45 08/03/17 04:08 92 08/03/17 04:00 45 08/03/17 04:00 97.9 94 22 130/64 100 Mechanical Ventilator 45 97.9 08/03/17 03:53 94 17 45 08/03/17 01:32 94 22 45 08/03/17 00:00 97.9 91 18 109/68 100 Mechanical Ventilator 45 97.9 08/03/17 00:00 45 08/02/17 23:58 91 08/02/17 23:42 87 19 45 08/02/17 21:55 76 18 45 08/02/17 20:47 91 137/74 08/02/17 20:00 45 08/02/17 20:00 97.8 91 23 137/74 98 Mechanical Ventilator 45 97.8 08/02/17 19:20 89 08/02/17 19:13 74 19 45 08/02/17 17:32 128/77 08/02/17 16:57 73 19 45 08/02/17 16:00 45 08/02/17 16:00 97.3 81 16 128/77 100 Mechanical Ventilator 45 97.3 08/02/17 15:38 82 08/02/17 14:55 81 16 45 08/02/17 13:57 82 127/78 08/02/17 13:24 82 23 45 08/02/17 12:00 83 08/02/17 12:00 45 08/02/17 12:00 97.3 83 16 127/78 99 Mechanical Ventilator 45 97.3 08/02/17 10:51 82 20 45 08/02/17 09:24 137/74 08/02/17 09:24 81 137/74 08/02/17 08:57 81 16 45 Intake and Output 08/02/17 08/03/17 19:00 07:00 Intake Total 710 ml 810 ml Output Total 250 ml 650 ml Balance 460 ml 160 ml Intake Free Water 100 ml 100 ml IV Total 110 ml 110 ml Tube Feeding 500 ml 600 ml Output Urine Total 250 ml 650 ml # Bowel Movements 2 2 Laboratory Tests 08/03/17 03:40: White Blood Count 13.9H, Red Blood Count 3.03L, Hemoglobin 8.1L, Hematocrit 23.8L, Mean Corpuscular Volume 79L, Mean Corpuscular Hemoglobin 26.8L, Mean Corpuscular Hemoglobin Concent 34.1, Red Cell Distribution Width 15.2H, Platelet Count 632H, Mean Platelet Volume 7.4, Neutrophils (%) (Auto) 80.3H, Lymphocytes (%) (Auto) 4.8L, Monocytes (%) (Auto) 7.3, Eosinophils (%) (Auto) 6.7H, Basophils (%) (Auto) 0.9, Sodium Level 139, Potassium Level 3.3L, Chloride Level 99, Carbon Dioxide Level 29, Anion Gap 11, Blood Urea Nitrogen 106H, Creatinine 4.0H, Estimat Glomerular Filtration Rate 18.4, Glucose Level 142H, Calcium Level 8.7 Height (Feet): 6 Height (Inches): 10.00 Weight (Pounds): 233 Objective WDWN trach reduced breath sounds bilaterally without rhonchi or wheeze [id number] without MRG NABS nontender no HSM; GT no CC minimal edema weak Critical Care - Objective Last 24 Hour Vital Signs Date Time Temp Pulse Resp B/P (MAP) Pulse Ox O2 Delivery O2 Flow Rate FiO2 08/10/17 23:13 90 16 30 08/10/17 21:24 131/69 08/10/17 21:23 94 131/69 08/10/17 20:30 94 14 30 08/10/17 20:00 30 08/10/17 20:00 98.1 98 21 131/69 98 Mechanical Ventilator 30 98.1 08/10/17 20:00 95 08/10/17 19:30 98 15 30 08/10/17 16:53 95 17 30 08/10/17 16:30 98.5 94 18 133/71 99 Mechanical Ventilator 30 98.5 08/10/17 16:00 30 08/10/17 15:29 95 08/10/17 14:40 97 14 30 08/10/17 13:16 97 117/77 08/10/17 12:35 97 15 30 08/10/17 12:00 30 08/10/17 11:52 96 08/10/17 11:43 98.2 87 16 117/77 98 Mechanical Ventilator 30 98.2 08/10/17 11:30 Mechanical Ventilator 50 08/10/17 10:44 95 17 30 08/10/17 09:02 94 17 30 08/10/17 09:00 137/76 08/10/17 09:00 94 137/76 08/10/17 08:30 Mechanical Ventilator 50 08/10/17 08:00 97.9 92 17 137/76 98 Mechanical Ventilator 30 97.9 08/10/17 08:00 30 08/10/17 07:46 91 08/10/17 06:35 91 15 30 08/10/17 05:47 103 125/77 08/10/17 05:09 104 16 30 08/10/17 04:00 98.1 103 26 125/77 98 Mechanical Ventilator 30 98.1 08/10/17 04:00 30 08/10/17 03:35 102 08/10/17 03:30 103 18 30 08/10/17 00:38 100 16 30 08/10/17 00:00 30 08/10/17 00:00 98.1 96 24 153/91 98 Mechanical Ventilator 30 98.1 08/09/17 23:30 84 18 30 Micro: Microbiology Date/Time Source Procedure Growth Status 08/08/17 11:45 Blood Blood Culture - Preliminary NO GROWTH AFTER 24 HOURS Resulted 08/08/17 11:30 Blood Blood Culture - Preliminary NO GROWTH AFTER 24 HOURS Resulted 08/09/17 04:00 Sputum Gram Stain - Final Resulted 08/09/17 04:00 Sputum Sputum Culture Pending Resulted 08/09/17 04:00 Stool Clostridium difficile Toxin Assay - Final Complete Critical Care - Subjective ROS Limited/Unobtainable: Yes Condition: stable IV Access: peripheral EKG Rhythm: Sinus Rhythm FI02: 30 Vent Support Breath Rate: 14 Vent Support Mode: AC Vent Tidal Volume: 550 Sputum Amount: Small PEEP: 5.0 PIP: 34 Tube Feeding Amount: 50 I&O: Intake and Output 08/09/17 08/10/17 19:00 07:00 Intake Total 910 ml 580 ml Output Total 350 ml 350 ml Balance 560 ml 230 ml Intake Free Water 160 ml 80 ml Tube Feeding 500 ml 500 ml Blood Product 250 ml Output Urine Total 350 ml 350 ml # Bowel Movements 2 ET-Tube: 8.0 Russell Howard M.D. August 10, 2017 23:27
[2017-08-11] VITALS: BP 135/83
[2017-08-11 04:00] VITALS: BP 131/83
[2017-08-11 04:51] LABS: BASOPHILS % (AUTO) 0.6 % (0.0-2.0); EOSINOPHILS % (AUTO) 2.5 % (0.0-3.0); HEMATOCRIT 25.4 % (42.0-52.0); HEMOGLOBIN 8.1 G/DL (14.2-18.0); LYMPHOCYTES % (AUTO) 7.3 % (20.0-45.0); MEAN CORPUSCULAR VOLUME 81 FL (80-99); MONOCYTES % (AUTO) 7.9 % (1.0-10.0); NEUTROPHILS % (AUTO) 81.7 % (45.0-75.0); PLATELET COUNT 586 K/UL (150-450); RED BLOOD COUNT 3.14 M/UL (4.70-6.10); RED CELL DISTRIBUTION WIDTH 15.6 % (11.6-14.8); WHITE BLOOD COUNT 11.9 K/UL (4.8-10.8)
[2017-08-11 05:06] LABS: ANION GAP 7 mmol/L (5-15); BLOOD UREA NITROGEN 76 mg/dL (7-18); CALCIUM 8.8 MG/DL (8.5-10.1); CARBON DIOXIDE 30 MMOL/L (21-32); CHLORIDE 101 MMOL/L (98-107); CREATININE 2.9 MG/DL (0.55-1.30); POTASSIUM 3.8 MMOL/L (3.5-5.1); SODIUM 138 MMOL/L (136-145)
[2017-08-11] MEDS: Propranolol 40mg tab GT SCH ×2 (06:57→13:59)
[2017-08-11 07:38] VITALS: BP 135/83
--- NOTE | 2017-08-11 07:55 | Nephrology Progress Note ---
Assessment/Plan Plan CONSUELO. HD dependent. HD tomorrow. Labs imroving with HD.. Subjective Subjective Confused Objective Objective Last 24 Hour Vital Signs Date Time Temp Pulse Resp B/P (MAP) Pulse Ox O2 Delivery O2 Flow Rate FiO2 08/11/17 07:01 98 14 30 08/11/17 06:57 98 131/83 08/11/17 05:06 98 16 30 08/11/17 04:00 76 20 131/83 100 Mechanical Ventilator 30 08/11/17 04:00 30 08/11/17 04:00 97 08/11/17 03:01 95 21 30 08/11/17 01:29 96 21 30 08/11/17 00:00 98.1 78 20 135/83 100 Mechanical Ventilator 30 98.1 08/11/17 00:00 30 08/11/17 00:00 91 08/10/17 23:13 90 16 30 08/10/17 21:24 131/69 08/10/17 21:23 94 131/69 08/10/17 20:30 94 14 30 08/10/17 20:00 30 08/10/17 20:00 98.1 98 21 131/69 98 Mechanical Ventilator 30 98.1 08/10/17 20:00 95 08/10/17 19:30 98 15 30 08/10/17 16:53 95 17 30 08/10/17 16:30 98.5 94 18 133/71 99 Mechanical Ventilator 30 98.5 08/10/17 16:00 30 08/10/17 15:29 95 08/10/17 14:40 97 14 30 08/10/17 13:16 97 117/77 08/10/17 12:35 97 15 30 08/10/17 12:00 30 08/10/17 11:52 96 08/10/17 11:43 98.2 87 16 117/77 98 Mechanical Ventilator 30 98.2 08/10/17 11:30 Mechanical Ventilator 50 08/10/17 10:44 95 17 30 08/10/17 09:02 94 17 30 08/10/17 09:00 137/76 08/10/17 09:00 94 137/76 08/10/17 08:30 Mechanical Ventilator 50 08/10/17 08:00 97.9 92 17 137/76 98 Mechanical Ventilator 30 97.9 08/10/17 08:00 30 Intake and Output 08/10/17 08/11/17 19:00 07:00 Intake Total 760 ml 600 ml Output Total 2250 ml 150 ml Balance -1490 ml 450 ml Intake Free Water 100 ml 100 ml Tube Feeding 600 ml 500 ml Other 60 ml Output Urine Total 250 ml 150 ml Hemodialysis UF 2000 ml Laboratory Tests 08/10/17 09:00: White Blood Count 13.7H, Red Blood Count 3.20L, Hemoglobin 8.3L, Hematocrit 25.7L, Mean Corpuscular Volume 80, Mean Corpuscular Hemoglobin 25.9L, Mean Corpuscular Hemoglobin Concent 32.3, Red Cell Distribution Width 15.2H, Platelet Count 580H, Mean Platelet Volume 6.5, Neutrophils (%) (Auto) , Lymphocytes (%) (Auto) , Monocytes (%) (Auto) , Eosinophils (%) (Auto) , Basophils (%) (Auto) , Differential Total Cells Counted 100, Neutrophils % ( Manual) 85H, Lymphocytes % (Manual) 4L, Monocytes % (Manual) 9, Eosinophils % ( Manual) 2, Basophils % (Manual) 0, Band Neutrophils 0, Platelet Estimate IncreasedH, Platelet Morphology Normal, Hypochromasia 1+, Anisocytosis 1+, Sodium Level 139, Potassium Level 3.7, Chloride Level 100, Carbon Dioxide Level 28, Anion Gap 11, Blood Urea Nitrogen 107H, Creatinine 3.4H, Estimat Glomerular Filtration Rate 22.3, Glucose Level 141H, Calcium Level 8.9 08/11/17 03:50: White Blood Count 11.9H, Red Blood Count 3.14L, Hemoglobin 8.1L, Hematocrit 25.4L, Mean Corpuscular Volume 81, Mean Corpuscular Hemoglobin 25.9L, Mean Corpuscular Hemoglobin Concent 32.0, Red Cell Distribution Width 15.6H, Platelet Count 586H, Mean Platelet Volume 6.6, Neutrophils (%) (Auto) 81.7H, Lymphocytes (%) (Auto) 7.3L, Monocytes (%) (Auto) 7.9, Eosinophils (%) (Auto) 2.5, Basophils (%) (Auto) 0.6, Sodium Level 138, Potassium Level 3.8, Chloride Level 101, Carbon Dioxide Level 30, Anion Gap 7, Blood Urea Nitrogen 76H, Creatinine 2.9H, Estimat Glomerular Filtration Rate 26.8, Glucose Level 124H, Calcium Level 8.8 Height (Feet): 6 Height (Inches): 10.00 Weight (Pounds): 221 Objective CV RR Lungs CTA Abd SNT. BS + E +3 B ankle Sebastián Ramirez MD August 11, 2017 07:55
[2017-08-11] MEDS: levETIRAcetam 500mg/5ml Liquid GT SCH ×2 (09:32→20:40)
[2017-08-11] MEDS: Zinc Sulfate 220mg cap GT SCH (09:32)
[2017-08-11] MEDS: Docusate 100mg/10ml Liq GT SCH ×2 (09:32→20:40)
[2017-08-11] MEDS: Minoxidil 10mg tab GT SCH ×2 (09:33→20:40)
[2017-08-11] MEDS: Heparin 5000 units/ml inj SUBQ SCH ×2 (09:37→20:42)
--- NOTE | 2017-08-11 10:42 | Infectious Diseases Prog Note ---
"Assessment/Plan Assessment/Plan antibiotics : none A 1. acenitobacter | serratia pneumonia s/p rx 2. leucocytosis improving 3. respiratory failure 4. anemia 5. hypertension 6. seizures 7. renal failure improving 8. rectal VRE colonization P 1. continue off antibiotics Subjective ROS Limited/Unobtainable: Yes Allergies: Coded Allergies: No Known Allergies (Unverified , 07/24/17) Objective Vital Signs Last 24 Hour Vital Signs Date Time Temp Pulse Resp B/P (MAP) Pulse Ox O2 Delivery O2 Flow Rate FiO2 08/11/17 09:34 93 135/83 08/11/17 09:33 135/83 08/11/17 08:48 96 14 30 08/11/17 07:01 98 14 30 08/11/17 06:57 98 131/83 08/11/17 05:06 98 16 30 08/11/17 04:00 76 20 131/83 100 Mechanical Ventilator 30 08/11/17 04:00 30 08/11/17 04:00 97 08/11/17 03:01 95 21 30 08/11/17 01:29 96 21 30 08/11/17 00:00 98.1 78 20 135/83 100 Mechanical Ventilator 30 98.1 08/11/17 00:00 30 08/11/17 00:00 91 08/10/17 23:13 90 16 30 08/10/17 21:24 131/69 08/10/17 21:23 94 131/69 08/10/17 20:30 94 14 30 08/10/17 20:00 30 08/10/17 20:00 98.1 98 21 131/69 98 Mechanical Ventilator 30 98.1 08/10/17 20:00 95 08/10/17 19:30 98 15 30 08/10/17 16:53 95 17 30 08/10/17 16:30 98.5 94 18 133/71 99 Mechanical Ventilator 30 98.5 08/10/17 16:00 30 08/10/17 15:29 95 08/10/17 14:40 97 14 30 08/10/17 13:16 97 117/77 08/10/17 12:35 97 15 30 08/10/17 12:00 30 08/10/17 11:52 96 08/10/17 11:43 98.2 87 16 117/77 98 Mechanical Ventilator 30 98.2 08/10/17 11:30 Mechanical Ventilator 50 08/10/17 10:44 95 17 30 Height (Feet): 6 Height (Inches): 10.00 Weight (Pounds): 221 HEENT: status post trach Respiratory/Chest: lungs clear Cardiovascular: normal rate, regular rhythm, no gallop/murmur Abdomen: soft, non tender, other - GT Extremities: other - + edema, right IJ catheter Microbiology Date/Time Source Procedure Growth Status 08/08/17 11:45 Blood Blood Culture - Preliminary NO GROWTH AFTER 48 HOURS Resulted 08/08/17 11:30 Blood Blood Culture - Preliminary NO GROWTH AFTER 48 HOURS Resulted 08/09/17 04:00 Sputum Gram Stain - Final Resulted 08/09/17 04:00 Sputum Culture - Preliminary Gram Negative Bacillus 1 Gram Negative Bacillus 2 Resulted 08/09/17 04:00 Stool Clostridium difficile Toxin Assay - Final Complete Laboratory Tests Test 08/11/17 03:50 White Blood Count 11.9 K/UL (4.8-10.8) H Red Blood Count 3.14 M/UL (4.70-6.10) L Hemoglobin 8.1 G/DL (14.2-18.0) L Hematocrit 25.4 % (42.0-52.0) L Mean Corpuscular Volume 81 FL (80-99) Mean Corpuscular Hemoglobin 25.9 PG (27.0-31.0) L Mean Corpuscular Hemoglobin Concent 32.0 G/DL (32.0-36.0) Red Cell Distribution Width 15.6 % (11.6-14.8) H Platelet Count 586 K/UL (150-450) H Mean Platelet Volume 6.6 FL (6.5-10.1) Neutrophils (%) (Auto) 81.7 % (45.0-75.0) H Lymphocytes (%) (Auto) 7.3 % (20.0-45.0) L Monocytes (%) (Auto) 7.9 % (1.0-10.0) Eosinophils (%) (Auto) 2.5 % (0.0-3.0) Basophils (%) (Auto) 0.6 % (0.0-2.0) Sodium Level 138 MMOL/L (136-145) Potassium Level 3.8 MMOL/L (3.5-5.1) Chloride Level 101 MMOL/L (98-107) Carbon Dioxide Level 30 MMOL/L (21-32) Anion Gap 7 mmol/L (5-15) Blood Urea Nitrogen 76 mg/dL (7-18) H Creatinine 2.9 MG/DL (0.55-1.30) H Estimat Glomerular Filtration Rate 26.8 mL/min (>60) Glucose Level 124 MG/DL (74-106) H Calcium Level 8.8 MG/DL (8.5-10.1) Current Medications Medications (Trade) Dose Ordered Sig/Trina Route PRN Reason Start Time Stop Time Status Last Admin Dose Admin Acetaminophen (Tylenol) 650 mg Q4H PRN GT Mild pain / T > 100.5F 07/25/17 07:00 08/24/17 06:59 08/07/17 23:48 Amlodipine Besylate (Norvasc) 10 mg DAILY GT 07/25/17 09:00 08/24/17 08:59 08/11/17 09:34 Bisacodyl (Dulcolax) 10 mg DAILYPRN PRN RECTAL CONSTIPATION 07/25/17 07:00 08/24/17 06:59 Chlorhexidine Gluconate (Joya-Hex 2%) 1 applic DAILY@2000 TOPIC 08/07/17 20:00 09/06/17 19:59 08/10/17 21:23 Docusate Sodium (Colace) 100 mg DAILYPRN PRN ORAL Constipation 07/25/17 07:00 08/24/17 06:59 Docusate Sodium (Colace) 100 mg EVERY 12 HOURS GT 07/31/17 21:00 08/24/17 08:59 08/11/17 09:32 Heparin Sodium (Porcine) (Heparin 5000 units/ml) 5,000 units EVERY 12 HOURS SUBQ 08/05/17 09:00 09/04/17 08:59 08/11/17 09:37 Heparin Sodium (Porcine) (Heparin Sod 1000 units/ml 10ml) 2,000 unit ONCE IV 08/10/17 17:30 08/15/17 17:29 Heparin Sodium (Porcine) (Heparin Sod 1000 units/ml 10ml) 2,000 unit ONCE IV 08/12/17 06:00 08/12/17 18:00 Heparin Sodium (Porcine) (Heparin) 1,000 unit POSTHD INJ 08/10/17 17:30 09/09/17 17:29 Heparin Sodium (Porcine) (Heparin) 1,000 unit POSTHD INJ 08/12/17 06:00 08/12/17 18:00 Levetiracetam (Keppra) 1,000 mg Q12HR GT 07/25/17 09:00 08/24/17 08:59 08/11/17 09:32 Levothyroxine Sodium (Synthroid) 50 mcg DAILY@0600 GT 08/06/17 06:00 09/05/17 05:59 08/11/17 06:57 Magnesium Hydroxide (Mom) 30 ml HSPRN PRN GT Constipation 07/25/17 21:00 08/24/17 20:59 07/28/17 20:43 Minoxidil (Loniten) 10 mg EVERY 12 HOURS GT 08/10/17 21:00 08/24/17 08:59 08/11/17 09:33 Ondansetron HCl (Zofran) 4 mg Q8H PRN GT Nausea & Vomiting 07/25/17 07:00 08/24/17 06:59 Propranolol HCl (Inderal) 40 mg Q8HR GT 07/25/17 09:00 08/24/17 08:59 08/11/17 06:57 Sodium Chloride 1,000 ml @ 500 mls/hr Q2H PRN IVLG sbp<90 during hd 08/10/17 17:17 09/09/17 17:16 Sodium Chloride 1,000 ml @ 500 mls/hr Q2H PRN IVLG sbp<90 during hd 08/12/17 06:00 08/12/17 06:01 Sodium Chloride 1,000 ml @ 500 mls/hr Q2H PRN IVLG sbp<90 during hd 08/09/17 06:22 09/08/17 06:21 Sodium Phosphate (Fleet's Sodium Phosl Enema) 133 ml Q72H PRN RECTAL Constipation 07/25/17 07:00 08/24/17 06:59 Zinc Sulfate (Zinc Sulfate) 220 mg DAILY GT 07/25/17 09:00 08/24/17 08:59 08/11/17 09:32 MOISÉS VILLARREAL August 11, 2017 10:42"
--- NOTE | 2017-08-11 11:57 | General Progress Note ---
Assessment/Plan Problem List: (1) Abnormal laboratory test result ICD Codes: R89.9 - Unspecified abnormal finding in specimens from other organs , systems and tissues SNOMED: 367326395 (2) Leukocytosis ICD Codes: D72.829 - Elevated white blood cell count, unspecified SNOMED: 292660944, 309073494 (3) Elevated troponin ICD Codes: R74.8 - Abnormal levels of other serum enzymes SNOMED: 076571744, 923177005, 756111932 (4) Anemia ICD Codes: D64.9 - Anemia, unspecified SNOMED: 567480708 Status: stable Assessment/Plan vent resp care gt feeds monitor off abx monitor renal fxn/follow up labs transfuse as needed epo/iron HD per renal poor prognosis Subjective ROS Limited/Unobtainable: No Constitutional: Reports: malaise, weakness HEENT: Reports: no symptoms Cardiovascular: Reports: no symptoms Respiratory: Reports: sputum Gastrointestinal/Abdominal: Reports: difficulty swallowing Genitourinary: Reports: no symptoms Neurologic/Psychiatric: Reports: pre-existing deficit Endocrine: Reports: no symptoms Hematologic/Lymphatic: Reports: anemia Allergies: Coded Allergies: No Known Allergies (Unverified , 07/24/17) All Systems: reviewed and negative except above Subjective no events. on the vent. poorly responsive. decreased edema. no fevers or chills. tolerating feeds Objective Last 24 Hour Vital Signs Date Time Temp Pulse Resp B/P (MAP) Pulse Ox O2 Delivery O2 Flow Rate FiO2 08/11/17 09:34 93 135/83 08/11/17 09:33 135/83 08/11/17 08:48 96 14 30 08/11/17 07:38 92 08/11/17 07:38 98.1 91 24 135/83 96 Mechanical Ventilator 30 98.1 08/11/17 07:01 98 14 30 08/11/17 06:57 98 131/83 08/11/17 05:06 98 16 30 08/11/17 04:00 76 20 131/83 100 Mechanical Ventilator 30 08/11/17 04:00 30 08/11/17 04:00 97 08/11/17 03:01 95 21 30 08/11/17 01:29 96 21 30 08/11/17 00:00 98.1 78 20 135/83 100 Mechanical Ventilator 30 98.1 08/11/17 00:00 30 08/11/17 00:00 91 08/10/17 23:13 90 16 30 08/10/17 21:24 131/69 08/10/17 21:23 94 131/69 08/10/17 20:30 94 14 30 08/10/17 20:00 30 08/10/17 20:00 98.1 98 21 131/69 98 Mechanical Ventilator 30 98.1 08/10/17 20:00 95 08/10/17 19:30 98 15 30 08/10/17 16:53 95 17 30 08/10/17 16:30 98.5 94 18 133/71 99 Mechanical Ventilator 30 98.5 08/10/17 16:00 30 08/10/17 15:29 95 08/10/17 14:40 97 14 30 08/10/17 13:16 97 117/77 08/10/17 12:35 97 15 30 08/10/17 12:00 30 Intake and Output 08/10/17 08/11/17 19:00 07:00 Intake Total 760 ml 600 ml Output Total 2250 ml 150 ml Balance -1490 ml 450 ml Intake Free Water 100 ml 100 ml Tube Feeding 600 ml 500 ml Other 60 ml Output Urine Total 250 ml 150 ml Hemodialysis UF 2000 ml Laboratory Tests 08/11/17 03:50: White Blood Count 11.9H, Red Blood Count 3.14L, Hemoglobin 8.1L, Hematocrit 25.4L, Mean Corpuscular Volume 81, Mean Corpuscular Hemoglobin 25.9L, Mean Corpuscular Hemoglobin Concent 32.0, Red Cell Distribution Width 15.6H, Platelet Count 586H, Mean Platelet Volume 6.6, Neutrophils (%) (Auto) 81.7H, Lymphocytes (%) (Auto) 7.3L, Monocytes (%) (Auto) 7.9, Eosinophils (%) (Auto) 2.5, Basophils (%) (Auto) 0.6, Sodium Level 138, Potassium Level 3.8, Chloride Level 101, Carbon Dioxide Level 30, Anion Gap 7, Blood Urea Nitrogen 76H, Creatinine 2.9H, Estimat Glomerular Filtration Rate 26.8, Glucose Level 124H, Calcium Level 8.8 Height (Feet): 6 Height (Inches): 10.00 Weight (Pounds): 221 Objective General Appearance: WD/WN, lethargic Neck: supple Cardiovascular: normal rate, regular rhythm Respiratory/Chest: chest wall non-tender, lungs clear, normal breath sounds, no respiratory distress Abdomen: normal bowel sounds, non tender, soft, no organomegaly Edema: generalized edema Neurologic: unresponsive, aphasia PEG ONEILL August 11, 2017 11:57
[2017-08-11 12:00] VITALS: BP 145/81
[2017-08-11 16:00] VITALS: BP 125/71
[2017-08-11] MEDS: Heparin Sod 1000 units/ml 10ml IV SCH (16:58)
[2017-08-11 20:00] VITALS: BP 126/68
--- NOTE | 2017-08-11 20:32 | Pulmonolgy Critical Care Note ---
Critical Care - Asmt/Plan Assessment/Plan: Assessment/Plan IMPRESSION Leukocytosis anemia Serratia PNA - s/p treatment, being observed off antibiotics possible gib trach gt oliguria ARF- worse pulmonary edema S/P HD catheter, aria HD PLAN vent support for now Off antibiotics per ID Dialysis per renal maintain meds renal evaluation noted- may need dialysis respiratory care feeds impression, plan, and exam edited and reviewed in detail care discussed with RN Subjective ROS Limited/Unobtainable: Yes Allergies: Coded Allergies: No Known Allergies (Unverified , 07/24/17) Subjective labs noted still with leukocytosis and worsening renal function worsening s/p HD catheter insertion k replaced Objective Last 24 Hour Vital Signs Date Time Temp Pulse Resp B/P (MAP) Pulse Ox O2 Delivery O2 Flow Rate FiO2 08/03/17 08:00 98.4 96 22 141/71 100 Mechanical Ventilator 45 98.4 08/03/17 08:00 45 08/03/17 07:21 90 14 45 08/03/17 05:57 94 130/64 08/03/17 05:05 93 16 45 08/03/17 04:08 92 08/03/17 04:00 45 08/03/17 04:00 97.9 94 22 130/64 100 Mechanical Ventilator 45 97.9 08/03/17 03:53 94 17 45 08/03/17 01:32 94 22 45 08/03/17 00:00 97.9 91 18 109/68 100 Mechanical Ventilator 45 97.9 08/03/17 00:00 45 08/02/17 23:58 91 08/02/17 23:42 87 19 45 08/02/17 21:55 76 18 45 08/02/17 20:47 91 137/74 08/02/17 20:00 45 08/02/17 20:00 97.8 91 23 137/74 98 Mechanical Ventilator 45 97.8 08/02/17 19:20 89 08/02/17 19:13 74 19 45 08/02/17 17:32 128/77 08/02/17 16:57 73 19 45 08/02/17 16:00 45 08/02/17 16:00 97.3 81 16 128/77 100 Mechanical Ventilator 45 97.3 08/02/17 15:38 82 08/02/17 14:55 81 16 45 08/02/17 13:57 82 127/78 08/02/17 13:24 82 23 45 08/02/17 12:00 83 08/02/17 12:00 45 08/02/17 12:00 97.3 83 16 127/78 99 Mechanical Ventilator 45 97.3 08/02/17 10:51 82 20 45 08/02/17 09:24 137/74 08/02/17 09:24 81 137/74 08/02/17 08:57 81 16 45 Intake and Output 08/02/17 08/03/17 19:00 07:00 Intake Total 710 ml 810 ml Output Total 250 ml 650 ml Balance 460 ml 160 ml Intake Free Water 100 ml 100 ml IV Total 110 ml 110 ml Tube Feeding 500 ml 600 ml Output Urine Total 250 ml 650 ml # Bowel Movements 2 2 Laboratory Tests 08/03/17 03:40: White Blood Count 13.9H, Red Blood Count 3.03L, Hemoglobin 8.1L, Hematocrit 23.8L, Mean Corpuscular Volume 79L, Mean Corpuscular Hemoglobin 26.8L, Mean Corpuscular Hemoglobin Concent 34.1, Red Cell Distribution Width 15.2H, Platelet Count 632H, Mean Platelet Volume 7.4, Neutrophils (%) (Auto) 80.3H, Lymphocytes (%) (Auto) 4.8L, Monocytes (%) (Auto) 7.3, Eosinophils (%) (Auto) 6.7H, Basophils (%) (Auto) 0.9, Sodium Level 139, Potassium Level 3.3L, Chloride Level 99, Carbon Dioxide Level 29, Anion Gap 11, Blood Urea Nitrogen 106H, Creatinine 4.0H, Estimat Glomerular Filtration Rate 18.4, Glucose Level 142H, Calcium Level 8.7 Height (Feet): 6 Height (Inches): 10.00 Weight (Pounds): 233 Objective WDWN trach reduced breath sounds bilaterally without rhonchi or wheeze [id number] without MRG NABS nontender no HSM; GT no CC minimal edema weak Critical Care - Objective Last 24 Hour Vital Signs Date Time Temp Pulse Resp B/P (MAP) Pulse Ox O2 Delivery O2 Flow Rate FiO2 08/11/17 19:09 86 21 30 08/11/17 17:06 90 18 30 08/11/17 16:15 30 08/11/17 16:00 96.0 99 16 125/71 96 30 96.0 08/11/17 16:00 94 08/11/17 15:10 92 24 30 08/11/17 13:59 96 145/81 08/11/17 12:58 96 16 30 08/11/17 12:00 103 08/11/17 12:00 97.5 103 22 145/81 95 30 97.5 08/11/17 12:00 30 08/11/17 10:45 99 15 30 08/11/17 09:34 93 135/83 08/11/17 09:33 135/83 08/11/17 08:48 96 14 30 08/11/17 08:00 30 08/11/17 07:38 92 08/11/17 07:38 98.1 91 24 135/83 96 Mechanical Ventilator 30 98.1 08/11/17 07:01 98 14 30 08/11/17 06:57 98 131/83 08/11/17 05:06 98 16 30 08/11/17 04:00 76 20 131/83 100 Mechanical Ventilator 30 08/11/17 04:00 30 08/11/17 04:00 97 08/11/17 03:01 95 21 30 08/11/17 01:29 96 21 30 08/11/17 00:00 98.1 78 20 135/83 100 Mechanical Ventilator 30 98.1 08/11/17 00:00 30 08/11/17 00:00 91 08/10/17 23:13 90 16 30 08/10/17 21:24 131/69 08/10/17 21:23 94 131/69 08/10/17 20:30 94 14 30 Micro: Microbiology Date/Time Source Procedure Growth Status 08/09/17 04:00 Sputum Gram Stain - Final Resulted 08/09/17 04:00 Sputum Culture - Preliminary Gram Negative Bacillus 1 Gram Negative Bacillus 2 Resulted 08/09/17 04:00 Stool Clostridium difficile Toxin Assay - Final Complete Critical Care - Subjective ROS Limited/Unobtainable: Yes Condition: stable EKG Rhythm: Sinus Rhythm FI02: 30 Vent Support Breath Rate: 14 Vent Support Mode: AC Vent Tidal Volume: 550 Sputum Amount: Small PEEP: 5.0 PIP: 39 Tube Feeding Amount: 50 I&O: Intake and Output 08/10/17 08/11/17 19:00 07:00 Intake Total 760 ml 600 ml Output Total 2250 ml 150 ml Balance -1490 ml 450 ml Intake Free Water 100 ml 100 ml Tube Feeding 600 ml 500 ml Other 60 ml Output Urine Total 250 ml 150 ml Hemodialysis UF 2000 ml ET-Tube: 8.0 Russell Howard M.D. August 11, 2017 20:32
[2017-08-11] MEDS: Dyna-Hex 2% Top Sol 2oz TOPIC SCH (20:40)
[2017-08-11] MEDS ORDERED: Propranolol 40mg tab GT SCH (22:00)
[2017-08-12] VITALS: BP 122/74
[2017-08-12 04:00] VITALS: BP 132/82
[2017-08-12] MEDS: Propranolol 40mg tab GT SCH ×3 (05:36→22:15)
[2017-08-12] MEDS ORDERED: Heparin 1000 units/ml 1ml Vial INJ SCH (06:00)
[2017-08-12] MEDS ORDERED: Heparin Sod 1000 units/ml 10ml IV SCH (06:00)
[2017-08-12 08:00] VITALS: BP 135/74
--- NOTE | 2017-08-12 10:18 | General Progress Note ---
Assessment/Plan Assessment/Plan IMPRESSION Leukocytosis anemia possible sepsis possible gib trach gt oliguria ARF- worse pulmonary edema PLAN vent support avoid nephrotoxic meds maintain meds renal function better respiratory care feeds impression, plan, and exam edited and reviewed in detail care discussed with RN Subjective Allergies: Coded Allergies: No Known Allergies (Unverified , 07/24/17) Subjective labs noted renal function better chf on cxr Objective Last 24 Hour Vital Signs Date Time Temp Pulse Resp B/P (MAP) Pulse Ox O2 Delivery O2 Flow Rate FiO2 08/12/17 08:53 103 21 30 08/12/17 08:00 30 08/12/17 08:00 98.4 101 18 135/74 98 30 98.4 08/12/17 08:00 101 08/12/17 06:47 100 17 30 08/12/17 05:36 92 130/72 08/12/17 05:20 105 18 30 08/12/17 04:00 105 08/12/17 04:00 98.1 89 18 132/82 98 30 98.1 08/12/17 04:00 30 08/12/17 03:24 92 16 30 08/12/17 01:00 89 21 30 08/12/17 00:00 96 08/12/17 00:00 98.0 98 20 122/74 98 30 98.0 08/12/17 00:00 30 08/11/17 23:11 93 20 30 08/11/17 21:47 88 126/70 08/11/17 21:09 98 18 30 08/11/17 20:40 124/72 08/11/17 20:00 30 08/11/17 20:00 97.5 99 18 126/68 97 30 97.5 08/11/17 20:00 100 08/11/17 19:09 86 21 30 08/11/17 17:06 90 18 30 08/11/17 16:15 30 08/11/17 16:00 96.0 99 16 125/71 96 30 96.0 08/11/17 16:00 94 08/11/17 15:10 92 24 30 08/11/17 13:59 96 145/81 08/11/17 12:58 96 16 30 08/11/17 12:00 103 08/11/17 12:00 97.5 103 22 145/81 95 30 97.5 08/11/17 12:00 30 08/11/17 10:45 99 15 30 Intake and Output 08/11/17 08/12/17 19:00 07:00 Intake Total 770 ml 550 ml Output Total 250 ml 475 ml Balance 520 ml 75 ml Intake Free Water 100 ml 50 ml Tube Feeding 550 ml 500 ml Other 120 ml Output Urine Total 250 ml 475 ml Labs Test 08/10/17 09:00 08/11/17 03:50 White Blood Count 13.7 K/UL (4.8-10.8) 11.9 K/UL (4.8-10.8) Red Blood Count 3.20 M/UL (4.70-6.10) 3.14 M/UL (4.70-6.10) Hemoglobin 8.3 G/DL (14.2-18.0) 8.1 G/DL (14.2-18.0) Hematocrit 25.7 % (42.0-52.0) 25.4 % (42.0-52.0) Mean Corpuscular Volume 80 FL (80-99) 81 FL (80-99) Mean Corpuscular Hemoglobin 25.9 PG (27.0-31.0) 25.9 PG (27.0-31.0) Mean Corpuscular Hemoglobin Concent 32.3 G/DL (32.0-36.0) 32.0 G/DL (32.0-36.0) Red Cell Distribution Width 15.2 % (11.6-14.8) 15.6 % (11.6-14.8) Platelet Count 580 K/UL (150-450) 586 K/UL (150-450) Mean Platelet Volume 6.5 FL (6.5-10.1) 6.6 FL (6.5-10.1) Neutrophils (%) (Auto) % (45.0-75.0) 81.7 % (45.0-75.0) Lymphocytes (%) (Auto) % (20.0-45.0) 7.3 % (20.0-45.0) Monocytes (%) (Auto) % (1.0-10.0) 7.9 % (1.0-10.0) Eosinophils (%) (Auto) % (0.0-3.0) 2.5 % (0.0-3.0) Basophils (%) (Auto) % (0.0-2.0) 0.6 % (0.0-2.0) Differential Total Cells Counted 100 Neutrophils % (Manual) 85 % (45-75) Lymphocytes % (Manual) 4 % (20-45) Monocytes % (Manual) 9 % (1-10) Eosinophils % (Manual) 2 % (0-3) Basophils % (Manual) 0 % (0-2) Band Neutrophils 0 % (0-8) Platelet Estimate Increased Platelet Morphology Normal Hypochromasia 1+ Anisocytosis 1+ Sodium Level 139 MMOL/L (136-145) 138 MMOL/L (136-145) Potassium Level 3.7 MMOL/L (3.5-5.1) 3.8 MMOL/L (3.5-5.1) Chloride Level 100 MMOL/L (98-107) 101 MMOL/L (98-107) Carbon Dioxide Level 28 MMOL/L (21-32) 30 MMOL/L (21-32) Anion Gap 11 mmol/L (5-15) 7 mmol/L (5-15) Blood Urea Nitrogen 107 mg/dL (7-18) 76 mg/dL (7-18) Creatinine 3.4 MG/DL (0.55-1.30) 2.9 MG/DL (0.55-1.30) Estimat Glomerular Filtration Rate 22.3 mL/min (>60) 26.8 mL/min (>60) Glucose Level 141 MG/DL (74-106) 124 MG/DL (74-106) Calcium Level 8.9 MG/DL (8.5-10.1) 8.8 MG/DL (8.5-10.1) Height (Feet): 6 Height (Inches): 10.00 Weight (Pounds): 221 Objective WDWN trach reduced breath sounds bilaterally without rhonchi or wheeze [id number] without MRG NABS nontender no HSM; GT no CC minimal edema weak Michael Vernon MD August 12, 2017 10:18
[2017-08-12] MEDS: Zinc Sulfate 220mg cap GT SCH (10:50)
[2017-08-12] MEDS: Docusate 100mg/10ml Liq GT SCH ×2 (10:50→20:39)
[2017-08-12] MEDS: levETIRAcetam 500mg/5ml Liquid GT SCH ×2 (10:50→20:40)
[2017-08-12] MEDS: Heparin 5000 units/ml inj SUBQ SCH ×2 (10:51→20:41)
--- NOTE | 2017-08-12 11:00 | Nephrology Progress Note ---
Assessment/Plan Plan CONSUELO. HD dependent. HD today. Labs imroving with HD.. Subjective Subjective Confused Objective Objective Last 24 Hour Vital Signs Date Time Temp Pulse Resp B/P (MAP) Pulse Ox O2 Delivery O2 Flow Rate FiO2 08/12/17 08:53 103 21 30 08/12/17 08:00 30 08/12/17 08:00 98.4 101 18 135/74 98 30 98.4 08/12/17 08:00 101 08/12/17 06:47 100 17 30 08/12/17 05:36 92 130/72 08/12/17 05:20 105 18 30 08/12/17 04:00 105 08/12/17 04:00 98.1 89 18 132/82 98 30 98.1 08/12/17 04:00 30 08/12/17 03:24 92 16 30 08/12/17 01:00 89 21 30 08/12/17 00:00 96 08/12/17 00:00 98.0 98 20 122/74 98 30 98.0 08/12/17 00:00 30 08/11/17 23:11 93 20 30 08/11/17 21:47 88 126/70 08/11/17 21:09 98 18 30 08/11/17 20:40 124/72 08/11/17 20:00 30 08/11/17 20:00 97.5 99 18 126/68 97 30 97.5 08/11/17 20:00 100 08/11/17 19:09 86 21 30 08/11/17 17:06 90 18 30 08/11/17 16:15 30 08/11/17 16:00 96.0 99 16 125/71 96 30 96.0 08/11/17 16:00 94 08/11/17 15:10 92 24 30 08/11/17 13:59 96 145/81 08/11/17 12:58 96 16 30 08/11/17 12:00 103 08/11/17 12:00 97.5 103 22 145/81 95 30 97.5 08/11/17 12:00 30 Intake and Output 08/11/17 08/12/17 19:00 07:00 Intake Total 770 ml 550 ml Output Total 250 ml 475 ml Balance 520 ml 75 ml Intake Free Water 100 ml 50 ml Tube Feeding 550 ml 500 ml Other 120 ml Output Urine Total 250 ml 475 ml Height (Feet): 6 Height (Inches): 10.00 Weight (Pounds): 221 Objective CV RR Lungs CTA Abd SNT. BS + E +3 B ankle Sebastián Ramirez MD August 12, 2017 11:00
[2017-08-12] MEDS: Minoxidil 10mg tab GT SCH ×2 (11:08→20:40)
[2017-08-12 12:00] VITALS: BP 137/74
[2017-08-12 16:00] VITALS: BP 129/62
[2017-08-12 20:00] VITALS: BP 132/72
[2017-08-12] MEDS: Dyna-Hex 2% Top Sol 2oz TOPIC SCH (20:39)
[2017-08-13] VITALS: BP 134/76
[2017-08-13 04:00] VITALS: BP 139/72
[2017-08-13] MEDS: Propranolol 40mg tab GT SCH ×3 (06:00→21:57)
--- NOTE | 2017-08-13 07:20 | General Progress Note ---
Assessment/Plan Assessment/Plan IMPRESSION Leukocytosis anemia possible sepsis possible gib trach gt oliguria ARF- worse pulmonary edema PLAN vent support avoid nephrotoxic meds maintain meds renal function better respiratory care feeds repeat lab data and if improved further,will dc to snf impression, plan, and exam edited and reviewed in detail care discussed with RN Subjective ROS Limited/Unobtainable: Yes Allergies: Coded Allergies: No Known Allergies (Unverified , 07/24/17) Subjective labs noted renal function better but no follow up labs yet chf on cxr Objective Last 24 Hour Vital Signs Date Time Temp Pulse Resp B/P (MAP) Pulse Ox O2 Delivery O2 Flow Rate FiO2 08/13/17 07:08 93 14 30 08/13/17 06:00 100 139/72 08/13/17 05:28 100 16 30 08/13/17 04:00 104 08/13/17 04:00 98.5 89 18 139/72 99 30 98.5 08/13/17 04:00 30 08/13/17 02:59 99 18 30 08/13/17 01:01 101 14 30 08/13/17 00:00 30 08/13/17 00:00 98.1 98 20 134/76 99 30 98.1 08/13/17 00:00 97 08/12/17 23:09 93 16 30 08/12/17 22:15 107 126/82 08/12/17 21:51 100 08/12/17 21:51 116 32 30 08/12/17 20:40 132/78 08/12/17 20:00 30 08/12/17 20:00 105 08/12/17 20:00 98.5 104 18 132/72 99 30 98.5 08/12/17 19:52 106 19 30 08/12/17 16:36 108 16 30 08/12/17 16:00 107 08/12/17 16:00 30 08/12/17 16:00 98.2 108 17 129/62 99 30 98.2 08/12/17 14:55 107 17 30 08/12/17 14:00 106 137/74 08/12/17 13:44 Mechanical Ventilator 30 08/12/17 13:22 106 18 30 08/12/17 12:00 30 08/12/17 12:00 105 08/12/17 12:00 99.5 105 17 137/74 97 30 99.5 08/12/17 11:08 135/74 08/12/17 11:08 103 135/74 08/12/17 10:49 106 18 30 08/12/17 10:30 Mechanical Ventilator 30 08/12/17 08:53 103 21 30 08/12/17 08:00 30 08/12/17 08:00 98.4 101 18 135/74 98 30 98.4 08/12/17 08:00 101 Intake and Output 08/12/17 08/13/17 19:00 07:00 Intake Total 750 ml 600 ml Output Total 4150 ml 07807 ml Balance -3400 ml -62836 ml Intake Free Water 150 ml 100 ml Tube Feeding 600 ml 500 ml Output Urine Total 150 ml 250 ml Hemodialysis UF 4000 ml 92498 ml Height (Feet): 6 Height (Inches): 10.00 Weight (Pounds): 226 Objective WDWN trach reduced breath sounds bilaterally without rhonchi or wheeze [id number] without MRG NABS nontender no HSM; GT no CC minimal edema weak Michael Vernon MD August 13, 2017 07:20
[2017-08-13 08:00] VITALS: BP 117/71
[2017-08-13] MEDS: levETIRAcetam 500mg/5ml Liquid GT SCH ×2 (08:50→21:57)
[2017-08-13] MEDS: Zinc Sulfate 220mg cap GT SCH (08:50)
[2017-08-13] MEDS: Minoxidil 10mg tab GT SCH ×2 (08:51→21:57)
[2017-08-13] MEDS: Docusate 100mg/10ml Liq GT SCH ×2 (08:51→21:56)
[2017-08-13] MEDS: Heparin 5000 units/ml inj SUBQ SCH ×2 (08:53→21:58)
--- NOTE | 2017-08-13 10:59 | Nephrology Progress Note ---
Assessment/Plan Plan CONSUELO. HD dependent. HD today. Labs improving with HD.. Subjective Subjective Confused Objective Objective Last 24 Hour Vital Signs Date Time Temp Pulse Resp B/P (MAP) Pulse Ox O2 Delivery O2 Flow Rate FiO2 08/13/17 09:03 96 16 30 08/13/17 08:51 117/71 08/13/17 08:50 93 117/71 08/13/17 08:00 30 08/13/17 08:00 94 08/13/17 08:00 99.1 93 16 117/71 99 Mechanical Ventilator 30 99.1 08/13/17 07:08 93 14 30 08/13/17 06:00 100 139/72 08/13/17 05:28 100 16 30 08/13/17 04:00 104 08/13/17 04:00 98.5 89 18 139/72 99 30 98.5 08/13/17 04:00 30 08/13/17 02:59 99 18 30 08/13/17 01:01 101 14 30 08/13/17 00:00 30 08/13/17 00:00 98.1 98 20 134/76 99 30 98.1 08/13/17 00:00 97 08/12/17 23:09 93 16 30 08/12/17 22:15 107 126/82 08/12/17 21:51 100 08/12/17 21:51 116 32 30 08/12/17 20:40 132/78 08/12/17 20:00 30 08/12/17 20:00 105 08/12/17 20:00 98.5 104 18 132/72 99 30 98.5 08/12/17 19:52 106 19 30 08/12/17 16:36 108 16 30 08/12/17 16:00 107 08/12/17 16:00 30 08/12/17 16:00 98.2 108 17 129/62 99 30 98.2 08/12/17 14:55 107 17 30 08/12/17 14:00 106 137/74 08/12/17 13:44 Mechanical Ventilator 30 08/12/17 13:22 106 18 30 08/12/17 12:00 30 08/12/17 12:00 105 08/12/17 12:00 99.5 105 17 137/74 97 30 99.5 08/12/17 11:08 135/74 08/12/17 11:08 103 135/74 Intake and Output 08/12/17 08/13/17 19:00 07:00 Intake Total 750 ml 600 ml Output Total 4150 ml 46139 ml Balance -3400 ml -17461 ml Intake Free Water 150 ml 100 ml Tube Feeding 600 ml 500 ml Output Urine Total 150 ml 250 ml Hemodialysis UF 4000 ml 06212 ml Height (Feet): 6 Height (Inches): 10.00 Weight (Pounds): 226 Objective CV RR Lungs CTA Abd SNT. BS + E +3 B ankle Sebastián Ramirez MD August 13, 2017 10:59
--- NOTE | 2017-08-13 11:22 | Infectious Diseases Prog Note ---
Assessment/Plan Assessment/Plan A: 1. MDR Acinetobacter & Serratia pneumonia treated 2. leucocytosis improving 3. respiratory failure 4. anemia 5. hypertension 6. seizures 7, ESRD started on HD 8. VRE colonization P 1. observe off antibiotic 2. F/U CBC Subjective ROS Limited/Unobtainable: Yes Allergies: Coded Allergies: No Known Allergies (Unverified , 07/24/17) Objective Vital Signs Last 24 Hour Vital Signs Date Time Temp Pulse Resp B/P (MAP) Pulse Ox O2 Delivery O2 Flow Rate FiO2 08/13/17 09:03 96 16 30 08/13/17 08:51 117/71 08/13/17 08:50 93 117/71 08/13/17 08:00 30 08/13/17 08:00 94 08/13/17 08:00 99.1 93 16 117/71 99 Mechanical Ventilator 30 99.1 08/13/17 07:08 93 14 30 08/13/17 06:00 100 139/72 08/13/17 05:28 100 16 30 08/13/17 04:00 104 08/13/17 04:00 98.5 89 18 139/72 99 30 98.5 08/13/17 04:00 30 08/13/17 02:59 99 18 30 08/13/17 01:01 101 14 30 08/13/17 00:00 30 08/13/17 00:00 98.1 98 20 134/76 99 30 98.1 08/13/17 00:00 97 08/12/17 23:09 93 16 30 08/12/17 22:15 107 126/82 08/12/17 21:51 100 08/12/17 21:51 116 32 30 08/12/17 20:40 132/78 08/12/17 20:00 30 08/12/17 20:00 105 08/12/17 20:00 98.5 104 18 132/72 99 30 98.5 08/12/17 19:52 106 19 30 08/12/17 16:36 108 16 30 08/12/17 16:00 107 08/12/17 16:00 30 08/12/17 16:00 98.2 108 17 129/62 99 30 98.2 08/12/17 14:55 107 17 30 08/12/17 14:00 106 137/74 08/12/17 13:44 Mechanical Ventilator 30 08/12/17 13:22 106 18 30 08/12/17 12:00 30 08/12/17 12:00 105 08/12/17 12:00 99.5 105 17 137/74 97 30 99.5 Height (Feet): 6 Height (Inches): 10.00 Weight (Pounds): 226 HEENT: status post trach Respiratory/Chest: lungs clear, other - on ventilator Cardiovascular: normal rate, other - RIJ HD line Abdomen: soft, non tender, other - GT feeding Extremities: other - generalized edema Neurologic/Psychiatric: unresponsiveness Laboratory Tests Test 08/13/17 10:20 White Blood Count Pending Red Blood Count Pending Hemoglobin Pending Hematocrit Pending Mean Corpuscular Volume Pending Mean Corpuscular Hemoglobin Pending Mean Corpuscular Hemoglobin Concent Pending Red Cell Distribution Width Pending Platelet Count Pending Mean Platelet Volume Pending Neutrophils (%) (Auto) Pending Lymphocytes (%) (Auto) Pending Monocytes (%) (Auto) Pending Eosinophils (%) (Auto) Pending Basophils (%) (Auto) Pending Sodium Level Pending Potassium Level Pending Chloride Level Pending Carbon Dioxide Level Pending Blood Urea Nitrogen Pending Creatinine Pending Estimat Glomerular Filtration Rate Pending Glucose Level Pending Calcium Level Pending Current Medications Medications (Trade) Dose Ordered Sig/Trina Route PRN Reason Start Time Stop Time Status Last Admin Dose Admin Acetaminophen (Tylenol) 650 mg Q4H PRN GT Mild pain / T > 100.5F 07/25/17 07:00 08/24/17 06:59 08/07/17 23:48 Amlodipine Besylate (Norvasc) 10 mg DAILY GT 08/13/17 09:00 08/24/17 08:59 08/13/17 08:50 Bisacodyl (Dulcolax) 10 mg DAILYPRN PRN RECTAL CONSTIPATION 07/25/17 07:00 08/24/17 06:59 Chlorhexidine Gluconate (Joya-Hex 2%) 1 applic DAILY@1999 TOPIC 08/12/17 20:00 09/06/17 19:59 08/12/17 20:39 Docusate Sodium (Colace) 100 mg DAILYPRN PRN ORAL Constipation 07/25/17 07:00 08/24/17 06:59 Docusate Sodium (Colace) 100 mg EVERY 12 HOURS GT 08/12/17 21:00 08/24/17 20:59 08/13/17 08:51 Heparin Sodium (Porcine) (Heparin 5000 units/ml) 5,000 units EVERY 12 HOURS SUBQ 08/12/17 21:00 09/04/17 20:59 08/13/17 08:53 Levetiracetam (Keppra) 1,000 mg Q12HR GT 08/12/17 21:00 08/24/17 20:59 08/13/17 08:50 Levothyroxine Sodium (Synthroid) 50 mcg DAILY@0600 GT 08/13/17 06:00 09/05/17 05:59 08/13/17 06:00 Magnesium Hydroxide (Mom) 30 ml HSPRN PRN GT Constipation 07/25/17 21:00 08/24/17 20:59 07/28/17 20:43 Minoxidil (Loniten) 10 mg EVERY 12 HOURS GT 08/12/17 21:00 08/24/17 20:59 08/13/17 08:51 Ondansetron HCl (Zofran) 4 mg Q8H PRN GT Nausea & Vomiting 07/25/17 07:00 08/24/17 06:59 Propranolol HCl (Inderal) 40 mg Q8HR GT 08/12/17 22:00 09/11/17 21:59 08/13/17 06:00 Sodium Chloride 1,000 ml @ 500 mls/hr Q2H PRN IVLG sbp<90 during hd 08/10/17 17:17 09/09/17 17:16 Sodium Chloride 1,000 ml @ 500 mls/hr Q2H PRN IVLG sbp<90 during hd 08/09/17 06:22 09/08/17 06:21 Zinc Sulfate (Zinc Sulfate) 220 mg DAILY GT 08/13/17 09:00 08/24/17 08:59 08/13/17 08:50 RACHEL HENDERSON August 13, 2017 11:22
[2017-08-13 11:24] LABS: HEMATOCRIT 25.7 % (42.0-52.0); HEMOGLOBIN 8.1 G/DL (14.2-18.0); MEAN CORPUSCULAR VOLUME 80 FL (80-99); PLATELET COUNT 618 K/UL (150-450); RED BLOOD COUNT 3.22 M/UL (4.70-6.10); RED CELL DISTRIBUTION WIDTH 16.1 % (11.6-14.8); WHITE BLOOD COUNT 14.2 K/UL (4.8-10.8)
[2017-08-13 11:29] LABS: ANION GAP 10 mmol/L (5-15); BLOOD UREA NITROGEN 67 mg/dL (7-18); CALCIUM 8.8 MG/DL (8.5-10.1); CARBON DIOXIDE 26 MMOL/L (21-32); CHLORIDE 100 MMOL/L (98-107); CREATININE 2.8 MG/DL (0.55-1.30); POTASSIUM 4.1 MMOL/L (3.5-5.1); SODIUM 136 MMOL/L (136-145)
[2017-08-13 12:00] VITALS: BP 119/66
[2017-08-13 16:00] VITALS: BP 126/70
[2017-08-13] MEDS ORDERED: Tubing IV Blood Pump IV ONE (16:25)
[2017-08-13] MEDS ORDERED: NS 500ML ONE (16:25)
[2017-08-13] MEDS ORDERED: Tubing IV Secondary IV ONE (16:25)
[2017-08-13 20:00] VITALS: BP 128/68
[2017-08-13] MEDS: Dyna-Hex 2% Top Sol 2oz TOPIC SCH (21:56)
[2017-08-14] VITALS: BP 129/61
[2017-08-14 04:00] VITALS: BP 114/64
[2017-08-14] MEDS: Propranolol 40mg tab GT SCH ×3 (06:05→21:15)
[2017-08-14 06:11] LABS: HEMATOCRIT 25.7 % (42.0-52.0); HEMOGLOBIN 8.3 G/DL (14.2-18.0); MEAN CORPUSCULAR VOLUME 79 FL (80-99); PLATELET COUNT 620 K/UL (150-450); RED BLOOD COUNT 3.26 M/UL (4.70-6.10); WHITE BLOOD COUNT 17.4 K/UL (4.8-10.8)
[2017-08-14 06:18] LABS: ANION GAP 9 mmol/L (5-15); BLOOD UREA NITROGEN 74 mg/dL (7-18); CALCIUM 8.9 MG/DL (8.5-10.1); CARBON DIOXIDE 29 MMOL/L (21-32); CHLORIDE 100 MMOL/L (98-107); CREATININE 3.1 MG/DL (0.55-1.30); SODIUM 137 MMOL/L (136-145)
[2017-08-14 08:15] VITALS: BP 132/62
[2017-08-14] MEDS: levETIRAcetam 500mg/5ml Liquid GT SCH ×2 (09:03→21:16)
[2017-08-14] MEDS: Zinc Sulfate 220mg cap GT SCH (09:03)
[2017-08-14] MEDS: Docusate 100mg/10ml Liq GT SCH ×2 (09:03→21:15)
[2017-08-14] MEDS: Minoxidil 10mg tab GT SCH ×2 (09:04→21:15)
[2017-08-14] MEDS: Heparin 5000 units/ml inj SUBQ SCH ×2 (09:32→21:17)
--- NOTE | 2017-08-14 10:23 | General Progress Note ---
Assessment/Plan Assessment/Plan IMPRESSION Leukocytosis anemia possible sepsis possible gib trach gt oliguria ARF- worse pulmonary edema PLAN vent support avoid nephrotoxic meds maintain meds renal and iD clearance feeds repeat lab data and if improved further,will dc to snf impression, plan, and exam edited and reviewed in detail care discussed with RN Subjective ROS Limited/Unobtainable: Yes Allergies: Coded Allergies: No Known Allergies (Unverified , 07/24/17) Subjective labs noted renal function and wbc worse chf on cxr Objective Last 24 Hour Vital Signs Date Time Temp Pulse Resp B/P (MAP) Pulse Ox O2 Delivery O2 Flow Rate FiO2 08/14/17 09:11 103 17 30 08/14/17 09:04 132/62 08/14/17 09:04 103 132/62 08/14/17 08:15 98.2 103 20 132/62 98 Mechanical Ventilator 30 98.2 08/14/17 08:00 30 08/14/17 06:55 101 17 30 08/14/17 06:05 98 116/69 08/14/17 05:07 97 23 30 08/14/17 04:00 30 08/14/17 04:00 98.2 110 21 114/64 98 Mechanical Ventilator 30 98.2 08/14/17 04:00 111 08/14/17 03:20 109 20 30 08/14/17 01:13 108 18 30 08/14/17 00:00 104 08/14/17 00:00 30 08/14/17 00:00 97.9 102 18 129/61 97 Mechanical Ventilator 30 97.9 08/13/17 22:43 104 17 30 08/13/17 21:57 108 132/79 08/13/17 21:57 132/79 08/13/17 20:53 106 18 30 08/13/17 20:00 98.9 106 16 128/68 98 Mechanical Ventilator 30 98.9 08/13/17 20:00 105 08/13/17 20:00 30 08/13/17 18:58 102 17 30 08/13/17 16:52 98 16 30 08/13/17 16:00 30 08/13/17 16:00 95 08/13/17 16:00 98.1 96 17 126/70 98 Mechanical Ventilator 30 98.1 08/13/17 14:44 94 15 30 08/13/17 13:45 101 119/66 5/13/18 13:11 101 17 30 08/13/17 12:16 100 16 30 08/13/17 12:00 98.1 100 17 119/66 99 Mechanical Ventilator 30 98.1 08/13/17 12:00 100 08/13/17 12:00 30 Intake and Output 08/13/17 08/14/17 19:00 07:00 Intake Total 700 ml 600 ml Output Total 57634 ml 64263 ml Balance -14030 ml -75131 ml Intake Free Water 100 ml 100 ml Tube Feeding 600 ml 500 ml Output Urine Total 200 ml 160 ml Hemodialysis UF 84149 ml 42941 ml Laboratory Tests 08/14/17 05:10: White Blood Count 17.4H, Red Blood Count 3.26L, Hemoglobin 8.3L, Hematocrit 25.7L, Mean Corpuscular Volume 79L, Mean Corpuscular Hemoglobin 25.6L, Mean Corpuscular Hemoglobin Concent 32.5, Red Cell Distribution Width 16.0H, Platelet Count 620H, Mean Platelet Volume 6.5, Neutrophils (%) (Auto) , Lymphocytes (%) (Auto) , Monocytes (%) (Auto) , Eosinophils (%) (Auto) , Basophils (%) (Auto) , Differential Total Cells Counted 100, Neutrophils % ( Manual) 92H, Lymphocytes % (Manual) 4L, Monocytes % (Manual) 2, Eosinophils % ( Manual) 0, Basophils % (Manual) 0, Band Neutrophils 2, Platelet Estimate IncreasedH, Platelet Morphology Normal, Hypochromasia 2+, Anisocytosis 1+, Spherocytes 1+, Sodium Level 137, Potassium Level 4.0, Chloride Level 100, Carbon Dioxide Level 29, Anion Gap 9, Blood Urea Nitrogen 74H, Creatinine 3.1H, Estimat Glomerular Filtration Rate 24.8, Glucose Level 141H, Calcium Level 8.9 Height (Feet): 6 Height (Inches): 10.00 Weight (Pounds): 222 Objective WDWN trach reduced breath sounds bilaterally without rhonchi or wheeze [id number] without MRG NABS nontender no HSM; GT no CC minimal edema weak Michael Vernon MD August 14, 2017 10:23
[2017-08-14 12:00] VITALS: BP 117/66
--- NOTE | 2017-08-14 13:31 | Infectious Diseases Prog Note ---
Assessment/Plan Assessment/Plan A: 1. MDR Acinetobacter & Serratia pneumonia treated 2. leucocytosis worsening 3. respiratory failure 4. anemia 5. hypertension 6. seizures 7, ESRD started on HD 8. VRE colonization P 1. CXR, UA, UC 2. F/U CBC Subjective ROS Limited/Unobtainable: Yes Allergies: Coded Allergies: No Known Allergies (Unverified , 07/24/17) Objective Vital Signs Last 24 Hour Vital Signs Date Time Temp Pulse Resp B/P (MAP) Pulse Ox O2 Delivery O2 Flow Rate FiO2 08/14/17 12:00 30 08/14/17 12:00 98.9 108 22 117/66 98 Mechanical Ventilator 30 98.9 08/14/17 11:30 106 18 Mechanical Ventilator 30 08/14/17 11:28 106 18 30 08/14/17 09:11 103 17 30 08/14/17 09:04 132/62 08/14/17 09:04 103 132/62 08/14/17 08:15 98.2 103 20 132/62 98 Mechanical Ventilator 30 98.2 08/14/17 08:00 101 08/14/17 08:00 30 08/14/17 06:55 101 17 30 08/14/17 06:05 98 116/69 08/14/17 05:07 97 23 30 08/14/17 04:00 30 08/14/17 04:00 98.2 110 21 114/64 98 Mechanical Ventilator 30 98.2 08/14/17 04:00 111 08/14/17 03:20 109 20 30 08/14/17 01:13 108 18 30 08/14/17 00:00 104 08/14/17 00:00 30 08/14/17 00:00 97.9 102 18 129/61 97 Mechanical Ventilator 30 97.9 08/13/17 22:43 104 17 30 08/13/17 21:57 108 132/79 08/13/17 21:57 132/79 08/13/17 20:53 106 18 30 08/13/17 20:00 98.9 106 16 128/68 98 Mechanical Ventilator 30 98.9 08/13/17 20:00 105 08/13/17 20:00 30 08/13/17 18:58 102 17 30 08/13/17 16:52 98 16 30 08/13/17 16:00 30 08/13/17 16:00 95 08/13/17 16:00 98.1 96 17 126/70 98 Mechanical Ventilator 30 98.1 08/13/17 14:44 94 15 30 08/13/17 13:45 101 119/66 Height (Feet): 6 Height (Inches): 10.00 Weight (Pounds): 222 HEENT: status post trach Respiratory/Chest: other - on ventilator, coarse sounds Cardiovascular: tachycardia, other - RIJ HD line Abdomen: distended, other - GT in place Genitourinary: other - condom catheter Extremities: other - generalized edema Laboratory Tests Test 08/14/17 05:10 White Blood Count 17.4 K/UL (4.8-10.8) H Red Blood Count 3.26 M/UL (4.70-6.10) L Hemoglobin 8.3 G/DL (14.2-18.0) L Hematocrit 25.7 % (42.0-52.0) L Mean Corpuscular Volume 79 FL (80-99) L Mean Corpuscular Hemoglobin 25.6 PG (27.0-31.0) L Mean Corpuscular Hemoglobin Concent 32.5 G/DL (32.0-36.0) Red Cell Distribution Width 16.0 % (11.6-14.8) H Platelet Count 620 K/UL (150-450) H Mean Platelet Volume 6.5 FL (6.5-10.1) Neutrophils (%) (Auto) % (45.0-75.0) Lymphocytes (%) (Auto) % (20.0-45.0) Monocytes (%) (Auto) % (1.0-10.0) Eosinophils (%) (Auto) % (0.0-3.0) Basophils (%) (Auto) % (0.0-2.0) Differential Total Cells Counted 100 Neutrophils % (Manual) 92 % (45-75) H Lymphocytes % (Manual) 4 % (20-45) L Monocytes % (Manual) 2 % (1-10) Eosinophils % (Manual) 0 % (0-3) Basophils % (Manual) 0 % (0-2) Band Neutrophils 2 % (0-8) Platelet Estimate Increased H Platelet Morphology Normal Hypochromasia 2+ Anisocytosis 1+ Spherocytes 1+ Sodium Level 137 MMOL/L (136-145) Potassium Level 4.0 MMOL/L (3.5-5.1) Chloride Level 100 MMOL/L (98-107) Carbon Dioxide Level 29 MMOL/L (21-32) Anion Gap 9 mmol/L (5-15) Blood Urea Nitrogen 74 mg/dL (7-18) H Creatinine 3.1 MG/DL (0.55-1.30) H Estimat Glomerular Filtration Rate 24.8 mL/min (>60) Glucose Level 141 MG/DL (74-106) H Calcium Level 8.9 MG/DL (8.5-10.1) Current Medications Medications (Trade) Dose Ordered Sig/Trina Route PRN Reason Start Time Stop Time Status Last Admin Dose Admin Acetaminophen (Tylenol) 650 mg Q4H PRN GT Mild pain / T > 100.5F 07/25/17 07:00 08/24/17 06:59 08/07/17 23:48 Amlodipine Besylate (Norvasc) 10 mg DAILY GT 08/13/17 09:00 08/24/17 08:59 08/14/17 09:04 Bisacodyl (Dulcolax) 10 mg DAILYPRN PRN RECTAL CONSTIPATION 07/25/17 07:00 08/24/17 06:59 Chlorhexidine Gluconate (Joya-Hex 2%) 1 applic DAILY@2000 TOPIC 08/12/17 20:00 09/06/17 19:59 08/13/17 21:56 Docusate Sodium (Colace) 100 mg DAILYPRN PRN ORAL Constipation 07/25/17 07:00 08/24/17 06:59 Docusate Sodium (Colace) 100 mg EVERY 12 HOURS GT 08/12/17 21:00 08/24/17 20:59 08/14/17 09:03 Heparin Sodium (Porcine) (Heparin 5000 units/ml) 5,000 units EVERY 12 HOURS SUBQ 08/12/17 21:00 09/04/17 20:59 08/14/17 09:32 Levetiracetam (Keppra) 1,000 mg Q12HR GT 08/12/17 21:00 08/24/17 20:59 08/14/17 09:03 Levothyroxine Sodium (Synthroid) 50 mcg DAILY@0600 GT 08/14/17 06:00 09/13/17 05:59 08/14/17 06:05 Magnesium Hydroxide (Mom) 30 ml HSPRN PRN GT Constipation 07/25/17 21:00 08/24/17 20:59 07/28/17 20:43 Minoxidil (Loniten) 10 mg EVERY 12 HOURS GT 08/12/17 21:00 08/24/17 20:59 08/14/17 09:04 Ondansetron HCl (Zofran) 4 mg Q8H PRN GT Nausea & Vomiting 07/25/17 07:00 08/24/17 06:59 Propranolol HCl (Inderal) 40 mg Q8HR GT 08/12/17 22:00 09/11/17 21:59 08/14/17 06:05 Sodium Chloride 1,000 ml @ 500 mls/hr Q2H PRN IVLG sbp<90 during hd 08/10/17 17:17 09/09/17 17:16 Sodium Chloride 1,000 ml @ 500 mls/hr Q2H PRN IVLG sbp<90 during hd 08/09/17 06:22 09/08/17 06:21 Zinc Sulfate (Zinc Sulfate) 220 mg DAILY GT 08/13/17 09:00 08/24/17 08:59 08/14/17 09:03 RACHEL HENDERSON August 14, 2017 13:31
--- NOTE | 2017-08-14 15:04 | Diagnostic Imaging Report ---
Indication: Infection Technique: XRAY Chest 1v Comparison: 08/08/2017 Findings: Heart size and mediastinal contours stable. Tracheostomy tube, Gilbert catheter and likely [employer] shunt unchanged. There is interval increase in left-sided pleural fluid with increasing underlying atelectasis/consolidation. Small layering right pleural effusion roughly stable. Osseous structures are stable. Impression: Cardiomegaly and interstitial edema with interval increase in left pleural effusion, moderate in size. Additional findings unchanged.
[2017-08-14 15:59] VITALS: BP 120/62
[2017-08-14 19:54] LABS: APPEARANCE,URINE SLIGHTLY CLOUDY; BILIRUBIN, URINE 2+ (NEGATIVE); COLOR,URINE BROWN; GLUCOSE, URINE (UA) NEGATIVE (NEGATIVE); KETONES,URINE 1+ (NEGATIVE); LEUKOCYTE ESTERASE ,URINE 2+ (NEGATIVE); NITRITE,URINE NEGATIVE (NEGATIVE); PH,URINE 5 (4.5-8.0); PROTEIN,URINE 2+ (NEGATIVE); UROBILINOGEN,URINE 1 MG/DL (0.0-1.0)
[2017-08-14 20:00] VITALS: BP 118/74
[2017-08-14] MEDS: Dyna-Hex 2% Top Sol 2oz TOPIC SCH (21:15)
--- NOTE | 2017-08-14 23:18 | Nephrology Progress Note ---
Assessment/Plan Plan CONSUELO. patient remains in Oliguric ARF. HD dependent. HD tomorrow. Subjective Subjective Confused Objective Objective Last 24 Hour Vital Signs Date Time Temp Pulse Resp B/P (MAP) Pulse Ox O2 Delivery O2 Flow Rate FiO2 08/14/17 23:00 96 20 30 08/14/17 21:15 103 118/74 08/14/17 21:15 118/74 08/14/17 21:05 97 19 30 08/14/17 20:00 93 08/14/17 20:00 30 08/14/17 20:00 97.7 103 21 118/74 96 Mechanical Ventilator 30 97.7 08/14/17 18:40 101 20 30 08/14/17 16:42 92 23 30 08/14/17 16:00 30 08/14/17 16:00 93 08/14/17 15:59 97.5 92 20 120/62 99 Mechanical Ventilator 30 97.5 08/14/17 15:16 104 16 30 08/14/17 14:52 105 117/66 08/14/17 13:29 105 20 30 08/14/17 12:00 30 08/14/17 12:00 98.9 108 22 117/66 98 Mechanical Ventilator 30 98.9 08/14/17 11:36 105 08/14/17 11:30 106 18 Mechanical Ventilator 30 08/14/17 11:28 106 18 30 08/14/17 09:11 103 17 30 08/14/17 09:04 132/62 08/14/17 09:04 103 132/62 08/14/17 08:15 98.2 103 20 132/62 98 Mechanical Ventilator 30 98.2 08/14/17 08:00 101 08/14/17 08:00 30 08/14/17 06:55 101 17 30 08/14/17 06:05 98 116/69 08/14/17 05:07 97 23 30 08/14/17 04:00 30 08/14/17 04:00 98.2 110 21 114/64 98 Mechanical Ventilator 30 98.2 08/14/17 04:00 111 08/14/17 03:20 109 20 30 08/14/17 01:13 108 18 30 08/14/17 00:00 104 08/14/17 00:00 30 08/14/17 00:00 97.9 102 18 129/61 97 Mechanical Ventilator 30 97.9 Intake and Output 08/13/17 08/14/17 19:00 07:00 Intake Total 700 ml 600 ml Output Total 44120 ml 01398 ml Balance -03347 ml -07459 ml Intake Free Water 100 ml 100 ml Tube Feeding 600 ml 500 ml Output Urine Total 200 ml 160 ml Hemodialysis UF 65596 ml 63505 ml Laboratory Tests 08/14/17 05:10: White Blood Count 17.4H, Red Blood Count 3.26L, Hemoglobin 8.3L, Hematocrit 25.7L, Mean Corpuscular Volume 79L, Mean Corpuscular Hemoglobin 25.6L, Mean Corpuscular Hemoglobin Concent 32.5, Red Cell Distribution Width 16.0H, Platelet Count 620H, Mean Platelet Volume 6.5, Neutrophils (%) (Auto) , Lymphocytes (%) (Auto) , Monocytes (%) (Auto) , Eosinophils (%) (Auto) , Basophils (%) (Auto) , Differential Total Cells Counted 100, Neutrophils % ( Manual) 92H, Lymphocytes % (Manual) 4L, Monocytes % (Manual) 2, Eosinophils % ( Manual) 0, Basophils % (Manual) 0, Band Neutrophils 2, Platelet Estimate IncreasedH, Platelet Morphology Normal, Hypochromasia 2+, Anisocytosis 1+, Spherocytes 1+, Sodium Level 137, Potassium Level 4.0, Chloride Level 100, Carbon Dioxide Level 29, Anion Gap 9, Blood Urea Nitrogen 74H, Creatinine 3.1H, Estimat Glomerular Filtration Rate 24.8, Glucose Level 141H, Calcium Level 8.9 08/14/17 18:40: Urine Color Brown, Urine Appearance Slightly cloudy, Urine pH 5, Urine Specific [place] 1.015, Urine Protein 2+H, Urine Glucose (UA) Negative, Urine Ketones 1+H , Urine Occult Blood Negative, Urine Nitrite Negative, Urine Bilirubin 2+H, Urine Ictotest Negative, Urine Urobilinogen 1H, Urine Leukocyte Esterase 2+H, Urine RBC 0-2H, Urine WBC 2-4, Urine Squamous Epithelial Cells None, Urine Amorphous Sediment FewH, Urine Bacteria Few Height (Feet): 6 Height (Inches): 10.00 Weight (Pounds): 222 Objective CV RR Lungs CTA Abd SNT. BS + E +3 B ankle edma Sebastián Veliz MD August 14, 2017 23:18
[2017-08-15] VITALS: BP 118/68
[2017-08-15 04:00] VITALS: BP 121/60
[2017-08-15] MEDS: Propranolol 40mg tab GT SCH ×2 (06:36→13:49)
[2017-08-15 08:00] VITALS: BP 113/65
--- NOTE | 2017-08-15 08:28 | General Progress Note ---
Assessment/Plan Assessment/Plan IMPRESSION Leukocytosis anemia possible sepsis possible gib trach gt oliguria ARF- worse pulmonary edema PLAN vent support tap avoid nephrotoxic meds maintain meds renal and iD clearance feeds repeat lab data and if improved further,will dc to snf impression, plan, and exam edited and reviewed in detail care discussed with RN Subjective ROS Limited/Unobtainable: Yes Allergies: Coded Allergies: No Known Allergies (Unverified , 07/24/17) Subjective labs noted renal function and wbc noted chf on cxr with worsening effusion Objective Last 24 Hour Vital Signs Date Time Temp Pulse Resp B/P (MAP) Pulse Ox O2 Delivery O2 Flow Rate FiO2 08/15/17 06:52 98 20 30 08/15/17 06:36 102 121/60 08/15/17 04:35 102 21 30 08/15/17 04:00 30 08/15/17 04:00 103 08/15/17 04:00 98.7 102 14 121/60 100 Mechanical Ventilator 30 98.7 08/15/17 03:15 105 20 30 08/15/17 01:05 102 20 30 08/15/17 00:00 30 08/15/17 00:00 98.1 101 20 118/68 98 Mechanical Ventilator 30 98.1 08/15/17 00:00 98 08/14/17 23:00 96 20 30 08/14/17 21:15 103 118/74 08/14/17 21:15 118/74 08/14/17 21:05 97 19 30 08/14/17 20:00 93 08/14/17 20:00 30 08/14/17 20:00 97.7 103 21 118/74 96 Mechanical Ventilator 30 97.7 08/14/17 18:40 101 20 30 08/14/17 16:42 92 23 30 08/14/17 16:00 30 08/14/17 16:00 93 08/14/17 15:59 97.5 92 20 120/62 99 Mechanical Ventilator 30 97.5 08/14/17 15:16 104 16 30 08/14/17 14:52 105 117/66 08/14/17 13:29 105 20 30 08/14/17 12:00 30 08/14/17 12:00 98.9 108 22 117/66 98 Mechanical Ventilator 30 98.9 08/14/17 11:36 105 08/14/17 11:30 106 18 Mechanical Ventilator 30 08/14/17 11:28 106 18 30 08/14/17 09:11 103 17 30 08/14/17 09:04 132/62 08/14/17 09:04 103 132/62 Intake and Output 08/14/17 08/15/17 19:00 07:00 Intake Total 1000 ml 700 ml Output Total 240 ml 150 ml Balance 760 ml 550 ml Intake Free Water 400 ml 150 ml Tube Feeding 600 ml 550 ml Output Urine Total 240 ml 150 ml # Bowel Movements 1 Laboratory Tests 08/14/17 18:40: Urine Color Brown, Urine Appearance Slightly cloudy, Urine pH 5, Urine Specific [place] 1.015, Urine Protein 2+H, Urine Glucose (UA) Negative, Urine Ketones 1+H , Urine Occult Blood Negative, Urine Nitrite Negative, Urine Bilirubin 2+H, Urine Ictotest Negative, Urine Urobilinogen 1H, Urine Leukocyte Esterase 2+H, Urine RBC 0-2H, Urine WBC 2-4, Urine Squamous Epithelial Cells None, Urine Amorphous Sediment FewH, Urine Bacteria Few Height (Feet): 6 Height (Inches): 10.00 Weight (Pounds): 221 Objective WDWN trach reduced breath sounds L>R [id number] without MRG NABS nontender no HSM; GT no CC minimal edema weak Michael Vernon MD August 15, 2017 08:28
[2017-08-15] MEDS: Zinc Sulfate 220mg cap GT SCH (08:44)
[2017-08-15] MEDS: levETIRAcetam 500mg/5ml Liquid GT SCH (08:44)
[2017-08-15] MEDS: Docusate 100mg/10ml Liq GT SCH (08:45)
[2017-08-15] MEDS: Minoxidil 10mg tab GT SCH (08:50)
[2017-08-15] MEDS: Heparin 5000 units/ml inj SUBQ SCH (08:51)
[2017-08-15 10:06] LABS: HEMATOCRIT 25.8 % (42.0-52.0); HEMOGLOBIN 8.1 G/DL (14.2-18.0); MEAN CORPUSCULAR VOLUME 80 FL (80-99); PLATELET COUNT 699 K/UL (150-450); RED BLOOD COUNT 3.23 M/UL (4.70-6.10); RED CELL DISTRIBUTION WIDTH 16.1 % (11.6-14.8); WHITE BLOOD COUNT 16.8 K/UL (4.8-10.8)
[2017-08-15 10:12] LABS: ANION GAP 11 mmol/L (5-15); BLOOD UREA NITROGEN 89 mg/dL (7-18); CALCIUM 9.3 MG/DL (8.5-10.1); CARBON DIOXIDE 26 MMOL/L (21-32); CHLORIDE 97 MMOL/L (98-107); CREATININE 3.3 MG/DL (0.55-1.30); POTASSIUM 4.1 MMOL/L (3.5-5.1); SODIUM 134 MMOL/L (136-145)
--- NOTE | 2017-08-15 10:47 | Infectious Diseases Prog Note ---
"Assessment/Plan Assessment/Plan antibiotics : none A 1. acenitobacter | serratia pneumonia s/p rx 2. leucocytosis improving 3. respiratory failure 4. anemia 5. hypertension 6. seizures 7. renal failure improving 8. rectal VRE colonization P 1. continue off antibiotics 2. sputum culture 3. blood culture 4. stool for c.diff Subjective ROS Limited/Unobtainable: Yes Allergies: Coded Allergies: No Known Allergies (Unverified , 07/24/17) Objective Vital Signs Last 24 Hour Vital Signs Date Time Temp Pulse Resp B/P (MAP) Pulse Ox O2 Delivery O2 Flow Rate FiO2 08/15/17 10:28 102 27 30 08/15/17 08:50 113/65 08/15/17 08:49 100 113/65 08/15/17 06:52 98 20 30 08/15/17 06:36 102 121/60 08/15/17 04:35 102 21 30 08/15/17 04:00 30 08/15/17 04:00 103 08/15/17 04:00 98.7 102 14 121/60 100 Mechanical Ventilator 30 98.7 08/15/17 03:15 105 20 30 08/15/17 01:05 102 20 30 08/15/17 00:00 30 08/15/17 00:00 98.1 101 20 118/68 98 Mechanical Ventilator 30 98.1 08/15/17 00:00 98 08/14/17 23:00 96 20 30 08/14/17 21:15 103 118/74 08/14/17 21:15 118/74 08/14/17 21:05 97 19 30 08/14/17 20:00 93 08/14/17 20:00 30 08/14/17 20:00 97.7 103 21 118/74 96 Mechanical Ventilator 30 97.7 08/14/17 18:40 101 20 30 08/14/17 16:42 92 23 30 08/14/17 16:00 30 08/14/17 16:00 93 08/14/17 15:59 97.5 92 20 120/62 99 Mechanical Ventilator 30 97.5 08/14/17 15:16 104 16 30 08/14/17 14:52 105 117/66 08/14/17 13:29 105 20 30 08/14/17 12:00 30 08/14/17 12:00 98.9 108 22 117/66 98 Mechanical Ventilator 30 98.9 08/14/17 11:36 105 08/14/17 11:30 106 18 Mechanical Ventilator 30 08/14/17 11:28 106 18 30 Height (Feet): 6 Height (Inches): 10.00 Weight (Pounds): 221 HEENT: status post trach Respiratory/Chest: lungs clear Cardiovascular: normal rate, regular rhythm, no gallop/murmur Abdomen: soft, non tender, other - GT Extremities: other - + edema, right IJ catheter Laboratory Tests Test 08/14/17 18:40 08/15/17 09:40 Urine Color Brown Urine Appearance Slightly cloudy Urine pH 5 (4.5-8.0) Urine Specific [place] 1.015 (1.005-1.035) Urine Protein 2+ (NEGATIVE) H Urine Glucose (UA) Negative (NEGATIVE) Urine Ketones 1+ (NEGATIVE) H Urine Occult Blood Negative (NEGATIVE) Urine Nitrite Negative (NEGATIVE) Urine Bilirubin 2+ (NEGATIVE) H Urine Ictotest Negative Urine Urobilinogen 1 MG/DL (0.0-1.0) H Urine Leukocyte Esterase 2+ (NEGATIVE) H Urine RBC 0-2 /HPF (0 - 0) H Urine WBC 2-4 /HPF (0 - 0) Urine Squamous Epithelial Cells None /LPF (NONE/OCC) Urine Amorphous Sediment Few /LPF (NONE) H Urine Bacteria Few /HPF (NONE) White Blood Count 16.8 K/UL (4.8-10.8) H Red Blood Count 3.23 M/UL (4.70-6.10) L Hemoglobin 8.1 G/DL (14.2-18.0) L Hematocrit 25.8 % (42.0-52.0) L Mean Corpuscular Volume 80 FL (80-99) Mean Corpuscular Hemoglobin 25.1 PG (27.0-31.0) L Mean Corpuscular Hemoglobin Concent 31.4 G/DL (32.0-36.0) L Red Cell Distribution Width 16.1 % (11.6-14.8) H Platelet Count 699 K/UL (150-450) H Mean Platelet Volume 6.3 FL (6.5-10.1) L Neutrophils (%) (Auto) % (45.0-75.0) Lymphocytes (%) (Auto) % (20.0-45.0) Monocytes (%) (Auto) % (1.0-10.0) Eosinophils (%) (Auto) % (0.0-3.0) Basophils (%) (Auto) % (0.0-2.0) Neutrophils % (Manual) Pending Lymphocytes % (Manual) Pending Platelet Estimate Pending Platelet Morphology Pending Prothrombin Time 10.6 SEC (9.30-11.50) Prothromb Time International Ratio 1.0 (0.9-1.1) Activated Partial Thromboplast Time 27 SEC (23-33) Sodium Level 134 MMOL/L (136-145) L Potassium Level 4.1 MMOL/L (3.5-5.1) Chloride Level 97 MMOL/L (98-107) L Carbon Dioxide Level 26 MMOL/L (21-32) Anion Gap 11 mmol/L (5-15) Blood Urea Nitrogen 89 mg/dL (7-18) H Creatinine 3.3 MG/DL (0.55-1.30) H Estimat Glomerular Filtration Rate 23.0 mL/min (>60) Glucose Level 127 MG/DL (74-106) H Calcium Level 9.3 MG/DL (8.5-10.1) Current Medications Medications (Trade) Dose Ordered Sig/Trina Route PRN Reason Start Time Stop Time Status Last Admin Dose Admin Acetaminophen (Tylenol) 650 mg Q4H PRN GT Mild pain / T > 100.5F 07/25/17 07:00 08/24/17 06:59 08/07/17 23:48 Amlodipine Besylate (Norvasc) 10 mg DAILY GT 08/13/17 09:00 08/24/17 08:59 08/15/17 08:49 Bisacodyl (Dulcolax) 10 mg DAILYPRN PRN RECTAL CONSTIPATION 07/25/17 07:00 08/24/17 06:59 08/14/17 18:10 Chlorhexidine Gluconate (Joya-Hex 2%) 1 applic DAILY@1999 TOPIC 08/12/17 20:00 09/06/17 19:59 08/14/17 21:15 Docusate Sodium (Colace) 100 mg DAILYPRN PRN ORAL Constipation 07/25/17 07:00 08/24/17 06:59 Docusate Sodium (Colace) 250 mg EVERY 12 HOURS GT 08/14/17 21:00 08/24/17 20:59 08/15/17 08:45 Heparin Sodium (Porcine) (Heparin 5000 units/ml) 5,000 units EVERY 12 HOURS SUBQ 08/12/17 21:00 09/04/17 20:59 08/15/17 08:51 Heparin Sodium (Porcine) (Heparin 5000 units/ml) 5,000 units POSTHD INJ 08/15/17 23:30 09/14/17 23:29 UNV Heparin Sodium (Porcine) (Heparin Sod 1000 units/ml 10ml) 2,000 unit ONCE ONCE IV 08/15/17 23:30 08/15/17 23:31 UNV Levetiracetam (Keppra) 1,000 mg Q12HR GT 08/12/17 21:00 08/24/17 20:59 08/15/17 08:44 Levothyroxine Sodium (Synthroid) 50 mcg DAILY@0600 GT 08/14/17 06:00 09/13/17 05:59 08/15/17 06:36 Magnesium Hydroxide (Mom) 30 ml HSPRN PRN GT Constipation 07/25/17 21:00 08/24/17 20:59 07/28/17 20:43 Minoxidil (Loniten) 10 mg EVERY 12 HOURS GT 08/12/17 21:00 08/24/17 20:59 08/15/17 08:50 Ondansetron HCl (Zofran) 4 mg Q8H PRN GT Nausea & Vomiting 07/25/17 07:00 08/24/17 06:59 Propranolol HCl (Inderal) 40 mg Q8HR GT 08/12/17 22:00 09/11/17 21:59 08/15/17 06:36 Sodium Chloride 1,000 ml @ 500 mls/hr Q2H PRN IVLG sbp<90 during hd 08/10/17 17:17 09/09/17 17:16 Sodium Chloride 1,000 ml @ 500 mls/hr Q2H PRN IVLG sbp<90 during hd 08/15/17 23:18 09/14/17 23:17 Sodium Chloride 1,000 ml @ 500 mls/hr Q2H PRN IVLG sbp<90 during hd 08/09/17 06:22 6/8/18 06:21 Zinc Sulfate (Zinc Sulfate) 220 mg DAILY GT 08/13/17 09:00 08/24/17 08:59 08/15/17 08:44 MOISÉS VILLARREAL August 15, 2017 10:47"
[2017-08-15 12:00] VITALS: BP 120/63
[2017-08-15] MEDS ORDERED: Heparin 5000 units/ml inj INJ PRN (12:30)
[2017-08-15] MEDS ORDERED: Heparin Sod 1000 units/ml 10ml IV PRN (12:30)
[2017-08-15] MEDS ORDERED: Lidocaine 1% Plain 30 ml INJ PRN (12:45)
--- NOTE | 2017-08-15 14:49 | Nephrology Progress Note ---
Assessment/Plan Plan CONSUELO. patient remains in Oliguric ARF. HD dependent. HD today. Subjective Subjective Confused Objective Objective Last 24 Hour Vital Signs Date Time Temp Pulse Resp B/P (MAP) Pulse Ox O2 Delivery O2 Flow Rate FiO2 08/15/17 13:49 89 120/63 08/15/17 12:53 89 18 30 08/15/17 12:00 103 08/15/17 12:00 99.4 103 20 120/63 98 Mechanical Ventilator 30 99.4 08/15/17 11:30 Mechanical Ventilator 30 08/15/17 11:22 81 18 30 08/15/17 10:28 102 27 30 08/15/17 10:00 30 08/15/17 08:50 113/65 08/15/17 08:49 100 113/65 08/15/17 08:00 98.8 97 18 113/65 100 Mechanical Ventilator 30 98.8 08/15/17 08:00 93 08/15/17 08:00 30 08/15/17 06:52 98 20 30 08/15/17 06:36 102 121/60 08/15/17 04:35 102 21 30 08/15/17 04:00 30 08/15/17 04:00 103 08/15/17 04:00 98.7 102 14 121/60 100 Mechanical Ventilator 30 98.7 08/15/17 03:15 105 20 30 08/15/17 01:05 102 20 30 08/15/17 00:00 30 08/15/17 00:00 98.1 101 20 118/68 98 Mechanical Ventilator 30 98.1 08/15/17 00:00 98 08/14/17 23:00 96 20 30 08/14/17 21:15 103 118/74 08/14/17 21:15 118/74 08/14/17 21:05 97 19 30 08/14/17 20:00 93 08/14/17 20:00 30 08/14/17 20:00 97.7 103 21 118/74 96 Mechanical Ventilator 30 97.7 08/14/17 18:40 101 20 30 08/14/17 16:42 92 23 30 08/14/17 16:00 30 08/14/17 16:00 93 08/14/17 15:59 97.5 92 20 120/62 99 Mechanical Ventilator 30 97.5 08/14/17 15:16 104 16 30 08/14/17 14:52 105 117/66 Intake and Output 08/14/17 08/15/17 19:00 07:00 Intake Total 1000 ml 700 ml Output Total 240 ml 150 ml Balance 760 ml 550 ml Intake Free Water 400 ml 150 ml Tube Feeding 600 ml 550 ml Output Urine Total 240 ml 150 ml # Bowel Movements 1 Laboratory Tests 08/14/17 18:40: Urine Color Brown, Urine Appearance Slightly cloudy, Urine pH 5, Urine Specific [place] 1.015, Urine Protein 2+H, Urine Glucose (UA) Negative, Urine Ketones 1+H , Urine Occult Blood Negative, Urine Nitrite Negative, Urine Bilirubin 2+H, Urine Ictotest Negative, Urine Urobilinogen 1H, Urine Leukocyte Esterase 2+H, Urine RBC 0-2H, Urine WBC 2-4, Urine Squamous Epithelial Cells None, Urine Amorphous Sediment FewH, Urine Bacteria Few 08/15/17 09:40: White Blood Count 16.8H, Red Blood Count 3.23L, Hemoglobin 8.1L, Hematocrit 25.8L, Mean Corpuscular Volume 80, Mean Corpuscular Hemoglobin 25.1L, Mean Corpuscular Hemoglobin Concent 31.4L, Red Cell Distribution Width 16.1H, Platelet Count 699H, Mean Platelet Volume 6.3L, Neutrophils (%) (Auto) , Lymphocytes (%) (Auto) , Monocytes (%) (Auto) , Eosinophils (%) (Auto) , Basophils (%) (Auto) , Differential Total Cells Counted 100, Neutrophils % ( Manual) 87H, Lymphocytes % (Manual) 2L, Monocytes % (Manual) 8, Eosinophils % ( Manual) 1, Basophils % (Manual) 0, Band Neutrophils 2, Platelet Estimate IncreasedH, Platelet Morphology Normal, Hypochromasia 1+, Anisocytosis 1+, Prothrombin Time 10.6, Prothromb Time International Ratio 1.0, Activated Partial Thromboplast Time 27, Sodium Level 134L, Potassium Level 4.1, Chloride Level 97L, Carbon Dioxide Level 26, Anion Gap 11, Blood Urea Nitrogen 89H, Creatinine 3.3H, Estimat Glomerular Filtration Rate 23.0, Glucose Level 127H, Calcium Level 9.3 Height (Feet): 6 Height (Inches): 10.00 Weight (Pounds): 221 Objective CV RR Lungs CTA Abd SNT. BS + E +3 B ankle edma Shechter,Pagiel MD August 15, 2017 14:49
[2017-08-15 16:00] VITALS: BP 91/54
--- NOTE | 2017-08-15 16:08 | Diagnostic Imaging Report ---
Indications: Pleural effusion Technique: Ultrasound used to localize optimal puncture site. Sterile prepping and draping left chest. Local anesthesia with 1% lidocaine. Under real-time ultrasound guidance, puncture pleural space using thoracentesis needle. Stylet removed. Catheter placed to vacuum bottle suction. Total 2300 milliliters of fluid aspirated. Patient tolerated procedure well, without immediate complication. Findings: Followup sonography demonstrates complete resolution of pleural fluid. Impression: Successful ultrasound-guided thoracentesis, yielding 2300 milliliters of fluid
--- NOTE | 2017-08-15 16:10 | Diagnostic Imaging Report ---
Indication: Status post thoracentesis Technique: One view of the chest Comparison: 08/14/2017 Findings: Interim resolution of previously demonstrated large left pleural effusion. There is slight blunting of left costophrenic sulcus, could indicate trace residual fluid. No pneumothorax is demonstrated. No definite parenchymal consolidation or edema. Some atelectasis in the retrocardiac region is noted. There is interim increase in size of the pleural effusion on the right. Generalized very mild interstitial congestive changes are again demonstrated. Right jugular temporary dialysis catheter, left-sided ventricular peritoneal shunt, tracheostomy are again demonstrated Impression: Resolved or nearly resolved left-sided pleural effusion, post large volume thoracentesis. No radiographically evident complication Increasing right pleural fluid Persistent mild interstitial congestion
[2017-08-15 20:00] VITALS: BP 120/66
[2017-08-16] VITALS: BP 112/62
[2017-08-16] MEDS: Minoxidil 10mg tab GT SCH ×3 (00:05→20:59)
[2017-08-16] MEDS: Dyna-Hex 2% Top Sol 2oz TOPIC SCH ×2 (00:05→20:55)
[2017-08-16] MEDS: Propranolol 40mg tab GT SCH ×4 (00:06→20:59)
[2017-08-16] MEDS: levETIRAcetam 500mg/5ml Liquid GT SCH ×3 (00:07→21:00)
[2017-08-16] MEDS: Docusate 100mg/10ml Liq GT SCH ×3 (00:07→20:56)
[2017-08-16] MEDS: Heparin 5000 units/ml inj SUBQ SCH ×3 (00:08→21:00)
[2017-08-16 04:00] VITALS: BP 117/55
[2017-08-16 04:07] LABS: HEMATOCRIT 22.8 % (42.0-52.0); HEMOGLOBIN 7.4 G/DL (14.2-18.0); MEAN CORPUSCULAR VOLUME 80 FL (80-99); PLATELET COUNT 593 K/UL (150-450); RED BLOOD COUNT 2.87 M/UL (4.70-6.10); RED CELL DISTRIBUTION WIDTH 15.9 % (11.6-14.8); WHITE BLOOD COUNT 13.1 K/UL (4.8-10.8)
[2017-08-16 04:14] LABS: ANION GAP 10 mmol/L (5-15); BLOOD UREA NITROGEN 75 mg/dL (7-18); CALCIUM 8.8 MG/DL (8.5-10.1); CARBON DIOXIDE 28 MMOL/L (21-32); CHLORIDE 99 MMOL/L (98-107); CREATININE 3.1 MG/DL (0.55-1.30); SODIUM 136 MMOL/L (136-145)
[2017-08-16 08:00] VITALS: BP 110/55
--- NOTE | 2017-08-16 08:28 | General Progress Note ---
Assessment/Plan Assessment/Plan IMPRESSION Leukocytosis anemia possible sepsis possible gib trach gt oliguria ARF- worse pulmonary edema PLAN vent support tap completed avoid nephrotoxic meds maintain meds renal and iD clearance feeds will dc to snf and monitor impression, plan, and exam edited and reviewed in detail care discussed with RN Subjective Allergies: Coded Allergies: No Known Allergies (Unverified , 07/24/17) Subjective labs noted renal function and wbc noted underwent tap Objective Last 24 Hour Vital Signs Date Time Temp Pulse Resp B/P (MAP) Pulse Ox O2 Delivery O2 Flow Rate FiO2 08/16/17 06:38 96 22 30 08/16/17 06:37 101 117/55 08/16/17 05:09 101 17 30 08/16/17 04:00 99.1 101 17 117/55 98 Mechanical Ventilator 30 99.1 08/16/17 04:00 102 08/16/17 04:00 30 08/16/17 03:30 87 18 30 08/16/17 01:09 59 17 30 08/16/17 00:06 108 120/66 08/16/17 00:05 120/66 08/16/17 00:00 30 08/16/17 00:00 98.2 101 16 112/62 99 Mechanical Ventilator 30 98.2 08/15/17 23:24 107 08/15/17 22:51 107 17 30 08/15/17 20:48 107 16 30 08/15/17 20:36 107 08/15/17 20:00 98.3 108 17 120/66 99 Mechanical Ventilator 30 98.3 08/15/17 19:44 109 17 30 08/15/17 16:32 109 17 30 08/15/17 16:00 111 08/15/17 16:00 30 08/15/17 16:00 98.1 112 16 91/54 98 Mechanical Ventilator 30 98.1 08/15/17 15:05 101 20 30 08/15/17 13:49 89 120/63 08/15/17 12:53 89 18 30 08/15/17 12:00 103 08/15/17 12:00 99.4 103 20 120/63 98 Mechanical Ventilator 30 99.4 08/15/17 11:30 Mechanical Ventilator 30 08/15/17 11:22 81 18 30 08/15/17 10:28 102 27 30 08/15/17 10:00 30 08/15/17 08:50 113/65 08/15/17 08:49 100 113/65 Intake and Output 08/15/17 08/16/17 19:00 07:00 Intake Total 2870 ml 300 ml Output Total 200 ml Balance 2670 ml 300 ml Intake Free Water 200 ml 100 ml Tube Feeding 550 ml 200 ml Hemodialysis 2000 ml Other 120 ml Output Urine Total 200 ml Laboratory Tests 08/15/17 09:40: White Blood Count 16.8H, Red Blood Count 3.23L, Hemoglobin 8.1L, Hematocrit 25.8L, Mean Corpuscular Volume 80, Mean Corpuscular Hemoglobin 25.1L, Mean Corpuscular Hemoglobin Concent 31.4L, Red Cell Distribution Width 16.1H, Platelet Count 699H, Mean Platelet Volume 6.3L, Neutrophils (%) (Auto) , Lymphocytes (%) (Auto) , Monocytes (%) (Auto) , Eosinophils (%) (Auto) , Basophils (%) (Auto) , Differential Total Cells Counted 100, Neutrophils % ( Manual) 87H, Lymphocytes % (Manual) 2L, Monocytes % (Manual) 8, Eosinophils % ( Manual) 1, Basophils % (Manual) 0, Band Neutrophils 2, Platelet Estimate IncreasedH, Platelet Morphology Normal, Hypochromasia 1+, Anisocytosis 1+, Prothrombin Time 10.6, Prothromb Time International Ratio 1.0, Activated Partial Thromboplast Time 27, Sodium Level 134L, Potassium Level 4.1, Chloride Level 97L, Carbon Dioxide Level 26, Anion Gap 11, Blood Urea Nitrogen 89H, Creatinine 3.3H, Estimat Glomerular Filtration Rate 23.0, Glucose Level 127H, Calcium Level 9.3 08/16/17 03:15: White Blood Count 13.1H, Red Blood Count 2.87L, Hemoglobin 7.4L, Hematocrit 22.8L, Mean Corpuscular Volume 80, Mean Corpuscular Hemoglobin 25.7L, Mean Corpuscular Hemoglobin Concent 32.4, Red Cell Distribution Width 15.9H, Platelet Count 593H, Mean Platelet Volume 6.4L, Neutrophils (%) (Auto) , Lymphocytes (%) (Auto) , Monocytes (%) (Auto) , Eosinophils (%) (Auto) , Basophils (%) (Auto) , Differential Total Cells Counted 100, Neutrophils % ( Manual) 85H, Lymphocytes % (Manual) 4L, Monocytes % (Manual) 7, Eosinophils % ( Manual) 2, Basophils % (Manual) 1, Band Neutrophils 1, Platelet Estimate IncreasedH, Platelet Morphology Normal, Hypochromasia 1+, Anisocytosis 1+, Sodium Level 136, Potassium Level 4.0, Chloride Level 99, Carbon Dioxide Level 28, Anion Gap 10, Blood Urea Nitrogen 75H, Creatinine 3.1H, Estimat Glomerular Filtration Rate 24.8, Glucose Level 115H, Calcium Level 8.8 Height (Feet): 6 Height (Inches): 10.00 Weight (Pounds): 220 Objective WDWN trach reduced breath sounds L>R [id number] without MRG NABS nontender no HSM; GT no CC minimal edema weak Michael Vernon MD August 16, 2017 08:28
[2017-08-16] MEDS: Zinc Sulfate 220mg cap GT SCH (09:45)
--- NOTE | 2017-08-16 10:30 | Infectious Diseases Prog Note ---
Assessment/Plan Assessment/Plan A: 1. MDR Acinetobacter & Serratia pneumonia treated 2. leucocytosis improving 3. respiratory failure 4. anemia 5. hypertension 6. seizures 7, ESRD started on HD 8. VRE colonization 9- Pleural effusion s/p thoracentesis P 1.will f/u cultures 2. observe off antibiotic Subjective ROS Limited/Unobtainable: Yes Allergies: Coded Allergies: No Known Allergies (Unverified , 07/24/17) Objective Vital Signs Last 24 Hour Vital Signs Date Time Temp Pulse Resp B/P (MAP) Pulse Ox O2 Delivery O2 Flow Rate FiO2 08/16/17 09:45 110/55 08/16/17 09:45 95 110/55 08/16/17 08:39 95 20 30 08/16/17 08:00 98.3 90 20 110/55 98 Mechanical Ventilator 30 98.3 08/16/17 06:38 96 22 30 08/16/17 06:37 101 117/55 08/16/17 05:09 101 17 30 08/16/17 04:00 99.1 101 17 117/55 98 Mechanical Ventilator 30 99.1 08/16/17 04:00 102 08/16/17 04:00 30 08/16/17 03:30 87 18 30 08/16/17 01:09 59 17 30 08/16/17 00:06 108 120/66 08/16/17 00:05 120/66 08/16/17 00:00 30 08/16/17 00:00 98.2 101 16 112/62 99 Mechanical Ventilator 30 98.2 08/15/17 23:24 107 08/15/17 22:51 107 17 30 08/15/17 20:48 107 16 30 08/15/17 20:36 107 08/15/17 20:00 98.3 108 17 120/66 99 Mechanical Ventilator 30 98.3 08/15/17 19:44 109 17 30 08/15/17 16:32 109 17 30 08/15/17 16:00 111 08/15/17 16:00 30 08/15/17 16:00 98.1 112 16 91/54 98 Mechanical Ventilator 30 98.1 08/15/17 15:05 101 20 30 08/15/17 13:49 89 120/63 08/15/17 12:53 89 18 30 08/15/17 12:00 103 08/15/17 12:00 99.4 103 20 120/63 98 Mechanical Ventilator 30 99.4 08/15/17 11:30 Mechanical Ventilator 30 08/15/17 11:22 81 18 30 08/15/17 10:28 102 27 30 Height (Feet): 6 Height (Inches): 10.00 Weight (Pounds): 220 HEENT: status post trach Respiratory/Chest: rhonchi - bilaterally, other - on ventilator Cardiovascular: normal rate, other - RIJ HD line Abdomen: soft, non tender, other - GT feeding Extremities: other - anasarca Neurologic/Psychiatric: unresponsiveness Laboratory Tests Test 08/16/17 03:15 White Blood Count 13.1 K/UL (4.8-10.8) H Red Blood Count 2.87 M/UL (4.70-6.10) L Hemoglobin 7.4 G/DL (14.2-18.0) L Hematocrit 22.8 % (42.0-52.0) L Mean Corpuscular Volume 80 FL (80-99) Mean Corpuscular Hemoglobin 25.7 PG (27.0-31.0) L Mean Corpuscular Hemoglobin Concent 32.4 G/DL (32.0-36.0) Red Cell Distribution Width 15.9 % (11.6-14.8) H Platelet Count 593 K/UL (150-450) H Mean Platelet Volume 6.4 FL (6.5-10.1) L Neutrophils (%) (Auto) % (45.0-75.0) Lymphocytes (%) (Auto) % (20.0-45.0) Monocytes (%) (Auto) % (1.0-10.0) Eosinophils (%) (Auto) % (0.0-3.0) Basophils (%) (Auto) % (0.0-2.0) Differential Total Cells Counted 100 Neutrophils % (Manual) 85 % (45-75) H Lymphocytes % (Manual) 4 % (20-45) L Monocytes % (Manual) 7 % (1-10) Eosinophils % (Manual) 2 % (0-3) Basophils % (Manual) 1 % (0-2) Band Neutrophils 1 % (0-8) Platelet Estimate Increased H Platelet Morphology Normal Hypochromasia 1+ Anisocytosis 1+ Sodium Level 136 MMOL/L (136-145) Potassium Level 4.0 MMOL/L (3.5-5.1) Chloride Level 99 MMOL/L (98-107) Carbon Dioxide Level 28 MMOL/L (21-32) Anion Gap 10 mmol/L (5-15) Blood Urea Nitrogen 75 mg/dL (7-18) H Creatinine 3.1 MG/DL (0.55-1.30) H Estimat Glomerular Filtration Rate 24.8 mL/min (>60) Glucose Level 115 MG/DL (74-106) H Calcium Level 8.8 MG/DL (8.5-10.1) Current Medications Medications (Trade) Dose Ordered Sig/Trina Route PRN Reason Start Time Stop Time Status Last Admin Dose Admin Acetaminophen (Tylenol) 650 mg Q4H PRN GT Mild pain / T > 100.5F 07/25/17 07:00 08/24/17 06:59 08/07/17 23:48 Amlodipine Besylate (Norvasc) 10 mg DAILY GT 08/13/17 09:00 08/24/17 08:59 08/16/17 09:45 Bisacodyl (Dulcolax) 10 mg DAILYPRN PRN RECTAL CONSTIPATION 07/25/17 07:00 08/24/17 06:59 08/14/17 18:10 Chlorhexidine Gluconate (Joya-Hex 2%) 1 applic DAILY@2000 TOPIC 08/12/17 20:00 09/06/17 19:59 08/16/17 00:05 Docusate Sodium (Colace) 100 mg DAILYPRN PRN ORAL Constipation 07/25/17 07:00 08/24/17 06:59 Docusate Sodium (Colace) 250 mg EVERY 12 HOURS GT 08/14/17 21:00 08/24/17 20:59 08/16/17 09:44 Heparin Sodium (Porcine) (Heparin 5000 units/ml) 5,000 units EVERY 12 HOURS SUBQ 08/12/17 21:00 09/04/17 20:59 08/16/17 09:47 Levetiracetam (Keppra) 1,000 mg Q12HR GT 08/12/17 21:00 08/24/17 20:59 08/16/17 09:44 Levothyroxine Sodium (Synthroid) 50 mcg DAILY@0600 GT 08/14/17 06:00 09/13/17 05:59 08/16/17 06:37 Magnesium Hydroxide (Mom) 30 ml HSPRN PRN GT Constipation 07/25/17 21:00 08/24/17 20:59 07/28/17 20:43 Minoxidil (Loniten) 10 mg EVERY 12 HOURS GT 08/12/17 21:00 08/24/17 20:59 08/16/17 09:45 Ondansetron HCl (Zofran) 4 mg Q8H PRN GT Nausea & Vomiting 07/25/17 07:00 08/24/17 06:59 Propranolol HCl (Inderal) 40 mg Q8HR GT 08/12/17 22:00 09/11/17 21:59 08/16/17 06:37 Sodium Chloride 1,000 ml @ 500 mls/hr Q2H PRN IVLG sbp<90 during hd 08/15/17 23:18 09/14/17 23:17 Zinc Sulfate (Zinc Sulfate) 220 mg DAILY GT 08/13/17 09:00 08/24/17 08:59 08/16/17 09:45 RACHEL HENDERSON August 16, 2017 10:30
[2017-08-16 12:00] VITALS: BP 107/47
--- NOTE | 2017-08-16 15:44 | Nephrology Progress Note ---
Assessment/Plan Plan CONSUELO. patient remains in Oliguric ARF. HD dependent. HD tomorrow.. Subjective Subjective Confused Objective Objective Last 24 Hour Vital Signs Date Time Temp Pulse Resp B/P (MAP) Pulse Ox O2 Delivery O2 Flow Rate FiO2 08/16/17 14:41 95 18 30 08/16/17 14:08 97 107/47 08/16/17 12:30 90 18 30 08/16/17 12:00 30 08/16/17 12:00 97 08/16/17 12:00 98.1 87 15 107/47 100 Mechanical Ventilator 30 98.1 08/16/17 10:30 93 20 30 08/16/17 09:45 110/55 08/16/17 09:45 95 110/55 08/16/17 08:39 95 20 30 08/16/17 08:00 98.3 90 20 110/55 98 Mechanical Ventilator 30 98.3 08/16/17 08:00 68 08/16/17 08:00 30 08/16/17 06:38 96 22 30 08/16/17 06:37 101 117/55 08/16/17 05:09 101 17 30 08/16/17 04:00 99.1 101 17 117/55 98 Mechanical Ventilator 30 99.1 08/16/17 04:00 102 08/16/17 04:00 30 08/16/17 03:30 87 18 30 08/16/17 01:09 59 17 30 08/16/17 00:06 108 120/66 08/16/17 00:05 120/66 08/16/17 00:00 30 08/16/17 00:00 98.2 101 16 112/62 99 Mechanical Ventilator 30 98.2 08/15/17 23:24 107 08/15/17 22:51 107 17 30 08/15/17 20:48 107 16 30 08/15/17 20:36 107 08/15/17 20:00 98.3 108 17 120/66 99 Mechanical Ventilator 30 98.3 08/15/17 19:44 109 17 30 08/15/17 16:32 109 17 30 08/15/17 16:00 111 08/15/17 16:00 30 08/15/17 16:00 98.1 112 16 91/54 98 Mechanical Ventilator 30 98.1 Intake and Output 08/15/17 08/16/17 19:00 07:00 Intake Total 2870 ml 300 ml Output Total 200 ml Balance 2670 ml 300 ml Intake Free Water 200 ml 100 ml Tube Feeding 550 ml 200 ml Hemodialysis 2000 ml Other 120 ml Output Urine Total 200 ml Laboratory Tests 08/16/17 03:15: White Blood Count 13.1H, Red Blood Count 2.87L, Hemoglobin 7.4L, Hematocrit 22.8L, Mean Corpuscular Volume 80, Mean Corpuscular Hemoglobin 25.7L, Mean Corpuscular Hemoglobin Concent 32.4, Red Cell Distribution Width 15.9H, Platelet Count 593H, Mean Platelet Volume 6.4L, Neutrophils (%) (Auto) , Lymphocytes (%) (Auto) , Monocytes (%) (Auto) , Eosinophils (%) (Auto) , Basophils (%) (Auto) , Differential Total Cells Counted 100, Neutrophils % ( Manual) 85H, Lymphocytes % (Manual) 4L, Monocytes % (Manual) 7, Eosinophils % ( Manual) 2, Basophils % (Manual) 1, Band Neutrophils 1, Platelet Estimate IncreasedH, Platelet Morphology Normal, Hypochromasia 1+, Anisocytosis 1+, Sodium Level 136, Potassium Level 4.0, Chloride Level 99, Carbon Dioxide Level 28, Anion Gap 10, Blood Urea Nitrogen 75H, Creatinine 3.1H, Estimat Glomerular Filtration Rate 24.8, Glucose Level 115H, Calcium Level 8.8 Height (Feet): 6 Height (Inches): 10.00 Weight (Pounds): 220 Objective CV RR Lungs CTA Abd SNT. BS + E +3 B ankle Sebastián Ramirez MD August 16, 2017 15:44
[2017-08-16 16:00] VITALS: BP 107/52
[2017-08-16] MEDS ORDERED: Heparin 1000 units/ml 1ml Vial INJ PRN (16:00)
[2017-08-16] MEDS ORDERED: Heparin Sod 1000 units/ml 10ml IV PRN (16:00)
[2017-08-16 20:00] VITALS: BP 114/50
[2017-08-16] MEDS ORDERED: NS 275ml ONE (22:18)
[2017-08-16] MEDS ORDERED: Sterile Water Irrig 1000ml IRRIG ONE (22:18)
[2017-08-16] MEDS ORDERED: Tubing Blood Filter IV ONE (22:18)
[2017-08-16] MEDS: dilTIAZem HCl 60mg tab ORAL SCH (22:45)
[2017-08-16] MEDS ORDERED: dilTIAZem HCl 25mg/5ml Inj IVP ONE (22:45)
--- NOTE | 2017-08-16 23:15 | Consultation ---
DATE OF CONSULTATION: 08/16/2017 VASCULAR SURGERY CONSULTATION CONSULTING PHYSICIAN: Jayant Styles M.D. REQUESTING PHYSICIAN: 1. Sebastián Veliz M.D. 2. Mary Wiley M.D. REASON FOR EVALUATION: Access for hemodialysis. HISTORY OF PRESENT ILLNESS: This is a 62-year-old male, who suffers from respiratory failure, tracheostomy, feeding gastrostomy tube, history of intracerebral bleed, and AGRISCIENCE TEACHER shunt. The patient is currently on dialysis through a right neck IJ Gilbert. Vascular Surgery is consulted for permanent access for hemodialysis. The patient is nonverbal. All the history is obtained from the medical record. PAST MEDICAL HISTORY: As above. Respiratory failure, stroke, intracerebral bleed, AGRISCIENCE TEACHER shunt, tracheostomy, feeding gastrostomy tube, nonambulatory, history of VRE, anemia, and hypertension. MEDICATIONS: See attached MAR. ALLERGIES: No known drug allergies. SOCIAL HISTORY: Unobtainable. FAMILY HISTORY: Unobtainable. SYSTEM REVIEW: Unobtainable due to respiratory failure and tracheostomy. PHYSICAL EXAMINATION: VITAL SIGNS: The patient is afebrile at 98.3, heart rate 95, blood pressure 110/55, and respirations 30. He is on a ventilator. He has had a tracheostomy placed. He has rhonchi bilaterally. He has a right neck Gilbert catheter. HEART: Regular rate and rhythm. ABDOMEN: Soft and nontender. He has a feeding gastrostomy tube. EXTREMITIES: His feet are warm. Intact pedal Dopplers bilaterally. He has right heel decubitus DTI tissue injury. LABORATORY DATA: Laboratories revealed WBC of 13.1, hemoglobin 7.4, and platelet count 593. Sodium is 136, potassium 4.0, BUN 75, creatinine 3.1, glucose 115, and calcium 8.8. IMPRESSION: 1. Renal failure requiring tunneled access per renal recommendations. 2. Respiratory failure, tracheostomy, and feeding gastrostomy tube, nonambulatory. 3. Calcific PAD with right heel decubitus necrosis. 4. History of sepsis, anemia, hypertension, VRE colonization, pleural effusion status post thoracocentesis, cerebral bleed, and AGRISCIENCE TEACHER shunt. PLAN AND RECOMMENDATIONS: 1. We will obtain arm and leg duplex. 2. Tunneled [id number]-jxpirubx as recommended by Renal Service Dr. Veliz. 3. More permanent access with AV shunt if indicated by Renal Service. This can be performed as an outpatient. Need to monitor the right heel decubitus necrosis to keep the leg offload over three pillow. 4. Continue DVT decubitus precautions. The above was discussed at length with the patient and the nurse at bedside. Jayant Styles M.D. DR: JOSELINE JOB#: [id number] CC: Jayant Styles M.D.; Fax#: [phone] SEBASTIÁN VELIZ M.D. ; FAX#: [phone] MARY WILEY M.D.; FAX#: [phone]
[2017-08-17] VITALS (12 sets, daily range): BP systolic 102–141; BP diastolic 54–80
[2017-08-17] MEDS: Propranolol 40mg tab GT SCH ×3 (06:00→23:04)
[2017-08-17] MEDS: dilTIAZem HCl 60mg tab ORAL SCH ×3 (06:00→23:04)
[2017-08-17] MEDS: Zinc Sulfate 220mg cap GT SCH (08:43)
[2017-08-17] MEDS: Minoxidil 10mg tab GT SCH ×2 (08:43→21:44)
[2017-08-17] MEDS: levETIRAcetam 500mg/5ml Liquid GT SCH ×2 (08:43→21:46)
[2017-08-17] MEDS: Heparin 5000 units/ml inj SUBQ SCH ×2 (08:43→21:49)
[2017-08-17] MEDS ORDERED: Docusate 100mg/10ml Liq GT PRN (09:00)
--- NOTE | 2017-08-17 09:42 | Infectious Diseases Prog Note ---
Assessment/Plan Assessment/Plan A: 1. MDR Acinetobacter & Serratia pneumonia treated 2. leucocytosis improving 3. respiratory failure 4. anemia 5. hypertension 6. seizures 7, ESRD started on HD 8. VRE colonization 9- Pleural effusion s/p thoracentesis P 1.will f/u cultures 2. observe off antibiotic Subjective ROS Limited/Unobtainable: Yes Gastrointestinal/Abdominal: Reports: other - NPO for procedure Allergies: Coded Allergies: No Known Allergies (Unverified , 07/24/17) Objective Vital Signs Last 24 Hour Vital Signs Date Time Temp Pulse Resp B/P (MAP) Pulse Ox O2 Delivery O2 Flow Rate FiO2 08/17/17 09:03 90 16 30 08/17/17 08:43 118/60 08/17/17 08:27 89 08/17/17 08:00 97.5 92 24 118/60 98 Mechanical Ventilator 30 97.5 08/17/17 08:00 30 08/17/17 07:00 88 18 30 08/17/17 06:00 91 105/55 08/17/17 06:00 91 105/55 08/17/17 05:22 91 15 30 08/17/17 04:00 30 08/17/17 04:00 97.7 91 24 106/54 99 Mechanical Ventilator 30 97.7 08/17/17 03:46 92 08/17/17 02:56 91 18 30 08/17/17 01:03 88 15 30 08/17/17 00:00 98.8 91 16 104/56 99 Mechanical Ventilator 30 98.8 08/17/17 00:00 30 08/16/17 23:28 90 08/16/17 23:20 98 16 30 08/16/17 22:45 98 104/56 08/16/17 22:45 98 104/58 08/16/17 20:59 118 128/75 08/16/17 20:59 128/75 08/16/17 20:47 71 20 30 08/16/17 20:00 98.3 129 15 114/50 99 Mechanical Ventilator 30 98.3 08/16/17 20:00 30 08/16/17 19:16 129 08/16/17 19:00 82 23 30 08/16/17 17:12 91 18 30 08/16/17 16:00 89 08/16/17 16:00 30 08/16/17 16:00 98.3 91 15 107/52 99 Mechanical Ventilator 30 98.3 08/16/17 14:41 95 18 30 08/16/17 14:08 97 107/47 08/16/17 12:30 90 18 30 08/16/17 12:00 30 08/16/17 12:00 97 08/16/17 12:00 98.1 87 15 107/47 100 Mechanical Ventilator 30 98.1 08/16/17 10:30 93 20 30 08/16/17 09:45 110/55 08/16/17 09:45 95 110/55 Height (Feet): 6 Height (Inches): 10.00 Weight (Pounds): 228 HEENT: status post trach Respiratory/Chest: lungs clear, other - on ventilator Cardiovascular: normal rate, other - RIJ HD line Abdomen: soft, non tender, other - GT on place Extremities: other - generalized edema Neurologic/Psychiatric: unresponsiveness Microbiology Date/Time Source Procedure Growth Status 08/15/17 12:10 Blood Blood Culture - Preliminary NO GROWTH AFTER 24 HOURS Resulted Current Medications Medications (Trade) Dose Ordered Sig/Trina Route PRN Reason Start Time Stop Time Status Last Admin Dose Admin Acetaminophen (Tylenol) 650 mg Q4H PRN GT Mild pain / T > 100.5F 07/25/17 07:00 08/24/17 06:59 08/07/17 23:48 Bisacodyl (Dulcolax) 10 mg DAILYPRN PRN RECTAL CONSTIPATION 07/25/17 07:00 08/24/17 06:59 08/14/17 18:10 Chlorhexidine Gluconate (Joya-Hex 2%) 1 applic DAILY@1999 TOPIC 08/12/17 20:00 09/06/17 19:59 08/16/17 20:55 Diltiazem HCl (Cardizem) 60 mg EVERY 8 HOURS ORAL 08/16/17 22:45 09/15/17 22:44 Docusate Sodium (Colace) 100 mg DAILY PRN GT Constipation 08/17/17 09:00 09/16/17 08:59 Docusate Sodium (Colace) 250 mg EVERY 12 HOURS GT 08/14/17 21:00 08/24/17 20:59 08/16/17 20:56 Heparin Sodium (Porcine) (Heparin 5000 units/ml) 5,000 units EVERY 12 HOURS SUBQ 08/12/17 21:00 09/04/17 20:59 08/16/17 09:47 Heparin Sodium (Porcine) (Heparin Sod 1000 units/ml 10ml) 2,000 unit ONCE PRN IV FOR HD USE ONLY 08/16/17 16:00 08/17/17 23:59 Heparin Sodium (Porcine) (Heparin) 1,000 unit POSTHD PRN INJ FOR HD USE ONLY 08/16/17 16:00 08/17/17 23:59 Levetiracetam (Keppra) 1,000 mg Q12HR GT 08/12/17 21:00 08/24/17 20:59 08/17/17 08:43 Levothyroxine Sodium (Synthroid) 50 mcg DAILY@0600 GT 08/14/17 06:00 09/13/17 05:59 08/17/17 06:07 Magnesium Hydroxide (Mom) 30 ml HSPRN PRN GT Constipation 07/25/17 21:00 08/24/17 20:59 07/28/17 20:43 Minoxidil (Loniten) 10 mg EVERY 12 HOURS GT 08/12/17 21:00 08/24/17 20:59 08/17/17 08:43 Ondansetron HCl (Zofran) 4 mg Q8H PRN GT Nausea & Vomiting 07/25/17 07:00 08/24/17 06:59 Propranolol HCl (Inderal) 40 mg Q8HR GT 08/12/17 22:00 09/11/17 21:59 08/16/17 20:59 Sodium Chloride 1,000 ml @ 500 mls/hr Q2H PRN IVLG sbp<90 during hd 08/16/17 16:00 08/17/17 23:59 Zinc Sulfate (Zinc Sulfate) 220 mg DAILY GT 08/13/17 09:00 08/24/17 08:59 08/17/17 08:43 RACHEL HENDERSON August 17, 2017 09:42
[2017-08-17] MEDS: Docusate 100mg/10ml Liq GT SCH ×2 (09:59→21:46)
[2017-08-17 11:44] LABS: BASOPHILS % (AUTO) 0.5 % (0.0-2.0); HEMATOCRIT 29.1 % (42.0-52.0); HEMOGLOBIN 9.3 G/DL (14.2-18.0); LYMPHOCYTES % (AUTO) 7.1 % (20.0-45.0); MEAN CORPUSCULAR VOLUME 82 FL (80-99); MONOCYTES % (AUTO) 8.5 % (1.0-10.0); NEUTROPHILS % (AUTO) 80.9 % (45.0-75.0); PLATELET COUNT 600 K/UL (150-450); RED BLOOD COUNT 3.56 M/UL (4.70-6.10); RED CELL DISTRIBUTION WIDTH 15.4 % (11.6-14.8); WHITE BLOOD COUNT 10.4 K/UL (4.8-10.8)
--- NOTE | 2017-08-17 12:16 | Nephrology Progress Note ---
Assessment/Plan Plan CONSUELO. patient remains in Oliguric ARF. HD dependent. Asked Dr. Styles for a PermCath. Subjective Subjective Confused. On HD now. Objective Objective Last 24 Hour Vital Signs Date Time Temp Pulse Resp B/P (MAP) Pulse Ox O2 Delivery O2 Flow Rate FiO2 08/17/17 09:03 90 16 30 08/17/17 08:43 118/60 08/17/17 08:27 89 08/17/17 08:00 97.5 92 24 118/60 98 Mechanical Ventilator 30 97.5 08/17/17 08:00 30 08/17/17 07:00 88 18 30 08/17/17 06:00 91 105/55 08/17/17 06:00 91 105/55 08/17/17 05:22 91 15 30 08/17/17 04:00 30 08/17/17 04:00 97.7 91 24 106/54 99 Mechanical Ventilator 30 97.7 08/17/17 03:46 92 08/17/17 02:56 91 18 30 08/17/17 01:03 88 15 30 08/17/17 00:00 98.8 91 16 104/56 99 Mechanical Ventilator 30 98.8 08/17/17 00:00 30 08/16/17 23:28 90 08/16/17 23:20 98 16 30 08/16/17 22:45 98 104/56 08/16/17 22:45 98 104/58 08/16/17 20:59 118 128/75 08/16/17 20:59 128/75 08/16/17 20:47 71 20 30 08/16/17 20:00 98.3 129 15 114/50 99 Mechanical Ventilator 30 98.3 08/16/17 20:00 30 08/16/17 19:16 129 08/16/17 19:00 82 23 30 08/16/17 17:12 91 18 30 08/16/17 16:00 89 08/16/17 16:00 30 08/16/17 16:00 98.3 91 15 107/52 99 Mechanical Ventilator 30 98.3 08/16/17 14:41 95 18 30 08/16/17 14:08 97 107/47 08/16/17 12:30 90 18 30 Intake and Output 08/16/17 08/17/17 19:00 07:00 Intake Total 880 ml 430 ml Balance 880 ml 430 ml Intake Free Water 200 ml 200 ml Tube Feeding 500 ml 200 ml Other 180 ml 30 ml Laboratory Tests 08/17/17 10:55: White Blood Count 10.4, Red Blood Count 3.56L, Hemoglobin 9.3L, Hematocrit 29.1L , Mean Corpuscular Volume 82, Mean Corpuscular Hemoglobin 26.1L, Mean Corpuscular Hemoglobin Concent 32.0, Red Cell Distribution Width 15.4H, Platelet Count 600H, Mean Platelet Volume 6.3L, Neutrophils (%) (Auto) 80.9H, Lymphocytes (%) (Auto) 7.1L, Monocytes (%) (Auto) 8.5, Eosinophils (%) (Auto) 3.0, Basophils (%) (Auto) 0.5 Height (Feet): 6 Height (Inches): 10.00 Weight (Pounds): 228 Objective CV RR Lungs CTA Abd SNT. BS + E +3 B ankle Sebastián Ramirez MD August 17, 2017 12:16
[2017-08-17] MEDS ORDERED: Heparin 2000 units/Ns 1000ml INJ ONE (13:45)
[2017-08-17] MEDS ORDERED: Heparin Sod 1000 units/ml 10ml INJ ONE (13:45)
[2017-08-17] MEDS ORDERED: Lidocaine 2% 20mg/ml/Epi 0.005mg/ml 20ml vial INJ ONE (13:45)
[2017-08-17] MEDS ORDERED: Heparin Sod 1000 units/ml 10ml ONE (14:06)
[2017-08-17] MEDS ORDERED: Heparin 2000 units/Ns 1000ml 0 ML ONE (14:06)
--- NOTE | 2017-08-17 17:39 | Diagnostic Imaging Report ---
Indications: Needs long-term dialysis access Technique: Total sterile technique, including sterile probe cover and sterile gel, sterile gloves, hand hygiene, hat, mask,, sterile gown, large sterile drape, and preparation with 2% chlorhexidine utilized. Local anesthesia with 1% lidocaine. Under real-time ultrasound guidance, puncture right internal jugular vein using 21-gauge micropuncture needle, passage 0.018 guidewire, exchange for 4 Hungarian micropuncture introducer. The guidewire was used to measure the appropriate catheter length, and was removed. The sheath was left in place. The subcutaneous tract was then anesthetized with 1% lidocaine. A chest dermatotomy was made . The tunneling device was used to pull a 14.5 Hungarian 23 cm BioFlo catheter through the subcutaneous tunnel to the neck dermatotomy. A guidewire was passed through the neck introducer into the inferior vena cava, and serial dilators were passed over it, followed by the introduction of a 14.5 Hungarian AirGuard peel-away sheath. The catheter was then introduced into the sheath, the peel-away sheath was removed. Digital radiograph documents satisfactory catheter tip position in the high right atrium, no kinking at the insertion site. Both catheter ports aspirated and flushed. Catheter was fixed to the skin. Patient tolerated procedure well without immediate complication. Total fluoroscopy time 0.9 minutes. Total dose area product 21 dGycm2 Comparison: None. Findings: Completion radiograph documents satisfactory position and course of the catheter, catheter tip at the high right atrium. Impression: Successful placement of right transjugular tunneled dialysis catheter, as described above
--- NOTE | 2017-08-17 17:53 | General Progress Note ---
Assessment/Plan Assessment/Plan IMPRESSION Leukocytosis anemia possible sepsis possible gib trach gt oliguria ARF- worse pulmonary edema PLAN vent support tap completed avoid nephrotoxic meds maintain meds renal and iD clearance feeds dc planning but on HD try to dc HD- d/w renal impression, plan, and exam edited and reviewed in detail care discussed with RN Subjective Allergies: Coded Allergies: No Known Allergies (Unverified , 07/24/17) Subjective labs noted renal function and wbc noted underwent tap Objective Last 24 Hour Vital Signs Date Time Temp Pulse Resp B/P (MAP) Pulse Ox O2 Delivery O2 Flow Rate FiO2 08/17/17 17:02 103 22 30 08/17/17 16:00 105 137/75 08/17/17 16:00 30 08/17/17 16:00 97.7 104 21 116/58 96 Mechanical Ventilator 30 97.7 08/17/17 15:50 105 16 137/75 96 Mechanical Ventilator 30 08/17/17 15:45 104 16 130/77 97 Mechanical Ventilator 30 08/17/17 15:40 102 16 141/79 96 Mechanical Ventilator 30 08/17/17 15:35 105 16 138/80 97 Mechanical Ventilator 30 08/17/17 14:53 99 18 30 08/17/17 14:32 107 24 08/17/17 14:26 98 102/60 08/17/17 14:00 98 102/60 08/17/17 13:55 Mechanical Ventilator 30 08/17/17 12:51 95 16 30 08/17/17 12:00 30 08/17/17 12:00 97.7 94 18 102/57 96 Mechanical Ventilator 30 97.7 08/17/17 11:46 79 08/17/17 11:27 169 08/17/17 11:21 91 16 30 08/17/17 10:45 Mechanical Ventilator 30 08/17/17 09:03 90 16 30 08/17/17 08:43 118/60 08/17/17 08:27 89 08/17/17 08:00 97.5 92 24 118/60 98 Mechanical Ventilator 30 97.5 08/17/17 08:00 30 08/17/17 07:00 88 18 30 08/17/17 06:00 91 105/55 08/17/17 06:00 91 105/55 08/17/17 05:22 91 15 30 08/17/17 04:00 30 08/17/17 04:00 97.7 91 24 106/54 99 Mechanical Ventilator 30 97.7 08/17/17 03:46 92 08/17/17 02:56 91 18 30 08/17/17 01:03 88 15 30 08/17/17 00:00 98.8 91 16 104/56 99 Mechanical Ventilator 30 98.8 08/17/17 00:00 30 08/16/17 23:28 90 08/16/17 23:20 98 16 30 08/16/17 22:45 98 104/56 08/16/17 22:45 98 104/58 08/16/17 20:59 118 128/75 08/16/17 20:59 128/75 08/16/17 20:47 71 20 30 08/16/17 20:00 98.3 129 15 114/50 99 Mechanical Ventilator 30 98.3 08/16/17 20:00 30 08/16/17 19:16 129 08/16/17 19:00 82 23 30 Intake and Output 08/16/17 08/17/17 19:00 07:00 Intake Total 880 ml 430 ml Balance 880 ml 430 ml Intake Free Water 200 ml 200 ml Tube Feeding 500 ml 200 ml Other 180 ml 30 ml Laboratory Tests 08/17/17 10:55: White Blood Count 10.4, Red Blood Count 3.56L, Hemoglobin 9.3L, Hematocrit 29.1L , Mean Corpuscular Volume 82, Mean Corpuscular Hemoglobin 26.1L, Mean Corpuscular Hemoglobin Concent 32.0, Red Cell Distribution Width 15.4H, Platelet Count 600H, Mean Platelet Volume 6.3L, Neutrophils (%) (Auto) 80.9H, Lymphocytes (%) (Auto) 7.1L, Monocytes (%) (Auto) 8.5, Eosinophils (%) (Auto) 3.0, Basophils (%) (Auto) 0.5 Height (Feet): 6 Height (Inches): 10.00 Weight (Pounds): 228 Objective WDWN trach reduced breath sounds L>R [id number] without MRG NABS nontender no HSM; GT no CC minimal edema weak Michael Vernon MD August 17, 2017 17:53
[2017-08-17] MEDS: Dyna-Hex 2% Top Sol 2oz TOPIC SCH (20:16)
[2017-08-18] VITALS: BP 118/68
--- NOTE | 2017-08-18 01:15 | Progress Note ---
DATE: 08/17/2017 CARDIOLOGY PROGRESS NOTE SUBJECTIVE: The patient is being evaluated for permanent dialysis access. The patient has less frequent episodes of atrial tachyarrhythmias. The patient was started on diltiazem yesterday. OBJECTIVE: VITAL SIGNS: Blood pressure 137/75, pulse 105, respiratory rate 22 and afebrile. LUNGS: Coarse breath sounds. CARDIAC: Regular rhythm. Rapid rate. Normal S1 and S2. ABDOMEN: Soft. EXTREMITIES: There is no edema. Dialysis catheter site clean and dry. IMPRESSION: 1. Paroxysmal atrial tachyarrhythmias. 2. Acute on chronic renal failure. 3. Heading toward end-stage renal disease. 4. Volume overload. 5. Acute on chronic diastolic congestive heart failure. 6. Respiratory failure. 7. Tracheostomy. 8. History CORE STRIPPER shunt. 9. Probable sepsis. 10. Anemia of chronic kidney disease. PLAN: 1. Ventilator support. 2. Monitor renal parameters. 3. Hemodialysis and ultrafiltration per Nephrology. 4. Continue cardiac monitoring. Russell Wade M.D. DR: RENEA JOB#: [id number] CC:
[2017-08-18 04:00] VITALS: BP 118/60
[2017-08-18] MEDS: Propranolol 40mg tab GT SCH ×3 (06:26→22:00)
[2017-08-18] MEDS: dilTIAZem HCl 60mg tab ORAL SCH ×3 (06:46→22:01)
--- NOTE | 2017-08-18 07:59 | Nephrology Progress Note ---
Assessment/Plan Plan CONSUELO. patient remains in Oliguric ARF. HD dependent. Hopes to cut off HD are premature. Patient has ARF and will eventually come off HD, but it may take a few more weeks. Asked Dr. Styles for a PermCath. Subjective Subjective Confused. Objective Objective Last 24 Hour Vital Signs Date Time Temp Pulse Resp B/P (MAP) Pulse Ox O2 Delivery O2 Flow Rate FiO2 08/18/17 06:46 98 108/56 08/18/17 06:33 92 15 30 08/18/17 06:26 99 116/60 08/18/17 04:51 98 22 30 08/18/17 04:00 97.3 95 19 118/60 100 Mechanical Ventilator 30 97.3 08/18/17 04:00 30 08/18/17 04:00 94 08/18/17 03:25 93 16 30 08/18/17 01:26 101 16 30 08/18/17 00:00 92 08/18/17 00:00 97.8 86 19 118/68 100 Mechanical Ventilator 30 97.8 08/18/17 00:00 30 08/17/17 23:04 99 125/70 08/17/17 23:04 99 125/70 08/17/17 22:38 99 15 30 08/17/17 21:44 116/61 08/17/17 20:43 100 16 30 08/17/17 20:00 30 08/17/17 20:00 98.1 98 19 116/61 99 Mechanical Ventilator 30 98.1 08/17/17 19:44 99 19 30 08/17/17 19:28 100 08/17/17 17:02 103 22 30 08/17/17 16:43 105 08/17/17 16:00 105 137/75 08/17/17 16:00 30 08/17/17 16:00 97.7 104 21 116/58 96 Mechanical Ventilator 30 97.7 08/17/17 15:50 105 16 137/75 96 Mechanical Ventilator 30 08/17/17 15:45 104 16 130/77 97 Mechanical Ventilator 30 08/17/17 15:40 102 16 141/79 96 Mechanical Ventilator 30 08/17/17 15:35 105 16 138/80 97 Mechanical Ventilator 30 08/17/17 14:53 99 18 30 08/17/17 14:32 107 24 08/17/17 14:26 98 102/60 08/17/17 14:00 98 102/60 08/17/17 13:55 Mechanical Ventilator 30 08/17/17 12:51 95 16 30 08/17/17 12:00 30 08/17/17 12:00 97.7 94 18 102/57 96 Mechanical Ventilator 30 97.7 08/17/17 11:46 79 08/17/17 11:27 169 08/17/17 11:21 91 16 30 08/17/17 10:45 Mechanical Ventilator 30 08/17/17 09:03 90 16 30 08/17/17 08:43 118/60 08/17/17 08:27 89 08/17/17 08:00 97.5 92 24 118/60 98 Mechanical Ventilator 30 97.5 08/17/17 08:00 30 Intake and Output 08/17/17 08/18/17 19:00 07:00 Intake Total 430 ml 1100 ml Output Total 750 ml 250 ml Balance -320 ml 850 ml Intake Free Water 230 ml 550 ml Tube Feeding 200 ml 550 ml Output Urine Total 750 ml 250 ml Laboratory Tests 08/17/17 10:55: White Blood Count 10.4, Red Blood Count 3.56L, Hemoglobin 9.3L, Hematocrit 29.1L , Mean Corpuscular Volume 82, Mean Corpuscular Hemoglobin 26.1L, Mean Corpuscular Hemoglobin Concent 32.0, Red Cell Distribution Width 15.4H, Platelet Count 600H, Mean Platelet Volume 6.3L, Neutrophils (%) (Auto) 80.9H, Lymphocytes (%) (Auto) 7.1L, Monocytes (%) (Auto) 8.5, Eosinophils (%) (Auto) 3.0, Basophils (%) (Auto) 0.5 Height (Feet): 6 Height (Inches): 10.00 Weight (Pounds): 224 Objective CV RR Lungs CTA Abd SNT. BS + E +3 B ankle Sebastián Ramirez MD August 18, 2017 07:59
[2017-08-18 08:00] VITALS: BP 117/61
--- NOTE | 2017-08-18 08:51 | General Progress Note ---
Assessment/Plan Assessment/Plan IMPRESSION Leukocytosis anemia possible sepsis possible gib trach gt oliguria ARF- worse pulmonary edema PLAN vent support tap completed avoid nephrotoxic meds maintain meds renal and iD clearance feeds dc planning but on HD try to dc HD- d/w renal if able impression, plan, and exam edited and reviewed in detail care discussed with RN Subjective Allergies: Coded Allergies: No Known Allergies (Unverified , 07/24/17) Subjective labs noted renal function and wbc noted underwent tap per renal in ATN and needs ongoing HD Objective Last 24 Hour Vital Signs Date Time Temp Pulse Resp B/P (MAP) Pulse Ox O2 Delivery O2 Flow Rate FiO2 08/18/17 06:46 98 108/56 08/18/17 06:33 92 15 30 08/18/17 06:26 99 116/60 08/18/17 04:51 98 22 30 08/18/17 04:00 97.3 95 19 118/60 100 Mechanical Ventilator 30 97.3 08/18/17 04:00 30 08/18/17 04:00 94 08/18/17 03:25 93 16 30 08/18/17 01:26 101 16 30 08/18/17 00:00 92 08/18/17 00:00 97.8 86 19 118/68 100 Mechanical Ventilator 30 97.8 08/18/17 00:00 30 08/17/17 23:04 99 125/70 08/17/17 23:04 99 125/70 08/17/17 22:38 99 15 30 08/17/17 21:44 116/61 08/17/17 20:43 100 16 30 08/17/17 20:00 30 08/17/17 20:00 98.1 98 19 116/61 99 Mechanical Ventilator 30 98.1 08/17/17 19:44 99 19 30 08/17/17 19:28 100 08/17/17 17:02 103 22 30 08/17/17 16:43 105 08/17/17 16:00 105 137/75 08/17/17 16:00 30 08/17/17 16:00 97.7 104 21 116/58 96 Mechanical Ventilator 30 97.7 08/17/17 15:50 105 16 137/75 96 Mechanical Ventilator 30 08/17/17 15:45 104 16 130/77 97 Mechanical Ventilator 30 08/17/17 15:40 102 16 141/79 96 Mechanical Ventilator 30 08/17/17 15:35 105 16 138/80 97 Mechanical Ventilator 30 08/17/17 14:53 99 18 30 08/17/17 14:32 107 24 08/17/17 14:26 98 102/60 08/17/17 14:00 98 102/60 08/17/17 13:55 Mechanical Ventilator 30 08/17/17 12:51 95 16 30 08/17/17 12:00 30 08/17/17 12:00 97.7 94 18 102/57 96 Mechanical Ventilator 30 97.7 08/17/17 11:46 79 08/17/17 11:27 169 08/17/17 11:21 91 16 30 08/17/17 10:45 Mechanical Ventilator 30 08/17/17 09:03 90 16 30 Intake and Output 08/17/17 08/18/17 19:00 07:00 Intake Total 430 ml 1100 ml Output Total 750 ml 250 ml Balance -320 ml 850 ml Intake Free Water 230 ml 550 ml Tube Feeding 200 ml 550 ml Output Urine Total 750 ml 250 ml Laboratory Tests 08/17/17 10:55: White Blood Count 10.4, Red Blood Count 3.56L, Hemoglobin 9.3L, Hematocrit 29.1L , Mean Corpuscular Volume 82, Mean Corpuscular Hemoglobin 26.1L, Mean Corpuscular Hemoglobin Concent 32.0, Red Cell Distribution Width 15.4H, Platelet Count 600H, Mean Platelet Volume 6.3L, Neutrophils (%) (Auto) 80.9H, Lymphocytes (%) (Auto) 7.1L, Monocytes (%) (Auto) 8.5, Eosinophils (%) (Auto) 3.0, Basophils (%) (Auto) 0.5 Height (Feet): 6 Height (Inches): 10.00 Weight (Pounds): 224 Objective WDWN trach reduced breath sounds L>R [id number] without MRG NABS nontender no HSM; GT no CC minimal edema weak Michael Vernon MD August 18, 2017 08:51
[2017-08-18 09:19] LABS: BASOPHILS % (AUTO) 0.5 % (0.0-2.0); EOSINOPHILS % (AUTO) 2.8 % (0.0-3.0); HEMATOCRIT 28.9 % (42.0-52.0); HEMOGLOBIN 9.3 G/DL (14.2-18.0); LYMPHOCYTES % (AUTO) 9.1 % (20.0-45.0); MEAN CORPUSCULAR VOLUME 82 FL (80-99); NEUTROPHILS % (AUTO) 77.6 % (45.0-75.0); PLATELET COUNT 651 K/UL (150-450); RED BLOOD COUNT 3.55 M/UL (4.70-6.10); RED CELL DISTRIBUTION WIDTH 15.6 % (11.6-14.8); WHITE BLOOD COUNT 9.5 K/UL (4.8-10.8)
[2017-08-18] MEDS: levETIRAcetam 500mg/5ml Liquid GT SCH ×2 (09:38→21:15)
[2017-08-18] MEDS: Zinc Sulfate 220mg cap GT SCH (09:39)
[2017-08-18] MEDS: Docusate 100mg/10ml Liq GT SCH ×2 (09:39→21:15)
[2017-08-18] MEDS: Minoxidil 10mg tab GT SCH ×2 (09:39→21:16)
[2017-08-18 09:40] LABS: ANION GAP 11 mmol/L (5-15); BLOOD UREA NITROGEN 63 mg/dL (7-18); CALCIUM 8.8 MG/DL (8.5-10.1); CARBON DIOXIDE 26 MMOL/L (21-32); CHLORIDE 100 MMOL/L (98-107); CREATININE 2.5 MG/DL (0.55-1.30); POTASSIUM 3.8 MMOL/L (3.5-5.1); SODIUM 136 MMOL/L (136-145)
[2017-08-18] MEDS: Heparin 5000 units/ml inj SUBQ SCH ×2 (09:41→21:22)
--- NOTE | 2017-08-18 10:51 | Infectious Diseases Prog Note ---
"Assessment/Plan Assessment/Plan antibiotics : none A 1. acenitobacter | serratia pneumonia s/p rx 2. leucocytosis improving 3. respiratory failure 4. anemia 5. hypertension 6. seizures 7. renal failure improving 8. rectal VRE colonization P 1. continue off antibiotics Subjective ROS Limited/Unobtainable: Yes Allergies: Coded Allergies: No Known Allergies (Unverified , 07/24/17) Objective Vital Signs Last 24 Hour Vital Signs Date Time Temp Pulse Resp B/P (MAP) Pulse Ox O2 Delivery O2 Flow Rate FiO2 08/18/17 09:39 118/61 08/18/17 09:30 95 24 30 08/18/17 07:50 91 08/18/17 06:46 98 108/56 08/18/17 06:33 92 15 30 08/18/17 06:26 99 116/60 08/18/17 04:51 98 22 30 08/18/17 04:00 97.3 95 19 118/60 100 Mechanical Ventilator 30 97.3 08/18/17 04:00 30 08/18/17 04:00 94 08/18/17 03:25 93 16 30 08/18/17 01:26 101 16 30 08/18/17 00:00 92 08/18/17 00:00 97.8 86 19 118/68 100 Mechanical Ventilator 30 97.8 08/18/17 00:00 30 08/17/17 23:04 99 125/70 08/17/17 23:04 99 125/70 08/17/17 22:38 99 15 30 08/17/17 21:44 116/61 08/17/17 20:43 100 16 30 08/17/17 20:00 30 08/17/17 20:00 98.1 98 19 116/61 99 Mechanical Ventilator 30 98.1 08/17/17 19:44 99 19 30 08/17/17 19:28 100 08/17/17 17:02 103 22 30 08/17/17 16:43 105 08/17/17 16:00 105 137/75 08/17/17 16:00 30 08/17/17 16:00 97.7 104 21 116/58 96 Mechanical Ventilator 30 97.7 08/17/17 15:50 105 16 137/75 96 Mechanical Ventilator 30 08/17/17 15:45 104 16 130/77 97 Mechanical Ventilator 30 08/17/17 15:40 102 16 141/79 96 Mechanical Ventilator 30 08/17/17 15:35 105 16 138/80 97 Mechanical Ventilator 30 08/17/17 14:53 99 18 30 08/17/17 14:32 107 24 08/17/17 14:26 98 102/60 08/17/17 14:00 98 102/60 08/17/17 13:55 Mechanical Ventilator 30 08/17/17 12:51 95 16 30 08/17/17 12:00 30 08/17/17 12:00 97.7 94 18 102/57 96 Mechanical Ventilator 30 97.7 08/17/17 11:46 79 08/17/17 11:27 169 08/17/17 11:21 91 16 30 Height (Feet): 6 Height (Inches): 10.00 Weight (Pounds): 224 HEENT: status post trach Respiratory/Chest: lungs clear Cardiovascular: normal rate, regular rhythm, no gallop/murmur Abdomen: soft, non tender, other - GT Extremities: other - + edema, right subclavian catheter Microbiology Date/Time Source Procedure Growth Status 08/15/17 12:10 Blood Blood Culture - Preliminary NO GROWTH AFTER 48 HOURS Resulted 08/16/17 06:00 Sputum Gram Stain - Final Resulted 08/16/17 06:00 Sputum Culture - Preliminary Gram Negative Bacillus 1 Gram Negative Bacillus 2 Usual Respiratory Margoth Resulted Laboratory Tests Test 08/17/17 10:55 08/18/17 08:20 White Blood Count 10.4 K/UL (4.8-10.8) 9.5 K/UL (4.8-10.8) Red Blood Count 3.56 M/UL (4.70-6.10) L 3.55 M/UL (4.70-6.10) L Hemoglobin 9.3 G/DL (14.2-18.0) L 9.3 G/DL (14.2-18.0) L Hematocrit 29.1 % (42.0-52.0) L 28.9 % (42.0-52.0) L Mean Corpuscular Volume 82 FL (80-99) 82 FL (80-99) Mean Corpuscular Hemoglobin 26.1 PG (27.0-31.0) L 26.3 PG (27.0-31.0) L Mean Corpuscular Hemoglobin Concent 32.0 G/DL (32.0-36.0) 32.3 G/DL (32.0-36.0) Red Cell Distribution Width 15.4 % (11.6-14.8) H 15.6 % (11.6-14.8) H Platelet Count 600 K/UL (150-450) H 651 K/UL (150-450) H Mean Platelet Volume 6.3 FL (6.5-10.1) L 6.2 FL (6.5-10.1) L Neutrophils (%) (Auto) 80.9 % (45.0-75.0) H 77.6 % (45.0-75.0) H Lymphocytes (%) (Auto) 7.1 % (20.0-45.0) L 9.1 % (20.0-45.0) L Monocytes (%) (Auto) 8.5 % (1.0-10.0) 10.0 % (1.0-10.0) Eosinophils (%) (Auto) 3.0 % (0.0-3.0) 2.8 % (0.0-3.0) Basophils (%) (Auto) 0.5 % (0.0-2.0) 0.5 % (0.0-2.0) Sodium Level 136 MMOL/L (136-145) Potassium Level 3.8 MMOL/L (3.5-5.1) Chloride Level 100 MMOL/L (98-107) Carbon Dioxide Level 26 MMOL/L (21-32) Anion Gap 11 mmol/L (5-15) Blood Urea Nitrogen 63 mg/dL (7-18) H Creatinine 2.5 MG/DL (0.55-1.30) H Estimat Glomerular Filtration Rate 31.8 mL/min (>60) Glucose Level 125 MG/DL (74-106) H Calcium Level 8.8 MG/DL (8.5-10.1) Current Medications Medications (Trade) Dose Ordered Sig/Trina Route PRN Reason Start Time Stop Time Status Last Admin Dose Admin Acetaminophen (Tylenol) 650 mg Q4H PRN GT Mild pain / T > 100.5F 07/25/17 07:00 08/24/17 06:59 08/07/17 23:48 Bisacodyl (Dulcolax) 10 mg DAILYPRN PRN RECTAL CONSTIPATION 07/25/17 07:00 08/24/17 06:59 08/14/17 18:10 Chlorhexidine Gluconate (Joya-Hex 2%) 1 applic DAILY@2000 TOPIC 08/12/17 20:00 09/06/17 19:59 08/17/17 20:16 Diltiazem HCl (Cardizem) 60 mg EVERY 8 HOURS ORAL 08/16/17 22:45 09/15/17 22:44 08/17/17 23:04 Docusate Sodium (Colace) 100 mg DAILY PRN GT Constipation 08/17/17 09:00 09/16/17 08:59 Docusate Sodium (Colace) 250 mg EVERY 12 HOURS GT 08/14/17 21:00 08/24/17 20:59 08/18/17 09:39 Heparin Sodium (Porcine) (Heparin 5000 units/ml) 5,000 units EVERY 12 HOURS SUBQ 08/12/17 21:00 09/04/17 20:59 08/18/17 09:41 Heparin Sodium (Porcine) (Heparin Sod 1000 units/ml 10ml) 2,000 unit ONCE IV 08/19/17 08:00 08/19/17 23:59 Heparin Sodium (Porcine) (Heparin) 1,000 unit POSTHD INJ 08/19/17 08:00 08/19/17 23:59 Levetiracetam (Keppra) 1,000 mg Q12HR GT 08/12/17 21:00 08/24/17 20:59 08/18/17 09:38 Levothyroxine Sodium (Synthroid) 50 mcg DAILY@0600 GT 08/14/17 06:00 09/13/17 05:59 08/18/17 06:25 Magnesium Hydroxide (Mom) 30 ml HSPRN PRN GT Constipation 07/25/17 21:00 08/24/17 20:59 07/28/17 20:43 Minoxidil (Loniten) 10 mg EVERY 12 HOURS GT 08/12/17 21:00 08/24/17 20:59 08/18/17 09:39 Ondansetron HCl (Zofran) 4 mg Q8H PRN GT Nausea & Vomiting 07/25/17 07:00 08/24/17 06:59 Propranolol HCl (Inderal) 40 mg Q8HR GT 08/12/17 22:00 09/11/17 21:59 08/18/17 06:26 Sodium Chloride 1,000 ml @ 500 mls/hr Q2H PRN IVLG sbp<90 during hd 08/19/17 07:59 08/19/17 23:59 Zinc Sulfate (Zinc Sulfate) 220 mg DAILY GT 08/13/17 09:00 08/24/17 08:59 08/18/17 09:39 MOISÉS VILLARREAL August 18, 2017 10:50"
[2017-08-18 12:24] VITALS: BP 119/66
--- NOTE | 2017-08-18 12:44 | Cardiology Report ---
APPROVED REPORT EKG Measurement Heart [id number] Poor data quality, interpretation may be adversely affected Atrial fibrillation with rapid ventricular response T wave abnormality, consider lateral ischemia Abnormal ECG
[2017-08-18 16:00] VITALS: BP 108/59
[2017-08-18] MEDS: Dyna-Hex 2% Top Sol 2oz TOPIC SCH (19:48)
[2017-08-18 20:00] VITALS: BP 104/58
[2017-08-19] VITALS: BP 124/62
--- NOTE | 2017-08-19 01:16 | Progress Note ---
DATE: 08/18/2017 CARDIOLOGY PROGRESS NOTE SUBJECTIVE: The patient remains on ventilator support. Poorly responsive. Low-range blood pressure. OBJECTIVE: VITAL SIGNS: Blood pressure 108/56, heart rate 98, and respiratory rate 15. Hemodialysis via PermCath performed. LUNGS: Diminished breath sounds. HEART: Regular rhythm and rate. Normal S1, S2. Monitor, sinus with atrial ectopics and episodes of nonsustained atrial tachyarrhythmias. ABDOMEN: Soft. EXTREMITIES: Trace edema. LABORATORY DATA: Sputum is positive for Acinetobacter baumannii and Providencia stuartii. White count 9.5, hemoglobin 9.3. BUN is 63, creatinine 2.5, and potassium 3.8. IMPRESSION: 1. Paroxysmal supraventricular tachyarrhythmias. 2. Sepsis with recovering shock. 3. Acute renal failure. 4. Ventilator-dependent respiratory failure. 5. Dysphagia with G-tube. PLAN: 1. Attempting to manage without dialysis. 2. Continue ventilator support. 3. Discontinue minoxidil. 4. Continue diltiazem. 5. Titrate beta-blockers and adjust therapy based on clinical parameters. Russell Wade M.D. DR: Deena JOB#: [id number] CC:
--- NOTE | 2017-08-19 02:46 | Progress Note ---
DATE: 08/15/2017 NOTE: POOR AUDIO CARDIOLOGY PROGRESS NOTE Late entry, 08/15/2017 SUBJECTIVE: The patient is having episodes of tachyarrhythmias. He is noncommunicative and on ventilator support. The patient continues on IV and he is status post hemodialysis today. OBJECTIVE: VITAL SIGNS: Blood pressure 120/63, pulse 103, respiratory rate 20, poorly responsive, ventilated via tracheostomy. LUNGS: Coarse breath sounds. Rhonchi. CARDIAC: Regular rhythm and rate. Normal S1 and S2. ABDOMEN: Soft. EXTREMITIES: Trace edema. LABORATORY DATA: BUN 89 and creatinine 3.3. White count 16.8, hemoglobin 8.1. IMPRESSION: 1. acute renal failure. 2. Status post non ST-elevation myocardial infarction precipitated by acute infection and hypoperfusion. 3. Ventilator-dependent respiratory failure. 4. Paroxysmal atrial tachyarrhythmias. PLAN: 1. Add diltiazem for arrhythmia suppression. 2. Monitor electrolytes. 3. Avoid tight blood pressure control. 4. Reassess use of minoxidil. 5. Maintain Inderal as well. Russell Wade M.D. DR: RENEA JOB#: [id number] CC:
[2017-08-19 04:00] VITALS: BP 119/62
--- NOTE | 2017-08-19 04:01 | Consultation ---
DATE OF CONSULTATION: 07/26/2017 CARDIOLOGY CONSULTATION CONSULTING PHYSICIAN: Russell Wade M.D. REQUESTING PHYSICIAN: Michael Vernon M.D. REASON FOR CONSULTATION: Elevated troponin level. HISTORY OF PRESENT ILLNESS: Abnormal lab studies prompting transfer of this ventilator-dependent gentleman with anoxic encephalopathy to the emergency room 2 days ago. He was noted to have signs of sepsis. He also had elevations of his troponin levels noted. I have been asked to assist with further care. The patient is unable to give any historical data. PAST MEDICAL HISTORY: CVA, dementia, history of intracranial bleed, seizure disorder, hypertension, chronic kidney disease, gastrostomy tube-dependent, tracheostomy, and ventilator dependence. MEDICATIONS: Reviewed. ALLERGIES: None. SOCIAL HISTORY: Not obtainable. FAMILY HISTORY: Not known. PHYSICAL EXAMINATION: VITAL SIGNS: Blood pressure 130/71, heart rate 109, respiratory rate 20, afebrile. NECK: He is on a trach collar. LUNGS: Bilateral breath sounds. HEART: Regular rhythm and rate. Normal S1 and S2 with no murmur. ABDOMEN: Soft. G-tube intact. EXTREMITIES: Trace edema. NEUROLOGIC: The patient is not responsive. LABORATORY AND DIAGNOSTIC DATA: EKG reveals from 07/24/2017, sinus rhythm, left ventricular hypertrophy. Troponin levels have peaked at 0.078 yesterday from 0.068 on admission. Chemistry notable for BUN 14, creatinine 0.8. Chest x-ray yesterday revealed bilateral interstitial disease, possibly pulmonary venous congestion, improving. IMPRESSION: 1. Sepsis. 2. Anemia. 3. Respiratory failure with tracheostomy. 4. Dysphagia with G-tube. 5. Acute myocardial ischemia and possible [id number] infarction. 6. Acute on chronic diastolic congestive heart failure. PLAN: 1. Transfuse for low hemoglobin below 8 g in view of cardiac disease. 2. Antimicrobials. 3. Ventilator dependent respiratory therapy. 4. Nutrition by feeding tube. 5. Continue beta-jessica. 6. Hold aspirin in view of anemia and possible gastrointestinal bleeding. 7. Titrate antihypertensives. 8. Monitor volume status. 9. Presently, no indication for diuresis. Russell Wade M.D. DR: Deena JOB#: [id number] CC:
[2017-08-19] MEDS: Propranolol 40mg tab GT SCH ×3 (06:04→22:24)
[2017-08-19] MEDS: dilTIAZem HCl 60mg tab ORAL SCH ×3 (06:05→22:24)
[2017-08-19 08:00] VITALS: BP 101/60
[2017-08-19] MEDS ORDERED: Heparin 1000 units/ml 1ml Vial INJ SCH (08:00)
[2017-08-19] MEDS ORDERED: Heparin Sod 1000 units/ml 10ml IV SCH (08:00)
[2017-08-19] MEDS: Zinc Sulfate 220mg cap GT SCH (10:19)
[2017-08-19] MEDS: levETIRAcetam 500mg/5ml Liquid GT SCH ×2 (10:20→22:23)
[2017-08-19] MEDS: Docusate 100mg/10ml Liq GT SCH ×2 (10:20→22:23)
[2017-08-19] MEDS: Heparin 5000 units/ml inj SUBQ SCH ×2 (10:26→22:26)
--- NOTE | 2017-08-19 10:35 | General Progress Note ---
Assessment/Plan Assessment/Plan IMPRESSION Leukocytosis anemia possible sepsis possible gib trach gt oliguria ARF- worse pulmonary edema PLAN vent support maintain meds renal and iD clearance feeds on HD try to dc HD- d/w renal if able impression, plan, and exam edited and reviewed in detail care discussed with RN Subjective ROS Limited/Unobtainable: Yes Allergies: Coded Allergies: No Known Allergies (Unverified , 07/24/17) Subjective labs noted renal function and wbc noted underwent tap per renal in ATN and needs ongoing HD Objective Last 24 Hour Vital Signs Date Time Temp Pulse Resp B/P (MAP) Pulse Ox O2 Delivery O2 Flow Rate FiO2 08/19/17 09:13 86 16 30 08/19/17 08:00 Mechanical Ventilator 30 08/19/17 08:00 79 08/19/17 07:02 90 14 30 08/19/17 06:05 91 118/64 08/19/17 06:04 91 118/64 08/19/17 05:12 90 11 30 08/19/17 05:00 Mechanical Ventilator 30 08/19/17 04:00 90 08/19/17 04:00 97.8 87 11 119/62 99 Mechanical Ventilator 30 97.8 08/19/17 04:00 30 08/19/17 03:32 83 13 30 08/19/17 01:26 83 13 30 08/19/17 00:00 83 08/19/17 00:00 98.4 86 13 124/62 95 Mechanical Ventilator 30 98.4 08/18/17 23:02 87 18 30 08/18/17 22:01 87 104/58 08/18/17 22:00 87 104/58 08/18/17 21:16 104/58 08/18/17 21:04 87 18 30 08/18/17 20:07 30 08/18/17 20:00 97.6 95 11 104/58 95 Mechanical Ventilator 30 97.6 08/18/17 20:00 88 08/18/17 19:37 87 18 30 08/18/17 17:08 87 18 30 08/18/17 16:00 97.6 90 18 108/59 98 Mechanical Ventilator 30 97.6 08/18/17 16:00 30 08/18/17 15:35 83 08/18/17 15:27 84 15 30 08/18/17 14:59 98 119/66 08/18/17 14:58 98 119/66 08/18/17 13:03 98 17 30 08/18/17 12:24 97.5 96 18 119/66 98 Mechanical Ventilator 30 97.5 08/18/17 12:00 30 08/18/17 11:49 96 08/18/17 11:26 95 16 30 Intake and Output 08/18/17 08/19/17 19:00 07:00 Intake Total 750 ml 510 ml Output Total 450 ml 400 ml Balance 300 ml 110 ml Intake Free Water 150 ml 50 ml Tube Feeding 600 ml 350 ml Other 110 ml Output Urine Total 450 ml 400 ml Height (Feet): 6 Height (Inches): 10.00 Weight (Pounds): 204 Objective WDWN trach reduced breath sounds L>R [id number] without MRG NABS nontender no HSM; GT no CC minimal edema weak Michael Vernon MD August 19, 2017 10:35
--- NOTE | 2017-08-19 11:32 | Nephrology Progress Note ---
Assessment/Plan Plan CONSUELO. patient remains in Oliguric ARF. HD dependent. Hopes to cut off HD are premature. Patient has ARF and will eventually come off HD, but it may take a few more weeks. Asked Dr. Styles for a PermCath. Subjective Subjective Confused. Objective Objective Last 24 Hour Vital Signs Date Time Temp Pulse Resp B/P (MAP) Pulse Ox O2 Delivery O2 Flow Rate FiO2 08/19/17 11:03 90 15 30 08/19/17 09:13 86 16 30 08/19/17 08:00 Mechanical Ventilator 30 08/19/17 08:00 79 08/19/17 07:02 90 14 30 08/19/17 06:05 91 118/64 08/19/17 06:04 91 118/64 08/19/17 05:12 90 11 30 08/19/17 05:00 Mechanical Ventilator 30 08/19/17 04:00 90 08/19/17 04:00 97.8 87 11 119/62 99 Mechanical Ventilator 30 97.8 08/19/17 04:00 30 08/19/17 03:32 83 13 30 08/19/17 01:26 83 13 30 08/19/17 00:00 83 08/19/17 00:00 98.4 86 13 124/62 95 Mechanical Ventilator 30 98.4 08/18/17 23:02 87 18 30 08/18/17 22:01 87 104/58 08/18/17 22:00 87 104/58 08/18/17 21:16 104/58 08/18/17 21:04 87 18 30 08/18/17 20:07 30 08/18/17 20:00 97.6 95 11 104/58 95 Mechanical Ventilator 30 97.6 08/18/17 20:00 88 08/18/17 19:37 87 18 30 08/18/17 17:08 87 18 30 08/18/17 16:00 97.6 90 18 108/59 98 Mechanical Ventilator 30 97.6 08/18/17 16:00 30 08/18/17 15:35 83 08/18/17 15:27 84 15 30 08/18/17 14:59 98 119/66 18 14:58 98 119/66 08/18/17 13:03 98 17 30 08/18/17 12:24 97.5 96 18 119/66 98 Mechanical Ventilator 30 97.5 08/18/17 12:00 30 08/18/17 11:49 96 Intake and Output 08/18/17 08/19/17 19:00 07:00 Intake Total 750 ml 510 ml Output Total 450 ml 400 ml Balance 300 ml 110 ml Intake Free Water 150 ml 50 ml Tube Feeding 600 ml 350 ml Other 110 ml Output Urine Total 450 ml 400 ml Height (Feet): 6 Height (Inches): 10.00 Weight (Pounds): 204 Objective CV RR Lungs CTA Abd SNT. BS + E +3 B ankle Sebastián Ramirez MD August 19, 2017 11:32
[2017-08-19 12:00] VITALS: BP 112/62
[2017-08-19] MEDS ORDERED: Sterile Water Irrig 1000ml IRRIG ONE ×2 (15:02→15:32)
[2017-08-19] MEDS ORDERED: NS 275ml ONE (15:02)
[2017-08-19 16:00] VITALS: BP 101/61
[2017-08-19 20:00] VITALS: BP 107/60
[2017-08-19] MEDS: Dyna-Hex 2% Top Sol 2oz TOPIC SCH (22:23)
--- NOTE | 2017-08-19 23:31 | Progress Note ---
DATE: 08/16/2017 CARDIOLOGY PROGRESS NOTE Late entry for 08/16/2017. SUBJECTIVE: The patient has episodes of atrial tachyarrhythmias. He is asymptomatic. He is on ventilator support. Poorly responsive. OBJECTIVE: VITAL SIGNS: Blood pressure 114/50, pulse 129, respirations 15, and afebrile. LUNGS: Bilateral breath sounds. HEART: Regular rhythm. Rapid rate. Normal S1, S2. ABDOMEN: Soft. EXTREMITIES: Trace edema. IMPRESSION: 1. Ventilator-dependent respiratory failure. 2. Paroxysmal atrial tachyarrhythmias. 3. Acute renal failure. PLAN: 1. Start diltiazem. 2. IV bolus followed by oral loads. 3. Monitor and replace electrolytes as needed including potassium and magnesium. 4. Limit use of albuterol and beta-agonist therapy. 5. Hemodialysis per rn ent. Russell Wade M.D. DR: CRISTINE JOB#: [id number] CC:
--- NOTE | 2017-08-19 23:31 | Progress Note ---
DATE: 08/19/2017 CARDIOLOGY PROGRESS NOTE SUBJECTIVE: This patient is ongoing hemodialysis. He is status post paracentesis. He remains with tracheostomy care. OBJECTIVE: VITAL SIGNS: Blood pressure 118/64, pulse 91, and respirations 14. Monitored sinus. Rare atrial ectopy. LUNGS: Clear. CARDIAC: Regular. Normal S1 and S2. ABDOMEN: Soft. EXTREMITIES: No edema. PLAN: 1. Monitor renal parameters. 2. Hold dialysis if able. 3. Continue diltiazem. 4. Monitor electrolytes. 5. Nutrition by G-tube. 6. Antimicrobials and respiratory hygiene. Russell Wade M.D. DR: CRISTINE JOB#: [id number] CC:
[2017-08-20] VITALS: BP 110/60
[2017-08-20 04:00] VITALS: BP 118/57
[2017-08-20] MEDS: Propranolol 40mg tab GT SCH ×4 (06:10→21:31)
[2017-08-20] MEDS: dilTIAZem HCl 60mg tab ORAL SCH ×4 (06:10→21:31)
--- NOTE | 2017-08-20 07:19 | General Progress Note ---
Assessment/Plan Assessment/Plan IMPRESSION Leukocytosis anemia possible sepsis possible gib trach gt oliguria ARF- worse pulmonary edema PLAN vent support maintain meds repeat labs and monitor UO feeds on HD try to dc HD- d/w renal if able impression, plan, and exam edited and reviewed in detail care discussed with RN Subjective ROS Limited/Unobtainable: Yes Allergies: Coded Allergies: No Known Allergies (Unverified , 07/24/17) Subjective labs noted renal function and wbc noted underwent tap per renal in ATN and needs ongoing HD Objective Last 24 Hour Vital Signs Date Time Temp Pulse Resp B/P (MAP) Pulse Ox O2 Delivery O2 Flow Rate FiO2 08/20/17 06:58 70 16 30 08/20/17 06:10 86 118/57 08/20/17 06:10 86 118/57 08/20/17 04:54 86 15 30 08/20/17 04:00 30 08/20/17 04:00 97.0 86 15 118/57 100 Mechanical Ventilator 30 97.0 08/20/17 04:00 84 08/20/17 03:03 83 16 30 08/20/17 00:40 76 14 30 08/20/17 00:00 76 08/20/17 00:00 97.2 78 16 110/60 100 Mechanical Ventilator 30 97.2 08/20/17 00:00 30 08/19/17 22:46 89 15 30 08/19/17 22:24 88 08/19/17 22:24 88 107/60 08/19/17 20:46 88 14 30 08/19/17 20:00 30 08/19/17 20:00 97.8 88 14 107/60 100 Mechanical Ventilator 30 97.8 08/19/17 20:00 87 08/19/17 18:38 82 5 30 08/19/17 16:32 77 18 30 08/19/17 16:00 30 08/19/17 16:00 74 08/19/17 16:00 97.6 78 14 101/61 99 Mechanical Ventilator 30 97.6 08/19/17 14:42 85 110/62 08/19/17 14:41 85 110/62 08/19/17 14:38 88 14 30 08/19/17 13:01 85 14 30 08/19/17 13:01 85 14 Mechanical Ventilator 15.0 30 08/19/17 12:00 89 08/19/17 12:00 97.8 81 18 112/62 99 Mechanical Ventilator 30 97.8 08/19/17 12:00 30 08/19/17 11:03 90 15 30 08/19/17 09:13 86 16 30 08/19/17 08:00 30 08/19/17 08:00 97.6 83 16 101/60 99 Mechanical Ventilator 30 97.6 08/19/17 08:00 Mechanical Ventilator 30 08/19/17 08:00 79 Intake and Output 08/19/17 08/20/17 19:00 07:00 Intake Total 580 ml 600 ml Output Total 250 ml Balance 330 ml 600 ml Intake Free Water 150 ml 100 ml Tube Feeding 430 ml 500 ml Output Urine Total 250 ml Height (Feet): 6 Height (Inches): 10.00 Weight (Pounds): 220 Objective WDWN trach reduced breath sounds L>R [id number] without MRG NABS nontender no HSM; GT no CC minimal edema weak Michael Vernon MD August 20, 2017 07:19
[2017-08-20 08:00] VITALS: BP 106/56
[2017-08-20 09:53] LABS: ANION GAP 10 mmol/L (5-15); BLOOD UREA NITROGEN 60 mg/dL (7-18); CALCIUM 8.8 MG/DL (8.5-10.1); CARBON DIOXIDE 23 MMOL/L (21-32); CHLORIDE 100 MMOL/L (98-107); CREATININE 2.2 MG/DL (0.55-1.30); POTASSIUM 4.3 MMOL/L (3.5-5.1); SODIUM 133 MMOL/L (136-145)
--- NOTE | 2017-08-20 10:26 | Infectious Diseases Prog Note ---
"Assessment/Plan Assessment/Plan antibiotics : none A 1. acenitobacter | serratia pneumonia s/p rx 2. leucocytosis resolved 3. respiratory failure 4. anemia 5. hypertension 6. seizures 7. renal failure improving 8. rectal VRE colonization P 1. continue off antibiotics Subjective ROS Limited/Unobtainable: Yes Allergies: Coded Allergies: No Known Allergies (Unverified , 07/24/17) Objective Vital Signs Last 24 Hour Vital Signs Date Time Temp Pulse Resp B/P (MAP) Pulse Ox O2 Delivery O2 Flow Rate FiO2 08/20/17 08:56 76 16 30 08/20/17 08:00 97.6 73 16 106/56 100 Mechanical Ventilator 30 97.6 08/20/17 06:58 70 16 30 08/20/17 06:10 86 118/57 08/20/17 06:10 86 118/57 08/20/17 04:54 86 15 30 08/20/17 04:00 30 08/20/17 04:00 97.0 86 15 118/57 100 Mechanical Ventilator 30 97.0 08/20/17 04:00 84 08/20/17 03:03 83 16 30 08/20/17 00:40 76 14 30 08/20/17 00:00 76 08/20/17 00:00 97.2 78 16 110/60 100 Mechanical Ventilator 30 97.2 08/20/17 00:00 30 08/19/17 22:46 89 15 30 08/19/17 22:24 88 08/19/17 22:24 88 107/60 08/19/17 20:46 88 14 30 08/19/17 20:00 30 08/19/17 20:00 97.8 88 14 107/60 100 Mechanical Ventilator 30 97.8 08/19/17 20:00 87 08/19/17 18:38 82 5 30 08/19/17 16:32 77 18 30 08/19/17 16:00 30 08/19/17 16:00 74 08/19/17 16:00 97.6 78 14 101/61 99 Mechanical Ventilator 30 97.6 08/19/17 14:42 85 110/62 08/19/17 14:41 85 110/62 08/19/17 14:38 88 14 30 08/19/17 13:01 85 14 30 08/19/17 13:01 85 14 Mechanical Ventilator 15.0 30 08/19/17 12:00 89 08/19/17 12:00 97.8 81 18 112/62 99 Mechanical Ventilator 30 97.8 08/19/17 12:00 30 08/19/17 11:03 90 15 30 Height (Feet): 6 Height (Inches): 10.00 Weight (Pounds): 220 HEENT: status post trach Respiratory/Chest: lungs clear Cardiovascular: normal rate, regular rhythm, no gallop/murmur Abdomen: soft, non tender, other - GT Extremities: other - + edema, right subclavian Microbiology Date/Time Source Procedure Growth Status 08/17/17 22:45 Sputum Gram Stain - Final Resulted 08/17/17 22:45 Sputum Culture - Preliminary Gram Negative Maulik Gram Negative Bacillus 2 Resulted Laboratory Tests Test 08/20/17 09:15 Sodium Level 133 MMOL/L (136-145) L Potassium Level 4.3 MMOL/L (3.5-5.1) Chloride Level 100 MMOL/L (98-107) Carbon Dioxide Level 23 MMOL/L (21-32) Anion Gap 10 mmol/L (5-15) Blood Urea Nitrogen 60 mg/dL (7-18) H Creatinine 2.2 MG/DL (0.55-1.30) H Estimat Glomerular Filtration Rate 36.8 mL/min (>60) Glucose Level 127 MG/DL (74-106) H Calcium Level 8.8 MG/DL (8.5-10.1) Current Medications Medications (Trade) Dose Ordered Sig/Trina Route PRN Reason Start Time Stop Time Status Last Admin Dose Admin Acetaminophen (Tylenol) 650 mg Q4H PRN GT Mild pain / T > 100.5F 07/25/17 07:00 08/24/17 06:59 08/07/17 23:48 Bisacodyl (Dulcolax) 10 mg DAILYPRN PRN RECTAL CONSTIPATION 07/25/17 07:00 08/24/17 06:59 08/14/17 18:10 Chlorhexidine Gluconate (Joya-Hex 2%) 1 applic DAILY@1999 TOPIC 08/12/17 20:00 09/06/17 19:59 08/19/17 22:23 Diltiazem HCl (Cardizem) 60 mg EVERY 8 HOURS ORAL 08/16/17 22:45 09/15/17 22:44 08/20/17 06:10 Docusate Sodium (Colace) 100 mg DAILY PRN GT Constipation 08/17/17 09:00 09/16/17 08:59 Docusate Sodium (Colace) 250 mg EVERY 12 HOURS GT 08/14/17 21:00 08/24/17 20:59 08/19/17 22:23 Heparin Sodium (Porcine) (Heparin 5000 units/ml) 5,000 units EVERY 12 HOURS SUBQ 08/12/17 21:00 09/04/17 20:59 08/19/17 22:26 Levetiracetam (Keppra) 1,000 mg Q12HR GT 08/12/17 21:00 08/24/17 20:59 08/19/17 22:23 Levothyroxine Sodium (Synthroid) 50 mcg DAILY@0600 GT 08/14/17 06:00 09/13/17 05:59 08/20/17 06:10 Magnesium Hydroxide (Mom) 30 ml HSPRN PRN GT Constipation 07/25/17 21:00 08/24/17 20:59 07/28/17 20:43 Ondansetron HCl (Zofran) 4 mg Q8H PRN GT Nausea & Vomiting 07/25/17 07:00 08/24/17 06:59 Propranolol HCl (Inderal) 40 mg Q8HR GT 08/12/17 22:00 09/11/17 21:59 08/20/17 06:10 Zinc Sulfate (Zinc Sulfate) 220 mg DAILY GT 08/13/17 09:00 08/24/17 08:59 08/19/17 10:19 MOISÉS VILLARREAL August 20, 2017 10:26"
[2017-08-20] MEDS: Docusate 100mg/10ml Liq GT SCH ×2 (10:48→21:30)
[2017-08-20] MEDS: levETIRAcetam 500mg/5ml Liquid GT SCH ×2 (10:48→21:30)
[2017-08-20] MEDS: Zinc Sulfate 220mg cap GT SCH (10:49)
[2017-08-20] MEDS: Heparin 5000 units/ml inj SUBQ SCH ×2 (10:51→21:34)
[2017-08-20 12:00] VITALS: BP 102/55
--- NOTE | 2017-08-20 12:49 | Nephrology Progress Note ---
Assessment/Plan Plan CONSUELO. patient remains in Oliguric ARF. HD dependent. Hopes to cut off HD are premature. Patient has ARF and will eventually come off HD, but it may take a few more weeks. Asked Dr. Styles for a PermCath. Subjective Subjective Confused. Objective Objective Last 24 Hour Vital Signs Date Time Temp Pulse Resp B/P (MAP) Pulse Ox O2 Delivery O2 Flow Rate FiO2 08/20/17 12:00 30 08/20/17 10:31 81 16 30 08/20/17 08:56 76 16 30 08/20/17 08:00 73 08/20/17 08:00 97.6 73 16 106/56 100 Mechanical Ventilator 30 97.6 08/20/17 08:00 30 08/20/17 06:58 70 16 30 08/20/17 06:10 86 118/57 08/20/17 06:10 86 118/57 08/20/17 04:54 86 15 30 08/20/17 04:00 30 08/20/17 04:00 97.0 86 15 118/57 100 Mechanical Ventilator 30 97.0 08/20/17 04:00 84 08/20/17 03:03 83 16 30 08/20/17 00:40 76 14 30 08/20/17 00:00 76 08/20/17 00:00 97.2 78 16 110/60 100 Mechanical Ventilator 30 97.2 08/20/17 00:00 30 08/19/17 22:46 89 15 30 08/19/17 22:24 88 08/19/17 22:24 88 107/60 08/19/17 20:46 88 14 30 08/19/17 20:00 30 08/19/17 20:00 97.8 88 14 107/60 100 Mechanical Ventilator 30 97.8 08/19/17 20:00 87 08/19/17 18:38 82 5 30 08/19/17 16:32 77 18 30 08/19/17 16:00 30 08/19/17 16:00 74 08/19/17 16:00 97.6 78 14 101/61 99 Mechanical Ventilator 30 97.6 08/19/17 14:42 85 110/62 08/19/17 14:41 85 110/62 08/19/17 14:38 88 14 30 08/19/17 13:01 85 14 30 08/19/17 13:01 85 14 Mechanical Ventilator 15.0 30 Intake and Output 08/19/17 08/20/17 19:00 07:00 Intake Total 580 ml 600 ml Output Total 250 ml Balance 330 ml 600 ml Intake Free Water 150 ml 100 ml Tube Feeding 430 ml 500 ml Output Urine Total 250 ml Laboratory Tests 08/20/17 09:15: Sodium Level 133L, Potassium Level 4.3, Chloride Level 100, Carbon Dioxide Level 23, Anion Gap 10, Blood Urea Nitrogen 60H, Creatinine 2.2H, Estimat Glomerular Filtration Rate 36.8, Glucose Level 127H, Calcium Level 8.8 Height (Feet): 6 Height (Inches): 10.00 Weight (Pounds): 220 Objective CV RR Lungs CTA Abd SNT. BS + E +3 B ankle Sebastián Ramirez MD August 20, 2017 12:49
[2017-08-20 16:00] VITALS: BP 95/59
--- NOTE | 2017-08-20 19:30 | Progress Note ---
DATE: 08/20/2017 CARDIOLOGY PROGRESS NOTE SUBJECTIVE: Urine output is poor. The patient is on hemodialysis with ultrafiltration. PermCath is to be placed. The Nephrology feels dialysis may not be permanent, but presently is still required. OBJECTIVE: VITAL SIGNS: Blood pressure 106/56, pulse 73, and respiratory rate 16. Monitor, sinus. No recurring atrial tachyarrhythmias, few nonsustained atrial ectopic beats. NECK: Trach site with thin secretions. LUNGS: With diminished breath sounds. Few rales. CARDIAC: Regular rhythm and rate. Normal S1 and S2 with a fourth heart sound. ABDOMEN: Soft. EXTREMITIES: Trace edema. LABORATORY AND DIAGNOSTIC DATA: BUN is 60, creatinine 2.2, and potassium 4.3. PLAN: 1. Continue monitoring cardiorenal parameters and volume status. 2. Hemodialysis with ultrafiltration per flexible shaft winder. 3. Titrating cardiovascular regimen. 4. Avoid hypotension. Russell Wade M.D. DR: RENEA JOB#: [id number] CC:
--- NOTE | 2017-08-20 19:45 | Progress Note ---
DATE: 08/15/2017 CARDIOLOGY PROGRESS NOTE SUBJECTIVE: The patient remains with stable blood pressure 121/60, heart rate 102, respiratory rate 20. Monitored rhythm, sinus. Sinus tachycardia. Occasional atrial ectopics. OBJECTIVE: LUNGS: Bilateral breath sounds. Trach site with thin secretions. Few rales. HEART: Regular rhythm and rate. Normal S1 and S2. No murmur. ABDOMEN: Soft. There is dependent edema. LABORATORY AND DIAGNOSTIC DATA: Chest x-ray reveals increasing pulmonary venous congestion and pleural effusion. Labs reviewed. IMPRESSION: 1. Acute renal failure. 2. Pulmonary edema. 3. Tracheostomy. 4. Gastrostomy tube. 5. Possible sepsis. 6. Secondary sinus tachycardia. 7. Paroxysmal atrial ectopy. PLAN: If unable to mobilize edema, we will need dialysis and ultrafiltration. Continue respiratory hygiene. Off all nephrotoxins and diuretics. Await thoracentesis. Russell Wade M.D. DR: Shanti JOB#: [id number] CC:
[2017-08-20 20:00] VITALS: BP 120/55
[2017-08-20] MEDS: Dyna-Hex 2% Top Sol 2oz TOPIC SCH (20:16)
[2017-08-21] VITALS: BP 110/67
[2017-08-21 04:00] VITALS: BP 110/64
[2017-08-21] MEDS: dilTIAZem HCl 60mg tab ORAL SCH ×3 (06:27→22:30)
[2017-08-21] MEDS: Propranolol 40mg tab GT SCH ×3 (06:27→22:30)
[2017-08-21 08:00] VITALS: BP 104/61
--- NOTE | 2017-08-21 08:22 | General Progress Note ---
Assessment/Plan Assessment/Plan IMPRESSION Leukocytosis anemia possible sepsis possible gib trach gt oliguria ARF- worse pulmonary edema PLAN vent support maintain meds repeat labs and monitor UO feeds hope to monitor off HD and dc once cleared by renal impression, plan, and exam edited and reviewed in detail care discussed with RN Subjective ROS Limited/Unobtainable: Yes Allergies: Coded Allergies: No Known Allergies (Unverified , 07/24/17) Subjective labs noted renal function and wbc noted per renal, improving Objective Last 24 Hour Vital Signs Date Time Temp Pulse Resp B/P (MAP) Pulse Ox O2 Delivery O2 Flow Rate FiO2 08/21/17 08:00 30 08/21/17 07:26 77 14 30 08/21/17 06:27 71 110/64 08/21/17 06:27 71 110/64 08/21/17 05:12 71 15 30 08/21/17 04:00 30 08/21/17 04:00 97.9 96 15 110/64 100 Mechanical Ventilator 30 97.9 08/21/17 04:00 71 08/21/17 03:00 96 15 30 08/21/17 01:14 94 15 30 08/21/17 00:00 30 08/21/17 00:00 94 08/21/17 00:00 97.9 91 15 110/67 100 Mechanical Ventilator 30 97.9 08/20/17 23:14 96 16 30 08/20/17 21:31 101 120/55 08/20/17 21:31 101 120/55 08/20/17 21:14 100 16 30 08/20/17 20:00 30 08/20/17 20:00 99 08/20/17 20:00 98.1 101 16 120/55 100 Mechanical Ventilator 30 98.1 08/20/17 18:38 93 16 30 08/20/17 17:07 93 16 30 08/20/17 16:00 92 08/20/17 16:00 98.3 93 16 95/59 100 Mechanical Ventilator 30 98.3 08/20/17 16:00 30 08/20/17 14:32 91 19 30 08/20/17 14:00 78 102/55 08/20/17 14:00 78 102/55 08/20/17 12:31 78 16 30 08/20/17 12:00 30 08/20/17 12:00 82 08/20/17 12:00 97.6 82 16 102/55 100 Mechanical Ventilator 30 97.6 08/20/17 10:31 81 16 30 08/20/17 08:56 76 16 30 Intake and Output 08/20/17 08/21/17 19:00 07:00 Intake Total 600 ml 560 ml Output Total 250 ml Balance 350 ml 560 ml Intake Free Water 50 ml 110 ml Tube Feeding 550 ml 450 ml Output Urine Total 250 ml Laboratory Tests 08/20/17 09:15: Sodium Level 133L, Potassium Level 4.3, Chloride Level 100, Carbon Dioxide Level 23, Anion Gap 10, Blood Urea Nitrogen 60H, Creatinine 2.2H, Estimat Glomerular Filtration Rate 36.8, Glucose Level 127H, Calcium Level 8.8 Height (Feet): 6 Height (Inches): 10.00 Weight (Pounds): 222 Objective WDWN trach reduced breath sounds L>R [id number] without MRG NABS nontender no HSM; GT no CC minimal edema weak Michael Vernon MD August 21, 2017 08:22
[2017-08-21] MEDS: Zinc Sulfate 220mg cap GT SCH (09:25)
[2017-08-21] MEDS: levETIRAcetam 500mg/5ml Liquid GT SCH ×2 (09:25→20:26)
[2017-08-21] MEDS: Docusate 100mg/10ml Liq GT SCH ×2 (09:25→20:24)
[2017-08-21] MEDS: Heparin 5000 units/ml inj SUBQ SCH ×2 (09:32→20:27)
[2017-08-21 12:00] VITALS: BP 122/70
[2017-08-21 12:25] LABS: ANION GAP 9 mmol/L (5-15); BLOOD UREA NITROGEN 65 mg/dL (7-18); CARBON DIOXIDE 27 MMOL/L (21-32); CHLORIDE 100 MMOL/L (98-107); CREATININE 2.3 MG/DL (0.55-1.30); POTASSIUM 3.4 MMOL/L (3.5-5.1); SODIUM 136 MMOL/L (136-145)
--- NOTE | 2017-08-21 13:11 | Diagnostic Imaging Report ---
APPROVED REPORT CPT Code: G0365 Present Symptoms Comments: Acute Renal Failure Vein Measurements(cm) Cephalic Basilic Right LeftRight Left 0.3Upper Arm0.41Mid Upper Arm0.71 0.29Mid Upper Arm0.53Antecubital Fossa0.59 0.30Upper Forearm0.38 0.27Antecubital FossaWrist 0.20Wrist VEIN MAPPING: The right cephalic, right and left basilic veins were imaged and measured to evaluate as a potential graft for dialysis access. The left cephalic vein was not well visualized.
--- NOTE | 2017-08-21 13:32 | Cardiology Report ---
APPROVED REPORT EXAM: Two-dimensional and M-mode echocardiogram with Doppler and color Doppler. INDICATION Pre-Op M-Mode DIMENSIONS IVSd1.3 (0.7-1.1cm)Left Atrium (MM)3.6 (1.6-4.0cm) LVDd4.3 (3.5-5.6cm)Aortic Root3.0 (2.0-3.7cm) PWd1.4 (0.7-1.1cm)Aortic Cusp Exc.2.0 (1.5-2.0cm) LVDs3.1 (2.5-4.0cm) PWs1.9 cm Normal left ventricular chamber size, systolic function and wall motion. Left ventricular ejection fraction estimated to be 55-60%. Moderate left ventricular hypertrophy. Small anterior and posterior pericardial effusion. Large posterior pleural effusion. Right cardiac chamber sizes are within normal limits. Mild left atrial enlargement by 2D. Focal aortic valve sclerosis with adequate cusp excursion. Thickened mitral valve leaflets with normal excursion. Mild mitral annulus and aortic root calcification. Pulmonic valve not well visualized. Normal tricuspid valve structure. IVC dilated at 2.3 cm non-collapsible with respiration indicate increased RA pressure. A color flow and spectral Doppler study was performed and revealed: Mild aortic regurgitation. Trace mitral regurgitation. Mitral inflow velocities indicates possible pseudo normalization pattern implying significant left ventricular diastolic dysfunction. Mild tricuspid regurgitation. Tricuspid systolic velocities suggests peak right ventricular systolic pressure of 39 mmHg Consistent with mild pulmonary hypertension. Pulmonic regurgitation present.
--- NOTE | 2017-08-21 14:40 | Nephrology Progress Note ---
Assessment/Plan Plan CONSUELO. Patient's creatinine down to 2.2-2.3. Holding off HD. Subjective Subjective Confused. Objective Objective Last 24 Hour Vital Signs Date Time Temp Pulse Resp B/P (MAP) Pulse Ox O2 Delivery O2 Flow Rate FiO2 08/21/17 12:52 88 15 30 08/21/17 12:00 97.8 86 15 122/70 99 Mechanical Ventilator 30 97.8 08/21/17 12:00 30 08/21/17 12:00 85 08/21/17 11:28 84 15 30 08/21/17 08:36 81 14 30 08/21/17 08:00 98.3 78 14 104/61 100 Mechanical Ventilator 30 98.3 08/21/17 08:00 30 08/21/17 08:00 76 08/21/17 07:26 77 14 30 08/21/17 06:27 71 110/64 08/21/17 06:27 71 110/64 08/21/17 05:12 71 15 30 08/21/17 04:00 30 08/21/17 04:00 97.9 96 15 110/64 100 Mechanical Ventilator 30 97.9 08/21/17 04:00 71 08/21/17 03:00 96 15 30 08/21/17 01:14 94 15 30 08/21/17 00:00 30 08/21/17 00:00 94 08/21/17 00:00 97.9 91 15 110/67 100 Mechanical Ventilator 30 97.9 08/20/17 23:14 96 16 30 08/20/17 21:31 101 120/55 08/20/17 21:31 101 120/55 08/20/17 21:14 100 16 30 08/20/17 20:00 30 08/20/17 20:00 99 08/20/17 20:00 98.1 101 16 120/55 100 Mechanical Ventilator 30 98.1 08/20/17 18:38 93 16 30 08/20/17 17:07 93 16 30 08/20/17 16:00 92 08/20/17 16:00 98.3 93 16 95/59 100 Mechanical Ventilator 30 98.3 08/20/17 16:00 30 Intake and Output 08/20/17 08/21/17 19:00 07:00 Intake Total 600 ml 560 ml Output Total 250 ml Balance 350 ml 560 ml Intake Free Water 50 ml 110 ml Tube Feeding 550 ml 450 ml Output Urine Total 250 ml Laboratory Tests 08/21/17 11:50: Sodium Level 136, Potassium Level 3.4L, Chloride Level 100, Carbon Dioxide Level 27, Anion Gap 9, Blood Urea Nitrogen 65H, Creatinine 2.3H, Estimat Glomerular Filtration Rate 35.0, Glucose Level 117H, Calcium Level 9.0 Height (Feet): 6 Height (Inches): 10.00 Weight (Pounds): 222 Objective CV RR Lungs CTA Abd SNT. BS + E +3 B ankle Sebastián Ramirez MD August 21, 2017 14:40
[2017-08-21 16:00] VITALS: BP 113/64
[2017-08-21 20:00] VITALS: BP 130/73
[2017-08-21] MEDS: Dyna-Hex 2% Top Sol 2oz TOPIC SCH (20:25)
[2017-08-22] VITALS: BP 119/66
[2017-08-22 04:00] VITALS: BP 131/76
[2017-08-22] MEDS: dilTIAZem HCl 60mg tab ORAL SCH ×3 (06:30→22:09)
[2017-08-22] MEDS: Propranolol 40mg tab GT SCH ×3 (06:31→22:09)
--- NOTE | 2017-08-22 07:41 | General Progress Note ---
Assessment/Plan Assessment/Plan IMPRESSION Leukocytosis anemia possible sepsis possible gib trach gt oliguria ARF- worse pulmonary edema PLAN vent support noted maintain meds repeat labs and monitor UO feeds monitor off HD and dc once cleared by renal impression, plan, and exam edited and reviewed in detail care discussed with RN Subjective Allergies: Coded Allergies: No Known Allergies (Unverified , 07/24/17) Subjective labs noted renal function and wbc noted per renal, improving and holding HD Objective Last 24 Hour Vital Signs Date Time Temp Pulse Resp B/P (MAP) Pulse Ox O2 Delivery O2 Flow Rate FiO2 08/22/17 07:11 80 14 30 08/22/17 06:31 81 131/76 08/22/17 06:30 81 131/76 08/22/17 05:26 81 21 30 08/22/17 04:41 78 08/22/17 04:30 Mechanical Ventilator 30 08/22/17 04:00 30 08/22/17 04:00 97.8 80 24 131/76 100 Mechanical Ventilator 30 97.8 08/22/17 02:41 76 14 30 08/22/17 01:30 Mechanical Ventilator 30 08/22/17 00:35 85 20 30 08/22/17 00:06 75 08/22/17 00:00 98.5 75 14 119/66 100 Mechanical Ventilator 30 98.5 08/21/17 22:53 84 20 30 08/21/17 22:30 85 130/73 08/21/17 22:30 85 130/73 08/21/17 20:52 85 14 30 08/21/17 20:00 98.6 84 18 130/73 100 Mechanical Ventilator 30 98.6 08/21/17 20:00 30 08/21/17 19:28 85 16 30 08/21/17 19:27 84 08/21/17 17:04 75 14 30 08/21/17 16:00 30 08/21/17 16:00 98.0 68 14 113/64 100 Mechanical Ventilator 30 98.0 08/21/17 16:00 87 08/21/17 15:19 88 122/70 08/21/17 15:19 88 122/70 08/21/17 15:02 89 15 30 08/21/17 12:52 88 15 30 08/21/17 12:00 97.8 86 15 122/70 99 Mechanical Ventilator 30 97.8 08/21/17 12:00 30 08/21/17 12:00 85 08/21/17 11:28 84 15 30 08/21/17 08:36 81 14 30 08/21/17 08:00 98.3 78 14 104/61 100 Mechanical Ventilator 30 98.3 08/21/17 08:00 30 08/21/17 08:00 76 Intake and Output 08/21/17 08/22/17 19:00 07:00 Intake Total 670 ml 850 ml Output Total 475 ml 600 ml Balance 195 ml 250 ml Intake Free Water 70 ml 350 ml Tube Feeding 600 ml 500 ml Output Urine Total 475 ml 600 ml # Bowel Movements 2 Laboratory Tests 08/21/17 11:50: Sodium Level 136, Potassium Level 3.4L, Chloride Level 100, Carbon Dioxide Level 27, Anion Gap 9, Blood Urea Nitrogen 65H, Creatinine 2.3H, Estimat Glomerular Filtration Rate 35.0, Glucose Level 117H, Calcium Level 9.0 Height (Feet): 6 Height (Inches): 10.00 Weight (Pounds): 217 Objective WDWN trach reduced breath sounds L>R [id number] without MRG NABS nontender no HSM; GT no CC minimal edema weak Michael Vernon MD August 22, 2017 07:41
[2017-08-22 08:00] VITALS: BP 117/75
[2017-08-22] MEDS: Zinc Sulfate 220mg cap GT SCH (08:43)
[2017-08-22] MEDS: Docusate 100mg/10ml Liq GT SCH ×2 (08:43→20:39)
[2017-08-22] MEDS: levETIRAcetam 500mg/5ml Liquid GT SCH ×2 (08:43→20:39)
--- NOTE | 2017-08-22 08:46 | Nephrology Progress Note ---
Assessment/Plan Plan CONSUELO. Patient's creatinine down to 2.2-2.3. Holding off HD. Subjective Subjective Confused. Objective Objective Last 24 Hour Vital Signs Date Time Temp Pulse Resp B/P (MAP) Pulse Ox O2 Delivery O2 Flow Rate FiO2 08/22/17 07:11 80 14 30 08/22/17 06:31 81 131/76 08/22/17 06:30 81 131/76 08/22/17 05:26 81 21 30 08/22/17 04:41 78 08/22/17 04:30 Mechanical Ventilator 30 08/22/17 04:00 30 08/22/17 04:00 97.8 80 24 131/76 100 Mechanical Ventilator 30 97.8 08/22/17 02:41 76 14 30 08/22/17 01:30 Mechanical Ventilator 30 08/22/17 00:35 85 20 30 08/22/17 00:06 75 08/22/17 00:00 98.5 75 14 119/66 100 Mechanical Ventilator 30 98.5 08/21/17 22:53 84 20 30 08/21/17 22:30 85 130/73 08/21/17 22:30 85 130/73 08/21/17 20:52 85 14 30 08/21/17 20:00 98.6 84 18 130/73 100 Mechanical Ventilator 30 98.6 08/21/17 20:00 30 08/21/17 19:28 85 16 30 08/21/17 19:27 84 08/21/17 17:04 75 14 30 08/21/17 16:00 30 08/21/17 16:00 98.0 68 14 113/64 100 Mechanical Ventilator 30 98.0 08/21/17 16:00 87 08/21/17 15:19 88 122/70 08/21/17 15:19 88 122/70 08/21/17 15:02 89 15 30 08/21/17 12:52 88 15 30 08/21/17 12:00 97.8 86 15 122/70 99 Mechanical Ventilator 30 97.8 08/21/17 12:00 30 08/21/17 12:00 85 08/21/17 11:28 84 15 30 Intake and Output 08/21/17 08/22/17 19:00 07:00 Intake Total 670 ml 850 ml Output Total 475 ml 600 ml Balance 195 ml 250 ml Intake Free Water 70 ml 350 ml Tube Feeding 600 ml 500 ml Output Urine Total 475 ml 600 ml # Bowel Movements 2 Laboratory Tests 08/21/17 11:50: Sodium Level 136, Potassium Level 3.4L, Chloride Level 100, Carbon Dioxide Level 27, Anion Gap 9, Blood Urea Nitrogen 65H, Creatinine 2.3H, Estimat Glomerular Filtration Rate 35.0, Glucose Level 117H, Calcium Level 9.0 Height (Feet): 6 Height (Inches): 10.00 Weight (Pounds): 217 Objective CV RR Lungs CTA Abd SNT. BS + E +3 B ankle Sebastián Ramirez MD August 22, 2017 08:46
[2017-08-22] MEDS: Heparin 5000 units/ml inj SUBQ SCH ×2 (08:47→20:45)
--- NOTE | 2017-08-22 10:48 | Infectious Diseases Prog Note ---
Assessment/Plan Assessment/Plan A: 1. MDR Acinetobacter & Serratia pneumonia treated 2. leucocytosis resolved 3. respiratory failure 4. anemia 5. hypertension 6. seizures 7, ESRD started on HD 8. VRE colonization 9- Pleural effusion s/p thoracentesis P 1. observe off antibiotic Subjective ROS Limited/Unobtainable: Yes Allergies: Coded Allergies: No Known Allergies (Unverified , 07/24/17) Objective Vital Signs Last 24 Hour Vital Signs Date Time Temp Pulse Resp B/P (MAP) Pulse Ox O2 Delivery O2 Flow Rate FiO2 08/22/17 08:45 79 18 30 08/22/17 08:00 97.6 80 14 117/75 100 Mechanical Ventilator 30 97.6 08/22/17 07:11 80 14 30 08/22/17 06:31 81 131/76 08/22/17 06:30 81 131/76 08/22/17 05:26 81 21 30 08/22/17 04:41 78 08/22/17 04:30 Mechanical Ventilator 30 08/22/17 04:00 30 08/22/17 04:00 97.8 80 24 131/76 100 Mechanical Ventilator 30 97.8 08/22/17 02:41 76 14 30 08/22/17 01:30 Mechanical Ventilator 30 08/22/17 00:35 85 20 30 08/22/17 00:06 75 08/22/17 00:00 98.5 75 14 119/66 100 Mechanical Ventilator 30 98.5 08/21/17 22:53 84 20 30 08/21/17 22:30 85 130/73 08/21/17 22:30 85 130/73 08/21/17 20:52 85 14 30 08/21/17 20:00 98.6 84 18 130/73 100 Mechanical Ventilator 30 98.6 08/21/17 20:00 30 08/21/17 19:28 85 16 30 08/21/17 19:27 84 08/21/17 17:04 75 14 30 08/21/17 16:00 30 08/21/17 16:00 98.0 68 14 113/64 100 Mechanical Ventilator 30 98.0 08/21/17 16:00 87 08/21/17 15:19 88 122/70 08/21/17 15:19 88 122/70 08/21/17 15:02 89 15 30 08/21/17 12:52 88 15 30 08/21/17 12:00 97.8 86 15 122/70 99 Mechanical Ventilator 30 97.8 08/21/17 12:00 30 08/21/17 12:00 85 08/21/17 11:28 84 15 30 Height (Feet): 6 Height (Inches): 10.00 Weight (Pounds): 217 General Appearance: no acute distress HEENT: status post trach Respiratory/Chest: lungs clear, other - on ventilator Cardiovascular: normal rate, other - Permacath Abdomen: soft, non tender, other - GT feeding Extremities: other - generalized edema Neurologic/Psychiatric: aphasia Laboratory Tests Test 08/21/17 11:50 Sodium Level 136 MMOL/L (136-145) Potassium Level 3.4 MMOL/L (3.5-5.1) L Chloride Level 100 MMOL/L (98-107) Carbon Dioxide Level 27 MMOL/L (21-32) Anion Gap 9 mmol/L (5-15) Blood Urea Nitrogen 65 mg/dL (7-18) H Creatinine 2.3 MG/DL (0.55-1.30) H Estimat Glomerular Filtration Rate 35.0 mL/min (>60) Glucose Level 117 MG/DL (74-106) H Calcium Level 9.0 MG/DL (8.5-10.1) Current Medications Medications (Trade) Dose Ordered Sig/Trina Route PRN Reason Start Time Stop Time Status Last Admin Dose Admin Acetaminophen (Tylenol) 650 mg Q4H PRN GT Mild pain / T > 100.5F 07/25/17 07:00 08/24/17 06:59 08/07/17 23:48 Bisacodyl (Dulcolax) 10 mg DAILYPRN PRN RECTAL CONSTIPATION 07/25/17 07:00 08/24/17 06:59 08/14/17 18:10 Chlorhexidine Gluconate (Joya-Hex 2%) 1 applic DAILY@2000 TOPIC 08/12/17 20:00 09/06/17 19:59 08/21/17 20:25 Diltiazem HCl (Cardizem) 60 mg EVERY 8 HOURS ORAL 08/16/17 22:45 09/15/17 22:44 08/22/17 06:30 Docusate Sodium (Colace) 100 mg DAILY PRN GT Constipation 08/17/17 09:00 09/16/17 08:59 Docusate Sodium (Colace) 250 mg EVERY 12 HOURS GT 08/14/17 21:00 08/24/17 20:59 08/22/17 08:43 Heparin Sodium (Porcine) (Heparin 5000 units/ml) 5,000 units EVERY 12 HOURS SUBQ 08/12/17 21:00 09/04/17 20:59 08/22/17 08:47 Levetiracetam (Keppra) 1,000 mg Q12HR GT 08/12/17 21:00 08/24/17 20:59 08/22/17 08:43 Levothyroxine Sodium (Synthroid) 50 mcg DAILY@0600 GT 08/14/17 06:00 09/13/17 05:59 08/22/17 06:31 Magnesium Hydroxide (Mom) 30 ml HSPRN PRN GT Constipation 07/25/17 21:00 08/24/17 20:59 07/28/17 20:43 Ondansetron HCl (Zofran) 4 mg Q8H PRN GT Nausea & Vomiting 07/25/17 07:00 08/24/17 06:59 Propranolol HCl (Inderal) 40 mg Q8HR GT 08/12/17 22:00 09/11/17 21:59 08/22/17 06:31 Zinc Sulfate (Zinc Sulfate) 220 mg DAILY GT 08/13/17 09:00 08/24/17 08:59 08/22/17 08:43 RACHEL HENDERSON August 22, 2017 10:48
[2017-08-22 12:00] VITALS: BP 123/67
[2017-08-22 16:00] VITALS: BP 115/55
[2017-08-22 20:00] VITALS: BP 126/72
[2017-08-22] MEDS: Dyna-Hex 2% Top Sol 2oz TOPIC SCH (20:39)
[2017-08-23] VITALS: BP 122/72
--- NOTE | 2017-08-23 02:15 | Progress Note ---
DATE: 08/21/2017 CARDIOLOGY PROGRESS NOTE Late entry for 08/21/2017 SUBJECTIVE: No new distress. He remains on trach collar with no distress. OBJECTIVE: VITAL SIGNS: Blood pressure 110/64, pulse 71, and respirations 18. LUNGS: Coarse breath sounds. HEART: Regular rhythm and rate. Normal S1 and S2. ABDOMEN: Soft. EXTREMITIES: No edema. LABORATORY DATA: Potassium 3.4. BUN 65 and creatinine 2.3. IMPRESSION: 1. Paroxysmal supraventricular tachyarrhythmias, now suppressed. 2. Acute renal failure, improved. 3. Respiratory failure. 4. Chronic diastolic congestive heart failure. PLAN: 1. Monitor volume status and cardiorenal parameters off hemodialysis. 2. Continue arrhythmia suppression with diltiazem. Russell Wade M.D. DR: Shanti JOB#: [id number] CC:
--- NOTE | 2017-08-23 02:30 | Progress Note ---
DATE: 08/22/2017 CARDIOLOGY PROGRESS NOTE SUBJECTIVE: Status unchanged, being improved off dialysis. OBJECTIVE: VITAL SIGNS: Blood pressure 131/76, pulse 81, respirations 20. Monitor is sinus with rare atrial ectopics. LUNGS: Clear. CARDIAC: Regular. ABDOMEN: Soft. G-tube intact. EXTREMITIES: A 1+ dependent lower extremity edema. LABORATORY DATA: No new labs today. PLAN: 1. Continue diltiazem. 2. Monitor volume status and cardiorenal parameters. 3. Hold hemodialysis. 4. Respiratory therapy via tracheostomy. Russell Wade M.D. DR: Shanti JOB#: [id number] CC:
[2017-08-23 04:00] VITALS: BP 119/74
[2017-08-23 04:45] LABS: ANION GAP 9 mmol/L (5-15); BLOOD UREA NITROGEN 53 mg/dL (7-18); CALCIUM 9.1 MG/DL (8.5-10.1); CARBON DIOXIDE 26 MMOL/L (21-32); CHLORIDE 99 MMOL/L (98-107); CREATININE 1.5 MG/DL (0.55-1.30); POTASSIUM 3.2 MMOL/L (3.5-5.1); SODIUM 134 MMOL/L (136-145)
[2017-08-23] MEDS: dilTIAZem HCl 60mg tab ORAL SCH ×3 (05:28→22:06)
[2017-08-23] MEDS: Propranolol 40mg tab GT SCH ×3 (05:29→22:06)
[2017-08-23 08:00] VITALS: BP 109/86
[2017-08-23] MEDS: levETIRAcetam 500mg/5ml Liquid GT SCH ×2 (08:47→22:05)
[2017-08-23] MEDS: Zinc Sulfate 220mg cap GT SCH (08:47)
[2017-08-23] MEDS: Heparin 5000 units/ml inj SUBQ SCH ×2 (08:48→22:08)
[2017-08-23] MEDS: Docusate 100mg/10ml Liq GT SCH ×2 (09:13→21:00)
--- NOTE | 2017-08-23 09:41 | General Progress Note ---
Assessment/Plan Assessment/Plan IMPRESSION Leukocytosis anemia possible sepsis possible gib trach gt oliguria ARF- worse pulmonary edema PLAN vent support noted dc to snf off antibiotics monitor renal function after dc impression, plan, and exam edited and reviewed in detail care discussed with RN Subjective Allergies: Coded Allergies: No Known Allergies (Unverified , 07/24/17) Subjective labs improved renal function and wbc noted per renal, improving and holding HD off antibiotics Objective Last 24 Hour Vital Signs Date Time Temp Pulse Resp B/P (MAP) Pulse Ox O2 Delivery O2 Flow Rate FiO2 08/23/17 09:10 76 14 30 08/23/17 07:10 70 14 30 08/23/17 05:43 79 14 30 08/23/17 05:29 78 119/74 08/23/17 05:28 78 119/74 08/23/17 05:11 78 08/23/17 04:00 97.0 78 15 119/74 99 Mechanical Ventilator 30 97.0 08/23/17 04:00 30 08/23/17 03:43 81 18 30 08/23/17 01:30 74 14 30 08/23/17 00:00 97.2 85 21 122/72 100 Mechanical Ventilator 30 97.2 08/23/17 00:00 30 08/22/17 23:59 76 08/22/17 23:36 77 14 30 08/22/17 22:09 80 126/72 08/22/17 22:09 80 126/72 08/22/17 20:56 80 20 30 08/22/17 20:00 75 08/22/17 20:00 97.5 78 15 126/72 100 Mechanical Ventilator 30 97.5 08/22/17 20:00 30 08/22/17 19:44 76 23 30 08/22/17 16:51 68 24 30 08/22/17 16:00 97.7 64 16 115/55 100 Mechanical Ventilator 30 97.7 08/22/17 16:00 30 08/22/17 16:00 70 08/22/17 15:06 83 123/67 08/22/17 15:06 83 123/67 08/22/17 14:53 83 16 30 08/22/17 12:48 86 15 30 08/22/17 12:00 87 08/22/17 12:00 97.6 81 18 123/67 100 Mechanical Ventilator 30 97.6 08/22/17 12:00 30 08/22/17 10:40 79 19 30 Intake and Output 08/22/17 08/23/17 19:00 07:00 Intake Total 700 ml 775 ml Output Total 250 ml 400 ml Balance 450 ml 375 ml Intake Free Water 150 ml 150 ml Tube Feeding 550 ml 525 ml Other 100 ml Output Urine Total 250 ml 400 ml # Bowel Movements 2 2 Laboratory Tests 08/23/17 04:05: Sodium Level 134L, Potassium Level 3.2L, Chloride Level 99, Carbon Dioxide Level 26, Anion Gap 9, Blood Urea Nitrogen 53H, Creatinine 1.5H, Estimat Glomerular Filtration Rate 57.3, Glucose Level 135H, Calcium Level 9.1 Height (Feet): 6 Height (Inches): 10.00 Weight (Pounds): 222 Objective WDWN trach reduced breath sounds L>R [id number] without MRG NABS nontender no HSM; GT no CC minimal edema weak Michael Vernon MD August 23, 2017 09:41
--- NOTE | 2017-08-23 09:58 | Nephrology Progress Note ---
Assessment/Plan Plan CONSUELO. Patient's creatinine down to 1.5. HD stopped. K 3.2 Subjective Subjective Confused. Objective Objective Last 24 Hour Vital Signs Date Time Temp Pulse Resp B/P (MAP) Pulse Ox O2 Delivery O2 Flow Rate FiO2 08/23/17 09:10 76 14 30 08/23/17 08:00 68 08/23/17 07:10 70 14 30 08/23/17 05:43 79 14 30 08/23/17 05:29 78 119/74 08/23/17 05:28 78 119/74 08/23/17 05:11 78 08/23/17 04:00 97.0 78 15 119/74 99 Mechanical Ventilator 30 97.0 08/23/17 04:00 30 08/23/17 03:43 81 18 30 08/23/17 01:30 74 14 30 08/23/17 00:00 97.2 85 21 122/72 100 Mechanical Ventilator 30 97.2 08/23/17 00:00 30 08/22/17 23:59 76 08/22/17 23:36 77 14 30 08/22/17 22:09 80 126/72 08/22/17 22:09 80 126/72 08/22/17 20:56 80 20 30 08/22/17 20:00 75 08/22/17 20:00 97.5 78 15 126/72 100 Mechanical Ventilator 30 97.5 08/22/17 20:00 30 08/22/17 19:44 76 23 30 08/22/17 16:51 68 24 30 08/22/17 16:00 97.7 64 16 115/55 100 Mechanical Ventilator 30 97.7 08/22/17 16:00 30 08/22/17 16:00 70 08/22/17 15:06 83 123/67 08/22/17 15:06 83 123/67 08/22/17 14:53 83 16 30 08/22/17 12:48 86 15 30 08/22/17 12:00 87 08/22/17 12:00 97.6 81 18 123/67 100 Mechanical Ventilator 30 97.6 08/22/17 12:00 30 08/22/17 10:40 79 19 30 Intake and Output 08/22/17 08/23/17 19:00 07:00 Intake Total 700 ml 775 ml Output Total 250 ml 400 ml Balance 450 ml 375 ml Intake Free Water 150 ml 150 ml Tube Feeding 550 ml 525 ml Other 100 ml Output Urine Total 250 ml 400 ml # Bowel Movements 2 2 Laboratory Tests 08/23/17 04:05: Sodium Level 134L, Potassium Level 3.2L, Chloride Level 99, Carbon Dioxide Level 26, Anion Gap 9, Blood Urea Nitrogen 53H, Creatinine 1.5H, Estimat Glomerular Filtration Rate 57.3, Glucose Level 135H, Calcium Level 9.1 Height (Feet): 6 Height (Inches): 10.00 Weight (Pounds): 222 Objective CV RR Lungs CTA Abd SNT. BS + E +3 B ankle Sebastián Ramirez MD August 23, 2017 09:58
--- NOTE | 2017-08-23 11:06 | Infectious Diseases Prog Note ---
"Assessment/Plan Assessment/Plan antibiotics : none A 1. acenitobacter | serratia pneumonia s/p rx 2. leucocytosis resolved 3. respiratory failure 4. anemia 5. hypertension 6. seizures 7. renal failure improving 8. rectal VRE colonization P 1. continue off antibiotics Subjective ROS Limited/Unobtainable: Yes Allergies: Coded Allergies: No Known Allergies (Unverified , 07/24/17) Objective Vital Signs Last 24 Hour Vital Signs Date Time Temp Pulse Resp B/P (MAP) Pulse Ox O2 Delivery O2 Flow Rate FiO2 08/23/17 10:51 71 14 30 08/23/17 09:10 76 14 30 08/23/17 08:00 68 08/23/17 07:10 70 14 30 08/23/17 05:43 79 14 30 08/23/17 05:29 78 119/74 08/23/17 05:28 78 119/74 08/23/17 05:11 78 08/23/17 04:00 97.0 78 15 119/74 99 Mechanical Ventilator 30 97.0 08/23/17 04:00 30 08/23/17 03:43 81 18 30 08/23/17 01:30 74 14 30 08/23/17 00:00 97.2 85 21 122/72 100 Mechanical Ventilator 30 97.2 08/23/17 00:00 30 08/22/17 23:59 76 08/22/17 23:36 77 14 30 08/22/17 22:09 80 126/72 08/22/17 22:09 80 126/72 08/22/17 20:56 80 20 30 08/22/17 20:00 75 08/22/17 20:00 97.5 78 15 126/72 100 Mechanical Ventilator 30 97.5 08/22/17 20:00 30 08/22/17 19:44 76 23 30 08/22/17 16:51 68 24 30 08/22/17 16:00 97.7 64 16 115/55 100 Mechanical Ventilator 30 97.7 08/22/17 16:00 30 08/22/17 16:00 70 08/22/17 15:06 83 123/67 08/22/17 15:06 83 123/67 08/22/17 14:53 83 16 30 08/22/17 12:48 86 15 30 08/22/17 12:00 87 08/22/17 12:00 97.6 81 18 123/67 100 Mechanical Ventilator 30 97.6 08/22/17 12:00 30 Height (Feet): 6 Height (Inches): 10.00 Weight (Pounds): 222 HEENT: status post trach Respiratory/Chest: lungs clear Cardiovascular: normal rate, regular rhythm, no gallop/murmur Abdomen: soft, non tender, other - GT Extremities: other - + edema Laboratory Tests Test 08/23/17 04:05 Sodium Level 134 MMOL/L (136-145) L Potassium Level 3.2 MMOL/L (3.5-5.1) L Chloride Level 99 MMOL/L (98-107) Carbon Dioxide Level 26 MMOL/L (21-32) Anion Gap 9 mmol/L (5-15) Blood Urea Nitrogen 53 mg/dL (7-18) H Creatinine 1.5 MG/DL (0.55-1.30) H Estimat Glomerular Filtration Rate 57.3 mL/min (>60) Glucose Level 135 MG/DL (74-106) H Calcium Level 9.1 MG/DL (8.5-10.1) Current Medications Medications (Trade) Dose Ordered Sig/Trina Route PRN Reason Start Time Stop Time Status Last Admin Dose Admin Acetaminophen (Tylenol) 650 mg Q4H PRN GT Mild pain / T > 100.5F 07/25/17 07:00 08/24/17 06:59 08/07/17 23:48 Bisacodyl (Dulcolax) 10 mg DAILYPRN PRN RECTAL CONSTIPATION 07/25/17 07:00 08/24/17 06:59 08/14/17 18:10 Chlorhexidine Gluconate (Joya-Hex 2%) 1 applic DAILY@2000 TOPIC 08/12/17 20:00 09/06/17 19:59 08/22/17 20:39 Diltiazem HCl (Cardizem) 60 mg EVERY 8 HOURS ORAL 08/16/17 22:45 09/15/17 22:44 08/23/17 05:28 Docusate Sodium (Colace) 100 mg DAILY PRN GT Constipation 08/17/17 09:00 09/16/17 08:59 Docusate Sodium (Colace) 250 mg EVERY 12 HOURS GT 08/14/17 21:00 08/24/17 20:59 08/23/17 09:13 Heparin Sodium (Porcine) (Heparin 5000 units/ml) 5,000 units EVERY 12 HOURS SUBQ 08/12/17 21:00 09/04/17 20:59 08/23/17 08:48 Levetiracetam (Keppra) 1,000 mg Q12HR GT 08/12/17 21:00 08/24/17 20:59 08/23/17 08:47 Levothyroxine Sodium (Synthroid) 50 mcg DAILY@0600 GT 08/14/17 06:00 09/13/17 05:59 08/23/17 05:29 Magnesium Hydroxide (Mom) 30 ml HSPRN PRN GT Constipation 07/25/17 21:00 08/24/17 20:59 07/28/17 20:43 Ondansetron HCl (Zofran) 4 mg Q8H PRN GT Nausea & Vomiting 07/25/17 07:00 08/24/17 06:59 Potassium Chloride 100 ml @ 100 mls/hr Q1H IVPB 08/23/17 11:00 08/23/17 13:59 08/23/17 10:55 Propranolol HCl (Inderal) 40 mg Q8HR GT 08/12/17 22:00 09/11/17 21:59 08/23/17 05:29 Zinc Sulfate (Zinc Sulfate) 220 mg DAILY GT 08/13/17 09:00 08/24/17 08:59 08/23/17 08:47 MOISÉS VILLARREAL August 23, 2017 11:06"
[2017-08-23 12:00] VITALS: BP 119/74
[2017-08-23 16:00] VITALS: BP 115/72
[2017-08-23 20:00] VITALS: BP 122/66
[2017-08-23] MEDS: Dyna-Hex 2% Top Sol 2oz TOPIC SCH (22:05)
[2017-08-24] VITALS: BP 116/69
[2017-08-24 04:00] VITALS: BP 128/73
--- NOTE | 2017-08-24 04:00 | Progress Note ---
DATE: 08/23/2017 CARDIOLOGY PROGRESS NOTE SUBJECTIVE: The patient is unable to communicate. No distress noted. OBJECTIVE: VITAL SIGNS: Blood pressure 119/74, heart rate 78, respiratory rate 16, and afebrile. LUNGS: Clear. Trach site with thin secretions. CARDIAC: Regular. ABDOMEN: Soft. G-tube site intact. EXTREMITIES: No edema. LABORATORY DATA: Sodium 134, potassium 3.2, bicarb 26, BUN 53, and creatinine 1.5. IMPRESSION: 1. Acute renal failure, recovering. 2. Chronic diastolic congestive heart failure. 3. Paroxysmal atrial ectopy. PLAN: 1. Continue current regimen. 2. Observe off dialysis. 3. Continue diltiazem. Dosing adjustment based on clinical parameters. Russell Wade M.D. DR: CRISTINE JOB#: [id number] CC:
[2017-08-24] MEDS: Propranolol 40mg tab GT SCH ×2 (06:33→14:49)
[2017-08-24] MEDS: dilTIAZem HCl 60mg tab ORAL SCH ×2 (06:33→14:00)
--- NOTE | 2017-08-24 07:00 | Diagnostic Imaging Report ---
APPROVED REPORT CPT Code: 27162 Present Symptoms Comments: BILATERAL ARMS PAIN. BILATERAL UPPER EXTREMITY: Imaging reveals patency of the internal jugular, subclavian, axillary and brachial veins. The cephalic and basilic veins are also patent. Doppler indicates normal spontaneous flow within these venous segments, bilaterally.. The left cephalic and basilic vein was not well visualized.
--- NOTE | 2017-08-24 07:00 | Diagnostic Imaging Report ---
APPROVED REPORT CPT Code: 82423 Comments Pain RIGHT LEG: Common femoral artery waveform analysis is within normal limits at rest. Color flow duplex sonography reveals calcification throughout the superficial femoral artery. There is no evidence of significant stenosis or occlusion within these segments. The popliteal artery was patent. The tibioperoneal trunk was not well visualized. The distal posterior, anterior tibial and dorsalis pedis arteries are patent. Doppler tibial artery waveform analysis, consistent with minimal ischemia at rest. LEFT LEG: Common femoral artery waveform analysis is within normal limits at rest. Color flow duplex sonography reveals calcification throughout the superficial femoral artery. There is no evidence of significant stenosis or occlusion within these segments. The popliteal artery was patent. The tibioperoneal trunk was not well visualized. The distal posterior, anterior tibial and dorsalis pedis arteries are patent. Doppler tibial artery waveform analysis, consistent with mild ischemia at rest.
--- NOTE | 2017-08-24 07:00 | Diagnostic Imaging Report ---
APPROVED REPORT CPT Code: 53531 Present Symptoms Comments: BILATERAL LEGS PAIN. BILATERAL: Imaging reveals a patent deep venous system bilaterally. There is no evidence of thrombus within the femoral, popliteal or tibial segments. The greater saphenous veins are also within normal limits. Doppler indicates normal spontaneous flow within these segments.
--- NOTE | 2017-08-24 07:00 | Diagnostic Imaging Report ---
APPROVED REPORT CPT Code: 30768 BILATERAL UPPER EXTREMITY: Imaging of the subclavian, axillary, brachial, radial and ulnar arteries is within normal limits. There is no evidence of stenosis or occlusions within these segments. The Doppler waveforms of both upper extremities are multiphasic, consistent with normal inflow to both upper extremities.
[2017-08-24 08:00] VITALS: BP 113/63
--- NOTE | 2017-08-24 08:13 | General Progress Note ---
Assessment/Plan Assessment/Plan IMPRESSION Leukocytosis anemia possible sepsis possible gib trach gt oliguria ARF- worse pulmonary edema PLAN vent support noted dc to snf pending bed off antibiotics monitor renal function closely impression, plan, and exam edited and reviewed in detail care discussed with RN Subjective ROS Limited/Unobtainable: Yes Allergies: Coded Allergies: No Known Allergies (Unverified , 07/24/17) Subjective no labs off antibiotics Objective Last 24 Hour Vital Signs Date Time Temp Pulse Resp B/P (MAP) Pulse Ox O2 Delivery O2 Flow Rate FiO2 08/24/17 06:33 85 128/73 08/24/17 06:33 85 128/73 08/24/17 05:19 84 15 30 08/24/17 04:00 98.4 85 18 128/73 96 Mechanical Ventilator 30 98.4 08/24/17 04:00 30 08/24/17 03:46 86 08/24/17 03:30 85 17 30 08/24/17 01:30 79 18 30 08/24/17 00:16 77 08/24/17 00:00 30 08/24/17 00:00 98.3 74 17 116/69 100 Mechanical Ventilator 30 98.3 08/23/17 23:26 78 17 30 08/23/17 22:06 86 122/66 08/23/17 22:06 86 122/86 08/23/17 21:30 84 16 30 08/23/17 20:00 30 08/23/17 20:00 97.9 86 15 122/66 100 Mechanical Ventilator 30 97.9 08/23/17 19:27 88 18 30 08/23/17 19:08 85 08/23/17 17:20 78 16 30 08/23/17 16:00 30 08/23/17 16:00 97.2 74 20 115/72 99 Mechanical Ventilator 30 97.2 08/23/17 16:00 74 08/23/17 15:00 72 16 30 08/23/17 14:20 84 108/72 08/23/17 14:20 84 108/72 08/23/17 12:55 72 16 30 08/23/17 12:00 30 08/23/17 12:00 97.0 78 16 119/74 99 Mechanical Ventilator 30 97.0 08/23/17 11:51 82 08/23/17 10:51 71 14 30 08/23/17 09:10 76 14 30 Intake and Output 08/23/17 08/24/17 19:00 07:00 Intake Total 1040 ml 910 ml Output Total 400 ml 500 ml Balance 640 ml 410 ml Intake Free Water 440 ml 300 ml Tube Feeding 600 ml 550 ml Other 60 ml Output Urine Total 400 ml 500 ml # Bowel Movements 1 Height (Feet): 6 Height (Inches): 10.00 Weight (Pounds): 224 Objective WDWN trach reduced breath sounds L>R [id number] without MRG NABS nontender no HSM; GT no CC minimal edema weak Michael Vernon MD August 24, 2017 08:13
[2017-08-24] MEDS: levETIRAcetam 500mg/5ml Liquid GT SCH (08:25)
[2017-08-24] MEDS: Docusate 100mg/10ml Liq GT SCH (08:26)
[2017-08-24] MEDS: Zinc Sulfate 220mg cap GT SCH (08:26)
[2017-08-24] MEDS: Heparin 5000 units/ml inj SUBQ SCH (08:26)
--- NOTE | 2017-08-24 09:53 | Infectious Diseases Prog Note ---
Assessment/Plan Assessment/Plan A: 1. MDR Acinetobacter & Serratia pneumonia treated 2. leucocytosis resolved 3. respiratory failure 4. anemia 5. hypertension 6. seizures 7, ESRD started on HD 8. VRE colonization 9- Pleural effusion s/p thoracentesis P 1. observe off antibiotic Subjective ROS Limited/Unobtainable: Yes Allergies: Coded Allergies: No Known Allergies (Unverified , 07/24/17) Objective Vital Signs Last 24 Hour Vital Signs Date Time Temp Pulse Resp B/P (MAP) Pulse Ox O2 Delivery O2 Flow Rate FiO2 08/24/17 09:08 78 16 30 08/24/17 08:00 97.7 73 14 113/63 97 Mechanical Ventilator 30 97.7 08/24/17 08:00 73 08/24/17 07:01 76 17 30 08/24/17 06:33 85 128/73 08/24/17 06:33 85 128/73 08/24/17 05:19 84 15 30 08/24/17 04:00 98.4 85 18 128/73 96 Mechanical Ventilator 30 98.4 08/24/17 04:00 30 08/24/17 03:46 86 08/24/17 03:30 85 17 30 08/24/17 01:30 79 18 30 08/24/17 00:16 77 08/24/17 00:00 30 08/24/17 00:00 98.3 74 17 116/69 100 Mechanical Ventilator 30 98.3 08/23/17 23:26 78 17 30 08/23/17 22:06 86 122/66 08/23/17 22:06 86 122/86 08/23/17 21:30 84 16 30 08/23/17 20:00 30 08/23/17 20:00 97.9 86 15 122/66 100 Mechanical Ventilator 30 97.9 08/23/17 19:27 88 18 30 08/23/17 19:08 85 08/23/17 17:20 78 16 30 08/23/17 16:00 30 08/23/17 16:00 97.2 74 20 115/72 99 Mechanical Ventilator 30 97.2 08/23/17 16:00 74 08/23/17 15:00 72 16 30 08/23/17 14:20 84 108/72 08/23/17 14:20 84 108/72 08/23/17 12:55 72 16 30 08/23/17 12:00 30 08/23/17 12:00 97.0 78 16 119/74 99 Mechanical Ventilator 30 97.0 08/23/17 11:51 82 08/23/17 10:51 71 14 30 Height (Feet): 6 Height (Inches): 10.00 Weight (Pounds): 224 General Appearance: no acute distress HEENT: status post trach Respiratory/Chest: lungs clear, other - on ventilator Cardiovascular: normal rate, other - R Permacath Abdomen: soft, non tender, other - GT feeding Extremities: other - generalized edema Neurologic/Psychiatric: unresponsiveness Current Medications Medications (Trade) Dose Ordered Sig/Trina Route PRN Reason Start Time Stop Time Status Last Admin Dose Admin Chlorhexidine Gluconate (Joya-Hex 2%) 1 applic DAILY@1999 TOPIC 08/12/17 20:00 09/06/17 19:59 08/23/17 22:05 Diltiazem HCl (Cardizem) 60 mg EVERY 8 HOURS ORAL 08/16/17 22:45 09/15/17 22:44 08/24/17 06:33 Docusate Sodium (Colace) 100 mg DAILY PRN GT Constipation 08/17/17 09:00 09/16/17 08:59 Docusate Sodium (Colace) 250 mg EVERY 12 HOURS GT 08/14/17 21:00 08/24/17 20:59 08/23/17 09:13 Heparin Sodium (Porcine) (Heparin 5000 units/ml) 5,000 units EVERY 12 HOURS SUBQ 08/12/17 21:00 09/04/17 20:59 08/24/17 08:26 Levetiracetam (Keppra) 1,000 mg Q12HR GT 08/12/17 21:00 08/24/17 20:59 08/24/17 08:25 Levothyroxine Sodium (Synthroid) 50 mcg DAILY@06 GT 08/14/17 06:00 09/13/17 05:59 08/24/17 06:33 Magnesium Hydroxide (Mom) 30 ml HSPRN PRN GT Constipation 07/25/17 21:00 08/24/17 20:59 07/28/17 20:43 Propranolol HCl (Inderal) 40 mg Q8HR GT 08/12/17 22:00 09/11/17 21:59 08/24/17 06:33 RACHEL HENDERSON August 24, 2017 09:53
[2017-08-24 12:00] VITALS: BP 126/73
[2017-08-24 13:03] LABS: ANION GAP 7 mmol/L (5-15); BLOOD UREA NITROGEN 55 mg/dL (7-18); CARBON DIOXIDE 27 MMOL/L (21-32); CHLORIDE 98 MMOL/L (98-107); CREATININE 1.3 MG/DL (0.55-1.30); POTASSIUM 3.8 MMOL/L (3.5-5.1); SODIUM 132 MMOL/L (136-145)
[2017-08-24] MEDS ORDERED: Lidocaine 2% 20mg/ml/Epi 0.005mg/ml 20ml vial INJ ONE (15:00)
[2017-08-24 16:00] VITALS: BP 135/75
--- NOTE | 2017-08-24 16:09 | Nephrology Progress Note ---
Assessment/Plan Plan CONSUELO. Patient's creatinine down to 1.3 Off HD [facility]'ed DC to SNF. Subjective Subjective Confused. Objective Objective Last 24 Hour Vital Signs Date Time Temp Pulse Resp B/P (MAP) Pulse Ox O2 Delivery O2 Flow Rate FiO2 08/24/17 15:13 89 15 30 08/24/17 14:49 82 126/73 08/24/17 14:00 82 126/73 08/24/17 13:17 82 16 30 08/24/17 12:00 97.4 81 16 126/73 100 Mechanical Ventilator 30 97.4 08/24/17 12:00 30 08/24/17 12:00 79 08/24/17 11:39 53 14 Mechanical Ventilator 30 08/24/17 11:16 81 15 30 08/24/17 09:08 78 16 30 08/24/17 08:00 97.7 73 14 113/63 97 Mechanical Ventilator 30 97.7 08/24/17 08:00 30 08/24/17 08:00 73 08/24/17 07:01 76 17 30 08/24/17 06:33 85 128/73 08/24/17 06:33 85 128/73 08/24/17 05:19 84 15 30 08/24/17 04:00 98.4 85 18 128/73 96 Mechanical Ventilator 30 98.4 08/24/17 04:00 30 08/24/17 03:46 86 08/24/17 03:30 85 17 30 08/24/17 01:30 79 18 30 08/24/17 00:16 77 08/24/17 00:00 30 08/24/17 00:00 98.3 74 17 116/69 100 Mechanical Ventilator 30 98.3 08/23/17 23:26 78 17 30 08/23/17 22:06 86 122/66 08/23/17 22:06 86 122/86 08/23/17 21:30 84 16 30 08/23/17 20:00 30 08/23/17 20:00 97.9 86 15 122/66 100 Mechanical Ventilator 30 97.9 08/23/17 19:27 88 18 30 08/23/17 19:08 85 08/23/17 17:20 78 16 30 Intake and Output 08/23/17 08/24/17 19:00 07:00 Intake Total 1040 ml 910 ml Output Total 400 ml 500 ml Balance 640 ml 410 ml Intake Free Water 440 ml 300 ml Tube Feeding 600 ml 550 ml Other 60 ml Output Urine Total 400 ml 500 ml # Bowel Movements 1 Laboratory Tests 08/24/17 12:10: Sodium Level 132L, Potassium Level 3.8, Chloride Level 98, Carbon Dioxide Level 27, Anion Gap 7, Blood Urea Nitrogen 55H, Creatinine 1.3, Estimat Glomerular Filtration Rate > 60, Glucose Level 126H, Calcium Level 9.0 Height (Feet): 6 Height (Inches): 10.00 Weight (Pounds): 224 Objective CV RR Lungs CTA Abd SNT. BS + E +3 B ankle Sebastián Ramirez MD August 24, 2017 16:09
--- NOTE | 2017-08-24 18:00 | Progress Note ---
DATE: 08/24/2017 CARDIOLOGY PROGRESS NOTE SUBJECTIVE: The patient is off dialysis. Renal parameters have remained stable. OBJECTIVE: VITAL SIGNS: Blood pressure is 128/73, heart rate 85, and respiratory rate 15. Monitor, sinus rhythm with rare atrial ectopy. LUNGS: Coarse breath sounds. Thin trach secretions. HEART: Regular rhythm and rate. Normal S1, S2. ABDOMEN: Soft. G-tube intact. EXTREMITIES: Trace edema. IMPRESSION: 1. Paroxysmal atrial ectopy. 2. Respiratory failure with tracheostomy. 3. Acute renal failure, recovered. 4. Acute on chronic diastolic congestive heart failure, improving. PLAN: 1. Maintain current cardiovascular regimen. 2. Monitor volume status. 3. Adjust therapy accordingly. 4. Avoid potential for hypotension at this time. Russell Wade M.D. DR: CRISTINE JOB#: [id number] CC:
[2017-08-24 20:00] VITALS: BP 130/78
[2017-08-24] MEDS ORDERED: NS 275ml ONE (20:49)
[2017-08-24] MEDS ORDERED: Sterile Water Irrig 1000ml IRRIG ONE (20:49)
[2017-08-24] MEDS ORDERED: Tubing IV Secondary IV ONE (20:49)
--- NOTE | 2017-08-25 13:32 | Discharge Summary ---
Discharge Summary Discharge Summary _ DATE OF ADMISSION: 07/24/2017 DATE OF DISCHARGE: 08/24/2017 CONSULTANTS: Dr. Paul Styles BRIEF HOSPITAL COURSE: Patient is a 62-year-old male, with history of chronic respiratory failure on trach and G-tube, presented to ED for evaluation of anemia. There was no report of vomiting, no rectal bleeding. He has medical history significant for respiratory failure, old CVA, renal insufficiency, intracranial hemorrhage, coma , seizure, and hypertension. On evaluation at ED, he was noted to have anemia. Hemoglobin was 8.6, hematocrit was 25. WBC was elevated to 15. He had EKG that showed normal sinus rhythm with nonspecific ST to T wave changes. Chest x-ray showed cardiomegaly with pulmonary congestion. He was admitted for evaluation of anemia and possible sepsis, possible GI bleed. He was started empirically on IV vancomycin and Zosyn. He was continued on vent support. She required blood transfusions and received 5 units packed RBC blood trasnfusion during whole hospital stay. Batch Freezer was consulted. He was noted to have elevated BUN and creatinine. Renal parameters were monitored. Sputum was growing gram-negative organisms. Vancomycin was discontinued. He was given Tygacil and inhaled colistin. Culture showed growth acinetobacter/ and serratia, antibiotic was switched to meropenem and minocycline. Renal function continued to decline. Renal ultrasound showed right renal cyst otherwise negative. Patient had oligoria. GFR was less than 15. Creatinine clearance was 10. A non-tunneled hemodialysis catheter was inserted on 2017. He was then started on hemodialysis. He continued to have renal decline. A tunneled catheter was inserted to the right transjugular on 2017. He underwent vascular consult. He had vein mapping done. He had an elevated troponin. He was continued on beta jessica. Echocardiogram showed left ventricular ejection fraction of 55-60%. There was mild aortic regurgitation, trace mitral regurgitation and mild pulmonary hypertension. He had episodes of supraventricular tachyarrhythmia. Minoxidil was discontinued, he was given diltiazem. He was continued on vent support, chest x-ray showed increasing bilateral effusions. She underwent ultrasound-guided thoracentesis yielding 2300 mL of fluid from the left chest. Post thoracentesis there was nearly resolved left sided pleural effusion, no radiographically evident complication. He completed antibiotic treatment and was observed off antibiotic treatment. Blood culture did not isolate any growth. C. difficile was negative. Renal parameters were monitored and down trended. He was stable off hemodialysis. He was eventually taken off hemodialysis and HD catheter was removed. He came in with a left sacral stage III pressure ulcer. He was given local wound care and frequent turning and repositioning. He was eventually discharged back to detention. FINAL DIAGNOSES: Leukocytosis, possible sepsis Acute renal failure, required hemodialysis, recovered. Acute on chronic respiratory failure Acute on chronic diastolic congestive heart failure MDR Acinetobacter & Serratia pneumonia Pleural effusion requiring thoracentesis Pulmonary edema Anemia, possible GI bleed Anemia requiring blood transfusion Hypertension Seizure disorder VRE colonization Paroxysmal atrial ectopy DISPOSITION: Patient was transferred to [facility]. I have been assigned to dictate discharge summary on this account, and I was not involved in the patient's management. Paz Carbajal NP August 25, 2017 13:32
== END 2017-08-24 20:50 | DRG 720 ==
LOC: EDBD 19:09 → EMR 19:54 → 2W 22:20 → EDBEDREQSVC 22:24 → EDBEDREQ 22:26 → 2W 08-08 14:00
PROC: 5A1955Z Respiratory Ventilation, Greater than 96 Consecutive Hours (ICD-10-PCS; principal; 2017-07-29)
PROC: 05HM33Z Insertion of Infusion Device into Right Internal Jugular Vein, Percutaneous Approach (ICD-10-PCS; 2017-08-07)
PROC: 5A1D70Z Performance of Urinary Filtration, Intermittent, Less than 6 Hours Per Day (ICD-10-PCS; 2017-08-08)
PROC: 0W9B3ZZ Drainage of Left Pleural Cavity, Percutaneous Approach (ICD-10-PCS; 2017-08-15)
PROC: 05HM33Z Insertion of Infusion Device into Right Internal Jugular Vein, Percutaneous Approach (ICD-10-PCS; 2017-08-17)
PROC: B513ZZA Fluoroscopy of Right Jugular Veins, Guidance (ICD-10-PCS; 2017-08-17)
PROC: 0JH63XZ Insertion of Tunneled Vascular Access Device into Chest Subcutaneous Tissue and Fascia, Percutaneous Approach (ICD-10-PCS; 2017-08-17)
DX: A41.9 Sepsis, unspecified organism (principal); J96.20 Acute and chronic respiratory failure, unspecified whether with hypoxia or hypercapnia; I50.33 Acute on chronic diastolic (congestive) heart failure; G93.1 Anoxic brain damage, not elsewhere classified; J90 Pleural effusion, not elsewhere classified; J15.6 Pneumonia due to other Gram-negative bacteria; N17.9 Acute kidney failure, unspecified; Z99.11 Dependence on respirator [ventilator] status; L89.153 Pressure ulcer of sacral region, stage 3; K92.2 Gastrointestinal hemorrhage, unspecified; Z93.0 Tracheostomy status; Z93.1 Gastrostomy status; D64.9 Anemia, unspecified; G93.2 Benign intracranial hypertension; I13.2 Hypertensive heart and chronic kidney disease with heart failure and with stage 5 chronic kidney disease, or end stage renal disease; N18.6 End stage renal disease; Z86.73 Personal history of transient ischemic attack (TIA), and cerebral infarction without residual deficits; G40.909 Epilepsy, unspecified, not intractable, without status epilepticus; R13.10 Dysphagia, unspecified; E03.9 Hypothyroidism, unspecified; I73.9 Peripheral vascular disease, unspecified; I47.1 Supraventricular tachycardia
CPT/HCPCS: 36415; 36569; 36590; 36600; 71045; 74018; 76000; 76770; 76937; 76942; 80048; 80053; 80202; 81003; 82550; 82553; 82575; 82803; 83880; 84100; 84484; 85007; 85025; 85610; 85730; 86706; 86707; 86803; 86850; 86900; 86901; 86920; 87040; 87070; 87081; 87086; 87181; 87205; 87324; 93005; 93306; 93922; 93925; 93930; 93970; 94002; 94003; 94640; 94664; 94760; 99285; J7620; J8499